=== PATIENT | male | born 1975 | race Caucasian/White ===

== ENCOUNTER 2019-02-06 16:23 | Outpatient (REF) | payer MEDICAID, SELFPAY ==
[2019-02-06 18:58] LABS: HCT 44.6 % (40.0-50.0); HGB 16.2 g/dL (13.5-17.5); Mean Corp. HGB Concentration 36.3 g/dL (32.0-36.0); Mean Corpuscular Hemoglobin 34.1 pg (27.0-33.0); Mean Corpuscular Volume 93.9 fL (80-95); Mean Platelet Volume 10.9 fL (8.0-11.0); Platelet Count 169 x1000/uL (130-400); RBC 4.75 m/cumm (4.50-6.00); RBC Distribution Width 11.5 % (11.8-14.1); White Blood Cell Count 5.66 k/cumm (4.4-10.8)
[2019-02-06 19:26] LABS: ALT 376 U/L (12-78); AST 305 U/L (15-37); Albumin 4.3 g/dL (3.4-5.0); Alkaline Phosphatase 63 U/L (46-116); Anion Gap 15.2 mmol/L (3-11); BUN 9 mg/dL (7-18); Bilirubin, Total 0.6 mg/dL (0.2-1.0); CO2 22.8 mmol/L (21.0-32.0); Calcium 9.3 mg/dL (8.5-10.1); Chloride 101 mmol/L (98-107); Glucose 82 mg/dL (70-100); Magnesium 1.8 mg/dL (1.8-2.4); Potassium 4.3 mmol/L (3.5-5.1); Sodium 139 mmol/L (136-145); Total Protein 7.9 g/dL (6.4-8.2); Vitamin B12 595 pg/mL (193-986)
== END 2019-02-06 16:43 ==
LOC: NCHCN 16:23
PROVIDERS: PCP Family Medicine; Visit Provider Family Medicine
DX: F10.20 Alcohol dependence, uncomplicated (principal); K70.10 Alcoholic hepatitis without ascites
CPT/HCPCS: 80053; 85027; 82607; 83735

== ENCOUNTER 2019-06-12 08:39 | Emergency (ER) | payer MEDICAID, SELFPAY ==
[2019-06-12 08:43] VITALS: BP 166/111; PULSE 111; RESP 18; TEMP 36.9; O2SAT 98
--- NOTE | 2019-06-12 08:48 | DI.RAD_ITS ---
EXAM: XR CHEST 2V PA LATERAL INDICATION: right sided chest/back pain. COMPARISON: XR LUMBAR SPINE COMPLETE from 06/12/2019 TECHNIQUE: 2D digital imaging was performed. FINDINGS: The heart size is normal. The lungs are clear. No pneumothorax, infiltrate or effusion is seen. Th ere is no compression fracture. IMPRESSION: Negative chest xray.
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
[2019-06-12] MEDS: Ibuprofen 600 MG TAB PO (08:56)
[2019-06-12] MEDS: Lidocaine 5% Patch 1 PATCH (08:56)
[2019-06-12 09:04] LABS: Bilirubin Negative (Negative); Blood Negative (Negative); Clarity Clear (Clear); Glucose Negative (Negative); Ketones Negative (Negative); Leukocyte Esterase Negative (Negative); Nitrite Negative (Negative); Urobilinogen 0.2 EU/dL (Up TO 0.2)
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
== END 2019-06-12 10:14 | disposition home or self-care (01) ==
PROVIDERS: Emergency Provider Emergency Medicine; PCP Family Medicine
DX: S20.221A Contusion of right back wall of thorax, initial encounter (principal); W50.0XXA Accidental hit or strike by another person, initial encounter
CPT/HCPCS: 99284; 71046; 72110; 81003; 99282

== ENCOUNTER 2019-07-08 12:45 | Emergency (ER) | payer MEDICAID, SELFPAY ==
[2019-07-08 12:54] VITALS: BP 159/97; PULSE 112; RESP 18; TEMP 37.2; O2SAT 97
[2019-07-08 13:02] VITALS: TEMP 37.4
--- NOTE | 2019-07-08 13:28 | ED.GENADUL_ITS ---
Discharge Plan Disposition Patient Disposition: HOME Condition: Stable Discharge Details Chief Complaint: Vascular Clinical Impression: Pain and swelling of left knee, Acute gout of knee, Cellulitis of foot, left Primary Care Provider: Radames Danielson ED Provider: Isabella Luu Home Meds and New Rx's Prescriptions: New prednisone 20 mg tablet See Rx Instructions .ROUTE .COMPLEX Qty: 12 RF: 0 cephalexin [Keflex] 500 mg capsule 500 mg PO QID Qty: 7 RF: 0 Continued amlodipine 5 MG tablet 10 mg PO DAILY RF: 0 ibuprofen [Advil] 200 mg Tablet 1,000 mg PO PRN PRNRF: 0 No Action omeprazole 20 mg Capsule,Delayed Release(Dr/Ec) 20 mg PO DAILY PRNRF: 0 Discharge Instructions Instructions: Gout (ED), Knee Pain (ED), Cellulitis (ED) Additional Instructions: Rest, ice and elevate your left knee as much as possible. Alternate tylenol and motrin as needed and directed for pain. Take the prednisone until finished. Call your primary care doctor's office tomorrow to schedule a follow up appointment within the next few days. Return to the emergency department with any worsening or new concerning symptoms such as fever, increased pain, redness or swelling. Discharge Data Discharge Date/Time-TO BE ENTERED AT DEPARTURE: 07/08/19 15:25 Discharge Physician: Isabella Luu Medical Decision Making 1310 -- 44-year-old male with a history of gout presents with left knee pain for the past 4 days. States he has had similar presentations with gout in the knee before which has been drained and injected with steroids, usually done by his PCP or Dr. Walker. Left anterior knee edematous and tender to palpation and pain with range of motion. No signs of septic arthritis. Neurovascularly intact. Discussed that we can obtain blood work and imaging prior to arthrocentesis but patient declined stating he only wants the arthrocentesis and steroid injection. 1345 -- Approximately 70 cc of turbid yellow fluid drained from knee. 40mg of kenalog injected into site of drainage. Pt tolerated procedure well. Patient also noted left lateral foot erythema while in the ED with 2 areas of r ed streaking extending from this. Patient states he has gotten gout and cellulitis in his foot before. Skin markings placed. We will also treat with antibiotics for early cellulitis. Patient had initially declined screening labs but is now agreeable. Patient has an allergy to colchicine and states he has mostly tolerated steroids in the past for his gout. A dose of prednisone and keflex given. 1500 -- Labs reviewed and note a normal white blood cell count, elevated CRP, normal uric acid. Fluid analysis notes monosodium urate crystals. White blood cell 11,000 so not consistent with a septic arthritis at this time. Patient states he feels good to go home. Was given a prescription for Keflex and prednisone. He was advised to rest, ice, elevate, call his PCP or Dr. Walker tomorrow for reevaluation this week. He was advised to return here immediately if he has any fever, worsening redness in his foot or any other concerns. Medical Records Medical records reviewed: Yes I reviewed the patient's medical records. Lab Data Lab results reviewed: Yes I reviewed the patient's lab results. Labs: 07/08/19 14:05 Synovial - Left Knee Body Fluid Culture - Pending 07/08/19 14:05 Synovial - Left Knee Gram Stain - Final Laboratory Tests Range/Units 07/08/19 07/08/19 07/08/19 14:05 14:05 14:25 WBC (4.4-10.8) k/cumm RBC (4.50-6.00) m/cumm Hgb (13.5-17.5) g/dL Hct (40.0-50.0) % MCV (80-95) fL MCH (27.0-33.0) pg MCHC (32.0-36.0) g/dL RDW (11.8-14.1) % Plt Count (130-400) x1000/uL MPV (8.0-11.0) fL Immature Gran % Neutrophils % Lymphocytes % Monocytes % Eosinophils % Basophils % Absolute Neutrophils (1.2-6.7) k/cumm Absolute Lymphocytes (1.2-3.4) k/cumm Absolute Monocytes (0.11-0.7) k/cumm Absolute Eosinophils (0.0-0.7) k/cumm Absolute Basophils (0.0-0.2) k/cumm Uric Acid (3.5-7.2) mg/dL 7.2 C-Reactive Protein (0.0-0.3) mg/dL 7.58 H Fluid Source L knee Fluid Color Yellow Fluid Clarity Cloudy Fluid WBC (0-0) /MM3 65571 H Fluid Mononuclear Cell (0-0) % 4 H Fl Polymorphonucl Cell (0-0) % 96 H Fluid Other Cells (0-0) 0 0 Fluid Crystals Fluid Crystal Source L knee Range/Units 07/08/19 14:25 WBC (4.4-10.8) k/cumm 8.52 RBC (4.50-6.00) m/cumm 4.28 L Hgb (13.5-17.5) g/dL 14.9 Hct (40.0-50.0) % 40.9 MCV (80-95) fL 95.6 H MCH (27.0-33.0) pg 34.8 H MCHC (32.0-36.0) g/dL 36.4 H RDW (11.8-14.1) % 11.8 Plt Count (130-400) x1000/uL 171 MPV (8.0-11.0) fL 10.6 Immature Gran % 0.1 Neutrophils % 67.6 Lymphocytes % 19.6 Monocytes % 11.3 Eosinophils % 0.9 Basophils % 0.5 Absolute Neutrophils (1.2-6.7) k/cumm 5.76 Absolute Lymphocytes (1.2-3.4) k/cumm 1.67 Absolute Monocytes (0.11-0.7) k/cumm 0.96 H Absolute Eosinophils (0.0-0.7) k/cumm 0.08 Absolute Basophils (0.0-0.2) k/cumm 0.04 Uric Acid (3.5-7.2) mg/dL C-Reactive Protein (0.0-0.3) mg/dL Fluid Source Fluid Color Fluid Clarity Fluid WBC (0-0) /MM3 Fluid Mononuclear Cell (0-0) % Fl Polymorphonucl Cell (0-0) % Fluid Other Cells (0-0) 0 Fluid Crystals Fluid Crystal Source HPI General Date/Time Provider Initiated Documentation: 07/08/19 12:47 . History of Present Illness 44 year old M presents to the emergency department with the chief complaint of L knee pain , with intensity rated at >10. Quality is described as aching and sharp, and is localized to the lower extremity (L knee). Patient extremity (to distal lower extremity ). Patient started experiencing this day(s) (4) and it has been constant. Movement worsens symptoms . Patient notes denies fever/chills and nausea/vomiting. Patient did receive the following treatments prior to arrival, NSAID (motrin at 4am ) Related Data Home Medications Medication Instructions Recorded Confirmed amlodipine 10 mg PO DAILY tab-cap 03/29/17 07/08/19 cephalexin [Keflex] 500 mg PO QID #7 cap 07/08/19 ibuprofen [Advil] 1,000 mg PO PRN PRN 07/08/19 07/08/19 omeprazole 20 mg PO DAILY PRN 07/08/19 07/08/19 prednisone See Rx Instructions .ROUTE 07/08/19 .COMPLEX #12 tab Previous Rx's Medication Instructions Recorded cephalexin [Keflex] 500 mg PO QID #7 cap 07/08/19 prednisone See Rx Instructions .ROUTE 07/08/19 .COMPLEX #12 tab Allergies Allergy/AdvReac Type Severity Reaction Status Date / Time colchicine AdvReac INTOLERANT Unverified 07/08/19 12:59 General Stated Complaint: Vascular LUCHO: 2 Review of Systems All systems reviewed & are unremarkable except as noted in HPI and below Constitutional Constitutional: Reports as per HPI, Denies chills and Denies fever(s) Eyes Eyes: Denies blurry vision ENT Ears, Nose, Mouth, and Throat: Denies dizziness, Denies sore throat and Denies throat swelling Cardiovascular Cardiovascular: Denies chest pain and Denies dyspnea Respiratory Respiratory: Denies cough and Denies dyspnea Gastrointestinal Gastrointestinal: Denies abdominal pain, Denies diarrhea and Denies vomiting Genitourinary Genitourinary: Denies hematuria and Denies dysuria Musculoskeletal Musculoskeletal: Denies back pain and Denies numbness Integumentary/Breasts Skin/Breast: Denies lesions and Denies rash Neurologic Neurologic: Denies dizziness, Denies focal weakness and Denies numbness Allergic/Immunologic Allergic/Immunologic: Denies throat swelling [facility] Medical History Alcohol abuse (Chronic) Gout (Chronic) HTN (hypertension) (Chronic) Surgical History History of arthroscopy of knee (Acute) History of back surgery (Acute) History of hand surgery (Acute) Family History Sister Depression BIPOLAR Social History Smoking/Tobacco Use Status: Never Alcohol Intake: current Alcohol Intake frequency: 3 or more drinks per day Drug use: Daily Substance use type: marijuana Do you feel safe in your relationship?: Yes Exam Const General: cooperative, healthy appearing and no acute distress HENMT Head: normal to inspection Mouth: oral mucosae normal Eyes General: appearance normal, both eyes and all related structures Neck Neck: normal visual inspection Resp Effort & Inspection: normal respiratory effort and able to speak in complete sentences Cardio Rate: regular rate Skin General skin exam: no rashes or lesions noted Neuro General: alert, awake and oriented x3 Motor: muscle tone normal throughout Extrem Elbow/forearm/wrist images: 1. Moderate amount of left anterior knee edema mainly suprapatellar. Significant tenderness palpation. No erythema noted. No drainage or bleeding noted. Limitation of motion due to pain. Ankle/foot/toe images: 1. A 2 x 2 centimeter area of erythema with 2 linear red streaks extending from superior aspect. No fluctuance, induration, drainage or bleeding. Area tender to touch. Other: Left DP/PT pulses intact. Psych Appearance: grossly normal Affect: normal affect Course Vital Signs Vital signs: Vital Signs Temperature 99 F 07/08/19 12:54 Pulse 112 H 07/08/19 12:54 Respiratory Rate 18 07/08/19 12:54 Blood Pressure 159/97 H 07/08/19 12:54 Pulse Oximetry 97 07/08/19 12:54 Temperature 99.3 F 07/08/19 13:02 Temperature Source Oral 07/08/19 13:02 Pulse 112 H 07/08/19 12:54 Respiratory Rate 18 07/08/19 12:54 Respiratory Effort 07/08/19 12:57 Blood Pressure 159/97 H 07/08/19 12:54 Blood Pressure Position Supine 07/08/19 12:54 Pulse Oximetry 97 07/08/19 12:54 Oxygen Delivery Method Room Air 07/08/19 12:54 Oxygen Flow Rate 0 07/08/19 12:54 Pain Level 10 07/08/19 12:54 Procedures Joint Aspiration/Injection Joint Asp./Inject. 1: Time Out Performed: Yes Side of body: left Joint Aspirated: knee Ultrasound Guidance: No Skin Prep: Povidone-Iodine1% Local Anesthetic: Lidocaine 2% and with Epi Amount of anesthesia used (mL): 10 Fluid Obtained: turbid Total fluid obtained (mL): 70 Medication Injected, if any: Triamcinolone Acetate Amount of Medication Injected (mls): 1 Patient Tolerated Procedure: well Complications: none
[2019-07-08] MEDS: oxyCODONE 5 MG TAB PO (13:39)
[2019-07-08] MEDS: Ketorolac 60 MG/2 ML VIAL IM (13:45)
[2019-07-08] MEDS: Triamcinolone 40 MG/ML VIAL IJ (14:00)
[2019-07-08] MEDS: predniSONE 20 MG TAB 60 MG PO (14:20)
[2019-07-08 14:45] LABS: C-Reactive Protein 7.58 mg/dL (0.0-0.3); Uric Acid 7.2 mg/dL (3.5-7.2)
[2019-07-08] MEDS: Cephalexin 500 MG CAP 1000 MG PO (14:47)
[2019-07-08 14:52] VITALS: BP 133/85; PULSE 82; RESP 15; TEMP 37.2; O2SAT 97
[2019-07-08 14:58] LABS: Clarity CLOUDY; Mononuclear Cells 4 % (0-0); Nucleated Cells 11655 /MM3 (0-0); Other Cells 0 0 (0-0); Polynuclear Cells 96 % (0-0); Source L KNEE
[2019-07-08] MEDS: Famotidine 20 MG TAB PO (14:59)
[2019-07-08 15:07] LABS: Absolute Basophil Count 0.04 k/cumm (0.0-0.2); Absolute Eosinophil Count 0.08 k/cumm (0.0-0.7); Absolute Lymphocyte Count 1.67 k/cumm (1.2-3.4); Absolute Monocyte Count 0.96 k/cumm (0.11-0.7); Absolute Neutrophil Count 5.76 k/cumm (1.2-6.7); Basophils % 0.5; Eosinophils % 0.9; HCT 40.9 % (40.0-50.0); HGB 14.9 g/dL (13.5-17.5); Lymphocytes % 19.6; Mean Corp. HGB Concentration 36.4 g/dL (32.0-36.0); Mean Corpuscular Hemoglobin 34.8 pg (27.0-33.0); Mean Corpuscular Volume 95.6 fL (80-95); Mean Platelet Volume 10.6 fL (8.0-11.0); Monocytes % 11.3; Neutrophils % 67.6; Platelet Count 171 x1000/uL (130-400); RBC 4.28 m/cumm (4.50-6.00); RBC Distribution Width 11.8 % (11.8-14.1); White Blood Cell Count 8.52 k/cumm (4.4-10.8)
[2019-07-08 15:08] LABS: Immature Grans % 0.1
[2019-07-08 15:28] VITALS: BP 133/85; PULSE 82; RESP 15; TEMP 37.2; O2SAT 97
--- NOTE | 2019-07-08 15:31 | NUR.NOTE ---
Nursing Note: 1450--c/o upset stomach--probably from prednisone--usually takes omeprozole when needed--Dr Luu notified---pepcid ordered.
[2019-07-08 15:38] LABS: ESR 38 mm/hr (0-15)
[2019-07-08 15:42] LABS: Abs Immature Grans 0.01 k/cumm (0.0-0.09)
== END 2019-07-08 15:25 | disposition home or self-care (01) ==
PROVIDERS: Emergency Provider Physician Assistant; PCP Family Medicine
DX: M25.462 Effusion, left knee (principal); M10.9 Gout, unspecified; L03.116 Cellulitis of left lower limb; I10 Essential (primary) hypertension
CPT/HCPCS: 20610; 36415; 85652; 96372; 99284; 84550; 85025; 86140; 87070; 87205; 89051; 89060; E0114; J1885; J7512

== ENCOUNTER 2019-10-23 10:42 | Outpatient (CLI) | payer MEDICAID, SELFPAY ==
--- NOTE | 2019-10-23 10:55 | DI.RAD_ITS ---
EXAM: XR HAND RT COMPLETE CLINICAL HISTORY: Pain in hand. TECHNIQUE: 2D digital imaging was performed. COMPARISON: No exams were available for comparison FINDINGS: BONES: No acute fracture is present. No bony destructive lesion is seen. There is a mild bowing def ormity of the 5th metacarpal consistent with an old healed fracture. JOINTS: No dislocation present. Are mild degenerative changes in the inter carpal and radial carpal r egions. SOFT TISSUE: Normal. IMPRESSION: Mild degenerative changes of the wrist. Old 5th metacarpal fracture.. DATA REPOSITORY: RADIATION DOSE DELIVERED:
== END 2019-10-23 11:02 ==
PROVIDERS: PCP Family Medicine; Visit Provider Student in an Organized Health Care Education/Training Program
DX: M79.641 Pain in right hand (principal); M19.031 Primary osteoarthritis, right wrist
CPT/HCPCS: 73130

== ENCOUNTER 2020-04-03 11:20 | Outpatient (CLI) | payer MEDICAID, SELFPAY ==
--- NOTE | 2020-04-03 12:42 | DI.RAD_ITS ---
EXAM: XR FOOT RT COMPLETE CLINICAL HISTORY: RT FOOT PAIN, M79.671. TECHNIQUE: 2D digital imaging was performed. COMPARISON: No exams were available for comparison FINDINGS: BONES: No acute fracture is present. No bony destructive lesion is seen. Degenerative changes at the 1st MTP joint and intertarsal joints. JOINTS: No dislocation present. SOFT TISSUE: Vascular calcifications. IMPRESSION: Degenerative changes. No acute abnormality.. DATA REPOSITORY: RADIATION DOSE DELIVERED:
== END 2020-04-03 11:40 ==
PROVIDERS: PCP Family Medicine; Visit Provider Family Medicine
DX: M19.071 Primary osteoarthritis, right ankle and foot (principal)
CPT/HCPCS: 73630

== ENCOUNTER 2020-04-03 12:42 | Outpatient (REF) | payer MEDICAID, SELFPAY ==
[2020-04-03 18:57] LABS: HCT 45.7 % (40.0-50.0); HGB 16.2 g/dL (13.5-17.5); MCH 34.5 pg (27.0-33.0); MCHC 35.4 % (32.0-36.0); MCV 97.2 fL (80-95); MPV 11.2 fL (8.0-11.0); Platelet Count 204 10^3/uL (130-400); RDW 11.8 % (11.8-14.1); RDW-SD 42.2 fL; WBC 9.17 10^3/uL (4.4-10.8)
[2020-04-03 19:26] LABS: ALT 68 U/L (16-63); AST 74 U/L (15-37); Albumin 4.4 g/dL (3.4-5.0); Alkaline Phosphatase 48 U/L (46-116); Anion Gap 13.6 mmol/L (3-11); BUN 8 mg/dL (7-18); Bilirubin, Total 1.1 mg/dL (0.2-1.0); CO2 24.4 mmol/L (21.0-32.0); CREATININE 1.26 mg/dL (0.70-1.30); Calcium 9.4 mg/dL (8.5-10.1); Chloride 100 mmol/L (98-107); Glucose 107 mg/dL (74-106); Magnesium 1.9 mg/dL (1.8-2.4); Potassium 3.7 mmol/L (3.5-5.1); Sodium 138 mmol/L (136-145); Total Protein 7.8 g/dL (6.4-8.2); Uric Acid 10.9 mg/dL (3.5-7.2)
[2020-04-03 20:04] LABS: Vitamin B12 425 pg/mL (193-986)
== END 2020-04-03 13:02 ==
LOC: NCHCN 12:42
PROVIDERS: PCP Family Medicine; Visit Provider Family Medicine
DX: K70.10 Alcoholic hepatitis without ascites (principal); I10 Essential (primary) hypertension; M10.9 Gout, unspecified
CPT/HCPCS: 80053; 85027; 82607; 83735; 84550

== ENCOUNTER 2020-04-30 19:05 | Outpatient (REF) | payer MEDICAID, SELFPAY ==
[2020-04-30 20:01] LABS: Lithium 0.93 mmol/L (0.60-1.20)
== END 2020-04-30 19:25 ==
LOC: NCHCN 19:05
PROVIDERS: PCP Family Medicine; Visit Provider Family Medicine
DX: F31.9 Bipolar disorder, unspecified (principal); Z51.81 Encounter for therapeutic drug level monitoring
CPT/HCPCS: 80178

== ENCOUNTER 2020-09-22 20:23 | Outpatient (REF) | payer MEDICAID, SELFPAY ==
[2020-09-22 16:03] LABS: HCT 41.3 % (40.0-50.0); HGB 14.5 g/dL (13.5-17.5); MCH 31.9 pg (27.0-33.0); MCHC 35.1 % (32.0-36.0); MPV 10.6 fL (8.0-11.0); Platelet Count 277 10^3/uL (130-400); RBC 4.54 10^6/uL (4.36-5.78); RDW 12.3 % (11.8-14.1); WBC 12.98 10^3/uL (4.4-10.8)
[2020-09-22 16:21] LABS: ALT 22 U/L (16-63); AST 12 U/L (15-37); Albumin 4.3 g/dL (3.4-5.0); Alkaline Phosphatase 41 U/L (46-116); Anion Gap 10.4 mmol/L (3-11); BUN 8 mg/dL (7-18); Bilirubin, Total 0.4 mg/dL (0.2-1.0); CO2 21.6 mmol/L (21.0-32.0); CREATININE 0.9 mg/dL (0.70-1.30); Calcium 9.2 mg/dL (8.5-10.1); Chloride 106 mmol/L (98-107); Glucose 74 mg/dL (74-106); Potassium 4.1 mmol/L (3.5-5.1); Sodium 138 mmol/L (136-145); Total Protein 7.5 g/dL (6.4-8.2)
[2020-09-22 16:29] LABS: Uric Acid 6.3 mg/dL (3.5-7.2)
== END 2020-09-22 20:24 | disposition home or self-care (01) ==
LOC: NCHCN 20:23
PROVIDERS: PCP Family Medicine; Visit Provider Family Medicine
DX: F31.9 Bipolar disorder, unspecified (principal); M10.9 Gout, unspecified; K70.10 Alcoholic hepatitis without ascites
CPT/HCPCS: 80053; 85027; 84443; 84550

== ENCOUNTER 2020-12-01 21:48 | Outpatient (REF) | payer MEDICAID, SELFPAY ==
[2020-12-01 16:53] LABS: Uric Acid 6.3 mg/dL (3.5-7.2)
[2020-12-01 17:26] LABS: Lithium 1.1 mmol/l (0.6-1.2)
== END 2020-12-01 21:49 | disposition home or self-care (01) ==
LOC: NCHCN 21:48
PROVIDERS: PCP Family Medicine; Visit Provider Family Medicine
DX: F31.9 Bipolar disorder, unspecified (principal); Z51.81 Encounter for therapeutic drug level monitoring; M10.9 Gout, unspecified
CPT/HCPCS: 80178; 84550

== ENCOUNTER 2021-06-02 01:42 | Outpatient (CLI) | payer MEDICAID, SELFPAY ==
[2021-06-02 10:03] LABS: Source Nasal/Nares
[2021-06-02 16:05] LABS: COVID-19 PCR Negative (Negative)
== END 2021-06-02 01:43 | disposition home or self-care (01) ==
LOC: LBO 01:42
PROVIDERS: PCP Family Medicine; Visit Provider Surgery
DX: Z20.822 Contact with and (suspected) exposure to COVID-19 (principal); Z01.818 Encounter for other preprocedural examination
CPT/HCPCS: 87635

== ENCOUNTER 2021-06-03 09:29 | Day surgery (SDC) | payer MEDICAID, SELFPAY ==
[2021-06-03] VITALS (8 sets, daily range): BP systolic 99–114; BP diastolic 59–83; PULSE 55–73; RESP 16–24; TEMP 36–36.4; O2SAT 100; BMI 26.5
--- NOTE | 2021-06-03 07:02 | ROE_ITS ---
Date of service: 06/03/21 Time of Service: 11:56 Operative Note Operative Note DATE OF PROCEDURE: 06/03/21 PRE-OP DIAGNOSIS: Umbilical hernia POST-OP DIAGNOSIS: same PROCEDURE: Umbilical hernia repair with mesh SURGEON: Rocio Ridley FUSELAGE FRAMER: Katelynn Vaughan ANESTHESIA TYPE: General LMA/ETT (Yoandy Ann CRNA) Refer to Anesthesia Record ESTIMATED BLOOD LOSS: 15 PATHOLOGY: none sent COMPLICATIONS: None Patient was transported to: PACU Patient's condition: stable Implants: Ventralex 6.5 cm: REF- [id number] LOT- [id number] EXP- Indications: Mr. Enrique is a 46-year-old gentleman with an umbilical hernia which is starting to bother him. 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 We discussed the procedure in detail as well as its complications. We reviewed a bilateral rectus block to help with pain control after surgery. Discharge pain medications Tylenol and ibuprofen were reviewed. Also discussed Covid testing prior to surgery. Risks, benefits and complications have been reviewed. Complications include but are not limited to bleeding, pain, infection, injury to underlying structures like bowel and adverse reaction to the medication. Questions were entertained and answered to their satisfaction and they wished to proceed. No guarantees were given or implied. Proceed with umbilical hernia repair with mesh We will ask anesthesia for bilateral rectus block to help with postoperative pain Findings: 2 cm hernia defect with omentum in it Procedure Description: After informed consent was obtained the patient was taken to the operating room and placed in a supine position. Monitors and SCDs were applied and a timeout was done. The patient's name, date of , procedure type, procedure site, allergies to medications, preoperative antibiotic, and DVT prophylaxis were all reviewed. Fire risk was assessed. Next the abdomen was prepped and draped in a sterile surgical fashion. 0.5% Bupivacaine mixed with Exparel was injected into the dermis just under the umbilicus. An incision was made with a 15 blade under the umbilicus. Dissection was done with cautery through the subcutaneous tissues and through the umbilical stalk down to the fascia. The hernia defect was identified and measured 2 cm. The hernia sac was opened and the peritoneum was swept for adhesions. No adhesions were noted. A 6.5 cm round mesh was then placed under the peritoneum and secured in 4 quarters with 2-0 Proline. Once the mesh was secured the tissues were irrigated with some normal saline. No bleeding was identified. The fascia was closed over the mesh with 0 vicryl running suture. 2-0 Vicryl was used to secure the umbilicus down to the fascia. The subcutaneous tissue was re-approximated with 2-0 vicryl. The dermis was re-approximated with a running 4-0 Vicryl. The skin was cleaned and dried and skin affix was applied. The patient was woken up and taken back to recovery in stable condition. There were no immediate complications. Sponge, instrument and needle counts were correct at the end of the case x2.
--- NOTE | 2021-06-03 07:04 | W.PM.DSUDISC ---
Discharge Plan Disposition Patient Disposition: HOME Condition: Good Discharge Details Reason For Visit: umbilical hernia repair Attending Provider: Rocio Ridley Primary Care Provider: Radames Danielson Home Meds and New Rx's Prescriptions: New oxycodone 5 mg tablet 5 mg PO Q6H PRNQty: 14 RF: 0 Continued amlodipine 5 MG tablet 10 mg PO DAILY RF: 0 colchicine 0.6 mg capsule 0.6 mg PO DAILY RF: 0 allopurinol 300 mg tablet 300 mg PO DAILY RF: 0 lithium carbonate 600 mg capsule 600 mg PO BID RF: 0 multivitamin Tablet 1 tab PO DAILY RF: 0 propranolol 10 mg tablet 10 mg PO TID PRNRF: 0 ibuprofen [Advil] 200 mg Tablet 1,000 mg PO PRN PRNRF: 0 omeprazole 20 mg Capsule,Delayed Release(Dr/Ec) 20 mg PO DAILY PRNRF: 0 Discharge Instructions Instructions: Ventral Hernia Repair (DC) Additional Instructions: Activity at Home after surgery: 1. Make sure you walk outside at least 4 times per day 2. You should be able to climb a flight of stairs 3. No driving while in pain or taking pain medications 4. No strenuous activity or heavy lifting for 4 weeks (open surgery) Diet, Nutrition, & wound healin. Avoid alcohol until after you are recovered from your surgery 2. Make sure to eat plenty of lean protein (meat, fish, eggs, cottage cheese, beans) 3. Eat a variety of fruits and vegetables. Eat plenty of high fiber foods to avoid constipation. 4. Drink plenty of liquids to stay hydrated and avoid constipation Pain Medications: 1. Tylenol 650mg every 6 hours as needed and Ibuprofen 600 mg every 6 hours as needed. You may alternate between the 2 medications every 3 hours 2. If a narcotic has been prescribed take as directed only for breakthrough pain For Constipation: 1. Take Milk of Magnesia or MiraLax as needed for constipation Other: 1. You may shower daily. Do not scrub the incisions 2. Do not soak the incisions for 1 week 3. You may alternate ice and heat as needed for pain and swelling Wound Care: 1. Keep the incisions clean and dry Please call our office if you develop: 1. Fevers >101.5 2. Nausea or Vomiting 3. Worsening pain 4. Redness and thick discharge from the wounds If after hours please call the Hospital at and ask to speak to the on-call surgeon Referrals: Rocio Ridley MD [ [facility] STAFF PHYSICIAN] - 06/16/21 Activity:: as above Remove Dressings/Wound Care:: 24 hours Shower/Bathe:: 24 hours Diet:: As Tolerated Discharge Orders Discharge Orders: Discharge Order (Routine); Ordered 06/03/21 Ordered By: Rocio Ridley
[2021-06-03] MEDS: Celecoxib 200 MG CAP PO (09:58)
[2021-06-03] MEDS: Acetaminophen 500 MG TAB 1000 MG PO (09:59)
[2021-06-03] MEDS: Lactated Ringers 1,000 ML 80 ML IV (10:09)
--- NOTE | 2021-06-03 10:22 | W.ANESPRE ---
General Info Date of Service Date Performed: 06/03/21 Height: 5 ft 9 in Weight: 81.6 kg Body Mass Index (BMI): 26.5 Surgical Procedure: Operation Date: 06/03/21 11:10 Proposed Procedures Side Surgeon p Herniorrhaphy Umbilical Rocio Ridley MD Meds Allergies and Home Medications Allergies Allergy/AdvReac Type Severity Reaction Status Date / Time colchicine AdvReac INTOLERANT Unverified 06/03/21 09:48 Home Medication Medication Instructions Recorded amlodipine 10 mg PO DAILY tab-cap 03/29/17 ibuprofen [Advil] 1,000 mg PO PRN PRN 07/08/19 omeprazole 20 mg PO DAILY PRN 07/08/19 allopurinol 300 mg tablet 300 mg PO DAILY 05/21/21 colchicine 0.6 mg capsule 0.6 mg PO DAILY 05/21/21 lithium carbonate 600 mg capsule 600 mg PO BID 05/21/21 multivitamin 1 tab PO DAILY 05/21/21 propranolol 10 mg tablet 10 mg PO TID PRN 05/29/21 Current Visit Medications: Current Medications Generic Name Dose Route Start Last Admin Trade Name Freq PRN Reason Stop Dose Admin Acetaminophen 1,000 mg 06/03/21 06:00 06/03/21 09:59 Acetaminophen 500 Mg Tab PO 06/03/21 23:59 1,000 mg PREOP HEATHER Administration Celecoxib 200 mg 06/03/21 06:00 06/03/21 09:58 Celecoxib 200 Mg Cap PO 06/03/21 23:59 200 mg PREOP HEATHER Administration Ringer's Solution 1,000 mls @ 80 mls/hr 06/03/21 06:00 06/03/21 10:09 IV 06/23/21 23:59 80 mls/hr INFUSION HEATHER Administration Cefazolin Sodium 2,000 mg/ 100 mls @ 200 mls/hr 06/03/21 06:00 Sodium Chloride IVPB 06/03/21 16:00 PREOP HEATHER Ondansetron HCl 4 mg/ Sodium 52 mls @ 200 mls/hr 06/03/21 07:04 Chloride IVPB Q6H PRN PRN IV Miscellaneous Supplies 1 each 06/03/21 06:00 Iv Access IV 06/23/21 23:59 DIRECTED HEATHER Sodium Chloride 0 ml 06/03/21 06:00 Normal Saline Flush 10 Ml Syr IV 06/23/21 23:59 PRN PRN Sodium Chloride 0 ml 06/03/21 06:00 Normal Saline 10 Ml Vial IJ 06/23/21 23:59 DIRECTED PRN Sterile Water 0 ml 06/03/21 06:00 Water,Injection,Sterile 10 Ml Vial IJ 06/23/21 23:59 DIRECTED PRN Tramadol HCl 50 mg 06/03/21 07:04 Tramadol 50 Mg Tab PO Q6H PRN PRN Pain PFSH Active Problems Active Problems: Problem Status Onset Code Skin nodule R22.9 Blood in stool K92.1 Umbilical hernia K42.9 Contusion of right hand, initial encounter ~10/09/19 S60.221A Medical History Medical History Alcohol abuse sober >1 year Alcoholic hepatitis Bipolar affective disorder Chewing tobacco use Degenerative joint disease (DJD) of lumbar spine Gout HTN (hypertension) 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 01/05 Seizure disorder No seizures since he stopped drinking Surgical History Surgical History History of arthroscopy of knee History of back surgery History of hand surgery Tobacco Smoking/Tobacco Use Status: Current every day Tobacco Type: smokeless tobacco Smokeless tobacco user: chewing tobacco Alcohol Alcohol Intake: former Year quit: 2019 Substance Use Substance use: Daily Substance use type: marijuana Details: last used 3 days ago.HE Vital Signs and Lab Results Vital Signs Most Recent Vital Signs in EMR: Most Recent Vital Signs Temp Pulse Resp BP Pulse Ox 36.0 C L 73 18 114/83 100 06/03/21 09:41 06/03/21 09:41 06/03/21 09:41 06/03/21 09:41 06/03/21 09:41 Lab Results Blood Type / Crossmatch: No Data to Display Complete Blood Count: No Data to Display Complete Metabolic Panel: No Data to Display Liver Function Panel: No Data to Display Coagulation Panel: No Data to Display Cardiac Panel: No Data to Display Arterial Blood Gas: No Data to Display Venous Blood Gas: No Data to Display Pancreas Panel: No Data to Display Thyroid Panel: No Data to Display Infectious Disease: Coronavirus (COVID-19)(PCR) Negative (Negative) 06/02/21 08:30 06/02/21 Coronavirus 2019 Source Nasal/Nares 06/02/21 08:30 06/02/21 Blood Cultures: No Data to Display Toxicology Panel: No Data to Display Anesthesia Assessment and Plan Anesthesia History Personal History: No History of Anesthesia Complications Family History: No Family History of Anesthesia Complications Exercise Tolerance Exercise Tolerance: Metabolic Equivalents>4 Pertinent Negatives Pertinent Negatives: No Symptoms of GERD, No Major Cardiovascular Symptoms or Complaints and No Major Pulmonary Symptoms or Complaints Cardiac & Pulmonary Exam Cardiac Exam: Normal S1/S2 Heart Sounds Pulmonary Exam: Clear Bilateral Breath Sounds Implantable Cardiac Device Does patient have a Pacemaker or an ICD?: No Airway Exam Known Difficult Airway: Yes Mallampati Class: 1 Mouth Opening: Normal (> 3cm) Thyromental Distance: Greater than 3 cm Neck Range of Motion: Full ROM Neck Circumference: Normal Teeth Condition: Normal Dentition Airway Comments: Upper left cracked tooth ASA Classification ASA Score: ASA 2 Emergency Case?: No NPO Status NPO Status: NPO Clears >2 hours, Solids >8 hours Anesthesia Plan Resuscitation Status: Full Code Anesthesia Technique: General Anesthesia Airway Planned: LMA Monitors Used: Standard Monitors
[2021-06-03] MEDS: ceFAZolin 2,000 MG in Normal Saline 100 ML 200 MG IVPB (11:14)
[2021-06-03] MEDS: Bupivacaine 0.25% Pres-Free 30 ML VIAL (11:54)
[2021-06-03] MEDS: traMADol 50 MG TAB PO (13:02)
--- NOTE | 2021-06-03 13:04 | W.ANESPOSTOP ---
Postoperative Evaluation Date, Time and Location Date Performed: 06/03/21 Time Performed: 13:04 Patient Location: Day Surgery Unit Vital Signs Most Recent Imported Vital Signs: Most Recent Vital Signs Temp Pulse Resp BP Pulse Ox 36.1 C L 55 L 19 109/63 100 06/03/21 12:35 06/03/21 12:35 06/03/21 12:35 06/03/21 12:35 06/03/21 12:35 Pain Score Most Recent Pain Score: Most Recent Pain Score Pain Level 0 06/03/21 12:35 Assessment Mental Status: Awake (Alert & Oriented to Patient Baseline) Airway and Respiratory Function: Patent airway with normal (patient baseline) respiratory exam Cardiovascular Function: Hemodynamically Stable Hydration Status: Adequately Hydrated Nausea & Vomiting: No Nausea or Vomiting Pain: Pt. Denies Any Pain Peripheral Nerve Block: Patient did not receive a nerve block
== END 2021-06-03 14:10 | disposition home or self-care (01) ==
LOC: SUR 09:29
PROVIDERS: PCP Family Medicine; Visit Provider Surgery
PROC: (CPT 49585; principal; 2021-06-03 11:00)
DX: K42.9 Umbilical hernia without obstruction or gangrene (principal); F31.9 Bipolar disorder, unspecified; M10.9 Gout, unspecified; F17.220 Nicotine dependence, chewing tobacco, uncomplicated; I10 Essential (primary) hypertension
CPT/HCPCS: 49585; C1781; J0131; J0690; J1100; J1885; J2001; J2250; J2405

== ENCOUNTER 2021-06-11 09:37 | Outpatient (REF) | payer MEDICAID, SELFPAY ==
[2021-06-11 16:30] LABS: HCT 42.9 % (40.0-50.0); HGB 14.7 g/dL (13.5-17.5); MCH 31.4 pg (27.0-33.0); MCHC 34.3 % (32.0-36.0); MCV 91.7 fL (80-95); Platelet Count 202 10^3/uL (130-400); RBC 4.68 10^6/uL (4.36-5.78); RDW 12.3 % (11.8-14.1); RDW-SD 40.6 fL; WBC 8.81 10^3/uL (4.4-10.8)
[2021-06-11 17:18] LABS: ALT 25 U/L (16-63); AST 19 U/L (15-37); Albumin 4.4 g/dL (3.4-5.0); Alkaline Phosphatase 54 U/L (46-116); Anion Gap 11.8 mmol/L (3-11); BUN 17 mg/dL (7-18); Bilirubin, Total 0.4 mg/dL (0.2-1.0); CO2 27.2 mmol/L (21.0-32.0); CREATININE 0.9 mg/dL (0.70-1.30); Calcium 9.6 mg/dL (8.5-10.1); Chloride 104 mmol/L (98-107); Glucose 117 mg/dL (74-106); Potassium 4.3 mmol/L (3.5-5.1); Sodium 143 mmol/L (136-145); TSH (W/Ref FT4) 3.59 uIU/mL (0.36-3.74); Total Protein 7.4 g/dL (6.4-8.2); Uric Acid 4.9 mg/dL (3.5-7.2)
[2021-06-11 17:31] LABS: Lithium 0.7 mmol/l (0.6-1.2)
== END 2021-06-11 09:38 | disposition home or self-care (01) ==
LOC: LBN 09:37
PROVIDERS: PCP Family Medicine; Visit Provider Family Medicine
DX: M10.9 Gout, unspecified (principal); F10.21 Alcohol dependence, in remission; F31.9 Bipolar disorder, unspecified; Z51.81 Encounter for therapeutic drug level monitoring; Z79.899 Other long term (current) drug therapy
CPT/HCPCS: 80053; 85027; 80178; 84443; 84550

== ENCOUNTER 2022-04-16 07:39 | Emergency (ER) | payer MEDICAID, SELFPAY ==
[2022-04-16 07:47] VITALS: BP 136/84; PULSE 70; RESP 20; TEMP 36.5; O2SAT 100
--- NOTE | 2022-04-16 08:31 | W.ED.GENAD ---
Discharge Plan Disposition Patient Disposition: HOME Condition: Stable Discharge Details Clinical Impression: Cellulitis Primary Care Provider: Radames Danielson ED Provider: Nkechi Raza Home Meds and New Rx's Prescriptions: New sulfamethoxazole-trimethoprim [Bactrim DS] 800-160 mg tablet 1 tab PO BID 7 Days Qty: 14 0RF Continued amlodipine 5 MG tablet 10 mg PO DAILY colchicine 0.6 mg capsule 0.6 mg PO DAILY allopurinol 300 mg tablet 300 mg PO DAILY lithium carbonate 600 mg capsule 600 mg PO BID multivitamin Tablet 1 tab PO DAILY propranolol 10 mg tablet 10 mg PO TID PRN ibuprofen [Advil] 200 mg Tablet 1,000 mg PO PRN PRN omeprazole 20 mg Capsule,Delayed Release(Dr/Ec) 20 mg PO DAILY PRN Discharge Instructions Instructions: Cellulitis (ED) Additional Instructions: warm compresses antibiotic as prescribed return with spreading redness, fever, worsening pain the antibiotic takes ~48 hours to become affective Referrals: Radames Danielson [Primary Care Provider] - Discharge Data Discharge Date/Time-TO BE ENTERED AT DEPARTURE: 04/16/22 09:43 Medical Decision Making Patient appears well, he has evidence of cellulitis, will cover him with Bactrim for MRSA possibility Alert and oriented afebrile and nontoxic Return precautions discussed 48-hour recheck recommended Medical Records Medical records reviewed: Yes I reviewed the patient's medical records. Lab Data Lab results reviewed: Yes I reviewed the patient's lab results. HPI General Date/Time Provider Initiated Documentation: 04/16/22 08:14. HPI Narrative: This 46-year-old gentleman presents with upper lip swelling after snorting cocaine. He states that he shared a strong with his nephew however has had recurrent MRSA infections past. This started approximately 3 days prior to arrival. He describes the pain as burning. He denies any pain to his sinuses or headache. He denies any vision change or fever. He denies any difficulty swallowing, chest pain, shortness of breath. Related Data Home Medications Medication Instructions Recorded Confirmed amlodipine 5 mg tablet 10 mg PO DAILY 03/29/17 06/23/21 ibuprofen 200 mg tablet (Advil) 1,000 mg PO PRN PRN 07/08/19 06/23/21 omeprazole 20 mg capsule,delayed 20 mg PO DAILY PRN 07/08/19 06/23/21 release allopurinol 300 mg tablet 300 mg PO DAILY 05/21/21 06/23/21 colchicine 0.6 mg capsule 0.6 mg PO DAILY 05/21/21 06/23/21 lithium carbonate 600 mg capsule 600 mg PO BID 05/21/21 06/23/21 multivitamin 1 tab PO DAILY 05/21/21 06/23/21 propranolol 10 mg tablet 10 mg PO TID PRN 05/29/21 06/23/21 sulfamethoxazole 800 1 tab PO BID 7 days #14 tabs 04/16/22 mg-trimethoprim 160 mg tablet (Bactrim DS) Previous Rx's Medication Instructions Recorded sulfamethoxazole 800 1 tab PO BID 7 days #14 tabs 04/16/22 mg-trimethoprim 160 mg tablet (Bactrim DS) Allergies Allergy/AdvReac Type Severity Reaction Status Date / Time colchicine AdvReac INTOLERANT Unverified 06/23/21 10:59 General Stated Complaint: Cellulitis LUCHO: 4 Review of Systems All systems reviewed & are unremarkable except as noted in HPI and below PFSH All Active Problems (Updated 04/16/22 @ 08:38 by ELKIN Carmona) Cellulitis (Acute) Skin nodule (Acute) Blood in stool (Acute) Umbilical hernia (Acute) Contusion of right hand, initial encounter (Acute ~10/09/19) Active Problem List Skin nodule (Acute) Blood in stool (Acute) Umbilical hernia (Acute) Contusion of right hand, initial encounter (Acute ~10/09/19) Medical History Alcohol abuse sober >1 year Alcoholic hepatitis Bipolar affective disorder Chewing tobacco use Degenerative joint disease (DJD) of lumbar spine Gout HTN (hypertension) 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 01/05 Seizure disorder No seizures since he stopped drinking Surgical History History of arthroscopy of knee History of back surgery History of hand surgery Family History Sister Depression BIPOLAR Social History Smoking/Tobacco Use Status: Current every day Tobacco Type: smokeless tobacco Smokeless tobacco user: chewing tobacco Smoking risk assessment performed?: Yes Alcohol Intake: former Year quit: 2019 Drug use: Daily Substance use type: marijuana Details: last used 3 days ago.HE Do you feel safe at home: Yes Do you feel safe in your relationship?: Yes Exam Const General: cooperative, comfortable and no acute distress Orientation: alert and oriented x3 [facility] Head images: 1. Erythema and swelling noted, no fluctuance or evidence of abscess, no crepitus Throat: posterior oropharynx normal and uvula midline Resp Effort & Inspection: normal respiratory effort Cardio Rate: regular rate Neuro General: patient alert and patient oriented x3 Course Vital Signs Vital signs: Vital Signs Temperature 36.5 C 04/16/22 07:47 Pulse 70 04/16/22 07:47 Respiratory Rate 20 04/16/22 07:47 Blood Pressure 136/84 04/16/22 07:47 Pulse Oximetry 100 04/16/22 07:47 Temperature 36.5 C 04/16/22 07:47 Temperature Source Temporal Artery Scan 04/16/22 07:47 Pulse 70 04/16/22 07:47 Respiratory Rate 20 04/16/22 07:47 Blood Pressure 136/84 04/16/22 07:47 Blood Pressure Position Sitting 04/16/22 07:47 Pulse Oximetry 100 04/16/22 07:47 Oxygen Delivery Method Room Air 04/16/22 07:47 Oxygen Flow Rate 0 04/16/22 07:47
== END 2022-04-16 09:43 | disposition home or self-care (01) ==
PROVIDERS: Emergency Provider Physician Assistant; PCP Family Medicine
DX: I10 Essential (primary) hypertension; F17.290 Nicotine dependence, other tobacco product, uncomplicated; L03.211 Cellulitis of face
CPT/HCPCS: 99283; 99284

== ENCOUNTER 2022-04-20 14:36 | Emergency (ER) | payer MEDICAID, SELFPAY ==
[2022-04-20 14:40] VITALS: BP 120/66; PULSE 62; RESP 18; TEMP 36.6; O2SAT 100
--- NOTE | 2022-04-20 14:58 | W.ED.GENAD ---
Discharge Plan Disposition Patient Disposition: HOME Condition: Stable Discharge Details Clinical Impression: Cellulitis Primary Care Provider: Radames Danielson ED Provider: Dustin Alvarez Home Meds and New Rx's Prescriptions: New clindamycin HCl 300 mg capsule 300 mg PO Q8H 10 Days Qty: 30 0RF Continued amlodipine 5 MG tablet 5 mg PO DAILY colchicine 0.6 mg capsule 0.6 mg PO DAILY allopurinol 300 mg tablet 600 mg PO DAILY lithium carbonate 600 mg capsule 600 mg PO BID multivitamin Tablet 1 tab PO DAILY propranolol 10 mg tablet 10 mg PO TID PRN ibuprofen [Advil] 200 mg Tablet 1,000 mg PO PRN PRN omeprazole 20 mg Capsule,Delayed Release(Dr/Ec) 20 mg PO DAILY PRN sulfamethoxazole-trimethoprim [Bactrim DS] 800-160 mg tablet 1 tab PO BID 7 Days Qty: 14 0RF Discharge Instructions Instructions: Cellulitis (ED) Additional Instructions: Continue taking the Bactrim and add on clindamycin as directed. Continue [id number] Tylenol and Motrin as directed for discomfort. Warm moist compresses every 2 hours for 20 minutes. Please watch for new or worsening symptoms and return to the ER for any concerns. Lastly, I do recommend that you contact your primary care provider to discuss your ongoing symptoms and need for outpatient reevaluation. Medical Decision Making This is a 46-year-old gentleman who reports that he developed right facial and nostril cellulitis a couple of days after snorting cocaine. He was seen in the ER and started on Bactrim, maybe the infection was slowing down but now feels as though it is worsening. He denies fever, foul taste in his mouth, drainage. Clinically he has some soft tissue swelling and cellulitis of his right upper lip and just inferior to his right nostril, there is an open sore in his nostril. There is no crusting or evidence of impetigo. Clinically he appears well, nontoxic, afebrile, no lymphadenopathy. While he does have mild swelling, there is no pointing abscess, fluctuance, etc. I see no clear indication to initiate I&D at this time especially in such a sensitive area on his face. Discussed my thought process and concerns. Plan is to initiate clindamycin therapy, we discussed the importance of warm compresses, and if symptoms are not improving over the next 36 hours or so, or in fact worsening, then I&D may be necessary. Standard discharge and return precautions were provided. Patient understands, is agreeable to this plan, and has no additional questions or concerns upon discharge. This documentation was generated using [employer] system, please disregard any oddities of phrase or misspellings. Medical Records Medical records reviewed: Yes I reviewed the patient's medical records. HPI General Mode of arrival: ambulatory. Date/Time Provider Initiated Documentation: 04/20/22 14:47. Limitations to Documentation: no limitations. Information obtained by: patient. History of Present Illness 46 year old M presents to the emergency department with the chief complaint of facial infection, described as moderate, with intensity rated at 7. Quality is described as aching, and is localized to the face. Patient reports no radiation. Patient started experiencing this day(s) (7) and it has been constant. No exacerbating factors reported . Patient notes no other symptoms.. Patient did receive the following treatments prior to arrival, other (Bactrim) Related Data Home Medications Medication Instructions Recorded Confirmed amlodipine 5 mg tablet 5 mg PO DAILY 03/29/17 04/20/22 ibuprofen 200 mg tablet (Advil) 1,000 mg PO PRN PRN 07/08/19 04/20/22 omeprazole 20 mg capsule,delayed 20 mg PO DAILY PRN 07/08/19 06/23/21 release allopurinol 300 mg tablet 600 mg PO DAILY 05/21/21 04/20/22 colchicine 0.6 mg capsule 0.6 mg PO DAILY 05/21/21 04/20/22 lithium carbonate 600 mg capsule 600 mg PO BID 05/21/21 04/20/22 multivitamin 1 tab PO DAILY 05/21/21 04/20/22 propranolol 10 mg tablet 10 mg PO TID PRN 05/29/21 06/23/21 sulfamethoxazole 800 1 tab PO BID 7 days #14 tabs 04/16/22 04/20/22 mg-trimethoprim 160 mg tablet (Bactrim DS) clindamycin HCl 300 mg capsule 300 mg PO Q8H 10 days #30 caps 04/20/22 Previous Rx's Medication Instructions Recorded sulfamethoxazole 800 1 tab PO BID 7 days #14 tabs 04/16/22 mg-trimethoprim 160 mg tablet (Bactrim DS) clindamycin HCl 300 mg capsule 300 mg PO Q8H 10 days #30 caps 04/20/22 Allergies Allergy/AdvReac Type Severity Reaction Status Date / Time colchicine AdvReac INTOLERANT Unverified 04/20/22 14:44 General Stated Complaint: Cellulitis LUCHO: 4 Review of Systems Constitutional Constitutional: Denies fever(s) and Denies headache(s) ENT Ears, Nose, Mouth, and Throat: Denies headache(s), Reports mouth pain, Denies neck pain and Reports nose pain Musculoskeletal Musculoskeletal: Denies neck pain Integumentary/Breasts Skin/Breast: Reports erythema Neurologic Neurologic: Denies headache(s) PFSH All Active Problems Cellulitis (Acute) Skin nodule (Acute) Blood in stool (Acute) Umbilical hernia (Acute) Contusion of right hand, initial encounter (Acute ~10/09/19) Medical History Alcohol abuse sober >1 year Alcoholic hepatitis Bipolar affective disorder Chewing tobacco use Degenerative joint disease (DJD) of lumbar spine Gout HTN (hypertension) 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 01/05 Seizure disorder No seizures since he stopped drinking Surgical History History of arthroscopy of knee History of back surgery History of hand surgery Family History Sister Depression BIPOLAR Social History Smoking/Tobacco Use Status: Current every day Tobacco Type: smokeless tobacco Smokeless tobacco user: chewing tobacco Smoking risk assessment performed?: Yes Alcohol Intake: former Year quit: 2019 Drug use: Daily Substance use type: marijuana Details: last used 3 days ago.HE Do you feel safe at home: Yes Do you feel safe in your relationship?: Yes Exam Const General: cooperative, healthy appearing, comfortable and no acute distress Orientation: alert and awake [facility] Head: normal to inspection, normocephalic and atraumatic Nose image: 1. Slightly tender abrasion-open sore. There is no scabbing. 2. Minimal swelling and tenderness. No erythema, warmth, fluctuance. Skin is intact Mouth: lip normal, tongue normal and moist mucous membranes Throat: posterior oropharynx normal Other: Just to the right of his upper lip frenulum there is minimal soft tissue swelling. No pointing abscess, drainage, fluctuation Eyes General: appearance normal, both eyes and all related structures Conjunctivae: conjunctivae normal Neck Neck: normal visual inspection, full ROM, no lymphadenopathy, no meningeal signs, trachea midline and supple Resp Effort & Inspection: normal respiratory effort and able to speak in complete sentences Skin General skin exam: no rashes or lesions noted Neuro General: patient alert, patient awake, moves all extremities and no focal motor deficits Cognition: normal cognition Speech: speech normal Gait: normal gait Sensory Exam: no sensory deficits noted Psych Appearance: grossly normal Mental Status: mental status grossly normal Course Vital Signs Vital signs: Vital Signs Temperature 36.6 C 04/20/22 14:40 Pulse 62 04/20/22 14:40 Respiratory Rate 18 04/20/22 14:40 Blood Pressure 120/66 04/20/22 14:40 Pulse Oximetry 100 04/20/22 14:40 Temperature 36.6 C 04/20/22 14:40 Temperature Source Oral 04/20/22 14:40 Pulse 62 04/20/22 14:40 Respiratory Rate 18 04/20/22 14:40 Respiratory Effort Non-Labored 04/20/22 14:47 Blood Pressure 120/66 04/20/22 14:40 Blood Pressure Position Sitting 04/20/22 14:40 Pulse Oximetry 100 04/20/22 14:40 Oxygen Delivery Method Room Air 04/20/22 14:40 Oxygen Flow Rate 0 04/20/22 14:40
== END 2022-04-20 15:28 | disposition home or self-care (01) ==
PROVIDERS: Emergency Provider Physician Assistant; PCP Family Medicine
DX: L03.211 Cellulitis of face (principal); I10 Essential (primary) hypertension; G40.909 Epilepsy, unspecified, not intractable, without status epilepticus; F17.220 Nicotine dependence, chewing tobacco, uncomplicated
CPT/HCPCS: 99283; 99284

== ENCOUNTER 2022-07-14 13:00 | Outpatient (REF) | payer MEDICAID, SELFPAY ==
[2022-07-14 15:12] LABS: HCT 40.9 % (40.0-50.0); HGB 14.2 g/dL (13.5-17.5); MCH 32.3 pg (27.0-33.0); MCHC 34.7 % (32.0-36.0); MCV 93 fL (80-95); MPV 10.5 fL (8.0-11.0); Platelet Count 225 10^3/uL (130-400); RDW 13.2 % (11.8-14.1); RDW-SD 44.8 fL; WBC 6.77 10^3/uL (4.4-10.8)
[2022-07-14 15:18] LABS: Lithium 1.2 mmol/l (0.6-1.2)
[2022-07-14 15:37] LABS: BUN 12 mg/dL (7-18); Calcium 9.2 mg/dL (8.5-10.1); Chloride 104 mmol/L (98-107); Estimated GFR 94.59 (mL/min/1.73m2); Glucose 98 mg/dL (74-106); Potassium 4.2 mmol/L (3.5-5.1); Sodium 140 mmol/L (136-145); TSH (W/Ref FT4) 1.28 uIU/mL (0.36-3.74)
[2022-07-14 15:51] LABS: Uric Acid 3.2 mg/dL (3.5-7.2)
== END 2022-07-14 13:01 | disposition home or self-care (01) ==
LOC: NCHCN 13:00
PROVIDERS: PCP Family Medicine; Visit Provider Family Medicine
DX: F31.89 Other bipolar disorder (principal); M10.9 Gout, unspecified; Z51.81 Encounter for therapeutic drug level monitoring; Z79.899 Other long term (current) drug therapy; I10 Essential (primary) hypertension
CPT/HCPCS: 80048; 85027; 80178; 84443; 84550

== ENCOUNTER 2023-01-04 12:48 | Outpatient (REF) | payer MEDICAID, SELFPAY ==
[2023-01-04 16:05] LABS: Absolute Basophil Count 0.01 10^3/uL (0.0-0.2); Absolute Eosinophil Count 0.19 10^3/uL (0.0-0.7); Absolute Lymphocyte Count 1.79 10^3/uL (1.2-3.4); Absolute Monocyte Count 0.76 10^3/uL (0.1-0.8); Basophils % 0.2; Eosinophils % 4.6; HCT 39.3 % (40.0-50.0); HGB 13.8 g/dL (13.5-17.5); Lymphocytes % 43.1; MCH 28.8 pg (27.0-33.0); MCHC 35.1 % (32.0-36.0); MCV 82 fL (80-95); MPV 10.7 fL (8.0-11.0); Monocytes % 18.3; Neutrophils % 33.8; Platelet Count 185 10^3/uL (130-400); RDW 12.8 % (11.8-14.1); RDW-SD 37.9 fL; WBC 4.15 10^3/uL (4.4-10.8)
[2023-01-04 16:21] LABS: ALT 40 U/L (16-63); AST 30 U/L (15-37); Albumin 4.1 g/dL (3.4-5.0); Alkaline Phosphatase 74 U/L (46-116); Anion Gap 8.2 mmol/L (3-11); BUN 12 mg/dL (7-18); Bilirubin, Total 0.7 mg/dL (0.2-1.0); CO2 27.8 mmol/L (21.0-32.0); CREATININE 0.8 mg/dL (0.70-1.30); Chloride 103 mmol/L (98-107); Estimated GFR 111.22 (mL/min/1.73m2); Glucose 107 mg/dL (74-106); Potassium 4.1 mmol/L (3.5-5.1); Sodium 139 mmol/L (136-145); Total Protein 6.9 g/dL (6.4-8.2); Uric Acid 8.7 mg/dL (3.5-7.2)
[2023-01-04 16:43] LABS: TSH (W/Ref FT4) < 0.01 uIU/mL (0.36-3.74)
[2023-01-04 16:54] LABS: Calculated LDL 78 mg/dL (<100); Cholesterol 145 mg/dL (<200); HDL Cholesterol 42 mg/dL (40-60); Triglyceride 125 mg/dL (<150)
[2023-01-04 17:12] LABS: Hemoglobin A1C 4.7 % (<5.7)
[2023-01-04 17:13] LABS: FREE T4 6.86 ng/dL (0.76-1.46)
[2023-01-04 22:33] LABS: PSA, Diagnostic 0.8 ng/mL (<=2.5)
[2023-01-05 10:08] LABS: Hepatitis B Surface Ag Negative (Negative)
[2023-01-05 11:00] LABS: HIV-1/2 Ag & Ab Screen Negative (Negative)
== END 2023-01-04 12:49 | disposition home or self-care (01) ==
LOC: NCHCN 12:48
PROVIDERS: PCP Family Medicine; Visit Provider Family Medicine
DX: R63.4 Abnormal weight loss (principal); M10.9 Gout, unspecified; Z00.00 Encounter for general adult medical examination without abnormal findings
CPT/HCPCS: 80053; 80061; 87340; 87389; 83036; 84153; 84439; 84443; 84550; 85025

== ENCOUNTER 2023-01-07 01:27 | Outpatient (CLI) | payer MEDICAID, SELFPAY ==
--- NOTE | 2023-01-07 | DI.RAD_ITS ---
Exam(s) XR SACRUM COCCYX EXAM: XR SACRUM COCCYX CLINICAL HISTORY: LOW BACK PAIN,DEEP SACRAL/COCCYX PAIN WITH SITTING,WT LOSS. TECHNIQUE: 2D digital imaging was performed. COMPARISON: No exams were available for comparison FINDINGS: 3 views No evidence of sacral fracture. No coccyx fracture seen. No osseous lesions in the sacrum. Sacroil iac joints appear unremarkable. Bone density normal. No osseous lesions identified. IMPRESSION: No significant osseous findings in the sacrum. DATA REPOSITORY: RADIATION DOSE DELIVERED:
== END 2023-01-07 01:47 ==
LOC: DI 01:27
PROVIDERS: PCP Family Medicine; Visit Provider Family Medicine
DX: M54.50 Low back pain, unspecified (principal)
CPT/HCPCS: 72220

== ENCOUNTER 2023-01-20 02:00 | Outpatient (CLI) | payer MEDICAID, SELFPAY ==
--- NOTE | 2023-01-20 12:00 | DI.NM_ITS ---
Exam(s) NM I123 THYROID UP SC DAY 2 CLINICAL HISTORY: HYPERTHYROIDISM, E05.90. COMPARISON: NM NM I123 THYROID UP SC DAY 1 from 01/19/2023 TECHNIQUE: Capsule Dose: 313 uCi I-123 Images: 4 hours FINDINGS: 4 hour uptake is 36 percent. Normal range is 6-18 percent. The total radioiodine uptake was 66 perc ent % at 24 hours. This is above the normal range of 10-35 percent. No cold or hot nodules are demonstrated. IMPRESSION: 1. Abnormally high radioiodine uptake. SNM Guidelines: Normal uptake values 10-35%. Graves Uptake >50-80%. DATA REPOSITORY:
== END 2023-01-20 02:20 ==
LOC: DI 02:00
PROVIDERS: PCP Family Medicine; Visit Provider Family Medicine
DX: E05.90 Thyrotoxicosis, unspecified without thyrotoxic crisis or storm (principal)
CPT/HCPCS: 78014; A9512

== ENCOUNTER 2023-01-21 01:50 | Outpatient (CLI) | payer MEDICAID, SELFPAY ==
[2023-01-21 20:10] LABS: Thyroglobulin Antibody 138 U/mL (<=60); Thyroperoxidase Antibody <28 U/mL (<=60)
== END 2023-01-21 01:51 | disposition home or self-care (01) ==
LOC: LBO 01:50
PROVIDERS: PCP Family Medicine; Visit Provider Surgery
DX: D64.9 Anemia, unspecified (principal); E05.90 Thyrotoxicosis, unspecified without thyrotoxic crisis or storm; G40.909 Epilepsy, unspecified, not intractable, without status epilepticus; I10 Essential (primary) hypertension; K70.10 Alcoholic hepatitis without ascites; M10.9 Gout, unspecified; M47.816 Spondylosis without myelopathy or radiculopathy, lumbar region; R94.6 Abnormal results of thyroid function studies; Z72.0 Tobacco use; Z83.49 Family history of other endocrine, nutritional and metabolic diseases
CPT/HCPCS: 36415; 86376; 86800

== ENCOUNTER 2023-06-01 15:35 | Emergency (ER) | payer MEDICAID, SELFPAY ==
[2023-06-01 15:37] VITALS: PULSE 100; RESP 20; TEMP 36.6; O2SAT 154
--- NOTE | 2023-06-01 16:05 | ED.GENADUL_ITS ---
Discharge Plan Disposition Patient Disposition: Home Condition: Stable Discharge Details Clinical Impression: Drug-induced pruritus Primary Care Provider: Radames Danielson ED Provider: Sophia Dillon Home Meds and New Rx's Prescriptions: New hydroxyzine pamoate [Vistaril] 25 mg capsule 25 mg PO Q6H PRNQty: 20 0RF Continued buprenorphine-naloxone [Suboxone] 4-1 mg film 1 film buccal BID Rx Instructions: place 1 strip/tab under (each) side of tongue propranolol 60 mg capsule,extended release 24 hr 60 mg PO DAILY nicotine (polacrilex) 4 mg gum 4 mg buccal Q2H PRN methimazole 10 mg tablet 10 mg PO Q8H prednisone 20 mg tablet 20 mg PO DIRECTED PRN multivitamin [Daily Multi-Vitamin] Tablet 1 tab PO DAILY ibuprofen [Advil] 200 mg Tablet 1,000 mg PO PRN PRN Discharge Instructions Instructions: Itchy Skin (ED) Additional Instructions: take medication as prescribed avoid illicit drug use as this is probably causing your symptoms. Referrals: Radames Danielson [Primary Care Provider] - (if vistaril not helping) Medical Decision Making Patient presents for general symptoms of pruritus. States he has been infected with scabies before and this is different. General does show areas where he has been picking. He seems restless and when asked about illicit drug use he admits to it. I do think that this is delusional infestation. Will trial a course of Atarax but should his symptoms continue he should see his primary care provider for consideration of treatment with antipsychotics. Medical Records Medical records reviewed: Yes I reviewed the patient's medical records. HPI General Mode of arrival: ambulatory . Date/Time Provider Initiated Documentation: 06/01/23 15:47 . Limitations to Documentation: no limitations . Information obtained by: patient . HPI Narrative: This is a 48-year-old male patient history of illicit drug abuse who presents to the emergency department with a 5-day history of pruritus. Does state he has had a history of scabies but denies any similar symptoms this time he states his symptoms are generalized. Denies any close contacts with similar symptoms but s tates he just traveled from [place]. He has had no fevers. Related Data Home Medications Medication Instructions Recorded Confirmed ibuprofen 200 mg tablet (Advil) 1,000 mg PO PRN PRN 07/08/19 01/23/23 propranolol 60 mg capsule,24 60 mg PO DAILY 01/18/23 01/23/23 hr,extended release buprenorphine 4 mg-naloxone 1 mg 1 film buccal BID 01/20/23 01/23/23 sublingual film (Suboxone) methimazole 10 mg tablet 10 mg PO Q8H 02/25/23 multivitamin (Daily Multi-Vitamin 1 tab PO DAILY 02/25/23 tablet) nicotine (polacrilex) 4 mg gum 4 mg buccal Q2H PRN 02/25/23 prednisone 20 mg tablet 20 mg PO DIRECTED PRN 02/25/23 hydroxyzine pamoate 25 mg capsule 25 mg PO Q6H PRN #20 caps 06/01/23 (Vistaril) Previous Rx's Medication Instructions Recorded hydroxyzine pamoate 25 mg capsule 25 mg PO Q6H PRN #20 caps 06/01/23 (Vistaril) Allergies Allergy/AdvReac Type Severity Reaction Status Date / Time colchicine AdvReac INTOLERANT Unverified 06/01/23 16:02 General Stated Complaint: GenMedical LUHCO: 4 Review of Systems All systems reviewed & are unremarkable except as noted in HPI and below PFSH All Active Problems (Updated 06/01/23 @ 16:08 by Sophia Dillon NP) Drug-induced pruritus (Acute) Family history of thyroid disease (Acute) Hyperthyroidism determined by thyroid function test (Acute) Unintentional weight loss (Acute) Dysphasia (Acute) Subcutaneous nodule of left foot (Acute) Hyperthyroidism (Chronic) Anemia (Chronic) Skin nodule (Acute) Blood in stool (Acute) Umbilical hernia (Acute) Contusion of right hand, initial encounter (Acute ~10/09/19) Medical History (Updated 06/01/23 @ 16:08 by Sophia Dillon NP) Anemia, mild Sensation of foreign body in throat Back pain 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 01/05 Chewing tobacco use Bipolar affective disorder Degenerative joint disease (DJD) of lumbar spine Seizure disorder No seizures since he stopped drinking Alcoholic hepatitis Alcohol abuse sober >1 year Gout HTN (hypertension) Surgical History History of hand surgery History of back surgery History of arthroscopy of knee Family History Sister Depression BIPOLAR Social History Smoking/Tobacco Use Status: Current every day Tobacco Type: smokeless tobacco Smokeless tobacco user: chewing tobacco Smoking risk assessment performed?: Yes Alcohol Intake: former Year quit: 2019 Drug use: Daily Substance use type: marijuana Details: last used 3 days ago.HE Do you feel safe at home: Yes Do you feel safe in your relationship?: Yes Exam Const General: intoxicated appearing Nutritional Appearance: thin Orientation: alert, awake and oriented x3 HENMT Head: normal to inspection and normocephalic Cardio Rate: regular rate Rhythm: regular rhythm Skin General skin exam: dry skin Lesions: lesion noted (scabs from picking, extremities, under finger nails belly button) Neuro General: patient alert, patient awake, patient oriented x3 and other (shaky) Course Vital Signs Vital signs: Vital Signs Temperature 36.6 C 06/01/23 15:37 Pulse 100 H 06/01/23 15:37 Respiratory Rate 20 06/01/23 15:37 Pulse Oximetry 154 H 06/01/23 15:37 Temperature 36.6 C 06/01/23 15:37 Temperature Source Oral 06/01/23 15:37 Pulse 100 H 06/01/23 15:37 Respiratory Rate 20 06/01/23 15:37 Blood Pressure Position Sitting 06/01/23 15:37 Pulse Oximetry 154 H 06/01/23 15:37 Oxygen Delivery Method Room Air 06/01/23 15:37 Oxygen Flow Rate 0 06/01/23 15:37 Pain Level 0 06/01/23 15:37
== END 2023-06-01 16:39 | disposition home or self-care (01) ==
PROVIDERS: Emergency Provider Nurse Practitioner Acute Care; PCP Family Medicine
DX: L29.8 Other pruritus (principal); F19.10 Other psychoactive substance abuse, uncomplicated
CPT/HCPCS: 99283

== ENCOUNTER 2023-07-01 21:52 | Outpatient (CLI) | payer MEDICAID, SELFPAY ==
[2023-07-01 17:08] LABS: FREE T4 1.91 ng/dL (0.76-1.46); TSH < 0.01 uIU/mL (0.36-3.74)
== END 2023-07-01 21:53 | disposition home or self-care (01) ==
LOC: LBO 21:53
PROVIDERS: PCP Family Medicine; Visit Provider Family Medicine
DX: E05.90 Thyrotoxicosis, unspecified without thyrotoxic crisis or storm (principal)
CPT/HCPCS: 36415; 84235; 84439; 84443; 84481

== ENCOUNTER 2023-08-22 15:53 | Outpatient (CLI) | payer MEDICAID, SELFPAY ==
[2023-08-22 16:49] LABS: FREE T4 1.54 ng/dL (0.76-1.46); TSH < 0.01 uIU/mL (0.36-3.74)
== END 2023-08-22 15:54 | disposition home or self-care (01) ==
LOC: LBO 15:54
PROVIDERS: PCP Family Medicine; Visit Provider Family Medicine
DX: E05.01 Thyrotoxicosis with diffuse goiter with thyrotoxic crisis or storm (principal)
CPT/HCPCS: 36415; 84439; 84443

== ENCOUNTER 2023-10-13 10:39 | Emergency (ER) | payer MEDICAID, SELFPAY ==
[2023-10-13 10:48] VITALS: BP 155/95; PULSE 80; RESP 15; TEMP 36.7; O2SAT 100
[2023-10-13 10:59] VITALS: RESP 16
--- NOTE | 2023-10-13 11:00 | RT.EKG_ITS ---
APPROVED REPORT Exam: Resting ECG Reason for Exam: left sided weakness Patient Location: E HR:69 bpm ECG Measurements Heart Rate 69 AXIS ID 171 P 50 QRSd 85 QRS 34 QT 399 T 62 QTc 427 Conclusion Sinus rhythm...normal P axis, V-rate 60- 99
--- NOTE | 2023-10-13 11:07 | ED.GENADUL_ITS ---
Discharge Plan Disposition Patient Disposition: Home Discharge Details Clinical Impression: Radial nerve palsy, Weakness of left arm Primary Care Provider: Radames Danielson ED Provider: David Burdick Home Meds and New Rx's Prescriptions: Continued propranolol 60 mg capsule,extended release 24 hr 60 mg PO DAILY nicotine (polacrilex) 4 mg gum 4 mg buccal Q2H PRN methimazole 10 mg tablet 10 mg PO Q8H multivitamin [Daily Multi-Vitamin] Tablet 1 tab PO DAILY Hold Instructions: Pt Stopped/Never Started ibuprofen [Advil] 200 mg Tablet 1,000 mg PO PRN PRN Discharge Instructions Additional Instructions: Your labs and imaging did not show concerning findings, he likely suffering from a peripheral nerve palsy. These usually improve over time. Follow-up with your primary care provider within 1 to 2 weeks If you feel more ill, have new symptoms such as difficulty walking or chest pain return to the emergency department for reevaluation HPI General Mode of arrival: ambulatory . Date/Time Provider Initiated Documentation: 10/13/23 10:44 . Limitations to Documentation: no limitations . Information obtained by: patient . History of Present Illness 48 year old M presents to the emergency department with the chief complaint of left arm weakness, described as moderate, Patient started experiencing this day(s) (2) and it has been constant. No relieving factors improve symptom(s), No exacerbating factors reported . Patient notes no other symptoms.; denies chest pain, fever/chills and shortness of breath. Related Data Home Medications Medication Instructions Recorded Confirmed ibuprofen 200 mg tablet (Advil) 1,000 mg PO PRN PRN 07/08/19 10/13/23 propranolol 60 mg capsule,24 60 mg PO DAILY 01/18/23 10/13/23 hr,extended release methimazole 10 mg tablet 10 mg PO Q8H 02/25/23 10/13/23 multivitamin (Daily Multi-Vitamin 1 tab PO DAILY 02/25/23 10/13/23 tablet) nicotine (polacrilex) 4 mg gum 4 mg buccal Q2H PRN 02/25/23 10/13/23 Allergies Allergy/AdvReac Type Severity Reaction Status Date / Time colchicine AdvReac INTOLERANT Unverified 10/13/23 10:53 General Stated Complaint: CVA/TIA LUCHO: 3 Review of Systems All systems reviewed & are unremarkable except as noted in HPI and below Constitutional Constitutional: Denies chills and Denies fever(s) Eyes Eyes: Denies loss of vision Cardiovascular Cardiovascular: Denies chest pain and Denies dyspnea Respiratory Respiratory: Denies cough and Denies dyspnea Gastrointestinal Gastrointestinal: Denies abdominal pain, Denies nausea and Denies vomiting Musculoskeletal Musculoskeletal: Denies joint swelling Neurologic Neurologic: Denies loss of vision Exam Const General: no acute distress Orientation: alert HENMT Head: normal to inspection Ears: external ears normal General nose exam: external nose normal Mouth: moist mucous membranes Eyes General: appearance normal, both eyes and all related structures Neck Neck: normal visual inspection Resp Effort & Inspection: normal respiratory effort and able to speak in complete sentences Auscultation: clear to auscultation bilaterally Cardio Rate: regular rate GI Palpation: soft and nontender Skin General skin exam: no rashes or lesions noted Neuro General: patient alert and patient oriented x3 Extrem General: normal to inspection Psych Mental Status: mental status grossly normal Course Vital Signs Vital signs: Vital Signs Temperature 36.7 C 10/13/23 10:48 Pulse 80 10/13/23 10:48 Respiratory Rate 15 10/13/23 10:48 Blood Pressure 155/95 H 10/13/23 10:48 Pulse Oximetry 100 10/13/23 10:48 Temperature 36.7 C 10/13/23 10:48 Temperature Source Tympanic 10/13/23 10:48 Pulse 80 10/13/23 10:48 Respiratory Rate 16 10/13/23 10:59 Respiratory Effort Normal 10/13/23 10:59 Respiratory Depth Normal 10/13/23 10:59 Respiratory Pattern Normal 10/13/23 10:59 Blood Pressure 155/95 H 10/13/23 10:48 Blood Pressure Position Sitting 10/13/23 10:48 Pulse Oximetry 100 10/13/23 10:48 Oxygen Delivery Method Room Air 10/13/23 10:48 Oxygen Flow Rate 0 10/13/23 10:48 Medical Decision Making 48-year-old male with a history of substance abuse, comes in with complaints of left arm weakness. He states this started 2 days ago when he woke up he had weakness in his left wrist that has persisted so finally came in today for an evaluation, denies any fevers, loss of vision, falls. States he still is able to walk normally. He denies any IV drugs, does smoke cocaine occasionally. 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 His NIH on arrival is 0. His main area of weakness is with extending at the wrist which he can't do and has decreased sensation on the dorsum of the hand, no swelling of the arm, intact pulses, inact strenth at the biceps and triceps. Suspect radial nerve palsy and less likely cva but will proceed with labs and CTA of the neck and brain given symptoms started 48 hours ago to exclude cva. pt stable, Imaging negative including CTA, still with deficits with extending at the wrist, suspect radial nerve palsy. Will place in a wrist splint and have him follow-up with his PCP return precautions given Differential Diagnosis Differential Diagnosis: CVA, TIA Medical Records Medical records reviewed: Yes I reviewed the patient's medical records. Imaging Data Radiologic Study: Attestation: I personally reviewed and interpreted this imaging study as follows: Imaging: CT Scan Radiologist's impression: IMPRESSION: 1. CTA brain: Normal CTA examination of the [place] of [place]. 2. Head CT: Unremarkable CT Head. 3. CTA neck: Minimal plaque at the common carotid bulbs. No significant stenosis. No evidence of dissection. Lab Data Lab results reviewed: Yes I reviewed the patient's lab results. ECG Data Attestation: I personally reviewed and interpreted this ECG (s) as follows: Prior ECG tracings: not available for review Interpretation: Sinus rhythm, rate of 69, OK 171, no STEMI Quality:SDOH Health Related Social Needs: No Data to Display PFSH All Active Problems (Updated 10/13/23 @ 13:03 by David Burdick MD) Weakness of left arm (Acute) Radial nerve palsy (Acute) Family history of thyroid disease (Acute) Hyperthyroidism determined by thyroid function test (Acute) Unintentional weight loss (Acute) Dysphasia (Acute) Subcutaneous nodule of left foot (Acute) Hyperthyroidism (Chronic) Anemia (Chronic) Skin nodule (Acute) Blood in stool (Acute) Umbilical hernia (Acute) Contusion of right hand, initial encounter (Acute ~10/09/19) Medical History (Updated 10/13/23 @ 13:03 by David Burdick MD) Anemia, mild Sensation of foreign body in throat Back pain 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 01/05 Chewing tobacco use Bipolar affective disorder Degenerative joint disease (DJD) of lumbar spine Seizure disorder No seizures since he stopped drinking Alcoholic hepatitis Alcohol abuse sober >1 year Gout HTN (hypertension) Surgical History History of hand surgery History of back surgery History of arthroscopy of knee Family History Sister Depression BIPOLAR Social History Smoking/Tobacco Use Status: Current every day Tobacco Type: smokeless tobacco Smokeless tobacco user: chewing tobacco Smoking risk assessment performed?: Yes Alcohol Intake: former Year quit: 2020 Drug use: Daily Substance use type: marijuana Details: last used 3 days ago.HE Housing: homeless Do you feel safe at home: Yes Do you feel safe in your relationship?: Yes
[2023-10-13] MEDS: Normal Saline - Diluent 50 ML VIAL IJ (11:35)
[2023-10-13] MEDS: Omnipaque 350 MG/ML 500 ML BTL-Imaging package 85 ML IJ (11:37)
--- NOTE | 2023-10-13 11:45 | DI.CT_ITS ---
Exam(s) CT BRAIN NECK CTA EXAM: CT BRAIN NECK CTA CLINICAL HISTORY: left sided weakness. TECHNIQUE: Imaging Protocol: Axial CT angiography was performed with multi-slice acquisition and mu lti-planar and MIP reconstructions. CONTRAST MATERIAL: Intravenous: Omnipaque 350 Contrast volume:100 ml COMPARISON: None FINDINGS: CT Head W/O and W contrast: Ventricles and Extra axial spaces: Normal in size and morphology for the patient's age. Hemorrhage: None. Cerebral parenchyma: No evidence of acute infarct or mass. Midline shift: None. Brainstem/Cerebellum: No acute findings.. Calvarium: Normal. Visualized Paranasal sinuses/Mastoids: Mucous retention cysts in the maxillary sinuses. Soft Tissues: Unremarkable. Enhancement: Normal. CTA Brain W: Internal Carotid Arteries: Petrous: Normal. Cavernous: Normal. Cerebral: Normal. Middle Cerebral Arteries: Right: No aneurysm, occlusion or significant stenosis. Left: No aneurysm, occlusion or significant stenosis. Anterior Cerebral Arteries: Right: No aneurysm, occlusion or significant stenosis. Left: No aneurysm, occlusion or significant stenosis. Posterior cerebral Arteries: Right: No aneurysm, occlusion or significant stenosis. Left: No aneurysm, occlusion or significant stenosis. Vertebral Arteries: Right: No aneurysm, occlusion or significant stenosis. Left: No aneurysm, occlusion or significant stenosis. Basilar Artery: No aneurysm, occlusion or significant stenosis. CTA Neck W: Common Carotid: Right: Minimal plaque at the bulb. No dissection, occlusion or significant stenosis. Left: Minimal plaque at the bulb. No dissection, occlusion or significant stenosis. External Carotid: Right: No dissection, occlusion or significant stenosis. Left: No dissection, occlusion or significant stenosis. Internal Carotid: Right: No dissection, occlusion or significant stenosis. Left: No dissection, occlusion or significant stenosis. Vertebral Artery: Right: No dissection, occlusion or significant stenosis. Left: No dissection, occlusion or significant stenosis. Lung Apices: Normal. Bones: No acute abnormality. Soft Tissues: Normal. IMPRESSION: 1. CTA brain: Normal CTA examination of the [place] of [place]. 2. Head CT: Unremarkable CT Head. 3. CTA neck: Minimal plaque at the common carotid bulbs. No significant stenosis. No evidence of di ssection. RADIATION DOSE DELIVERED: Total DLP DATA REPOSITORY: All CT scans at this facility are submitted to the National Radiology Data Registry (NRDR) Dose Index Registry (DIR) with the [employer] (A[employer]). RADIATION OPTIMIZATION: All CT scans at this facility use at least one of these dose optimization te chniques: automated exposure control; mA and/or kV adjustment per patient size (includes targeted exa ms where dose is matched to clinical indication); or iterative reconstruction.
[2023-10-13 11:56] LABS: Abs Immature Grans 0.02 10^3/uL (0.0-0.06); Absolute Basophil Count 0.03 10^3/uL (0.0-0.2); Absolute Eosinophil Count 0.13 10^3/uL (0.0-0.7); Absolute Lymphocyte Count 1.19 10^3/uL (1.2-3.4); Absolute Monocyte Count 0.23 10^3/uL (0.1-0.8); Absolute Neutrophil Count 3.66 10^3/uL (1.2-6.7); Basophils % 0.6; Eosinophils % 2.5; HGB 14.7 g/dL (13.5-17.5); Immature Grans % 0.4; Lymphocytes % 22.6; MCHC 35.9 % (32.0-36.0); MCV 89 fL (80-95); MPV 9.7 fL (8.0-11.0); Monocytes % 4.4; Neutrophils % 69.5; Platelet Count 184 10^3/uL (130-400); RDW 13.2 % (11.8-14.1); RDW-SD 42.5 fL; WBC 5.26 10^3/uL (4.4-10.8)
[2023-10-13 12:08] LABS: INR 1.1 (0.9-1.1); PTT Activated 24.5 sec (23.6-32.8); Prothrombin Time 10.7 sec (9.1-11.1)
[2023-10-13 12:20] LABS: ALT 18 U/L (16-63); AST 17 U/L (15-37); Albumin 3.9 g/dL (3.4-5.0); Alkaline Phosphatase 92 U/L (46-116); Anion Gap 11.1 mmol/L (3-11); BUN 8 mg/dL (7-18); Bilirubin, Total 0.5 mg/dL (0.2-1.0); CO2 25.9 mmol/L (21.0-32.0); CREATININE 0.7 mg/dL (0.70-1.30); Chloride 107 mmol/L (98-107); Estimated GFR 115.08 (mL/min/1.73m2); Glucose 110 mg/dL (74-106); Potassium 3.8 mmol/L (3.5-5.1); Sodium 144 mmol/L (136-145); Total Protein 7.4 g/dL (6.4-8.2)
[2023-10-13 12:25] LABS: Magnesium 1.8 mg/dL (1.8-2.4); Troponin I < 50 ng/L (< or =60)
== END 2023-10-13 13:32 | disposition home or self-care (01) ==
PROVIDERS: Emergency Provider Emergency Medicine; PCP Family Medicine
DX: G56.32 Lesion of radial nerve, left upper limb (principal); I10 Essential (primary) hypertension; F17.290 Nicotine dependence, other tobacco product, uncomplicated
CPT/HCPCS: 36415; 70496; 70498; 80053; 93005; 99285; 83735; 84484; 85025; 85610; 85730; 93010; 99284

== ENCOUNTER 2023-10-30 20:24 | Emergency (ER) | payer MEDICAID, SELFPAY ==
[2023-10-30 20:26] VITALS: BP 153/97; PULSE 83; RESP 18; TEMP 37.1; O2SAT 100
--- NOTE | 2023-10-30 20:49 | W.ED.GENAD ---
Discharge Plan Disposition Patient Disposition: Home Discharge Details Clinical Impression: Cellulitis, Skin nodule Primary Care Provider: Radames Danielson ED Provider: Faizan Cintron Home Meds and New Rx's Prescriptions: New sulfamethoxazole-trimethoprim [Bactrim DS] 800-160 mg tablet 1 tab PO BID Qty: 12 0RF cephalexin 500 mg tablet 500 mg PO QID 6 Days Qty: 24 0RF Continued propranolol 60 mg capsule,extended release 24 hr 60 mg PO DAILY nicotine (polacrilex) 4 mg gum 4 mg buccal Q2H PRN methimazole 10 mg tablet 10 mg PO Q8H multivitamin [Daily Multi-Vitamin] Tablet 1 tab PO DAILY Hold Instructions: Pt Stopped/Never Started ibuprofen [Advil] 200 mg Tablet 1,000 mg PO PRN PRN lamotrigine 25 mg tablet 75 mg PO DAILY Discharge Instructions Instructions: Cellulitis (ED) Additional Instructions: At this time you your symptoms are not consistent with a parasitic disease. Your skin findings are consistent with a skin infection and we have placed you on antibiotics to cover for that. Reviewing your history does note that the soft tissue of nodules have been present in the past and they are nonconcerning in appearance at this time. You should follow-up in regards to these nodules with your primary care provider Return to the emergency department immediately for any new or significant worsening of symptoms or follow-up with your primary care provider as well if not improving. Referrals: Radames Danielson [Primary Care Provider] - 5 days (If not improving) HPI General Mode of arrival: ambulatory. Date/Time Provider Initiated Documentation: 10/30/23 20:25. Limitations to Documentation: no limitations. Information obtained by: patient and RN notes reviewed. History of Present Illness 48 year old M presents to the emergency department with the chief complaint of Sensation of parasites, described as severe, Patient started experiencing this week(s) and it has been constant. No relieving factors improve symptom(s), No exacerbating factors reported . Patient did receive the following treatments prior to arrival, none Related Data Home Medications Medication Instructions Recorded Confirmed ibuprofen 200 mg tablet (Advil) 1,000 mg PO PRN PRN 07/08/19 10/30/23 propranolol 60 mg capsule,24 60 mg PO DAILY 01/18/23 10/30/23 hr,extended release methimazole 10 mg tablet 10 mg PO Q8H 02/25/23 10/30/23 multivitamin (Daily Multi-Vitamin 1 tab PO DAILY 02/25/23 10/30/23 tablet) nicotine (polacrilex) 4 mg gum 4 mg buccal Q2H PRN 02/25/23 10/30/23 cephalexin 500 mg tablet 500 mg PO QID 6 days #24 tabs 10/30/23 lamotrigine 25 mg tablet 75 mg PO DAILY 10/30/23 10/30/23 sulfamethoxazole 800 1 tab PO BID #12 tabs 10/30/23 mg-trimethoprim 160 mg tablet (Bactrim DS) Previous Rx's Medication Instructions Recorded cephalexin 500 mg tablet 500 mg PO QID 6 days #24 tabs 10/30/23 sulfamethoxazole 800 1 tab PO BID #12 tabs 10/30/23 mg-trimethoprim 160 mg tablet (Bactrim DS) Allergies Allergy/AdvReac Type Severity Reaction Status Date / Time colchicine AdvReac INTOLERANT Unverified 10/30/23 20:31 General Stated Complaint: GenMedical LUCHO: 4 Review of Systems Constitutional Constitutional: Denies chills, Denies fever(s), Denies headache(s) and Reports malaise ENT Ears, Nose, Mouth, and Throat: Denies headache(s) and Reports nasal congestion Cardiovascular Cardiovascular: Denies chest pain and Denies dyspnea Respiratory Respiratory: Denies dyspnea Integumentary/Breasts Skin/Breast: Reports as per HPI, Reports new lesions, Reports erythema and Reports skin swelling Neurologic Neurologic: Denies headache(s) Exam Const General: cooperative and anxious Nutritional Appearance: thin Orientation: alert and awake [facility] Head: normal to inspection, normocephalic and atraumatic Ears: hearing grossly normal bilaterally and TM's normal bilaterally General nose exam: external nose normal and other (Powdery substance just inside of naris) Face and sinus: no erythema Mouth: oral mucosae normal, no drooling, no muffled voice and no trismus Throat: posterior oropharynx normal Neck Neck: normal visual inspection, full ROM, no lymphadenopathy, no meningeal signs, trachea midline and supple Resp Effort & Inspection: normal respiratory effort and able to speak in complete sentences Auscultation: clear to auscultation bilaterally Cardio Rate: regular rate Rhythm: regular rhythm Heart Sounds: S1 normal and S2 normal GI Palpation: soft, not firm, no guarding, no masses, no pulsatile masses, not rigid and tender Auscultation: normal bowel sounds Skin General skin exam: other (Soft tissue nodules on abdomen) Lesions: lesion noted macule bilateral posterior leg Neuro General: patient alert, patient awake, patient oriented x3, gait normal and moves all extremities Speech: speech normal Psych Speech and Movement: agitated Mood: anxious mood Affect: elated Attitude: cooperative Course Vital Signs Vital signs: Vital Signs Temperature 37.1 C 10/30/23 20:26 Pulse 83 10/30/23 20:26 Respiratory Rate 18 10/30/23 20:26 Blood Pressure 153/97 H 10/30/23 20:26 Pulse Oximetry 100 10/30/23 20:26 Temperature 37.1 C 10/30/23 20:26 Temperature Source Oral 10/30/23 20:26 Pulse 83 10/30/23 20:26 Respiratory Rate 18 10/30/23 20:26 Respiratory Effort Normal, Non-Labored 10/30/23 20:29 Blood Pressure 153/97 H 10/30/23 20:26 Blood Pressure Position Sitting 10/30/23 20:26 Pulse Oximetry 100 10/30/23 20:26 Oxygen Delivery Method Room Air 10/30/23 20:26 Oxygen Flow Rate 0 10/30/23 20:26 Medical Decision Making Patient presenting to the emergency department for chief complaint of parasitic infection. Patient believes that he has systemic parasites throughout his body which has caused his arm numbness, he states he can see them move and is pulling them out, and requesting medication. Patient states that has been going on for a while but he just realized what they were. Patient has past medical history of polysubstance abuse, hypertension, back pain, bipolar. Physical exam shows soft tissue nodules on abdomen which does look like he has had diagnosis of soft tissue nodules in the past. These do not appear emergent erythematous or tender at this time so I do not feel that any further investigation of these is warranted, patient does have some open sores to the back of his legs which do have some surrounding erythema due to patient picking at these areas which I am concerned for some cellulitis. Given patient's polysubstance abuse there is concern for MRSA so we will plan to place patient on Keflex and Bactrim. Patient states that he feels that there is a parasite in his nose that he was trying to pull out. Upon investigation of the nose there is a white powdery substance noted but no foreign body can be observed with good visualization. I do have significant concern that some of patient's acute fixation is secondary to drug abuse. Patient adamantly denies that he has not done any drugs recently. Symptoms are not consistent with a parasitic infection but will cover for cellulitis. Otherwise I do feel that patient is able to be safely discharged, patient is not acutely toxic, stable vital signs and not at imminent risk of harm to himself. Will discharge patient with recommendation to follow-up with primary care provider or return for new or worsening symptoms. After discussion of diagnosis and plan of care patient has no further needs, questions, or concerns and states clear understanding to return to the emergency department for any worsening symptoms. This documentation was generated using [employer] system, please disregard any oddities of phrase or misspellings. Quality:SDOH Health Related Social Needs: No Data to Display PFSH All Active Problems Cellulitis (Acute) Weakness of left arm (Acute) Radial nerve palsy (Acute) Family history of thyroid disease (Acute) Hyperthyroidism determined by thyroid function test (Acute) Unintentional weight loss (Acute) Dysphasia (Acute) Subcutaneous nodule of left foot (Acute) Hyperthyroidism (Chronic) Anemia (Chronic) Skin nodule (Acute) Blood in stool (Acute) Umbilical hernia (Acute) Contusion of right hand, initial encounter (Acute ~10/09/19) Medical History Anemia, mild Sensation of foreign body in throat Back pain 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 01/05 Chewing tobacco use Bipolar affective disorder Degenerative joint disease (DJD) of lumbar spine Seizure disorder No seizures since he stopped drinking Alcoholic hepatitis Alcohol abuse sober >1 year Gout HTN (hypertension) Surgical History History of hand surgery History of back surgery History of arthroscopy of knee Family History Sister Depression BIPOLAR Social History (Reviewed 10/30/23 @ 22:44 by TAMELA Alba Smoking/Tobacco Use Status: Current every day Tobacco Type: smokeless tobacco Smokeless tobacco user: chewing tobacco Smoking risk assessment performed?: Yes Alcohol Intake: former Year quit: 2020 Drug use: Daily Substance use type: marijuana and crack/cocaine Details: last use 10/29/23, cocaine last use a few weeks ago. Housing: apartment Do you feel safe at home: Yes Do you feel safe in your relationship?: Yes
== END 2023-10-30 21:28 | disposition home or self-care (01) ==
PROVIDERS: Emergency Provider Nurse Practitioner Family; PCP Family Medicine
DX: I10 Essential (primary) hypertension; F19.10 Other psychoactive substance abuse, uncomplicated; F17.220 Nicotine dependence, chewing tobacco, uncomplicated; R22.2 Localized swelling, mass and lump, trunk
CPT/HCPCS: 99283; 99284

== ENCOUNTER → 2023-11-10 03:20 | Outpatient (CLI) | payer MEDICAID, SELFPAY ==
--- NOTE | 2023-11-10 | DI.MRI_ITS ---
Exam(s) MR CERVICAL SPINE WO/W EXAM: MR CERVICAL SPINE WO/W CLINICAL HISTORY: M54.2 Cervicalgia,2 wks pain a/w fvrs,? infection or mass,?nerve compressio TECHNIQUE: Multiplanar multisequence MRI of the cervical spine was performed. CONTRAST MATERIAL: IV Contrast: 15 ML of Dotarem contrast administered. COMPARISON: CT CT BRAIN NECK CTA from 10/13/2023 FINDINGS: BONES: Vertebral body heights are maintained. Intervertebral disc spaces are normal. Alignment is nor mal. Bone marrow signal intensity is within normal limits. CERVICAL CORD: Craniovertebral junction is unremarkable. The cervical cord is normal size and signal intensity. No lesion is present. SOFT TISSUES: Note is made of a mucous retention cyst in the right maxillary sinus. There is mucosal thickening in the maxillary sinuses bilaterally. ENHANCEMENT: No suspicious enhancement identified. No abnormal enhancement is seen to suggest discit is or abscess. No evidence of an enhancing mass is seen. C2-3: No disc herniation or bulge is identified. No significant central spinal canal or neural forami nal stenosis. C3-4: No disc herniation or bulge is identified. No significant central spinal canal or neural forami nal stenosis C4-5: No disc herniation or bulge is identified. No significant central spinal canal or neural forami nal stenosis C5-6: No disc herniation or bulge is identified. No significant central spinal canal or neural forami nal stenosis C6-7: No disc herniation or bulge is identified. No significant central spinal canal or neural forami nal stenosis C7-T1: No disc herniation or bulge is identified. No significant central spinal canal or neural faraz inal stenosis IMPRESSION: 1. No focal disc herniation, central spinal canal or neural foraminal stenosis is seen in the cervica l spine. 2. No mass or enhancing lesion is seen to suggest neoplasm, diskitis or abscess. DATA REPOSITORY:
[2023-11-10] MEDS: Gadoterate meglumine 20 ML SYRINGE IVP (15:09)
[2023-11-10] MEDS: Normal Saline Flush 10 ML SYR IJ (15:14)
== END ==
PROVIDERS: PCP Family Medicine; Visit Provider Family Medicine
DX: M54.2 Cervicalgia (principal)
CPT/HCPCS: 72156

== ENCOUNTER 2023-11-17 10:24 | Outpatient (REF) | payer MEDICAID, SELFPAY ==
[2023-11-17 21:27] LABS: C-Reactive Protein < 0.50 mg/dL (<or=0.5)
== END 2023-11-17 10:25 | disposition home or self-care (01) ==
LOC: NCHCN 10:24
PROVIDERS: PCP Student in an Organized Health Care Education/Training Program; Visit Provider Student in an Organized Health Care Education/Training Program
DX: M62.81 Muscle weakness (generalized) (principal)
CPT/HCPCS: 86140

== ENCOUNTER 2023-11-25 13:51 | Emergency (ER) | payer MEDICAID, SELFPAY ==
[2023-11-25 13:53] VITALS: BP 162/112; PULSE 129; RESP 20; TEMP 37.2; O2SAT 99
--- NOTE | 2023-11-25 15:04 | ED.GENADUL_ITS ---
Discharge Plan Disposition Patient Disposition: Home Condition: Fair Discharge Details Clinical Impression: Delusions of parasitosis Primary Care Provider: Blaine Villatoro ED Provider: Mj De La Cruz Home Meds and New Rx's Prescriptions: No Action propranolol 60 mg capsule,extended release 24 hr 60 mg PO DAILY nicotine (polacrilex) 4 mg gum 4 mg buccal Q2H PRN lamotrigine 25 mg tablet 100 mg PO DAILY duloxetine 30 mg capsule,delayed release(DR/EC) 30 mg PO DAILY Discharge Instructions Additional Instructions: You were seen for concern of continued infestation with worms. I do not see anything on exam today to suggest infestation. I do feel that providing a sputum sample and stool sample to the lab as per primary's request would be appropriate. If you continue to have concerns regarding the subcutaneous nodules that have been present may consider referral to surgery to biopsy one of these. As we discussed I do think this is related to substance abuse, specifically your cocaine use. You should strongly consider discontinuing drug use and consider following up with mental health. Please see primary care next week. Return to ED with concerns. Discharge Data Discharge Date/Time-TO BE ENTERED AT DEPARTURE: 11/25/23 15:41 HPI General Mode of arrival: ambulatory . Date/Time Provider Initiated Documentation: 11/25/23 15:04 . Limitations to Documentation: no limitations . Information obtained by: patient, RN notes reviewed and old records reviewed . HPI Narrative: Patient presenting to ED with concerns for infection with worms throughout his body. He reports that this has been an ongoing issue. He has been here and has seen primary care. He reports that whenever he coughs warms come up from his lungs. He reports having worms in his intestines and throughout his body and skin. He does have a history of substance abuse both alcohol and cocaine. Will not quantify how much of either that he uses. He is pretty anxious and animated at the time of interview. Has multiple pictures on his phone of what he is describing as evidence of worms. States that he saw a worm in his mouth and that it burrowed itself right into his gum. States he can pick worms out of his nose. He reports that his primary care wishes for him to provide a stool sample and sputum sample to the lab but he is just not had time to do so. Related Data Home Medications Medication Instructions Recorded Confirmed propranolol 60 mg capsule,24 60 mg PO DAILY 01/18/23 10/30/23 hr,extended release nicotine (polacrilex) 4 mg gum 4 mg buccal Q2H PRN 02/25/23 10/30/23 duloxetine 30 mg capsule,delayed 30 mg PO DAILY 11/22/23 release lamotrigine 25 mg tablet 100 mg PO DAILY 11/22/23 Allergies Allergy/AdvReac Type Severity Reaction Status Date / Time colchicine AdvReac INTOLERANT Unverified 10/30/23 20:31 General Stated Complaint: GenMedical LUCHO: 3 Review of Systems Unobtainable due to mental condition Exam Narrative Exam Narrative: Const: WDWN male quite anxious. VS per triage. HEENT: NC/AT. Normal facial exam. OP normal. Nose normal. Eyes: Normal conjunctiva and sclera. Neck: Supple. Trachea midline. Lungs: Normal respiratory effort. Neuro: A+O x 3. Normal speech, gait. Cranial nerves II - XII grossly intact. No sensory deficit. Wrist drop on the left. Ext: No C/C/E. Skin: Warm and dry with subcutaneous nodules in the subcutaneous abdominal area. Evidence of dematographia though it is delayed. Old healed lesions on each leg distally. Course Vital Signs Vital signs: Vital Signs Temperature 99 F 11/25/23 13:53 Pulse 129 H 11/25/23 13:53 Respiratory Rate 20 11/25/23 13:53 Blood Pressure 162/112 H 11/25/23 13:53 Pulse Oximetry 99 11/25/23 13:53 Temperature 99 F 11/25/23 13:53 Temperature Source Skin 11/25/23 13:53 Pulse 129 H 11/25/23 13:53 Respiratory Rate 20 11/25/23 13:53 Blood Pressure 162/112 H 11/25/23 13:53 Blood Pressure Position Sitting 11/25/23 13:53 Pulse Oximetry 99 11/25/23 13:53 Oxygen Delivery Method Room Air 11/25/23 13:53 Oxygen Flow Rate 0 11/25/23 13:53 Pain Level 8 11/25/23 13:53 Comment States it hurst everywhere 11/25/23 13:53 Medical Decision Making Patient presenting to ED with concern for worms throughout his body. Coughed up a sputum sample here but there was no warm present. Showed me multiple areas on his body that he felt were consistent with worms crawling in the subcutaneous tissue. He does have subcutaneous nodules. He did have some muscle fasciculations. He does have delayed dermatographia which causes histamine release and erythema. He does admit to cocaine use and has a history of alcohol abuse but will not answer as to how often he uses. Also appears to have a prior history of bipolar disorder. I did discuss with him the possibility that this was a phenomenon known as delusional parasitosis. He reports that he has been told this before. He disagrees and has no interest in following up with mental health. Definitely very anxious during interview and perseverating on his concern for being infected with worms. I did recommend that he provide stool and sputum sample to the lab per his primary care wishes. He could also potentially have surgery biopsy or remove one of these nodules but even if this was done and revealed no evidence of worms I am not convinced that he would be satisfied. I do think his best course of action would be to discontinue substance use and follow-up with mental health but I do not see this happening either. Patient left the ED abruptly after discussing all of the above with me. Medical Records Medical records reviewed: Yes I reviewed the patient's medical records. Medical records narrative: All records in our system available over the last 2 years. 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) Other specified symptoms and signs involving the circulatory and respiratory systems (Acute) Family history of thyroid disease (Acute) Unintentional weight loss (Acute) Dysphasia (Acute) Subcutaneous nodule of left foot (Acute) Hyperthyroidism (Chronic) Anemia (Chronic) Skin nodule (Acute) Blood in stool (Acute) Umbilical hernia (Acute) Contusion of right hand, initial encounter (Acute ~10/09/19) Medical History Hyperthyroidism determined by thyroid function test Seizure Disc disease, degenerative, lumbar or lumbosacral Chronic alcoholism Graves disease Back pain 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 01/05 Chewing tobacco use Bipolar affective disorder Degenerative joint disease (DJD) of lumbar spine Alcoholic hepatitis Alcohol abuse sober >1 year Gout HTN (hypertension) Surgical History H/O umbilical hernia repair 2020 H/O microdiscectomy L4-L5 2013 History of hand surgery History of back surgery History of arthroscopy of knee Family History (Updated 11/22/23 @ 09:24 by Sharmin Cook) Sister Depression BIPOLAR Mother Family history of hypercholesterolemia Father Family hx of lung cancer Social History Smoking/Tobacco Use Status: Current every day Tobacco Type: smokeless tobacco Smokeless tobacco user: chewing tobacco Smoking risk assessment performed?: Yes Alcohol Intake: former Year quit: 2020 Drug use: Daily Substance use type: marijuana and crack/cocaine Details: last use 10/29/23, cocaine last use a few weeks ago. Housing: apartment Do you feel safe at home: Yes Do you feel safe in your relationship?: Yes
--- NOTE | 2023-11-25 19:22 | NUR.NOTE ---
Patient ED visit note faxed to [facility] as patient presented to that ED after visiting [facility] for the same complaint.Nursing Note:
== END 2023-11-25 15:41 | disposition home or self-care (01) ==
PROVIDERS: Emergency Provider Emergency Medicine; PCP Student in an Organized Health Care Education/Training Program
DX: F22 Delusional disorders (principal); F17.220 Nicotine dependence, chewing tobacco, uncomplicated
CPT/HCPCS: 99283

== ENCOUNTER 2023-11-28 18:22 | Outpatient (CLI) | payer MEDICAID, SELFPAY ==
[2023-11-28 14:45] LABS: Abs Immature Grans 0.01 10^3/uL (0.0-0.06); Absolute Basophil Count 0.06 10^3/uL (0.0-0.2); Absolute Eosinophil Count 0.21 10^3/uL (0.0-0.7); Absolute Lymphocyte Count 3.18 10^3/uL (1.2-3.4); Absolute Monocyte Count 0.53 10^3/uL (0.1-0.8); Absolute Neutrophil Count 3.34 10^3/uL (1.2-6.7); Basophils % 0.8 %; Eosinophils % 2.9 %; HCT 40.8 % (40.0-50.0); HGB 14.9 g/dL (13.5-17.5); Immature Grans % 0.1 %; Lymphocytes % 43.4 %; MCH 32.5 pg (27.0-33.0); MCHC 36.5 % (32.0-36.0); MCV 89 fL (80-95); MPV 9.6 fL (8.0-11.0); Monocytes % 7.2 %; Neutrophils % 45.6 %; Platelet Count 197 10^3/uL (130-400); RBC 4.59 10^6/uL (4.36-5.78); RDW 13.7 % (11.8-14.1); RDW-SD 44.4 fL; WBC 7.33 10^3/uL (4.4-10.8)
[2023-11-28 15:28] LABS: ALT 18 U/L (16-63); AST 12 U/L (15-37); Albumin 4.3 g/dL (3.4-5.0); Alkaline Phosphatase 131 U/L (46-116); Anion Gap 11.3 mmol/L (3-11); BUN 22 mg/dL (7-18); Bilirubin, Total 0.6 mg/dL (0.2-1.0); CO2 25.7 mmol/L (21.0-32.0); CREATININE 1.1 mg/dL (0.70-1.30); Calcium 8.6 mg/dL (8.5-10.1); Chloride 106 mmol/L (98-107); Estimated GFR 83.84 (mL/min/1.73m2); FREE T4 0.73 ng/dL (0.76-1.46); Glucose 91 mg/dL (74-106); Potassium 4.1 mmol/L (3.5-5.1); Sodium 143 mmol/L (136-145); TSH 0.02 uIU/Ml (0.36-3.74); Total Protein 7.4 g/dL (6.4-8.2)
[2023-11-28 15:51] LABS: C-Reactive Protein < 0.50 mg/dL (<or=0.5)
[2023-11-28 23:00] LABS: T3,Free 3.6 pg/mL (2.8-5.3)
[2023-11-28 23:12] LABS: T3, Total 114 ng/dL (97-169)
[2023-11-30 10:21] LABS: Thyrotropin Receptor Ab 1.55 IU/L
== END 2023-11-28 18:23 | disposition home or self-care (01) ==
LOC: LBO 18:23
PROVIDERS: Family Medicine; PCP Student in an Organized Health Care Education/Training Program; Visit Provider Internal Medicine Endocrinology, Diabetes & Metabolism
DX: E05.00 Thyrotoxicosis with diffuse goiter without thyrotoxic crisis or storm (principal); H57.89 Other specified disorders of eye and adnexa
CPT/HCPCS: 36415; 80053; 84235; 84439; 84443; 84480; 84481; 85025; 86140

== ENCOUNTER 2023-11-28 21:32 | Outpatient (REF) | payer MEDICAID, SELFPAY | END 2023-11-28 21:33 | disposition home or self-care (01) | LOC: NCHCN 21:32 | PROVIDERS: PCP Student in an Organized Health Care Education/Training Program; Visit Provider Student in an Organized Health Care Education/Training Program | DX: E05.00 Thyrotoxicosis with diffuse goiter without thyrotoxic crisis or storm (principal); R41.82 Altered mental status, unspecified; R19.5 Other fecal abnormalities | CPT/HCPCS: 87177 ==

== ENCOUNTER 2023-11-28 23:50 | Emergency (ER) | payer MEDICAID, SELFPAY ==
[2023-11-28 23:54] VITALS: BP 178/102; PULSE 85; RESP 18; TEMP 36.7; O2SAT 100
[2023-11-29 00:17] VITALS: RESP 18
--- NOTE | 2023-11-29 00:41 | ED.GENADUL_ITS ---
Discharge Plan Disposition Patient Disposition: Eloped Discharge Details Chief Complaint: GenMedical Clinical Impression: Delusions of parasitosis Primary Care Provider: Blaine Villatoro ED Provider: Blaine Colvin Home Meds and New Rx's Prescriptions: No Action propranolol 60 mg capsule,extended release 24 hr 60 mg PO DAILY nicotine (polacrilex) 4 mg gum 4 mg buccal Q2H PRN lamotrigine 25 mg tablet 100 mg PO DAILY duloxetine 30 mg capsule,delayed release(DR/EC) 30 mg PO DAILY methimazole 10 mg tablet 50 mg PO DAILY Patient Comments: TAKE ONE TABLET BY MOUTH EVERY 8 HOURS HPI General Date/Time Provider Initiated Documentation: 11/28/23 23:51 . HPI Narrative: The patient is a 48-year-old male, with a past medical history significant for hypothyroidism, bipolar disorder, and intermittent crack cocaine misuse disorder, who returns to the emergency departments evening complaining of parasites all over his body, including his nose, eyes, and tunneling under his skin. Patient tells me that the symptoms began several weeks ago after smoking crack cocaine. He tells me that he has not had any crack cocaine for 3 days and continues to have symptoms. The patient was asked to drop off a stool sample with the hospital, which she tells me he complied with yesterday. He is worried that he is going to be eaten alive by these parasites under his skin. The patient tells me that he is having difficulty sleeping for the last 2 weeks because of the symptoms. Related Data Home Medications Medication Instructions Recorded Confirmed propranolol 60 mg capsule,24 60 mg PO DAILY 01/18/23 11/28/23 hr,extended release nicotine (polacrilex) 4 mg gum 4 mg buccal Q2H PRN 02/25/23 11/28/23 duloxetine 30 mg capsule,delayed 30 mg PO DAILY 11/22/23 11/28/23 release lamotrigine 25 mg tablet 100 mg PO DAILY 11/22/23 11/28/23 methimazole 10 mg tablet 50 mg PO DAILY 11/28/23 11/28/23 Allergies Allergy/AdvReac Type Severity Reaction Status Date / Time colchicine AdvReac INTOLERANT Unverified 11/28/23 23:58 General Stated Complaint: GenMedical LUCHO: 4 Exam Eyes General: appearance normal, both eyes and all related structures Visual Mckeon: normal visual mckeon by confrontation Alignment and Position: alignment normal Eyelids: eyelids normal Conjunctivae: conjunctivae normal Sclera: sclerae normal EOM: EOM intact bilaterally Direct ophthalmoscopy: normal light reflex, no papilledema, fundi normal bilaterally and anterior chamber abnormal Other: Ultrasound of the bilateral globes reveals no floaters or debris within the vitreous Skin Other: Nonspecific skin nodules of normal skin color on the bilateral olecranons Psych Speech and Movement: pressured speech Mood: anxious mood Affect: labile affect Thought Process: other (Delusional thinking) Course Vital Signs Vital signs: Vital Signs Temperature 36.7 C 11/28/23 23:54 Pulse 85 11/28/23 23:54 Respiratory Rate 18 11/28/23 23:54 Blood Pressure 178/102 H 11/28/23 23:54 Pulse Oximetry 100 11/28/23 23:54 Temperature 36.7 C 11/28/23 23:54 Temperature Source Temporal Artery Scan 11/28/23 23:54 Pulse 85 11/28/23 23:54 Respiratory Rate 18 11/29/23 00:17 Respiratory Effort Normal, Non-Labored 11/29/23 00:17 Respiratory Depth Normal 11/29/23 00:17 Respiratory Pattern Normal 11/29/23 00:17 Blood Pressure 178/102 H 11/28/23 23:54 Blood Pressure Position Sitting 11/28/23 23:54 Pulse Oximetry 100 11/28/23 23:54 Oxygen Delivery Method Room Air 11/28/23 23:54 Oxygen Flow Rate 0 11/28/23 23:54 Pain Level 8 11/28/23 23:54 Medical Decision Making The patient was seen and examined. He has a classic case of delusional parasitosis which is most likely related to some psychosis that has been kept off by his crack cocaine use. The patient is likely making this worse with sleep deprivation. He is clearly not well-regulated on his current lamotrigine for his bipolar disorder. I ultrasounded the areas that the patient was concerned about and showed him the images which did not reveal any parasites. I examined all of the body cavities that he requested which were the nose and the mouth and the ears, all which did not reveal any significant parasites. I offered the patient both Ativan and Seroquel to help alleviate his symptoms and provide sleep, but the patient declined. Shortly after our conversation, the patient eloped. 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) Other specified symptoms and signs involving the circulatory and respiratory systems (Acute) Family history of thyroid disease (Acute) Unintentional weight loss (Acute) Dysphasia (Acute) Subcutaneous nodule of left foot (Acute) Hyperthyroidism (Chronic) Anemia (Chronic) Skin nodule (Acute) Blood in stool (Acute) Umbilical hernia (Acute) Contusion of right hand, initial encounter (Acute ~10/09/19) Medical History Hyperthyroidism determined by thyroid function test Seizure Disc disease, degenerative, lumbar or lumbosacral Chronic alcoholism Graves disease Back pain 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 01/05 Chewing tobacco use Bipolar affective disorder Degenerative joint disease (DJD) of lumbar spine Alcoholic hepatitis Alcohol abuse sober >1 year Gout HTN (hypertension) Surgical History H/O umbilical hernia repair 2020 H/O microdiscectomy L4-L5 2013 History of hand surgery History of back surgery History of arthroscopy of knee Family History (Updated 11/22/23 @ 09:24 by Sharmin Ambrose) Sister Depression BIPOLAR Mother Family history of hypercholesterolemia Father Family hx of lung cancer Social History Smoking/Tobacco Use Status: Current every day Tobacco Type: smokeless tobacco Smokeless tobacco user: chewing tobacco Smoking risk assessment performed?: Yes Alcohol Intake: former Year quit: 2019 Drug use: Daily Substance use type: marijuana and crack/cocaine Details: marijuana last use 11/26/23, cocaine last use around 11/24/23. Housing: apartment Do you feel safe at home: Yes Do you feel safe in your relationship?: Yes
== END 2023-11-29 00:44 | disposition left against medical advice (07) ==
PROVIDERS: Emergency Provider Emergency Medicine Emergency Medical Services; PCP Student in an Organized Health Care Education/Training Program
DX: F22 Delusional disorders (principal); E03.9 Hypothyroidism, unspecified; F31.9 Bipolar disorder, unspecified; F14.90 Cocaine use, unspecified, uncomplicated; F17.220 Nicotine dependence, chewing tobacco, uncomplicated; Z53.29 Procedure and treatment not carried out because of patient's decision for other reasons
CPT/HCPCS: 99283

== ENCOUNTER 2023-11-29 18:44 | Emergency (ER) | payer MEDICAID, SELFPAY ==
[2023-11-29 18:48] VITALS: BP 171/101; PULSE 76; RESP 20; TEMP 36.7; O2SAT 99
--- NOTE | 2023-11-29 18:55 | W.ED.GENAD ---
Discharge Plan Disposition Patient Disposition: Home Condition: Stable Discharge Details Clinical Impression: Delusions of parasitosis Primary Care Provider: Blaine Villatoro ED Provider: Frankie Ludwig Home Meds and New Rx's Prescriptions: Continued propranolol 60 mg capsule,extended release 24 hr 60 mg PO DAILY nicotine (polacrilex) 4 mg gum 4 mg buccal Q2H PRN lamotrigine 25 mg tablet 100 mg PO DAILY duloxetine 30 mg capsule,delayed release(DR/EC) 30 mg PO DAILY methimazole 10 mg tablet 50 mg PO DAILY Patient Comments: TAKE ONE TABLET BY MOUTH EVERY 8 HOURS Discharge Instructions Additional Instructions: Patient left without paperwork after lengthy discussion, I counseled him for significant amount of time that is very unlikely he had any kind of parasitic infection with normal laboratory workup, no eosinophilia, I did reflex his TSH as he does have Graves' disease. I counseled him on following up with tropical medicine clinic at [facility] should he have further concerns but we would not be prescribing any antihelminth medications until his stool or sputum cultures resulted in a positive value, his chest x-ray was negative, the patient was perseverating on having ketones in his urine as a cause of this, he was perseverating on dirt stains on his right index finger being a tract of cutaneous larva migrans, none of his physical exam was consistent with parasitic infection, he has no exposures to livestock or tropical travel. Discharge Data Discharge Date/Time-TO BE ENTERED AT DEPARTURE: 11/29/23 21:22 HPI General Date/Time Provider Initiated Documentation: 11/29/23 18:53. HPI Narrative: 48 year-old male presents to ED today by POV/ambulating with his father with a chief complaint of states he had a parasite coming out of his nose, convinced he has parasitic infection, no recent travel. Quality described as feels them all over his body, no radiation to fever, productive cough, shortness of breath, severe headaches, slurred speech, visual changes, open lesions on body. Severity is described as unable to quantify. Palliating factors include nothing specific attempted. Provoking factors include nothing specific. Patient not anticoagulated. Related Data Home Medications Medication Instructions Recorded Confirmed propranolol 60 mg capsule,24 60 mg PO DAILY 01/18/23 11/29/23 hr,extended release nicotine (polacrilex) 4 mg gum 4 mg buccal Q2H PRN 02/25/23 11/29/23 duloxetine 30 mg capsule,delayed 30 mg PO DAILY 11/22/23 11/29/23 release lamotrigine 25 mg tablet 100 mg PO DAILY 11/22/23 11/29/23 methimazole 10 mg tablet 50 mg PO DAILY 11/28/23 11/29/23 Allergies Allergy/AdvReac Type Severity Reaction Status Date / Time colchicine AdvReac INTOLERANT Unverified 11/29/23 23:41 General Stated Complaint: GenMedical LUCHO: 4 Review of Systems All systems reviewed & are unremarkable except as noted in HPI and below Exam Narrative Exam Narrative: GENERAL APPEARANCE: Well-nourished, non-toxic, awake and alert, atraumatic, no acute distress. SKIN: Warm, pink, dry, intact, without rashes/lesions/ulcerations. HEAD: Normocephalic, atraumatic, normal hair distribution for gender/age. EYES: Pupils PERRLA, EOMs intact without nystagmus, normal conjunctiva, no exudates on lids/lashes, no parasites in conjunctiva ENT: Nares patent, no circumoral cyanosis, no facial swelling, no parasites or any abnormality of nasopharynx with nasoscope, NECK: Supple, trachea midline, painless cervical ROM. LUNGS/CHEST: Lungs CTA bilaterally- no rhonchi/rales/wheezes diffusely, non-labored respirations, normal A/P diameter, symmetrical expansion, no chest wall deformity HEART (CV/PV): Regular rate and rhythm without murmur, no peripheral edema, no JVD. ABDOMEN: Soft, non-distended, no guarding, nontender. MSK: Normal ROM, no swelling/deformity to bilateral UEs or LEs, moving all extremities without weakness, no cyanosis, spine midline without tenderness, normal curvature. NEURO: Mental Status AAOx4 - alert to person, place, time, events No facial droop, no forehead involvement. Motor: No focal weakness - strength 5/5 in bilateral UEs and LEs, proximal and distal, symmetric. Sensory: sensation intact to light touch globally. Gait normal: patient ambulated without ataxia into ED room. PSYCH: dysthymic, cooperative, unpleasant, appropriate speech Course Vital Signs Vital signs: Vital Signs Temperature 36.7 C 11/29/23 18:48 Pulse 76 05/07/24 18:48 Respiratory Rate 20 11/29/23 18:48 Blood Pressure 171/101 H 11/29/23 18:48 Pulse Oximetry 99 11/29/23 18:48 Temperature 36.7 C 11/29/23 18:48 Temperature Source Skin 11/29/23 18:48 Pulse 76 11/29/23 18:48 Respiratory Rate 20 11/29/23 18:48 Respiratory Effort Normal, Non-Labored 11/29/23 18:50 Blood Pressure 171/101 H 11/29/23 18:48 Blood Pressure Position Sitting 11/29/23 18:48 Pulse Oximetry 99 11/29/23 18:48 Oxygen Delivery Method Room Air 11/29/23 18:48 Oxygen Flow Rate 0 11/29/23 18:48 Pain Level 7 11/29/23 18:48 Medical Decision Making This dictation utilizes [id number] dictation software and may contain unedited grammatical errors. 48 y/o M presents to ED today with a chief complaint of states he has a parasitic infection- states they have been coming out of his skin, eyes, nose- states his father even saw the one from his nose. Does smoke crack cocaine, had sputum and stool cultures drawn at prior visits, states his chest is congested. Patient has been unable to capture any parasites to present to medical providers. Patients' medical history: Graves disease. Family and social history: crack cocaine use. Pertinent exam findings / vital signs include no cutaneous larval tracts at area of finger he points to- appears to be dirt and excoriated palmar skin, no parasites visualized on nasoscopic exam, no parasites in conjunctiva. Differential / pathologies of concern include delusions of parasitosis, parasitic infection. Diagnostic studies of: -CBC, CMP, CRP, UDS. -CBC without eonsinophilia -CMP benign, non-specific LFT mild elev -CRP neg -UDS pos for cocaine -prior visits stool and sputum cx's still pending Interventions of: -reassurance. significant time spent counseling against non-warranted anti helminth treatment due to side effects. ED Course/Assessment/Plan: 48-year-old male presents with his father with reports of all over his body he is pointing to areas of benign skin stating that there are a lot of all cutaneous tracts. This is not consistent with traditional parasitic illness, he had stool studies and sputum culture taken yesterday and is awaiting results. He has a poor understanding of health literacy. I stressed to him that he has no findings consistent with cystic lesions of parasitic infection on his chest x-ray, no eosinophilia, no evidence of significant laboratory evaluation to suspect severe infection or organ dysfunction. He is a known crack cocaine user, he is adamant that he had a warm poke out of his left nare today that his father also states he saw but that it disappeared just before arrival. I did certified substance abuse counselor him on trying to capture the specimen and a plastic bag, but that we would wait any stool studies and sputum culture to start albendazole due to significant side effects. I discussed his possibility to follow-up with [facility] travel medicine clinic, I stressed that he is an extremely low likelihood of having a true parasitic infection without any livestock or tropical travel history. Patient is anxious and is adamant in his belief of parasitic infection. Left without discharge paperwork. Disposition of Delusions of Parasitosis. Patient verbalized understanding of the plan and return to ED criteria and engaged in shared decision making. Medical Records Medical records reviewed: Yes I reviewed the patient's medical records. Imaging Data Radiologic Study: Attestation: I personally reviewed and interpreted this imaging study as follows: Imaging: X-Ray Radiologist's impression: Exam: XR Chest Exam date and time: 11/29/2023 7:42 PM Age: 48 years old Clinical indication: Cough TECHNIQUE: Imaging protocol: Radiologic exam of the chest. Views: 2 views. COMPARISON: CR XR CHEST 2V PA LATERAL 06/12/2019 9:09 AM FINDINGS: Lungs: Unremarkable. No consolidation. Pleural spaces: Unremarkable. No pleural effusion. No pneumothorax. Heart/Mediastinum: Unremarkable. No cardiomegaly. Bones/joints: Mild degenerative changes throughout the thoracic spine. No acute fracture. IMPRESSION: No acute abnormality Dictated and Authenticated by: Abdirahman Garcia MD. Ordering:ALEN David MD Lab Data Lab results reviewed: Yes I reviewed the patient's lab results. Labs: Laboratory Tests Range/Units 11/29/23 11/29/23 19:16 19:23 WBC (4.4-10.8) 10^3/uL 6.81 RBC (4.36-5.78) 10^6/uL 4.91 Hgb (13.5-17.5) g/dL 15.8 Hct (40.0-50.0) % 44.1 MCV (80-95) fL 90 MCH (27.0-33.0) pg 32.2 MCHC (32.0-36.0) % 35.8 RDW (11.8-14.1) % 13.4 Plt Count (130-400) 10^3/uL 236 MPV (8.0-11.0) fL 9.4 Immature Gran % % 0.3 Neutrophils % % 57.8 Lymphocytes % % 32.5 Monocytes % % 6.2 Eosinophils % % 2.3 Basophils % % 0.9 Nucleated RBC % (0.0-0.3) % 0.0 Absolute Neutrophils (1.2-6.7) 10^3/uL 3.94 Absolute Lymphocytes (1.2-3.4) 10^3/uL 2.21 Absolute Monocytes (0.1-0.8) 10^3/uL 0.42 Absolute Eosinophils (0.0-0.7) 10^3/uL 0.16 Absolute Basophils (0.0-0.2) 10^3/uL 0.06 Sodium (136-145) mmol/L 140 Potassium (3.5-5.1) mmol/L 4.3 Chloride (98-107) mmol/L 105 Carbon Dioxide (21.0-32.0) mmol/L 24.6 Anion Gap (3-11) mmol/L 10.4 BUN (7-18) mg/dL 18 Creatinine (0.70-1.30) mg/dL 0.8 Est GFR (CKD-EPI 2020) (mL/min/1.73m2) 110.53 Glucose (74-106) mg/dL 98 Calcium (8.5-10.1) mg/dL 9.1 Total Bilirubin (0.2-1.0) mg/dL 0.5 AST (15-37) U/L 12 L ALT (16-63) U/L 20 Alkaline Phosphatase (46-116) U/L 140 H C-Reactive Protein (<or=0.5) mg/dL < 0.50 Total Protein (6.4-8.2) g/dL 8.1 Albumin (3.4-5.0) g/dL 4.5 Urine Opiates Screen (Negative) Negative Urine Methadone Screen (Negative) Negative Ur Barbiturates Screen (Negative) Negative Ur Tricyclics Screen (Negative) Negative Ur Amphetamines Screen (Negative) Negative U Benzodiazepines Scrn (Negative) Negative Urine Cocaine Screen (Negative) Positive A Ur THC Screen (Negative) Positive A 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 (Acute) Other specified symptoms and signs involving the circulatory and respiratory systems (Acute) Family history of thyroid disease (Acute) Unintentional weight loss (Acute) Dysphasia (Acute) Subcutaneous nodule of left foot (Acute) Hyperthyroidism (Chronic) Anemia (Chronic) Skin nodule (Acute) Blood in stool (Acute) Umbilical hernia (Acute) Contusion of right hand, initial encounter (Acute ~10/09/19) Medical History Hyperthyroidism determined by thyroid function test Seizure Disc disease, degenerative, lumbar or lumbosacral Chronic alcoholism Graves disease Back pain 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 01/05 Chewing tobacco use Bipolar affective disorder Degenerative joint disease (DJD) of lumbar spine Alcoholic hepatitis Alcohol abuse sober >1 year Gout HTN (hypertension) Surgical History H/O umbilical hernia repair 2020 H/O microdiscectomy L4-L5 2013 History of hand surgery History of back surgery History of arthroscopy of knee Family History (Updated 11/22/23 @ 09:24 by Sharmin Ambrose) Sister Depression BIPOLAR Mother Family history of hypercholesterolemia Father Family hx of lung cancer Social History Smoking/Tobacco Use Status: Current every day Tobacco Type: smokeless tobacco Smokeless tobacco user: chewing tobacco Smoking risk assessment performed?: Yes Alcohol Intake: former Year quit: 2019 Drug use: Daily Substance use type: marijuana and crack/cocaine Details: marijuana last use 11/26/23, cocaine last use around 11/24/23. Housing: apartment Do you feel safe at home: Yes Do you feel safe in your relationship?: Yes
[2023-11-29 18:58] VITALS: BP 171/101; PULSE 76; RESP 20; TEMP 36.7; O2SAT 99
[2023-11-29 18:59] VITALS: TEMP 37.3
--- NOTE | 2023-11-29 19:00 | DI.RAD_ITS ---
Exam(s) XR CHEST 2V PA LATERAL EXAM: XR CHEST 2V PA LATERAL CLINICAL HISTORY: cough TECHNIQUE: 2D digital imaging was performed. Two views. COMPARISON: CR XR CHEST 2V PA LATERAL from 06/12/2019 FINDINGS: HEART: Normal size. Aorta: Not dilated. PULMONARY VASCULATURE: Normal. LUNGS: Clear. PLEURAL SPACE: No pleural effusion or pneumothorax. BONE:Unremarkable for age. Soft tissues: Unremarkable. IMPRESSION: No acute abnormality. DATA REPOSITORY: RADIATION DOSE DELIVERED:
[2023-11-29 19:29] LABS: Abs Immature Grans 0.02 10^3/uL (0.0-0.06); Absolute Basophil Count 0.06 10^3/uL (0.0-0.2); Absolute Eosinophil Count 0.16 10^3/uL (0.0-0.7); Absolute Lymphocyte Count 2.21 10^3/uL (1.2-3.4); Absolute Monocyte Count 0.42 10^3/uL (0.1-0.8); Absolute Neutrophil Count 3.94 10^3/uL (1.2-6.7); Basophils % 0.9 %; Eosinophils % 2.3 %; HCT 44.1 % (40.0-50.0); HGB 15.8 g/dL (13.5-17.5); Immature Grans % 0.3 %; Lymphocytes % 32.5 %; MCH 32.2 pg (27.0-33.0); MCHC 35.8 % (32.0-36.0); MCV 90 fL (80-95); MPV 9.4 fL (8.0-11.0); Monocytes % 6.2 %; Neutrophils % 57.8 %; Platelet Count 236 10^3/uL (130-400); RBC 4.91 10^6/uL (4.36-5.78); RDW 13.4 % (11.8-14.1); WBC 6.81 10^3/uL (4.4-10.8)
[2023-11-29 19:44] LABS: ALT 20 U/L (16-63); AST 12 U/L (15-37); Albumin 4.5 g/dL (3.4-5.0); Alkaline Phosphatase 140 U/L (46-116); Anion Gap 10.4 mmol/L (3-11); BUN 18 mg/dL (7-18); Bilirubin, Total 0.5 mg/dL (0.2-1.0); CO2 24.6 mmol/L (21.0-32.0); CREATININE 0.8 mg/dL (0.70-1.30); Calcium 9.1 mg/dL (8.5-10.1); Chloride 105 mmol/L (98-107); Estimated GFR 110.53 (mL/min/1.73m2); Glucose 98 mg/dL (74-106); Potassium 4.3 mmol/L (3.5-5.1); Sodium 140 mmol/L (136-145); Total Protein 8.1 g/dL (6.4-8.2)
[2023-11-29 19:45] LABS: C-Reactive Protein < 0.50 mg/dL (<or=0.5)
[2023-11-29 19:49] VITALS: BP 150/70
[2023-11-29 20:02] LABS: *AMPHETAMINES SCREEN URINE Negative (Negative); *BARBITURATES SCREEN URINE Negative (Negative); *BENZODIAZEPINES SCREEN URINE Negative (Negative); Cannabinoids THC Positive (Negative); Cocaine Screen,Urine Positive (Negative); METHADONE URINE SCREEN Negative (Negative); OPIATES URINE SCREEN Negative (Negative)
[2023-11-29 20:03] LABS: Tricyclic Antidepressants Negative (Negative)
--- NOTE | 2023-11-29 21:04 | DI.VRAD_ITS ---
PROCEDURE INFORMATION: Exam: XR Chest Exam date and time: 11/29/2023 7:42 PM Age: 48 years old Clinical indication: Cough TECHNIQUE: Imaging protocol: Radiologic exam of the chest. Views: 2 views. COMPARISON: CR XR CHEST 2V PA LATERAL 06/12/2019 9:09 AM FINDINGS: Lungs: Unremarkable. No consolidation. Pleural spaces: Unremarkable. No pleural effusion. No pneumothorax. Heart/Mediastinum: Unremarkable. No cardiomegaly. Bones/joints: Mild degenerative changes throughout the thoracic spine. No acute fracture. IMPRESSION: No acute abnormality Dictated and Authenticated by: Abdirahman Garcia MD. Ordering:ALEN David MD
[2023-12-01 10:08] LABS: Lyme Ab w Rflx to Lyme Confirm Negative (Negative)
[2023-12-03 00:08] LABS: Anaplasma phagocytophilum Negative (Negative); B. miyamotoi PCR Negative (Negative); Babesia divergens/MO-1 Negative (Negative); Babesia duncani Negative (Negative); Babesia microti Negative (Negative); Ehrlichia chaffeensis Negative (Negative); Ehrlichia ewingii/canis Negative (Negative); Ehrlichia muris eauclairensis Negative (Negative)
== END 2023-11-29 21:22 | disposition home or self-care (01) ==
PROVIDERS: Emergency Provider Physician Assistant; PCP Student in an Organized Health Care Education/Training Program
DX: F22 Delusional disorders (principal); R03.0 Elevated blood-pressure reading, without diagnosis of hypertension
CPT/HCPCS: 36415; 80053; 80307; 87798; 99283; 71046; 84443; 85025; 86140; 86618

== ENCOUNTER 2023-11-29 23:28 | Emergency (ER) | payer MEDICAID, SELFPAY ==
[2023-11-29 23:37] VITALS: BP 160/92; PULSE 92; RESP 18; TEMP 36.4
--- NOTE | 2023-11-30 00:03 | ED.GENADUL_ITS ---
Discharge Plan Disposition Patient Disposition: Home Condition: Good Discharge Details Chief Complaint: Recheck Clinical Impression: Delusions of parasitosis Primary Care Provider: Blaine Villatoro ED Provider: Bree Krishna Home Meds and New Rx's Prescriptions: No Action propranolol 60 mg capsule,extended release 24 hr 60 mg PO DAILY nicotine (polacrilex) 4 mg gum 4 mg buccal Q2H PRN lamotrigine 25 mg tablet 100 mg PO DAILY duloxetine 30 mg capsule,delayed release(DR/EC) 30 mg PO DAILY methimazole 10 mg tablet 50 mg PO DAILY Patient Comments: TAKE ONE TABLET BY MOUTH EVERY 8 HOURS HPI General Mode of arrival: ambulatory . Date/Time Provider Initiated Documentation: 11/29/23 23:29 . Limitations to Documentation: no limitations . Information obtained by: patient and old records reviewed . HPI Narrative: 48yo M presenting requesting medication for worms. 3rd ED visit in the last 24 hours; previous notes and workups reviewed. He reports that since ED discharge this evening he has noticed new skin crain on his legs and states that these are definitely worms. Also states that I felt them go up into my stomach. No nausea, vomiting, diarrhea, or abdominal pain. No fevers. He is otherwise in his usual state of health with no other changes since most recent ED visit. Related Data Home Medications Medication Instructions Recorded Confirmed propranolol 60 mg capsule,24 60 mg PO DAILY 01/18/23 11/29/23 hr,extended release nicotine (polacrilex) 4 mg gum 4 mg buccal Q2H PRN 02/25/23 11/29/23 duloxetine 30 mg capsule,delayed 30 mg PO DAILY 11/22/23 11/29/23 release lamotrigine 25 mg tablet 100 mg PO DAILY 11/22/23 11/29/23 methimazole 10 mg tablet 50 mg PO DAILY 11/28/23 11/29/23 Allergies Allergy/AdvReac Type Severity Reaction Status Date / Time colchicine AdvReac INTOLERANT Unverified 11/29/23 23:41 General Stated Complaint: Recheck LUCHO: 4 Review of Systems Narrative: see HPI Exam Narrative Exam Narrative: General: Alert, well appearing, well nourished, in no acute distress. Head: Normocephalic, atraumatic Neck: Trachea midline, ?Neck supple. Cardiac: ?No cyanosis. Well perfused. Resp: No respiratory distress. Speaking in full sentences. . Abd: ?Soft, non-distended, nontender Extremities: ?No deformities.? No peripheral edema. Neurologic: GCS 15. ? Moves all extremities freely against gravity Skin: Warm, dry. No rashes/lesions. Course Vital Signs Vital signs: Vital Signs Temperature 36.4 C L 11/29/23 23:37 Pulse 92 H 11/29/23 23:37 Respiratory Rate 18 11/29/23 23:37 Blood Pressure 160/92 H 11/29/23 23:37 Temperature 36.4 C L 11/29/23 23:37 Pulse 92 H 11/29/23 23:37 Respiratory Rate 18 11/29/23 23:37 Respiratory Effort Normal, Non-Labored 11/29/23 23:42 Blood Pressure 160/92 H 11/29/23 23:37 Blood Pressure Position Sitting 11/29/23 23:37 Oxygen Delivery Method Room Air 11/29/23 23:37 Oxygen Flow Rate 0 11/29/23 23:37 Pain Level 6 11/29/23 23:37 Medical Decision Making 48yo M presenting requesting medication for worms. 3rd ED visit in the last 24 hours; previous notes and workups reviewed. He reports that since ED discharge this evening he has noticed new skin crain on his legs and states that these are definitely worms. Also states that I felt them go up into my stomach. Benign physical exam, no abdominal tenderness, normal skin exam on the areas he indicates. ED visit notes from earlier today reviewed, prior workup reassuring including labs, US, and CXR (see documentation from prior visit for details). Would not repeat this workup again. I counseled Mr. Enrique that I do not see any indication of parasatic infection on his skin and that I would not prescribe anti-parasitic medications at this time, advised him to followup with his PCP regarding stool studies which are pending. Mr. Enrique remains firm in his belief that he has worms; declines to wait for discharge paperwork. Ambulated out of the department with a steady gait. Medical Records Medical records reviewed: Yes I reviewed the patient's medical records. 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 (Acute) Other specified symptoms and signs involving the circulatory and respiratory systems (Acute) Family history of thyroid disease (Acute) Unintentional weight loss (Acute) Dysphasia (Acute) Subcutaneous nodule of left foot (Acute) Hyperthyroidism (Chronic) Anemia (Chronic) Skin nodule (Acute) Blood in stool (Acute) Umbilical hernia (Acute) Contusion of right hand, initial encounter (Acute ~10/09/19) Medical History Hyperthyroidism determined by thyroid function test Seizure Disc disease, degenerative, lumbar or lumbosacral Chronic alcoholism Graves disease Back pain 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 01/05 Chewing tobacco use Bipolar affective disorder Degenerative joint disease (DJD) of lumbar spine Alcoholic hepatitis Alcohol abuse sober >1 year Gout HTN (hypertension) Surgical History H/O umbilical hernia repair 2020 H/O microdiscectomy L4-L5 2013 History of hand surgery History of back surgery History of arthroscopy of knee Family History (Updated 11/22/23 @ 09:24 by Sharmin Ambrose) Sister Depression BIPOLAR Mother Family history of hypercholesterolemia Father Family hx of lung cancer Social History Smoking/Tobacco Use Status: Current every day Tobacco Type: smokeless tobacco Smokeless tobacco user: chewing tobacco Smoking risk assessment performed?: Yes Alcohol Intake: former Year quit: 2019 Drug use: Daily Substance use type: marijuana and crack/cocaine Details: marijuana last use 11/26/23, cocaine last use around 11/24/23. Housing: apartment Do you feel safe at home: Yes Do you feel safe in your relationship?: Yes
== END 2023-11-29 23:57 | disposition home or self-care (01) ==
PROVIDERS: Emergency Provider Student in an Organized Health Care Education/Training Program; PCP Student in an Organized Health Care Education/Training Program
DX: F22 Delusional disorders (principal)
CPT/HCPCS: 99281; 99282

== ENCOUNTER 2024-04-06 21:49 | Outpatient (CLI) | payer MEDICAID, SELFPAY ==
[2024-04-06 17:26] LABS: FREE T4 0.64 ng/dL (0.76-1.46); TSH 1.16 uIU/Ml (0.36-3.74)
[2024-04-08 07:55] LABS: T3, Total 122 ng/dL (97-169)
[2024-04-10 13:58] LABS: Thyrotropin Receptor Ab <1.10 IU/L
[2024-04-26 19:39] LABS: Thyroid Stimulating Immunoglob 1.5 TSI index (<=1.3)
== END 2024-04-06 21:50 | disposition home or self-care (01) ==
LOC: LBO 04-08 21:50
PROVIDERS: PCP Student in an Organized Health Care Education/Training Program; Visit Provider Internal Medicine Endocrinology, Diabetes & Metabolism
DX: E05.00 Thyrotoxicosis with diffuse goiter without thyrotoxic crisis or storm (principal); H57.89 Other specified disorders of eye and adnexa
CPT/HCPCS: 36415; 84235; 84439; 84443; 84445; 84480

== ENCOUNTER 2024-05-08 11:03 | Emergency (ER) | payer MEDICAID, SELFPAY ==
[2024-05-08 11:06] VITALS: BP 166/95; PULSE 60; RESP 16; TEMP 36.8; O2SAT 99
--- NOTE | 2024-05-08 11:15 | ED.GENADUL_ITS ---
Discharge Plan Disposition Patient Disposition: Home Condition: Stable Discharge Details Clinical Impression: Trauma of ear canal Primary Care Provider: Blaine Villatoro ED Provider: Frankie Ludwig Home Meds and New Rx's Prescriptions: New ciprofloxacin-dexamethasone 0.3-0.1 % drops,suspension 4 drp otic (ear) BID 7 Days Qty: 7.5 0RF Continued propranolol 60 mg capsule,extended release 24 hr 60 mg PO DAILY nicotine (polacrilex) 4 mg gum 4 mg buccal Q2H PRN lamotrigine 25 mg tablet 300 mg PO DAILY methimazole 10 mg tablet 40 mg PO DAILY Patient Comments: TAKE ONE TABLET BY MOUTH EVERY 8 HOURS Discharge Instructions Instructions: Ciprofloxacin and Dexamethasone, Ear Pain ED Additional Instructions: You were seen in the emergency department for the abrasion of your ear canal with possible very small tympanic rupture, I am prescribing you eardrops to help prevent infection, this should heal without issue, it is expected to have some minor balance issues as well as hearing issues while this heals. Please return to the emergency department for severe increase in pain, worsening despite treatment, fever. Please use therapeutic dosing of Tylenol (acetamenophen) & Advil (ibuprofen) in an alternating fashion as follows: Take 1000mg of Tylenol every 6 hours without missing doses- that is 4 times per day. Assisted in between the Tylenol dosings, take 400-600mg of Advil also on a 6 hour schedule, that is also 4 times per day. The daily maximum dosing of Tylenol is 4000mg, and the daily maximum dosing of Advil is 2400mg. This is safe to do for weeks. Please note that some common cold medications & prescription pain medications may contain acetamenophen and you need to read OTC drug labels and factor that in to maximum daily dosings. Referrals: Blaine Villatoro [Primary Care Provider] - Discharge Data Discharge Date/Time-TO BE ENTERED AT DEPARTURE: 05/08/24 11:54 HPI General Date/Time Provider Initiated Documentation: 05/08/24 11:15 . 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 Quality described as bleeding in the ear, hearing difficulty, no radiation to fever, altered mentation, chest pain, shortness of breath. Severity is described as severe. Palliating factors include attempted Q-tip by his sister. Provoking factors include nothing specific, felt there was a worm in his ear. Patient not anticoagulated. Related Data Home Medications ?Medication ?Instructions ?Recorded ?Confirmed propranolol 60 mg capsule,24 60 mg PO DAILY 01/18/23 05/08/24 hr,extended release nicotine (polacrilex) 4 mg gum 4 mg buccal Q2H PRN 02/25/23 05/08/24 lamotrigine 25 mg tablet 300 mg PO DAILY 11/22/23 05/08/24 methimazole 10 mg tablet 40 mg PO DAILY 11/28/23 05/08/24 ciprofloxacin 0.3 %-dexamethasone 4 drp otic (ear) BID 7 days #7.5 mL 05/08/24 0.1 % ear drops,suspension Previous Rx's ?Medication ?Instructions ?Recorded ciprofloxacin 0.3 %-dexamethasone 4 drp otic (ear) BID 7 days #7.5 mL 05/08/24 0.1 % ear drops,suspension Allergies Allergy/AdvReac Type Severity Reaction Status Date / Time colchicine AdvReac INTOLERANT Verified 05/08/24 11:12 General Stated Complaint: EarProblem LUCHO: 4 Review of Systems All systems reviewed & are unremarkable except as noted in HPI and below Exam Narrative Exam Narrative: GENERAL APPEARANCE: Well-nourished, non-toxic, awake and alert, atraumatic, no acute distress. SKIN: Warm, pink, dry, intact, without rashes/lesions/ulcerations. HEAD: Normocephalic, atraumatic, normal hair distribution for gender/age. EYES: Normal conjunctiva, no exudates on lids/lashes. ENT: Nares patent, no circumoral cyanosis, no facial swelling, L TM has abrasion and scant clot in ear canal, small TM defect, R TM WNL, no mastoid bogginess bilaterally, no parasites within ear canal NECK: Supple, trachea midline, painless cervical ROM. LUNGS/CHEST: Non-labored respirations, normal A/P diameter, symmetrical expansion, no chest wall deformity HEART (CV/PV): No peripheral edema, no JVD. ABDOMEN: Soft, non-distended, no guarding. MSK: Normal ROM, no swelling/deformity to bilateral UEs or LEs, moving all extremities without weakness, no cyanosis, spine midline without tenderness, normal curvature. NEURO: Mental Status AAOx4 - alert to person, place, time, events No facial droop, no forehead involvement. Motor: No focal weakness - strength 5/5 in bilateral UEs and LEs, proximal and distal, symmetric. Sensory: sensation intact to light touch globally. Gait normal: patient ambulated without ataxia into ED room. PSYCH: dysthymic, cooperative, pleasant, appropriate speech Course Vital Signs Vital signs: Vital Signs Temperature 36.8 C 05/08/24 11:06 Pulse 60 05/08/24 11:06 Respiratory Rate 16 05/08/24 11:06 Blood Pressure 166/95 H 05/08/24 11:06 Pulse Oximetry 99 05/08/24 11:06 Temperature 36.8 C 05/08/24 11:06 Temperature Source Oral 05/08/24 11:06 Pulse 60 05/08/24 11:06 Respiratory Rate 16 05/08/24 11:06 Blood Pressure 166/95 H 05/08/24 11:06 Blood Pressure Position Sitting 05/08/24 11:06 Pulse Oximetry 99 05/08/24 11:06 Oxygen Delivery Method Room Air 05/08/24 11:06 Oxygen Flow Rate 0 05/08/24 11:06 Pain Level 8 05/08/24 11:06 Medical Decision Making This dictation utilizes [id number] dictation software and may contain unedit ed grammatical errors. 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 Quality described as bleeding in the ear, hearing difficulty, no radiation to fever, altered mentation, chest pain, shortness of breath. Severity is described as severe. Palliating factors include attempted Q-tip by his sister. Provoking factors include nothing specific, felt there was a worm in his ear. Patients' medical history: delusional parasitosis, seizure disorder, ETOHism, graves disease, bipolar disorder, HTN. Family and social history: noncontr ibutory. Pertinent exam findings / vital signs include scant blood clot in L ear canal from likely abrasive trauma from bystander Q-tip, small defect at 6 o'clock in L TM, hearing diminished- expected. Differential / pathologies of concern include TM perforation, ear canal trauma, unlikely AOM, unlikely parasitic infection. Diagnostic studies of: -none- removed scant clot with Q-tip and visualized TM, small perforation. Interventions of: -Ciprodex ear drops for TM perf/otitis externa prophylaxis. ED Course/Assessment/Plan: 49-year-old male presents with foreign body sensation of left ear, had a bystander perform Q-tip being on his ear likely causing an abrasion in the ear canal and significant bleeding, scant clot was removed from the canal in the process of examining the ear canal, there is a small defect in the left TM, I do not suspect any parasitic infection, the patient states he can feel with parasites going down into his neck, the patient has had extensive workup for t his in the past including and chest x-ray, check for eonsinophilia- had been recommended to pursue stool studies by PCP, there is no evidence of any cysts or larvae or parasitic infection found on the studies, I do recommend he follow-up with his PCP. Patient has poor understanding of parasitic life cycle in humans and the pathology that would present, but remains steadfast in his belief of parasitosis. Findings not consistent with parasitosis, acute otitis media, mastoiditis. Disposition of Trauma of Ear Canal. Patient verbalized understanding of the plan and return to ED criteria and e ngaged in shared decision making. Medical Records Medical records reviewed: Yes I reviewed the patient's medical records. Quality:[facility] Health Related Social Needs: No Data to Display PFSH All Active Problems (Updated 05/08/24 @ 11:39 by ELKIN Grove) Trauma of ear canal (Acute) Anemia, mild (Acute) Dysphagia (Acute) Left radial nerve palsy (Acute) Other specified symptoms and signs involving the circulatory and respiratory systems (Acute) Family history of thyroid disease (Acute) Unintentional weight loss (Acute) Dysphasia (Acute) Subcutaneous nodule of left foot (Acute) Hyperthyroidism (Chronic) Anemia (Chronic) Skin nodule (Acute) Blood in stool (Acute) Umbilical hernia (Acute) Contusion of right hand, initial encounter (Acute ~10/09/19) Medical History Hyperthyroidism determined by thyroid function test Seizure Disc disease, degenerative, lumbar or lumbosacral Chronic alcoholism Graves disease Back pain 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 01/05 Chewing tobacco use Bipolar affective disorder Degenerative joint disease (DJD) of lumbar spine Alcoholic hepatitis Alcohol abuse sober >1 year Gout HTN (hypertension) Surgical History H/O umbilical hernia repair 2020 H/O microdiscectomy L4-L5 2013 History of hand surgery History of back surgery History of arthroscopy of knee Family History (Updated 11/22/23 @ 09:24 by Sharmin Ambrose) Sister Depression BIPOLAR Mother Family history of hypercholesterolemia Father Family hx of lung cancer Social History Smoking/Tobacco Use Status: Current every day Tobacco Type: smokeless tobacco Smokeless tobacco user: chewing tobacco Smoking risk assessment performed?: Yes Alcohol Intake: former Year quit: 2019 Drug use: Daily Substance use type: marijuana and crack/cocaine Details: marijuana last use 11/26/23, cocaine last use around 11/24/23. Housing: apartment Do you feel safe at home: Yes Do you feel safe in your relationship?: Yes
[2024-05-08 11:46] VITALS: BP 166/95; PULSE 60; RESP 16; TEMP 36.8; O2SAT 99
--- OUTSIDE RECORDS SUMMARY | 2024-05-08 11:51 | XMS_ITS | Encounter Summary ---
Author Organization [facility] Address 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 Name Role Phone Luis Hadley DO Primary Care Provider Reason for Referral * Diagnostic Test (Routine) - Closed Specialty Diagnoses / Procedures Referred By Contwan benson Referred To Contact Radiology Diagnoses Contracture of joint of finger of left hand Procedures MRI Hand Left WO Contrast Marlon Love MD [facility] [place] [address] [place] [address] Referral ID Status Reason Start Date Expiration Date V isits Requested Visits Authorized [id number] Closed Specialty Service Requested 03/05/2016 06/03/2016 1 1 Reason for Visit * Reason Comments Left Hand Pain left ring finger sp xiaflex Encounter Details Date Type Department Care Team (Late Contact Info) Description 02/18/2016 11:20 AM EDT Office Visit [place] [phone] Marlon Love MD [facility] [place] [address] 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 Social History Tobacco Use Types Packs/Day Years Used Date Smoking Tobacco: Never Smokeless Tobacco: Current Chew Tobacco Cessation:Ready to Q uit: No; Counseling Given: No Alcohol Use Standard Drinks/Week Comments Yes 30 (1 standard drink = 0.6 oz pu re alcohol) Sex and Gender Information Value Date Recorded Sex Assigned at Not on file Gender Identity Not on file Sexual Orientation Not on file documented as of this encounter Last Filed Vital Signs Vital Sign Reading Time Taken Comments Blood Pressure 153/96 02/18/2016 11:21 AM EDT Pulse 57 02/18/2016 11:21 AM EDT Temperature - - Respiratory Rate - - Oxygen Saturation - - Inhaled Oxygen Concentration - - Weight 90.7 kg (200 lb) 02/18/2016 11:21 AM EDT stated Height 175.3 cm (5' 9) 02/18/2016 11:21 AM EDT stated Body Mass Index 29.53 02/18/2016 11:21 AM EDT documented in this encounter Progress Notes * Marlon Love MD - 02/18/2016 11:20 AM EDT Carlo Enrique returns, I performed Xiaflex therapy of his left ring finger in September of this year. He reports that he was back to work about a week and a half after Xiaflex when he was trying to shake a wall when he felt a pop in the palmar side of his ring finger. He had pain in his the palm of his hand and rapid recurrence of contracture of the ring finger. He is seeing me for the first time for this particular problem. He did not have a specific injury to the ring finger. He can flex his ring finger to the palm but his FDP tendon function is weak. He is very tender over the palmar side of the hand. I cannot palpate triggering. He does have a fixed PIP flexion contracture. It is unclear whether this represents a partial tear of his flexor tendon, a trigger finger or even a neelam rupture. I recommended an MRI of the finger and will see him back after this is completed to further assess what the problem is. documented in this encounter Plan of Treatment Not on file documented as of this encounter Results * MRI Hand Left WO Contrast (03/10/2016 9:03 AM EDT) Anatomical Region Laterality Modality Hand Left Magnetic Resonan ce Impressions 03/10/2016 10:36 AM EDT 1. ??Bowstringing of the 4th finger FDP tendon at the level of the 4th proximal phalanx and 4th PIP joint, with likely partial tear of the 4th finger A2 neelam. 2. ??Signal abnormality and attenuation of a 4-mm segment of the FDP tendon at the level of the distal one-half of the 4th middle phalanx, suggestive of partial tear. Correlation with targeted ultrasound of this area performed on the same morning demonstrates a small central defect within the flexor digitorum profundus tendon at this level, without associated hyperemia, possibly representing a chronic/old injury. 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 TECHNIQUE: MRI of the left hand was performed without intravenous contrast. COMPARISON: Attention is also directed to the left fourth finger radiographs dated 08/13/2015. FINDINGS: There is bowstringing of the fourth finger flexor digitorum profundus tendon at the level of the fourth proximal phalanx and fourth proximal interphalangeal joint. There is likely a partial tear of the fourth finger A2 neelam. Some intact fibers of the fourth finger A2 neelam are seen proximally. Additionally, a 4-mm segment of the flexor digitorum profundus tendon at the level of the distal one-half of the fourth middle phalanx demonstrates signal abnormality and attenuated thickness. Correlation with targeted ultrasound of this area performed on the same morning demonstrates a small central defect within the flexor digitorum profundus tendon at this level, without associated hyperemia, possibly representing a chronic/old injury. The fourth finger flexor digitorum superficialis tendon is intact. There is no fracture or bone marrow edema. There are nonspecific cysts in the third metacarpal head. Procedure Note Carla Ortega MD - 03/10/2016 EXAMINATION: MRI HAND LEFT WO CONTRAST CLINICAL HISTORY: Sudden-onset flexion contracture of left ring fingerafter collagenase injection for Dupuytren's contracture; rule out flexortendon rupture in the palm or in the ring finger itself; rule out tenosynovitisat A1 neelam level, rule out A2 neelam rupture. TECHNIQUE: MRI of the left hand was performed without intravenouscontrast. COMPARISON: Attention is also directed to the left fourth fingerradiographs dated 08/13/2015. FINDINGS: There is bowstringing of the fourth finger flexor digitorum profundustendon at the level of the fourth proximal phalanx and fourth proximalinterphalangeal joint. There is likely a partial tear of the fourth finger A2 neelam. Someintact fibers of the fourth finger A2 neelam are seen proximally. Additionally, a 4-mm segment of the flexor digitorum profundus tendon atthe level of the distal one-half of the fourth middle phalanx demonstratessignal abnormality and attenuated thickness. Correlation with targeted ultrasoundof this area performed on the same morning demonstrates a small centraldefect within the flexor digitorum profundus tendon at this level, withoutassociated hyperemia, possibly representing a chronic/old injury. The fourth finger flexor digitorum superficialis tendon is intact. There is no fracture or bone marrow edema. There are nonspecific cysts inthe third metacarpal head. IMPRESSION 1. Bowstringing of the 4th finger FDP tendon at the level of the 4thproximal phalanx and 4th PIP joint, with likely partial tear of the 4th finger [id number]. 2. Signal abnormality and attenuation of a 4-mm segment of the FDP tendonat the level of the distal one-half of the 4th middle phalanx, suggestiveof partial tear. Correlation with targeted ultrasound of this area performedon the same morning demonstrates a small central defect within the flexordigitorum profundus tendon at this level, without associated hyperemia, possibly representing a chronic/old injury. 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
--- OUTSIDE RECORDS SUMMARY | 2024-05-08 11:51 | XMS_ITS | Encounter Summary ---
Author Organization [facility] Address [facility] [place] [place] [address] Care Team Providers Care Batchmaker Name Role Phone Luis Hadley DO Primary Care Provider Encounter Details Date Type Department Care Team (Late st Contact Info) Description 08/13/2015 - 08/13/2015 11:59 PM EST Hospital Encounter Radiology Library [place] [facility] [place] [id number] Dr Chuy [place] Pain Discharge Disposition: Home Social History Tobacco Use Types Packs/Day Years Used Date Smoking Tobacco: Former Sex and Gender Information Value Date Recorded Sex Assigned at Not on file Gender Identity Not on file Sexual Orientation Not on file documented as of this encounter Medications at Time of Discharge Medication Sig Dispensed Refills Start Date End Date colchicine (COLCRYS) 0.6 mg tablet 0.6 MG = 1 Tablet(s), PO, Twice daily 01/15/2010 08/27/2015 allopurinol (ZYLOPRIM) 100 mg tablet 01/15/2010 08/27/2015 documented as of this encounter Plan of Treatment Not on file documented as of this encounter Procedures Procedure Name Priority Date/Time Associated Diagnosis Comments FILM LIBRARY STORAGE ONLY DX HAND Routine 08/13/2015 12:00 AM EST Pain documented in this encounter Results * Film Library- Storage only DX Hand (08/13/2015 12:00 AM EST) Narrative GABI - 08/14/2015 8:24 AM EST See PACS for result report. Dr Chuy BLANCO FILM LIBRARY ORD ERABLES [place], [place] documented in this encounter Visit Diagnoses Diagnosis Pain Generalized pain documented in this encounter Care Teams Batchmaker Relationship Specialty Start Date End Date Luis Hadley DO [address] [place] [address] PCP - General 06/16/10 03/09/16 documented as of this encounter
--- OUTSIDE RECORDS SUMMARY | 2024-05-08 11:51 | XMS_ITS | Encounter Summary ---
Author Organization [facility] Address [facility] [place] [address] Care Team Providers Care Anesthesiology Technologist Name Role Phone Luis Hadley DO Primary Care Provider [phone] Reason for Visit * Reason Comments Rash Encounter Details Date Type Department Care Team (Late st Contact Info) Description 05/26/2011 9:15 AM EDT Office Visit Dermatology [address] [place] [address] Mohsen Flores MD [address], [place] [address] Chronic urticaria (Primary Dx) Social History Tobacco Use Types Packs/Day Years Used Date Smoking Tobacco: Former Sex and Gender Information Value Date Recorded Sex Assigned at Not on file Gender Identity Not on file Sexual Orientation Not on file documented as of this encounter Progress Notes * Mohsen Flores MD - 05/26/2011 9:58 AM EDT Problem: Dermatitis. Carlo is a 36-year-old gentleman who about four months ago was treated along with his then girlfriend for scabies with Permethrin Cream. She improved but he apparently had a significant allergic reaction to the cream and since then has been through several courses of Medrol Dosepak and antihistamines that don't help but just make him drowsy. He has been on Zyrtec, he has been on Hydroxyzine. He is currently on no medications. His only known allergy is to Colchicine. Physical examination reveals a blue eyed, fair skinned, freckled 36-year-old who has urticarial lesions on the anterior feet bilaterally and some excoriations on his hands and forearms. There is no evidence of any scabetic lesions on his hands, arms or elbows. 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 a. Avoid Permethrin in the future. b. Recommended treatment with antihistamines to control his symptoms. Recommended Doxepin 10mg one p.o. at h.s. may take two if necessary. c. Recommended that the patient take Claritin one p.o. q. AM, #30 of both of these given with one refill. d. Prescription given for Triamcinolone 0.1% Cream apply BID to affected areas on hands and arms, 80gm dispensed with one refill. e. Recommended that the patient obtain Sarna Lotion and apply to itchy areas on arms and legs. Recommended warm baths as warm showers seem to help him. Reassured him that he does not have scabies nor does he have any infection. f. He will call me if he has any further questions. NOTE: One-half hour spent with patient more than half spent counseling. Cc: Luis Hadley DO documented in this encounter Plan of Treatment Not on file documented as of this encounter Visit Diagnoses Diagnosis Chronic urticaria- Primary Other specified urticaria documented in this encounter Care Teams Anesthesiology Technologist Relationship Specialty Start Date End Date Luis Hadley DO [address] [place] [address] PCP - General 06/16/10 03/09/16 documented as of this encounter
--- OUTSIDE RECORDS SUMMARY | 2024-05-08 11:51 | XMS_ITS | Encounter Summary ---
Author Organization [facility] Address [facility] [place] [address] Care Team Providers Care Drum Cleaner Name Role Phone Raghavendra Beavers MD Primary Care Provider [phone] Reason for Referral * Diagnostic Test (Routine) - Closed Specialty Diagnoses / Procedures Referred By Contac t Referred To Contact Radiology Diagnoses Contracture of joint of finger of left hand Procedures MRI Hand Left WO Contrast Marlon Love MD [facility] [place] [address] [place] [address] Referral ID Status Reason Start Date Expiration Date V isits Requested Visits Authorized [id number] Closed Specialty Service Requested 03/05/2016 06/03/2016 1 1 Reason for Visit * Diagnostic Test (Routine) - Closed Specialty Diagnoses / Procedures Referred By Contac t Referred To Contact Radiology Diagnoses Contracture of joint of finger of left hand Procedures MRI Hand Left WO Contrast Marlon Love MD [facility] [place] [address] [place] [address] Referral ID Status Reason Start Date Expiration Date V isits Requested Visits Authorized [id number] Closed Specialty Service Requested 03/05/2016 06/03/2016 1 1 Encounter Details Date Type Department Care Team (Latest Contact Info) Description 03/10/2016 7:50 AM EDT - 03/10/2016 9:57 AM EDT Hospital [place] [address] Marlon Love MD [facility] DR [place]OPAED[place] [address] 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 oxyCODONE (ROXICODONE) 5 mg Tablet Take 1 tablet by mouth every 4 hours as needed for Pain (take 1 as needed for moderate to severe pain. only take if needed. no driving, no alcohol.). 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 2. Signal abnormality and attenuation of a [...] finger documented in this encounter Care Teams Drum Cleaner Relationship Specialty Start Date End Date Raghavendra Beavers MD [facility] [address] [place] [address] PCP - General General Internal Medicine 03/10/1611/22 documented as of this encounter
--- OUTSIDE RECORDS SUMMARY | 2024-05-08 11:51 | XMS_ITS | Encounter Summary ---
Author Organization [facility] Address [facility] [place] [address] Care Team Providers Care Sales Route Driver Helper Name Role Phone Raghavendra Beavers MD Primary Care Provider [phone] Reason for Visit * Auth/Cert Specialty Diagnoses / Procedures Referred By Contac t Referred To Contact Diagnoses Richi rupture and PIP flexion contracture left ring finger Procedures PRO HAND TENDON RICHI RECONST, GRAFT RECONSTRUCT TENDON RICHI, EA TENDON, W/ TENDON OR FASCIAL GRAFT Referral ID Status Reason Start Date Expiration Date Visits Re quested Visits Authorized [id number] 1 1 Encounter Details Date Type Department Care Team (Latest Contact Info) Description 03/19/2016 8:45 AM EDT - 03/19/2016 4:46 PM EDT Hospital Encounter [place] [address] Kuldeep Love MD [facility] [place] [address] 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 Discharge Disposition: Home Social History Tobacco Use Types Packs/Day Years Used Date Smoking Tobacco: Never Smokeless Tobacco: Current Chew Alcohol Use Standard Drinks/Week Comments No 0 (1 standard drink = 0.6 oz pur e alcohol) Sex and Gender Information Value Date Recorded Sex Assigned at Not on file Gender Identity Not on file Sexual Orientation Not on file documented as of this encounter Last Filed Vital Signs Vital Sign Reading Time Taken Comments Blood Pressure 131/69 03/19/2016 2:00 PM EDT Pulse 61 03/19/2016 4:00 PM EDT Temperature 36.3 ??C (97.3 ??F) 03/19/2016 12:43 PM E DT Respiratory Rate 12 03/19/2016 3:30 PM EDT Oxygen Saturation 97% 03/19/2016 4:00 PM EDT Inhaled Oxygen Concentration - - Weight 90.7 kg (200 lb) 03/19/2016 9:18 AM EDT Height 175.3 cm (5' 9) 03/19/2016 9:18 AM EDT Body Mass Index 29.53 03/19/2016 9:18 AM EDT documented in this encounter Discharge Instructions * Discharge Instructions* Lori Pressley RN - 03/19/2016 12:56 PM EDT General Anesthesia Discharge Instructions Go home and rest. You may be sleepy for several hours. Take it easy as sudden position changes may cause nausea and/or dizziness. Use caution on stairs. Follow a light to regular diet as tolerated today. If nausea occurs, start with clear liquids, and progress slowly to a regular diet. Do not drive, operate machinery, drink alcoholic beverages or make any legal decisions after havinggeneral anesthesia. The medications given change your reaction time and alter your judgement. IV site -- slight redness is normal, you can use warm compresses. If tenderness and redness increases or foul drainage occurs, please contact your M.D. Patients who have had endotracheal tubes/LMA (tubes used by the anesthesia staff to ensure a safe airway during your operation) may have a sore throat. This is normal and cold liquids or soothing lozengers will help ease this discomfort. Narcotic pain medications can cause constipation, please ask the surgeons office what they recommend for prevention of this. Some non-pharmaceutical means of constipation prevention include increasing intake of fluids, eating more fruits and vegetables as well as fruit juices. If you are uncomfortable and/or unable to urinate within 8 hours of discharge and it is before 5 pm, call your physician. If it is after 5pm go to the closest emergency room or call the hospital brine mixer operator at [phone] and ask for physician telephone information clerk covering for your physician. Questions or problems after 5pm or on a weekend: Call the [facility] brine mixer operator at and ask for the physician telephone information clerk covering for your doctor. * Patient Instructions* Glenn Castro - 03/19/2016 12:43 PM EDT Orthopaedic Hand Surgery Same Day Discharge Instructions: General Activities ?? Diet: Start light and progress as tolerated. No alcoholic beverages on the day of surgery or while taking narcotics. If taking narcotics, make sure you are getting plenty of fluids and fiber. ?? In general, care should be taken the first several days following surgery to limit strenuous activity. You want to avoid any activities that you may lose your balance, slip, trip, fall or re-injure your surgery. ?? You may shower tomorrow. Cover your dressing/cast with a plastic bag to keep it dry. ?? No driving while taking narcotic medications or wearing a device (splint, cast, sling, brace) that limits joint mobility. When you feel you can safely control your vehicle and respond to unpredictable situations you may resume driving. Hand Use ?? Decreased sensation for several hours following surgery is often from the local anesthesia used during the procedure. This will resolve on its own. ?? Do not use your operative hand for any lifting, pushing or pulling. You may move your elbow and shoulder as tolerated. ?? Do not try to move your fingers at all. Ice and elevation ?? Some swelling is expected after surgery. Ice and elevation are the best remedies to reduce swelling and pain. Keep your hand properly elevated above the level of the heart i.e., fingers above palm, palm above the wrist, wrist above the elbow. Use pillows to increase elevation. ?? Intermittently apply ice to the outside of the dressing for 20 minutes 6-8 times a day. You will want to ice and elevate for 5-7 days after surgery or as long as it hurts. ?? Do not rely on a sling as it does not sufficiently elevate your hand. For proper elevation whilewalking around place your surgical hand on your opposite shoulder. Dressing/ Wound: The post-op dressing, splint or cast is a very important part of your treatment. If you have any questions please call us for clarification. If your dressing becomes wet or damaged please call the office. If a plaster splint or a cast has been applied --do not remove it or stick objects in it (i.e.coat hangers, pencils). Please keep it dry, bag it for showers and keep out of running water. If itbecomes wet you must call the office. Keep the splint in place until follow up. Pain Management ?? Most patients only require narcotics for a short period of time. Ice and elevation is an effective and important modality to use in conjunction with your oral pain medication. In a day or two you may be ready to start decreasing the amount of pain medication your taking. Pain medication is to betaken on an ???as needed?if needed?? basis. Remember to start with the least amount and evaluate its effectiveness. ?? You should not drink alcoholic beverages while on pain medication. ?? If tolerated, please take Tylenol three times a day in conjunction with the narcotic as they complement each other. Once pain is better controlled, you may simply take extra strength Tylenol, one to two tablets every six hours as needed. Do not exceed 3,000 mg in 24 hours. ?? The most common side effects of narcotic pain medications are nausea and constipation. To decrease nausea always take pain medication with food. If you are experiencing vomiting, please call us right away. To minimize constipation, drink plenty of fluids, eat a high fiber diet with plenty of fruits and vegetables, and take a stool softener or laxative as needed. ?? You may take an anti-inflammatory medication such as Ibuprofen/Advil/Motrin or Naproxen/Aleve. Refer to the medication bottles for daily allowance and dosing. Discontinue if it causes stomach upset. Contact Information: During clinic hours M-F 8-4:30 please call [phone] If it is after 5:00PM on a weekday or a weekend and it is of an urgent nature please call [phone] and ask for the on-call orthopaedic resident. Call if: 1. You have a fever greater than 101 F or experience chills 2. Increased drainage from incision 3. Redness or extreme swelling around incision 4. Increased pain or change in pain that is not controlled with elevation, ice and your pain medication. 5. Any questions concerns related to surgery You will have a follow up appointment the Tuesday after . The office will call with a time. Please call the number above if you don't hear from us. documented in this encounter Medications at Time of Discharge [...] 03/19/2016 03/31/2016 documented as of this encounter Progress Notes * Lori Pressley RN - 03/19/2016 5:02 PM EDT Patients finger is warm to touch, pink with residual dusky tinge. Patient encouraged to not chew tobacco as nicotine will effect healing by constricting vascularity of finger. Patient and family advised to hold ice tonight to prevent further neurovascular constriction. Patient and family verbalizedunderstanding. MD aware. * Lori Pressley RN - 03/19/2016 4:08 PM EDT MD removed pin, finger is pinking up, remains warm, pt denies issues at this time. Pt advised MD will check once more prior to d/c. Verbalized understanding. * Lori Pressley RN - 03/19/2016 3:45 PM EDT Patient discharge instructions and medications reviewed with patient and family, questions answered, all verbalized understanding. Written instructions sent home with patient. Family confirms gettingpain prescriptions earlier from provider. * Lori Pressley RN - 03/19/2016 3:39 PM EDT Pt sleeping, hand wrapped with warm pack at fingers by Melita, pt denies c/o, sleeping, easy to arouse. Opens eyes on occasion, when asked states I can feel it rates 5/10. Pt then falls back asleep.Family at bedside, call keller on bed. Will continue to monitor. documented in this encounter H&P Notes * Kuldeep Love MD - 03/19/2016 4:43 PM EDT Patient Name: Carlo Enrique Patient Age: 40 y.o. Birthdate: 1975 Admit date: 03/19/2016 Attending Physician: Kuldeep Love MD Carlo Enrique's left ring finger appeared to be slightly dusky with delayed capillary refill in the PACU. After observing this for well over an hour without improvement, I decided to remove the PIP pin, which was holding his PIP joint in full extension. shortly after removal of the pin, the finger became more pink with much more brisk refill in the finger. He has been told to observe this and contact me for any worries about vascularity of the finger over the next day or two. * Kuldeep Love MD - 03/19/2016 9:48 AM EDT Patient Name: Carlo Enrique Patient Age: 40 y.o. Birthdate: 1975 Admit date: 03/19/2016 Attending Physician: Kuldeep Love MD I interviewed and examined Carlo Enrique. There have been no apparent interval changes in his health status since the most recent history and physical was done. KULDEEP LOVE MD * Kuldeep Love MD - 03/18/2016 8:42 AM EDT Patient Name: Carlo Enrique Patient Age: 40 y.o. Birthdate: 1975 Admit date: (Not on file) Attending Physician: Kuldeep Love MD Please see H&P note for visit documentation. 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 PROCEDURES PERFORMED: PIP capsular release, left ring finger, and A2 richi reconstruction using palmaris longus graft, left ring finger. ANESTHESIA: General. OPERATIVE INDICATION: The patient is a 40-year-old male who sustained an A2 richi rupture and subsequently developed a PIP flexion contracture. The A2 richi rupture was confirmed by MRI. He was brought to the operating room for a PIP capsular release of his left ring finger as well as an A2 richi reconstruction using a palmaris longus tendon graft. SUMMARY OF PROCEDURE: After general anesthesia was performed and 2 gm of intravenous Cefazolin was administered, the patient's left-upper extremity was prepped with a Hibiclens scrub and a Chloraprep. His left-upper extremity was draped in the usual sterile fashion. A preoperative timeout was performed as per [facility] protocol. His left arm was then exsanguinated with an Esmark bandage. A brachial tourniquet was then inflated to 250 mmHg. A Jori incision was first made over the left ring finger, extending from the middle phalanx down to the proximal digital flexion crease. Subcutaneous spreading was performed. Full-thickness skin flaps were elevated. The radial and ulnar neurovascular bundles were identified in the incision site and were meticulously protected throughout the procedure. There was found to be a pseudoflexor sheath that had formed at the A2 richi level, but the flexor tendons were clearly pulled away from the proximal phalanx and exhibited bowstringing. This pseudosheath was excised. The FDP and FDS tendons were carefully examined and found to be in pristine condition. There was found to be a buildup of scar tissue dorsal to the flexor tendons from the remnants of the A2 richi and this was debrided. The capsular contracture was then released. The flexor tendons were mobilized. The volar plate and collateral ligaments were excised at the PIP joint, and the PIP joint was examined. The articular surfaces were in good condition. The site was copiously irrigated. Despite complete excision of the volar plate and collateral ligaments, the PIP joint tended to fall back into a flexed posture. The PIP joint was extended and pinned in extension with a 1-mm K wire passed under fluoroscopic guidance in a retrograde fashion. The pin was cut and covered with a Jurgan ball. The PIP joint was well reduced. The site was copiously irrigated. The palmaris longus tendon was then harvested in the forearm. Three separate transverse incisions were made. The tendon was released distally with care being taken to avoid injury to the median nerve. It was then brought through a middle incision and then through a more proximal incision at the myotendinous junction, where it was released. The incision sites were irrigated and closed with 4-0 nylon suture. The area was injected with a total of 3 mL of 0.25% Marcaine with epinephrine. An A2 richi reconstruction was then done by passing the tendon graft deep to the extensor mechanism at the A2 richi level, weaving it 3 times deep to the extensor tendon and around the proximal phalanx. It was tightened appropriately and then sewn to itself using 3-0 FiberWire suture using multiple sutures. This corrected the bow stringing of the flexor tendons without creating excessive tension by the repair. The site was again copiously irrigated. The skin was closed with 4-0 nylon suture. The site was injected with 6 mL of 0.25% plain Marcaine. The tourniquet was now released with a total tourniquet time of 98 minutes. All digits became pink and warm with brisk capillary refill. Sterile soft dressings were applied followed by a splint from the forearm out to beyond the fingertips. He was then extubated and transferred to the recovery room in stable condition. He tolerated the procedures well without apparent complications. ESTIMATED BLOOD LOSS: None. IV FLUID REPLACEMENT: One liter of crystalloid. Attestation: Case Date: 03/19/2016 I was present and I participated during the entire procedure. KULDEEP LOVE MD 03/19/2016 * Brief Op Note - Kuldeep Love MD - 03/19/2016 12:48 PM EDT Brief Operative Note Patient Name: Carlo Enrique : [id number] MR#: [id number] Case Date: 03/19/2016 Surgeon: Surgeon(s) and Role: * Kuldeep Love MD - Primary * Glenn Castro MD Preoperative diagnosis: Richi rupture and PIP flexion contracture left ring finger Postoperative diagnosis: Richi rupture and PIP flexion contracture left ring finger Procedure(s): RECONSTRUCT TENDON RICHI, EA TENDON, W/ TENDON OR FASCIAL GRAFT CAPSULECTOMY OR CAPSULOTOMY, INTERPHALANGEAL JOINT, EACH JOINT Anesthesia: General Complications: None Fluids: 1,000cc crystalloid Estimated Blood Loss: * No values recorded between 03/19/2016 10:51 AM and 03/19/2016 12:34 PM * Drains: None Disposition: awakened from anesthesia, extubated and taken to the recovery room in a stable condition, having suffered no apparent untoward event. Condition: doing well without problems Attestation: Case Date: 03/19/2016 I was present and I participated during the entire procedure. 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 Case Notes Neida ball placed on k-wire CAPSULECTOMY OR CAPSULOTOMY, INTERPHALANGEAL JOINT, EACH JOINT Routine 03/19/2016 9:18 AM EDT documented in this encounter Visit Diagnoses Diagnosis 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 documented in this encounter Administered Medications Inactive Administered Medications - up to 3 most recent administrations Medication Order MAR Action Action Date Dose Rate Site acetaminophen (TYLENOL) tablet 1,000 mg 1,000 mg, Oral, ONCE, 1 dose, On Tue03/19/16 at 1000, Maximum dose of acetaminophen is 4000 mg from all sources in 24 hours., Day of Surgery (Day of Procedure), Routine Given 03/19/2016 9:34 AM EDT 1,000 mg gabapentin (NEURONTIN) capsule 600 mg 600 mg, Oral, ONCE, 1 dose, On Tue03/19/16 at 1000, Day of Surgery (Day of Procedure), Routine Given 03/19/2016 9:34 AM EDT 600 mg oxyCODONE (ROXICODONE) immediate release tablet 5 mg 5 mg, Oral, EVERY 4 HOURS PRN, Starting on Tue03/19/16 at 1255, Until Tue03/19/16 at 1647, Pain, mild pain (1-3), For mild pain (1-3). Do not exceed 15 mg in 4 hours. If pain not relieved, call provider, PACU Recovery, Routine Given 03/19/2016 2:14 PM EDT 5 mg documented in this encounter Active and Recently Administered Medications Times are shown in EDT. Scheduled Medication Order 03/17/2016 03/18/2016 03/19/2016 acetaminophen (TYLENOL) tablet 1,000 mg (COMPLETED) 1,000 mg, Oral, ONCE, 1 dose, On Tue03/19/16 at 1000, Maximum dose of acetaminophen is 4000 mg from all sources in 24 hours., Day of Surgery (Day of Procedure), Routine 0934 (Given - Provid er: Hari Grimes RN) ceFAZolin (ANCEF) 2,000 mg in sodium chloride 0.9% 56.06 mL 2,000 mg (2 g), Intravenous, EVERY 3 HOURS, 1 dose, First dose on Tue03/19/16 at 1000, Administer over 30 Minutes, Redose after 3 hours., Intra-Operative (Intra-Procedure), Indication for (Active or Suspected): Prophylaxis 1000 (Due) gabapentin (NEURONTIN) capsule 600 mg (COMPLETED) 600 mg, Oral, ONCE, 1 dose, On Tue03/19/16 at 1000, Day of Surgery (Day of Procedure), Routine 0934 (Given - Provid er: Hari Grimes RN) Continuous Medication Order 03/17/2016 03/18/2016 03/19/2016 lactated ringers infusion 1,000 mL (CANCELED) 1,000 mL, at 100 mL/hr, Intravenous, CONTINUOUS, Starting on Tue03/19/16 at 1000, Until Tue03/19/16 at 1647, Day of Surgery (Day of Procedure) 1030 (New Bag - Prov ider: Evgeny Howell CRNA)1221 (New Bag - Provider: Evgeny Howell CRNA) PRN Medication Order 03/17/2016 03/18/2016 03/19/2016 BUpivacaine (PF) (MARCAINE) 0.25 % (2.5 mg/mL) injection (CANCELED) ONCE PRN, Starting on Tue03/19/16 at 1228, Until Tue03/19/16 at 1913, Intra-Operative (Intra-Procedure), Routine 1228 (Given - Provid er: Kuldeep Love MD - Comment: injected) BUpivacaine-EPINEPHrine 0.25 %-1:200,000 injection (CANCELED) ONCE PRN, Starting on Tue03/19/16 at 1229, Until Tue03/19/16 at 1913, Intra-Operative (Intra-Procedure), Routine 1229 (Given - Provid er: Kuldeep Love MD - Comment: injected) oxyCODONE (ROXICODONE) immediate release tablet 5 mg (CANCELED)(Linked Group 1) 5 mg, Oral, EVERY 4 HOURS PRN, Starting on Tue03/19/16 at 1255, Until Tue03/19/16 at 1647, Pain, mild pain (1-3), For mild pain (1-3). Do not exceed 15 mg in 4 hours. If pain not relieved, call provider, PACU Recovery, Routine 1414 (Given - Provid er: Lori Pressley RN) No Frequency Medication Order 03/17/2016 03/18/2016 03/19/2016 ceFAZolin (ANCEF) 2 gram/50 mL infusion (COMPLETED) 1 dose, Starting on Tue03/19/16 at 0932, Until Tue03/19/16 at 1030, HARI GRIMES: cabinet override 1030 (Given - Provid er: Evgeny Howell CRNA) midazolam (PF) (VERSED) 1 mg/mL injection 1 dose, Starting on Tue03/19/16 at 1024, Until Tue03/19/16 at 1913, EVGENY HOWELL: cabinet override 1030 (Due) Linked Groups Order Group 1: oxyCODONE (ROXICODONE) immediate release tablet 5 mg (CANCELED)Jump to med 5 mg, Oral, EVERY 4 HOURS PRN, Starting on Tue03/19/16 at 1255, Until Tue03/19/16 at 1647, Pain, mild pain (1-3), For mild pain (1-3). Do not exceed 15 mg in 4 hours. If pain not relieved, call provider, PACU Recovery, Routine Or oxyCODONE (ROXICODONE) immediate release tablet 10 mg (CANCELED) 10 mg, Oral, EVERY 4 HOURS PRN, Starting on Tue03/19/16 at 1255, Until Tue03/19/16 at 1647, Pain, moderate pain (4-6), For moderate pain (4-6). Do not exceed 15 mg in 4 hours. If pain not relieved, call provider., PACU Recovery, Routine Or oxyCODONE (ROXICODONE) immediate release tablet 15 mg (CANCELED) 15 mg, Oral, EVERY 4 HOURS PRN, Starting on Tue03/19/16 at 1255, Until Tue03/19/16 at 1647, Pain, severe pain, PACU Recovery, Routine documented in this encounter Care Teams Sales Route Driver Helper Relationship Specialty Start Date End Date Raghavendra Beavers MD [facility] [address] [place] [address] PCP - General General Internal Medicine 03/10/1611/22 documented as of this encounter
--- OUTSIDE RECORDS SUMMARY | 2024-05-08 11:51 | XMS_ITS | Encounter Summary ---
Author Organization [facility] Address [facility] [place] [address] Care Team Providers Care Tent Finisher Name Role Phone Raghavendra Beavers MD Primary Care Provider [phone] Reason for Visit * Reason Onset Date Comments Letter Request From Patient 04/16/2016 Encounter Details Date Type Department Care Team (Late st Contact Info) Description 04/16/2016 [place] [phone] Marlon Love MD [facility] [place] [address] Letter Request From Patient Social History Tobacco Use Types Packs/Day Years Used Date Smoking Tobacco: Never Smokeless Tobacco: Current Chew Alcohol Use Standard Drinks/Week Comments No 0 (1 standard drink = 0.6 oz pur e alcohol) Sex and Gender Information Value Date Recorded Sex Assigned at Not on file Gender Identity Not on file Sexual Orientation Not on file documented as of this encounter Miscellaneous Notes * Telephone Encounter - Day Lazaro - 04/16/2016 10:14 AM EDT Spoke with patient he is being seen on 04/19/16 and will get his letter at that time * Telephone Encounter - Sophia Gorman - 04/16/2016 9:49 AM EDT Name: Carlo Enrique Mailing address: [place] [address] [place] [id number] : 1975 PATIENT IS NOT 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 Provider Last seen by: MARQUISE DU/DAWSON Diagnosis: L FINGER INJURY Date of Injury: UNKNOWN Date of Surgery: 03-19-16 What type of letter is needed? 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 N/A What do you want your start date to be? 04-16-16 What is an estimate of end date? DOCTOR DETERMINED What restrictions do you need? CAN NOT WORK What activities CAN you do? CAN NOT USE L HAND Would you like to sheepskin pickler your letter? NO If yes, when & what phone number do I call when done? If no, mailed or faxed? PLEASE MAIL TO PATIENT'S MOM To what address/fax#? [address] [place] [id number] [facility] [id number] [address] To whose attention? TO WHOM IT MAY CONCERN documented in this encounter Plan of Treatment Not on file documented as of this encounter Visit Diagnoses Not on filedocumented in this encounter Care Teams Tent Finisher Relationship Specialty Start Date End Date Raghavendra Beavers MD [facility] [address] [place] [address] PCP - General General Internal Medicine 03/10/1611/22 documented as of this encounter
--- OUTSIDE RECORDS SUMMARY | 2024-05-08 11:51 | XMS_ITS | Encounter Summary ---
Author Organization [facility] [place] [place] [address] Care Team Providers Care Veneer Marker Name Role Phone Raghavendra Beavers MD Primary Care Provider [phone] Encounter Details Date Type Department Care Team (Latest Contact Info) Description 03/31/2016 1:20 PM EDT Laboratory Appointment Lab [address] [place] [phone] JORGE (acute kidney injury); High risk medication use Social History Tobacco Use Types Packs/Day Years Used Date Smoking Tobacco: Never Smokeless Tobacco: Current Chew Alcohol Use Standard Drinks/Week Comments No 0 (1 standard drink = 0.6 oz pur e alcohol) Sex and Gender Information Value Date Recorded Sex Assigned at Not on file Gender Identity Not on file Sexual Orientation Not on file documented as of this encounter Plan of Treatment Not on file documented as of this encounter Procedures Procedure Name Priority Date/Time Associated Diagnosis Comments HEMOGRAM Routine 03/31/2016 1:33 PM EDT JORGE (acute kidney injury) High risk medication use DIFFERENTIAL, AUTOMATED Routine 03/31/2016 1:33 PM EDT JORGE (acute kidney injury) High risk medication use CBC (WITH DIFF) Routine 03/31/2016 1:33 PM EDT JORGE (acute kidney injury) High risk medication use URIC ACID Routine 03/31/2016 1:33 PM EDT JORGE (acute kidney injury) High risk medication use PHOSPHORUS Routine 03/31/2016 1:33 PM EDT JORGE (acute kidney injury) High risk medication use MAGNESIUM Routine 03/31/2016 1:33 PM EDT JORGE (acute kidney injury) High risk medication use BASIC METABOLIC PANEL Routine 03/31/2016 1:33 PM EDT JORGE (acute kidney injury) High risk medication use documented in this encounter Results * (ABNORMAL) Differential, Automated (03/31/2016 1:33 PM EDT) Neutrophil % 87.7 % [facility] Neutrophil Absolute 9.02(H) 1.50 - 6.30 x10(3)/mc L [facility] Lymph % 9.8 % [facility] Lymphocytes Abs 1.0 1.0 - 3.6 x10(3)/ L [facility] Monocyte % 1.3 % [facility] Monocyte Abs 0.1(L) 0.2 - 1.0 x10(3)/ L [facility] Eos % 0.0 % [facility] Eosinophils Abs 0.0 0.0 - 0.5 x10(3)/[facility] Basophil % 0.2 % [facility] Baso Absolute 0.0 0.0 - 0.2 x10(3)/mc L [facility] Immature Gran % 1.00 % [facility] Comment: Immature granulocytes(IG's)percentage and absolute count will include metamyelocytes, myelocytes, and promyelocytes. Blood smears from CBCs yielding IG's will be scanned manually for concordance. If this scan disagrees with the automated IG or if promyelocytes are noted, a manual differential will be performed. Immature Gran Absolute 0.10(H) 0.00 - 0.05 x10(3)/mc L [facility] Blood specimen (specimen) 03/31/2016 1:33 PM EDT 03/31/2016 1:37 PM EDT Narrative Resulting Agency Comment Spec In Lab Luis Conley MD HEMATOLOGY ORDERABLE S [facility] [place] [address] * (ABNORMAL) Hemogram (03/31/2016 1:33 PM EDT) White Blood Cell 10.3(H) 4.0 - 10.0 x10(3)/mc L [facility] Red Blood Cell 4.29(L) 4.63 - 6.08 x10(6)/mc L [facility] Hemoglobin 14.3 13.7 - 17.5 gm/dL [facility] Hematocrit 39.2(L) 40.0 - 51.0 % [facility] Mean Cell Volume 91.4 79.0 - 92.0 fL [facility] Mean Cell Hemoglobin 33.3(H) 25.6 - 32.2 pg [facility] Mean Cell Hemoglobin Concentration 36.5 32.0 - 36.5 gm/dL [facility] Platelet 236 145 - 370 x10(3)/mc L [facility] RDW Standard Deviation 37.3 35.0 - 46.0 fL [facility] RDW coefficient of variation 11.0 10.9 - 14.4 % [facility] Mean Platelet Volume 10.1 9.0 - 12.0 fL [facility] NRBC% auto 0.0 % [facility] NRBC Absolute 0.000 0.000 - 0.012 x10(3)/mc L [facility] Blood specimen (specimen) 03/31/2016 1:33 PM EDT 03/31/2016 1:37 PM EDT Narrative Resulting Agency Comment Spec In Lab Luis Conley MD HEMATOLOGY ORDERABLE S [facility] [place] [address] * Uric acid (03/31/2016 1:33 PM EDT) Uric Acid 8.5 3.5 - 8.5 mg/dL [facility] Blood specimen (specimen) 03/31/2016 1:33 PM EDT 03/31/2016 1:37 PM EDT Narrative Resulting Agency Comment Spec In Lab Luis Conley MD CHEMISTRY ORDERABLES Performing Organization Address City/[facility]/ZIP Co de Phone Number [facility] [place] [address] * Phosphorus (03/31/2016 1:33 PM EDT) Pathologist [facility] Phosphorus 2.8 2.5 - 4.5 mg/dL [facility] Blood specimen (specimen) 03/31/2016 1:33 PM EDT 03/31/2016 1:37 PM EDT Narrative Resulting Agency Comment Spec In Lab Luis Conley MD CHEMISTRY ORDERABLES Performing Organization Address [facility] Co de Phone Number [facility] [place] [address] * Magnesium (03/31/2016 1:33 PM EDT) Pathologist [facility] Magnesium 0.79 0.69 - 1.07 mmol/L [facility] Blood specimen (specimen) 03/31/2016 1:33 PM EDT 03/31/2016 1:37 PM EDT Narrative Resulting Agency Comment Spec In Lab Luis Conley MD CHEMISTRY ORDERABLES Performing Organization Address [facility] Co de Phone Number [facility] [place] [address] * (ABNORMAL) Basic Metabolic Panel (non-fasting) (03/31/2016 1:33 PM EDT) Pathologist [facility] Glucose 114 65 - 199 mg/dL [facility] Comment:Diabetes: >=200 mg/d L plus symptoms Blood Urea Nitrogen 20 10 - 20 mg/dL [facility] Creatinine 0.98 0.80 - 1.50 mg/dL [facility] Comment: Please note that the pediatric reference intervals supplied above were not validated at [facility]. Results from pediatric patients should be interpreted in conjunction to the patient's age, height and muscle mass. Sodium 141 135 - 145 mmol/L [facility] Potassium 4.6 3.5 - 5.0 mmol/L [facility] Comment: Please note: ??Patients with WBC >100,000 may have falsely elevated Potassium levels. ??For accurate Potassium quantification in these patients send serum separator tube (gold top) for subsequent determinations. ??Contact the Clinical Chemistry Laboratory if there are any questions. Chloride 100 98 - 107 mmol/L [facility] Carbon Dioxide 19(L) 22 - 31 mmol/L [facility] Anion Gap 22(H) 5 - 15 mmol/L [facility] Calcium 9.8 8.5 - 10.5 mg/dL [facility] Est Glomerular Filtration Rate >60 >=60 [facility] Comment: This estimated GFR (eGFR) value was calculated using the MDRD equation which has been validated on patients between the ages of 18 and 70. The MDRD should not be used to assess kidney function in patients < 18 years of age or in patients with extremes of body mass, or in patients with acute kidney failure. This value should be multiplied by 1.2 for patients. For further information please copy and paste the following links into your internet browser. [email or web address] Blood specimen (specimen) 03/31/2016 1:33 PM EDT 03/31/2016 1:37 PM EDT Narrative Resulting Agency Comment Spec In Lab Luis Conley MD CHEMISTRY ORDERABLES [facility] [place] [address] documented in this encounter Visit Diagnoses Diagnosis JORGE (acute kidney injury) Acute kidney failure, unspecified High risk medication use Encounter for long-term (current) use of other medications documented in this encounter Care Teams Veneer Marker Relationship Specialty Start Date End Date Raghavendra Beavers MD [facility] [address] [place] [address] PCP - General General Internal Medicine 03/10/1611/22 documented as of this encounter
--- OUTSIDE RECORDS SUMMARY | 2024-05-08 11:51 | XMS_ITS | Encounter Summary ---
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; Rupture of flexor sheath neelam of left ring finger s/p palmaris reconstruction 03/19/16 (Ivan) Social History Tobacco Use Types Packs/Day Years Used Date Smoking Tobacco: Never Smokeless Tobacco: Current Chew Tobacco Cessation:Ready to Q uit: No; Counseling Given: No Alcohol Use Standard Drinks/Week Comments Yes 0 (1 standard drink = 0.6 oz pur e alcohol) very little Sex and Gender Information Value Date Recorded Sex Assigned at Not on file Gender Identity Not on file Sexual Orientation Not on file documented as of this encounter Last Filed Vital Signs Vital Sign Reading Time Taken Comments Blood Pressure 152/103 05/06/2016 5:03 PM EDT Pulse 79 05/06/2016 5:03 PM EDT Temperature - - Respiratory Rate - - Oxygen Saturation - - Inhaled Oxygen Concentration - - Weight 90.7 kg (200 lb) 05/06/2016 5:03 PM EDT v erbal Height 176.5 cm (5' 9.5) 05/06/2016 5:03 PM EDT verbal Body Mass Index 29.11 05/06/2016 5:03 PM EDT documented in this encounter Progress Notes * Radha Hernandes PA - 05/06/2016 5:00 PM EDT PATIENT NAME: Carlo Enrique AGE: 40 y.o. MR#: [id number] DATE OF VISIT: 05/06/2016 DATE OF SURGERY: 03/19/2016 ?? SURGERY DESCRIPTION: PIP capsular release, left ring finger, and A2 neelam reconstruction using palmaris longus graft, left ring finger. ?? SURGEON: Dr. Love CHIEF COMPLAINT: 7 weeks S/P above procedure HISTORY OF PRESENT ILLNESS: Mr. Enrique is a 40 y.o. male who presents 7 weeks s/p the above procedures for office follow up. He is concerned about his progress after surgery. He has had some difficulty with transportation and this is his second visit since the procedure. He states that he has been going to hand therapy as recommended. He states that he initially needed to cut back on his therapy as he was having some issues with his wound healing, but this has since resolved. He also continues to use a neelam ring splint to protect his neelam reconstruction. He finds that he is having quite a bit of pain over the dorsal aspect of the digit and is having difficulty with PIP joint flexion. He feels that his arm is weak from disuse. 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 He has paperwork today for state assistance. Mr. Enrique denies any fever/chills or other constitutional signs of infection. The patient has not noticed any abnormal drainage from his incision or increased redness or discomfort. PHYSICAL EXAMINATION: Mr. Enrique is a 40 y.o. male who is alert and oriented. He appears in no acutediscomfort and is resting comfortably in the exam room. Inspection: Well-healed surgical incision. No evidence of infection. ROM/Strength: His PIP joint postures in a slightly flexed position. At rest this was measured at about 35??. With some stretching I was able to correct this to about 30??. He is unable to bring his fingertip towards his palm and at best was only able to perform about 55?? flexion. There is no evidence of bowstringing. Neurovascular: He states that he occasionally has some tingling in the finger, but sensation remains intact. Finger is well perfused. Immediately after surgery there were some perfusion issues, but this has since resolved. ASSESSMENT: 7 weeks s/p above procedure PLAN: He is going to continue with his hand therapy as planned. He will continue to use his neelam ring for protection, but he can take this off to help minimize any additional irritation of the skinas long as he can keep his finger adequately protected. He understands that this type of surgery requires extensive therapy and recovery time before a final outcome is achieved, but he is somewhat frustrated with his lack of mobility and activity restrictions as this is affecting his ability to work. We will complete his paperwork and send this to the requested address. All of the patients questions and concerns were answered at this visit. The patient understands to contact me if they have any other questions or concerns. The patient is scheduled for follow up in [address] Love to recheck his range of motion. The above documentation was completed using [employer] voice recognition software. 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
--- OUTSIDE RECORDS SUMMARY | 2024-05-08 11:51 | XMS_ITS | Encounter Summary ---
Author Organization [facility] Address [facility] [place] [place] [address] Care Team Providers Care Maintenance Journeyman Name Role Phone Raghavendra Beavers MD Primary Care Provider [phone] Encounter Details Date Type Department Care Team (Late st Contact Info) Description 04/06/2016 Telephone [place] [phone] Marlon Love MD [facility] [place] [address] Social History Tobacco Use Types Packs/Day Years [...] encounter Miscellaneous Notes * Telephone Encounter - Sophia Deras - 04/06/2016 1:51 PM EDT Received msg that [facility] would like referral and protocol. LM that clinic notes and referral were faxed to documented in this encounter Plan of Treatment Not on file documented as of this encounter Visit Diagnoses Not on filedocumented in this encounter Care Teams Maintenance Journeyman Relationship Specialty Start Date End Date Raghavendra Beavers MD [facility] [address] [place] [address] [place] [address] PCP - General General Internal Medicine 03/10/1611/22 documented as of this encounter
--- OUTSIDE RECORDS SUMMARY | 2024-05-08 11:51 | XMS_ITS | Encounter Summary ---
Author Organization [facility] Address [facility] [place] [address] Care Team Providers Care Crewman Armoured Personnel Carrier [id number] Name Role Phone Luis Hadley DO Primary Care Provider [phone] Encounter Details Date Type Department Care Team (Late st Contact Info) Description 09/03/2015 Orders [place] [address] Marlon Love MD [facility] [place]THOPAED[place] [address] Dupuytren contracture Social History Tobacco Use Types Packs/Day Years [...] as of this encounter Visit Diagnoses Diagnosis Dupuytren contracture Contracture of palmar fascia documented in this encounter Care Teams Crewman Armoured Personnel Carrier [id number] Relationship Specialty Start Date End Date Luis Hadley DO [address] [place] [address] PCP - General 06/16/10 03/09/16 documented as of this encounter
--- OUTSIDE RECORDS SUMMARY | 2024-05-08 11:51 | XMS_ITS | Encounter Summary ---
Author Organization [facility] [place] [address] Care Team Providers Care Rn Lpn Lvn Name Role Phone Raghavendra Beavers MD Primary Care Provider [phone] Reason for Visit * Occupational Therapy (Routine) - Specialty Diagnoses / Procedures Referred By Amanda benson Referred To Contact Occupational Therapy Diagnoses Rupture of flexor sheath neelam of finger Diana Martinez, PA [address] [place] [address] [place] [address] [facility] [place] [address] Referral ID Status Reason Start Date Expiration Date V isits Requested Visits Authorized [id number] Evaluate and Treat 08/30/2016 08/30/2017 12 12 Encounter Details Date Type Department Care Team (Late st Contact Info) Description 08/30/2016 8:15 AM EST Office Visit Occupational Therapy at 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 Love PERTINENT DIAGNOSIS AND CO-MORBIDITIES: 1. Rupture of flexor sheath neelam of left ring finger s/p palmaris reconstruction 03/19/16 (Ivan) 2. Dupuytren contracture 3. 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 year old Ambidextrous hand dominant male who developed left Dupuytren's contracture requiring a Xiaflex injection with manipulation. He developed a subsequent joint contracture. He is status post PIP capsular release and A2 neelam reconstruction using palmaris longus graft completed on 03.19.16 of the left ring finger. After surgery, Carlo Enrique developeda subsequent PIP joint flexion contracture. He was at -35 degrees PIP extension at last MD recheck and -55 today at recheck. Carlo Enrique is referred to Occupational Therapy for evaluation and treatment to include fitting for an orthosis. Patient presents today accompanied by sister for beginning ofserial orthosis and therapy. 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 He has pain with activity Including dressing, bathing, and home management because his finger gets stuck around things. CURRENT SYMPTOMS: Patient presents with pain, swelling, stiffness, limited mobility, and limited scar mobility of left ring finger PIP joint. Carlo Enrique reports pain when his finger is bumped or if it gets stuck while completing functional activities. MD reports 20 degree loss of flexion between visits PERFORMANCE DEFICITS: Carlo Enrique identifies difficulty with the following functional activities using the Patient Specific Functional Scale (PSFS): 0/10 (unable to perform) to 10/10 (Able to performwithout difficulty) Activity At Evaluation 1.) Dressing 3 2.) Bathing 3 3.) Home management 3 4.) Work 0 5.) Driving 7 Average Score: 3.25 PAIN: (Assessed using the visual analog scale) At Rest: 0/10 With Activity: 5/10 TREATMENT TODAY: Educated patient in etiology and biomechanics as related to patient's symptoms Fabricated custom finger volar gutter orthosis at the left ring finger PIP joint to promote maximalextension Provided LMB splint for use during the day for passive extension 3x daily 30 min Instructed in orthosis wear and care Passive stretching of volar plate PIP extension Range of Motion Exercises: hook/full fist tendon glides, Blocked PIP/DIP flexion, Blocked PIP extension to improve efficiency of extensor mechanism, and composite wrist flexion/extension to prevent soft tissue tightness. ASSESSMENT: Carlo Enrique has a well fitting orthosis post therapy. Carlo Enrique has joint stiffness of left ring finger at PIP joint with brawny to hard end feel. He has palpable improvement in PIP extension post stretching today to -50 degrees, however will be using combination of LMB progressive stretching splint and night time finger gutter to maintain gains. Carlo Enrique is able to independentlyverbalize and demonstrate the recommended home program following instructions today. Carlo Enrique has fair potential for gains with therapy/home program use. Patient knows to call with any questions or concerns. Short Term Goals (to be met by end of the visit today): Date Goal Met: Today 1. Carlo Enrique will demonstrate independence with donning and doffing of his orthosis and verbalization of purpose. Goal Status: Meets. Today 2. Carlo Enrique will be independent with home exercises as evident with demonstration in therapy. Goal Status: Meets PLAN: The patient is to be seen 1 time(s) per week, for 4 week(s) to progress toward short and prison goals. Soft tissue mobilization as therapeutically necessary to decrease pain and/or increase mobility Therapeutic exercises to increase functional mobility Splinting to provide support and protection to the joint Progressive static splinting of left ring finger to promote mobility and improved extension of PIP joint Functional activities to increase hand function and independence in self care (X) Carlo Enrique participated in the evaluation, collaborated on treatment goals, and agrees to the treatment plan . * Denis Anna OT - 08/30/2016 8:15 AM EST OCCUPATIONAL THERAPY ORTHOTIC EVALUATION REFERRAL SOURCE: Dr. Love PERTINENT DIAGNOSIS AND CO-MORBIDITIES: 1. Rupture of flexor sheath neelam of left ring finger s/p palmaris reconstruction 03/19/16 (Ivan) 2. Dupuytren contracture 3. 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 year old Ambidextrous hand dominant male who developed left Dupuytren's contracture requiring a Xiaflex injection with manipulation. He developed a subsequent joint contracture. He is status post PIP capsular release and A2 neelam reconstruction using palmaris longus graft completed on 03.19.16 of the left ring finger. After surgery, Carlo Enrique developeda subsequent PIP joint flexion contracture. He was at -35 degrees PIP extension at last MD recheck and -55 today at recheck. Carlo Enrique is referred to Occupational Therapy for evaluation and treatment to include fitting for an orthosis. Patient presents today accompanied by sister for beginning ofserial orthosis and therapy. 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 He has pain with activity Including dressing, bathing, and home management because his finger gets stuck around things. CURRENT SYMPTOMS: Patient presents with pain, swelling, stiffness, limited mobility, and limited scar mobility of left ring finger PIP joint. Carlo Enrique reports pain when his finger is bumped or if it gets stuck while completing functional activities. MD reports 20 degree loss of flexion between visits PERFORMANCE DEFICITS: Carlo Enrique identifies difficulty with the following functional activities using the Patient Specific Functional Scale (PSFS): 0/10 (unable to perform) to 10/10 (Able to performwithout difficulty) Activity At Evaluation 1.) Dressing 3 2.) Bathing 3 3.) Home management 3 4.) Work 0 5.) Driving 7 Average Score: 3.25 PAIN: (Assessed using the visual analog scale) At Rest: 0/10 With Activity: 5/10 TREATMENT TODAY: Educated patient in etiology and biomechanics as related to patient's symptoms Fabricated custom finger volar gutter orthosis at the left ring finger PIP joint to promote maximalextension Provided LMB splint for use during the day for passive extension 3x daily 30 min Instructed in orthosis wear and care Passive stretching of volar plate PIP extension Range of Motion Exercises: hook/full fist tendon glides, Blocked PIP/DIP flexion, Blocked PIP extension to improve efficiency of extensor mechanism, and composite wrist flexion/extension to prevent soft tissue tightness. ASSESSMENT: Carlo Enrique has a well fitting orthosis post therapy. Carlo Enriuqe has joint stiffness of left ring finger at PIP joint with brawny to hard end feel. He has palpable improvement in PIP extension post stretching today to -50 degrees, however will be using combination of LMB progressive stretching splint and night time finger gutter to maintain gains. Carlo Enrique is able to independentlyverbalize and demonstrate the recommended home program following instructions today. Carlo Enrique has fair potential for gains with therapy/home program use. Patient knows to call with any questions or concerns. Short Term Goals (to be met by end of the visit today): Date Goal Met: Today 1. Carlo Enrique will demonstrate independence with donning and doffing of his orthosis and verbalization of purpose. Goal Status: Meets. Today 2. Carlo Enrique will be independent with home exercises as evident with demonstration in therapy. Goal Status: Meets PLAN: The patient is to be seen 1 time(s) per week, for 4 week(s) to progress toward short and prison goals. Soft tissue mobilization as therapeutically necessary to decrease pain and/or increase mobility Therapeutic exercises to increase functional mobility Static progression splinting of left ring finger to promote mobility and improved extension of PIP joint Functional activities to increase hand function and independence in self care I was present throughout today's treatment of the patient with my student participating. Following treatment I've reviewed, discussed and provided feedback to my occupational therapy student in whichupdates to the note were made. I concur with the note as written and recommend continuing treatmentper Plan of Care as written. (X) Carlo Enrique participated in the evaluation, collaborated on treatment goals, and agrees to the treatment plan. 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
--- OUTSIDE RECORDS SUMMARY | 2024-05-08 11:51 | XMS_ITS | Encounter Summary ---
Author Organization [facility] Address [facility] [place] [address] Care Team Providers Care Harness Mender Name Role Phone Raghavendra Beavers MD Primary Care Provider [phone] Encounter Details Date Type Department Care Team (Latest Contact Info) Description 03/10/2016 9:58 AM EDT - 03/10/2016 11:59 PM EDT Hospital En[place] [address] Marlon Love MD [facility] [place] [address] Contracture of PIP joint of finger of [...] Procedure Name Priority Date/Time Associated Diagnosis Comments US EXTREMITY NON VASCULAR LIMITED ANATOMIC SPECIFIC LEFT Routine 03/10/2016 10:57 AM EDT 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 This finding could possibly represent chronic injury. Bowstringing of the 4th finger FDP tendon at the level of the 4th proximal phalanx and 4th PIP joint. Narrative 03/10/2016 12:40 PM EDT EXAMINATION: US EXTREMITY NON VASCULAR LIMITED ANATOMIC SPECIFIC LEFT CLINICAL HISTORY: History of left fourth finger trauma, with abnormality in the left fourth finger FDP at the level of the distal one-half of the fourth middle phalanx on MRI performed earlier the same day. Rule out FDP tendon rupture. TECHNIQUE: Targeted sonography of the left fourth finger flexor digitorum profundus and superficialis tendons from the level of the carpal tunnel to the level of the fourth distal phalanx was performed. COMPARISON: Attention is also directed to the left hand MRI performed earlier on the same day. FINDINGS: As on the MRI of the same day, there is bowstringing of the fourth finger flexor digitorum profundus tendon at the level of the fourth proximal phalanx and fourth proximal interphalangeal joint. In the area of MRI abnormality, in the fourth finger flexor digitorum profundus tendon at the level of the distal one-half of the fourth middle phalanx, there is a small well-defined hypoechoic area located centrally and dorsally within the tendon (see, for example, the 25th, 26th, and 27th images of the first series; see, also, the fourth and last series for a cine clip of transducer moving along the fourth finger flexor digitorum profundus tendon from proximal to distal).This hypoechoic area occupies less than one-third of the cross-sectional area of the tendon. There is no associated hyperemia. This finding could possibly represent chronic injury. Procedure Note Carla Ortega MD - 03/10/2016 EXAMINATION: US EXTREMITY NON VASCULAR LIMITED ANATOMIC SPECIFIC LEFT CLINICAL HISTORY: History of left fourth finger trauma, with abnormalityin the left fourth finger FDP at the level of the distal one-half of the fourthmiddle phalanx on MRI performed earlier the same day. Rule out FDP tendonrupture. TECHNIQUE: Targeted sonography of the left fourth finger flexordigitorum profundus and superficialis tendons from the level of the carpal tunnel tothe level of the fourth distal phalanx was performed. COMPARISON: Attention is also directed to the left hand MRI performedearlier on the same day. FINDINGS: As on the MRI of the same day, there is bowstringing of the fourth fingerflexor digitorum profundus tendon at the level of the fourth proximal phalanxand fourth proximal interphalangeal joint. In the area of MRI abnormality, in the fourth finger flexor digitorumprofundus tendon at the level of the distal one-half of the fourth middle phalanx,there is a small well-defined hypoechoic area located centrally and dorsallywithin the tendon (see, for example, the 25th, 26th, and 27th images of thefirst series; see, also, the fourth and last series for a cine clip oftransducer moving along the fourth finger flexor digitorum profundus tendon fromproximal to distal).This hypoechoic area occupies less than one-third of the cross-sectional area of the tendon. There is no associated hyperemia.This finding could possibly represent chronic injury. IMPRESSION In the area of MRI abnormality, at the level of the distal one-half ofthe fourth middle phalanx, there is a small well-defined hypoechoic arealocated centrally and dorsally within the FDP tendon, without associatedhyperemia, occupying less than one-third of the cross-sectional area of the tendon.This finding could possibly represent chronic injury. Bowstringing of the 4th finger FDP tendon at the level of the 4thproximal phalanx and 4th PIP joint. 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
--- OUTSIDE RECORDS SUMMARY | 2024-05-08 11:51 | XMS_ITS | Clinical Summary ---
Author Organization [facility] Address [facility] [place] [address] Care Team Providers Care Soil Fertility Specialist Name Role Phone Radames Danielson MD Primary Care Provider [phone] Allergies Active Allergy Reactions Criticality Noted Date Comments Colchicine Other (See Comments) 05/26/2011 GI distress Medications Medication Sig Dispensed Refills Start Date End Date Status gabapentin (NEURONTIN) 300 mg Capsule Take 600 mg by mouth 3 times daily. Active ibuprofen (ADVIL;MOTRIN) 800 mg Tablet Take 800 mg by mouth every 24 hours. 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 02/18/2016 Dupuytren contracture 08/27/2015 Herniated lumbar intervertebral disc 12/30/2014 Family History Medical History Relation Comments Cancer Father Cancer Maternal Grandmother Cancer Paternal Grandmother Relation Status Comments Father Maternal Grandmother Mother Alive Paternal Grandmother Social History Tobacco Use Types Packs/Day Years [...] on file Sexual Orientation Not on file Last Filed Vital Signs Vital Sign Reading Time Taken Comments Blood Pressure 135/90 08/30/2016 7:54 AM EST Pulse 74 08/30/2016 7:54 AM EST Temperature 36.3 ??C (97.3 ??F) 03/19/2016 12:43 PM E DT Respiratory Rate 12 03/19/2016 3:30 PM EDT Oxygen Saturation 97% 03/19/2016 4:00 PM EDT Inhaled Oxygen Concentration - - Weight 90.7 kg (200 lb) 08/30/2016 7:54 AM EST s tated Height 176.5 cm (5' 9.5) 08/30/2016 7:54 AM EST stated Body Mass Index 29.11 08/30/2016 7:54 AM EST Plan of Treatment Health Maintenance Due Date Last Done Comments CT Colonography 1977 Colonoscopy 1977 Colorectal Cancer Screening 1977 FIT DNA 1977 FIT 1977 Sigmoidoscopy (10 year) with FIT yearly 1977 Sigmoidoscopy 1977 HIV screen 1995 Hepatitis C Screening 1995 Lipid Screening 1995 Hepatitis B vaccine (0-59 yrs) (1) 1996 Tetanus/Diphtheria/Pertussis Vaccines (1 - Tdap) 05/08 Covid-19 Vaccine (1 - season) 2024 Influenza (Flu) vaccine (1 o f 1 - Influenza standard series) 03/25/2024 Medical Devices Implanted Type Area Secretary To The Vice President Device Identifier Shelf Expiration Date Model / Serial / Lot Niru Roldan Tro c 1ed,[id number] ([id number]) - [id number] Implanted:Qty : 1 on 03/19/2016 by Marlon Love MD at REPLACED BY [facility] IMPLANTS Left: Finger DO NOT USE SYNTHES - [id number] / NONE / NONE Description:left hand, fourt h finger Advance Directives * Full Code (Latest Code Status on File) Date Activated Date Inactivated Comments 03/19/2016 10:21 AM 03/19/2016 7:13 PM Question Answer Comments Does patient have capacity to make decision: Yes Care Teams Soil Fertility Specialist Relationship Specialty Start Date End Date Radames Danielson MD PCP - General 12/07/16
--- OUTSIDE RECORDS SUMMARY | 2024-05-08 11:51 | XMS_ITS | Encounter Summary ---
Author Organization [facility] Address [facility] [place] [address] Care Team Providers Care Nurses' Aide Name Role Phone Raghavendra Beavers MD Primary Care Provider [phone] Reason for Visit * Auth/Cert Specialty Diagnoses / Procedures Referred By Contac t Referred To Contact Diagnoses Richi rupture and PIP flexion contracture left ring finger Procedures PRO HAND TENDON RICHI RECONST, GRAFT RECONSTRUCT TENDON RICHI, EA TENDON, W/ TENDON OR FASCIAL GRAFT Referral ID Status Reason Start Date Expiration Date Visits Re quested Visits Authorized [id number] 1 1 Encounter Details Date Type Department Care Team (Late st Contact Info) Description 03/19/2016 10:30 AM EDT Anesthesia Event [place] [address] Raya Woodard MD [facility] [place] [address] Christopher Hobbs MD [facility] [address] Anesthesia Record Procedure Summary Procedure Name Responsible Anesthesiologist Anesthesia Start Time Anesthesia Stop Time RECONSTRUCT TENDON RICHI, EA TENDON, W/ TENDON OR FASCIAL GRAFT (WRVU 7.31) (Left: Hand) Raya Woodard MD 03/19/16 1030 03/19/16 1245 Events Date Time Event Comment 03/19/2016 0950 1030 Start 1032 AN Verify 1032 An Start Data 1039 An Induction 1040 An Intubation 1041 Anesthesia Ready 1050 An Tourn Inflated 1052 Procedure Start 1053 Break/Relief In RAYA DICKERSON MD 1109 Break/Relief Out 1229 An Tourn Deflated 1239 Extubation/LMA Out 1241 an stop data 1245 Recovery or ICU Handoff Maria Eugenia ent care was transferred to the destination unit staff after review of the patient's medical history, current anesthetic/surgical status and plan, according to the Provider Handoff Checklist. 1245 Stop Meds Name Total Midazolam 4 mg fentaNYL 100 mcg IV Lidocaine 50 mg Propofol 300 mg ePHEDrine 10 mg Ondansetron 8 mg Dexamethasone 8 mg ceFAZolin (ANCEF) 2 gram/50 mL infusion 2 g Propofol INF 1,006.77 mg Dexmedetomidine 91 mcg Dexmedetomidine INF 28.72 mcg HYDROmorphone 1 mg lactated ringers infusion 1,000 mL 1,000 mL * Agents Name O2 Air Sevoflurane (et) * Blood No blood administrations on file. Lines, Drains, and Airways Type Details Placement Removal Incision 03/19/16; fourth finger; 03/22/22 (LDA cleanup utility RA#[id number]); 1715 (LDA cleanup utility RA#[id number]) 03/19/16 0000 by Soha Estrada RN 03/22/22 1715 by Jenny Jones Incision 03/19/16; wrist; 03/22/22 (LDA cleanup utility RA#[id number]); 1715 (LDA cleanup utility RA#[id number]) 03/19/16 0000 by Soha Estrada RN 03/22/22 1715 by Jenny Jones (RETIRED) Peripheral IV Line - Single Lumen 03/19/16; 0948; cephalic vein right (lateral side of arm); [id number] catheter system; 1 in length, 20 gauge; mayur pinzon; distraction, intradermal injection, tolerated well; 0; no longer indicated, removed per policy/procedure, catheter intact; 03/19/16; 1646 03/19/16 0948 by Hari Pinzon RN 03/19/16 1646 by Lori Pressley RN Supraglottic Mask Ventilation: No t Attempted (0); LMA Type: iGel; LMA Size: 4; Inserted by: Sarah Howell CRNA; Removal Date: 03/19/16; Removal Time: 1239 03/19/16 1040 by Sarah Howell CRNA 03/19/16 1239 by Sarah Howell CRNA documented in this encounter Social History Tobacco Use Types Packs/Day Years Used Date Smoking Tobacco: Never Smokeless Tobacco: Current Chew Alcohol Use Standard Drinks/Week Comments No 0 (1 standard drink = 0.6 oz pur e alcohol) Sex and Gender Information Value Date Recorded Sex Assigned at Not on file Gender Identity Not on file Sexual Orientation Not on file documented as of this encounter OR Notes * Anesthesia Postprocedure Evaluation - Raya Woodard MD - 03/19/2016 2:22 PM EDT [facility] Department of Anesthesiology Post-procedure Note Patient: Carlo Enrique Procedure Summary Date Anesthesia Start Anesthesia Stop Room / Location 03/19/16 1030 1245 [facility] [place] [address] [place] [address] [facility] Procedure Diagnosis Surgeon Responsible Provider RECONSTRUCT TENDON RICHI, EA TENDON, W/ TENDON OR FASCIAL GRAFT (Left Hand); CAPSULECTOMY OR CAPSULOTOMY, INTERPHALANGEAL JOINT, EACH JOINT (Left Hand) (Richi rupture and PIP flexion contracture left ring finger) Marlon Love MD Herrick, Michael D, MD All Anesthesia Providers: Anesthesiologist: Raya Woodard MD POT PULLER: Sarah Howell CRNA Last (1hr) Vitals: BP 131/69 (03/19/16 1400) Temp Pulse 60 (03/19/16 1400) Resp 16 (03/19/16 1400) SpO2 97 % (03/19/16 1400) Patient Location: PACU/[facility] Level of Consciousness: Conscious but Sleepy Pain Management: Satisfactory Analgesia PONV: None Cardiovascular Status: Hemodynamically Stable Respiratory Status: Stable Respiratory Status Postoperative Fluid Status: Intravascular EUvolemia Possible Anesthetic Complications: NONE apparent at time of evaluation Final Primary Anesthesia Type: General (The anesthetic type performed was the same as planned.) Comments: RAYA WOODARD MD * Anesthesia Preprocedure Evaluation - Raya Woodard MD - 03/19/2016 9:49 AM EDT Pre-Anesthesia Evaluation for: Carlo Enrique a 40 y.o. male. Procedure(s): RECONSTRUCT TENDON RICHI, EA TENDON, W/ TENDON OR FASCIAL GRAFT CAPSULECTOMY OR CAPSULOTOMY, INTERPHALANGEAL JOINT, EACH JOINT Patient Active Problem List Diagnosis ??? 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 Dupuytren contracture ??? Herniated lumbar intervertebral disc No past medical history on file. No past surgical history on file. Social History Substance Use Topics ??? Smoking status: Never Smoker ??? Smokeless tobacco: Current User Types: Chew ??? Alcohol use No History Drug Use ??? Yes ??? Special: Marijuana Comment: daily Allergies Allergen Reactions ??? Colchicine Other (See Comments) GI distress Medications: MAR and/or home medications have been reviewed. Physical Exam: Vitals: 03/19/16 0918 BP: 118/67 Pulse: 59 Resp: 18 Temp: 36.8 ??C (98.2 ??F) Body mass index is 29.53 kg/(m^2). Height: 175.3 cm (5' 9) Weight - Scale: 90.7 kg (200 lb) Airway Assessment: Mallampati: II TM distance: >3 FB Neck ROM: full Full morrison Cardiovascular Assessment: cardiovascular exam normal Pulmonary Assessment: pulmonary exam normal Dental Assessment: - normal exam Misc Assessment: IV access: Peripheral line Anesthesia Plan: ASA 2 general, with a(n) intravenous induction 40 yo for left hand/forearm surgery Hx of anxiety for which he takes gabapentin Denies smoking and drinking Denies CP SOB URI or GERD NPO > 4 mets Discussed risks and benefits of GA with local by the surgeon All questions answered RAYA WOODARD MD Region - Other Informed Consent: Anesthetic plan and risks discussed with patient. Plan discussed with POT PULLER. PAT Staff Note documented in this encounter Plan of Treatment Not on file documented as of this encounter Visit Diagnoses Not on filedocumented in this encounter Administered Medications Inactive Administered Medications - up to 3 most recent administrations Medication Order MAR Action Action Date Dose Rate Site ceFAZolin (ANCEF) 2 gram/50 mL infusion 1 dose, Starting on Tue03/19/16 at 0932, Until Tue03/19/16 at 1030, HARI PINZON: cabinet override Given 03/19/2016 10:30 AM EDT 2 g dexamethasone (DECADRON) injection PRN, Starting on Tue03/19/16 at 1047, Until Tue03/19/16 at 1245, Anesthesia Intra-op, Routine Given 03/19/2016 10:47 AM EDT 8 mg dexmedetomidine (PRECEDEX) injection PRN, Starting on Tue03/19/16 at 1039, Until Tue03/19/16 at 1245, Anesthesia Intra-op, Routine Given 03/19/2016 10:39 AM EDT 91 mcg dexmedetomidine (PRECEDEX) IV infusion (anesthesia) CONTINUOUS PRN, Starting on Tue03/19/16 at 1046, Until Tue03/19/16 at 1245, Anesthesia Intra-op, Routine New Bag 03/19/2016 10:46 AM EDT 0.2 mcg/kg/hr 4.5 mL/hr ePHEDrine 5 mg/mL multi-dose injection PRN, Starting on Tue03/19/16 at 1121, Until Tue03/19/16 at 1245, Anesthesia Intra-op, Routine Given 03/19/2016 11:21 AM EDT 10 mg fentaNYL 50 mcg/mL multi-dose injection PRN, Starting on Tue03/19/16 at 1100, Until Tue03/19/16 at 1245, Pain, Anesthesia Intra-op, Routine Given 03/19/2016 11:01 AM EDT 50 mcg Given 03/19/2016 11:00 AM EDT 50 mcg HYDROmorphone (DILAUDID) injection PRN, Starting on Tue03/19/16 at 1140, Until Tue03/19/16 at 1245, Pain, Anesthesia Intra-op, Routine Given 03/19/2016 12:33 PM EDT 0.2 mg Given 03/19/2016 11:59 AM EDT 0.4 mg Given 03/19/2016 11:40 AM EDT 0.4 mg lactated ringers infusion 1,000 mL 1,000 mL, at 100 mL/hr, Intravenous, CONTINUOUS, Starting on Tue03/19/16 at 1000, Until Tue03/19/16 at 1647, Day of Surgery (Day of Procedure) New Bag 03/19/2016 12:21 PM EDT New Bag 03/19/2016 10:30 AM EDT lidocaine (PF) (XYLOCAINE) 100 mg/5 mL (2 %) injection PRN, Starting on Tue03/19/16 at 1039, Until Tue03/19/16 at 1245, Anesthesia Intra-op, Routine Given 03/19/2016 10:39 AM EDT 50 mg midazolam (PF) (VERSED) 1 mg/mL multi-dose injection PRN, Starting on Tue03/19/16 at 1030, Until Tue03/19/16 at 1245, Sleep, Anesthesia Intra-op, Routine Given 03/19/2016 10:30 AM EDT 4 mg ondansetron (ZOFRAN) injection PRN, Starting on Tue03/19/16 at 1217, Until Tue03/19/16 at 1245, Nausea, Anesthesia Intra-op, Routine Given 03/19/2016 12:17 PM EDT 8 mg propofol (DIPRIVAN) 10 mg/mL bolus injection (Anesthesia) PRN, Starting on Tue03/19/16 at 1039, Until Tue03/19/16 at 1245, Anesthesia Intra-op Given 03/19/2016 10:39 AM EDT 300 mg propofol (DIPRIVAN) infusion CONTINUOUS PRN, Starting on Tue03/19/16 at 1039, Until Tue03/19/16 at 1245, Anesthesia Intra-op, Routine New Bag 03/19/2016 10:39 AM EDT 100 mcg/kg/min 54.4 mL/hr documented in this encounter Care Teams Nurses' Aide Relationship Specialty Start Date End Date Raghavendra Beavers MD [facility] [address] [place] [address] PCP - General General Internal Medicine 03/10/1611/22 documented as of this encounter
--- OUTSIDE RECORDS SUMMARY | 2024-05-08 11:51 | XMS_ITS | Encounter Summary ---
Author Organization [facility] Address [facility] [place] [address] Care Team Providers Care Silk Folder Name Role Phone Radames Danielson MD Primary Care Provider [phone] Encounter Details Date Type Department Care Team (Late st Contact Info) Description 12/14/2013 Interpretation Only Radiology [facility] [place] [address] Unknown None Social History Tobacco Use Types Packs/Day Years Used Date Smoking Tobacco: Former Sex and Gender Information Value Date Recorded Sex Assigned at Not on file Gender Identity Not on file Sexual Orientation Not on file documented as of this encounter Plan of Treatment Not on file documented as of this encounter Procedures Procedure Name Priority Date/Time Associated Diagnosis Comments XR FLUORO NO RAD <1HR - RADIOLOGY USE Routine 12/14/2013 6:39 AM EDT documented in this encounter Results * XR Fluoro <1Hr - Radiology Use (12/14/2013 6:39 AM EDT) Anatomical Region Laterality Modality N/A Radiographic Janet ging 12/14/2013 6:39 AM EDT Narrative 12/14/2013 6:39 AM EDT APD Historical Result Principal Sales Agent Pest Control Service: ??VIET ??MAZARIEGOS C-ARM: HISTORY: ??Right L4-5 microdiscectomy. COMPARISON: ??Outside MRI of the lumbar spine from [facility] dated November 23, 2013. FINDINGS: Fluoroscopy was provided for Dr Galindo. ??Two image intensifier films were archived to PACS demonstrating radiopaque instruments projecting in the posterior soft tissues at approximately L5. ??No gross acute fracture margination or malalignment identified. ??Total fluoro time equals 5.5 seconds. ??The estimated cumulative dose is 3.04 mGy. Please refer to separate procedure report. Viet Mazariegos MD SERGIO/efraín [id number] CC: Procedure Note Unknown - 01/22/2019 APD Historical Result Principal Sales Agent Pest Control Service: VIET MAZARIEGOS C-ARM: HISTORY: Right L4-5 microdiscectomy. COMPARISON: Outside MRI of the lumbar spine from [facility] dated November 23, 2013. FINDINGS: Fluoroscopy was provided for Dr Galindo. Two image intensifier filmswere archived to PACS demonstrating radiopaque instruments projecting in the posterior softtissues at approximately L5. No gross acute fracture margination or malalignment identified. Total fluorotime equals 5.5 seconds. The estimated cumulative dose is 3.04 mGy. Please refer toseparate procedure report. Viet Mazariegos MD SERGIO/efraín [id number] CC: Unknown IMG FLUORO ORDERABLE S documented in this encounter Visit Diagnoses Not on filedocumented in this encounter Care Teams Silk Folder Relationship Specialty Start Date End Date Radames Danielson MD PCP - General 12/07/16 documented as of this encounter
--- OUTSIDE RECORDS SUMMARY | 2024-05-08 11:51 | XMS_ITS | Clinical Summary ---
Author Organization [facility] Address [address] [place] [address] Care Team Providers Care Director Digital Communications Name Role Phone Baljinder Lopez MD Primary Care Provider [phone] Allergies Active Allergy Reactions Criticality Noted Date Comments Colchicine Analogues 07/09/2014 Gi upset Medications Medication Sig Dispensed Refills Start Date End Date Status gabapentin (NEURONTIN) 300 mg capsule Take 300 mg by mouth 3 times daily. Active LORazepam (ATIVAN) 1 mg tablet Take 1 mg by mouth at bedtime as needed for Anxiety Active acetaminophen (TYLENOL) 325 mg tablet Take 2 Tabs by mouth every 4 hours as needed for Pain 12/30/2014 Active methocarbamol (ROBAXIN) 750 mg tablet Take 1 Tab by mouth 3 times daily as needed for Muscle Spasms 60 Tab 0 12/30/2014 Active docusate sodium (COLACE) 100 mg capsule Take 1 Cap by mouth 2 times daily as needed for Constipation 12/30/2014 Active oxyCODONE (ROXICODONE) 5 mg immediate release tablet Take 1-2 Tabs by mouth every 6 hours as needed for Pain Earliest Fill Date: 01/09/15 Daily Max: 40 mg 90 Tab 0 01/09/2015 Active indomethacin (INDOCIN) 50 mg capsule Take 50 mg by mouth 3 times daily. Active ibuprofen (MOTRIN) 800 mg tablet Take 800 mg by mouth daily as needed for Pain. Active Active Problems Problem Noted Date Diagnosed Date Lumbar disc herniation 12/30/2014 Low back pain radiating to both legs 07/09/2014 Encounters Date Type Department Care Team Description 04/07/2024 Lab Requisition [facility] [address] [address] Outr Resulting Lab, Provider from Last 3 Months Surgical History Surgery Date Site/Laterality Comments BACK SURGERY L4-L5 discectomy SPINE SURGERY Medical History Medical History Date Comments Environmental allergies Anxiety Arthritis Depression Substance abuse (HCC-CMS) Family History Medical History Relation Comments Cancer Father Relation Status Comments Father Mother Alive Social History Tobacco Use Types Packs/Day Years Used Date Smoking Tobacco: Never Smokeless Tobacco: Current Chew Alcohol Use Standard Drinks/Week Comments Yes 70 (1 standard drink = 0.6 oz pu re alcohol) 6-12 per day Interpersonal Safety Answer Date Record ed Physically Hurt Never 02/24/2020 Verbally Threaten Not on file 02/24/2020 Sex and Gender Information Value Date Recorded Sex Assigned at Not on file Gender Identity Male 07/29/2023 14:06 EST Sexual Orientation Not on file Obstetrics History Last Filed Vital Signs Vital Sign Reading Time Taken Comments Blood Pressure 161/109 01/02/2016 1410 EDT Pulse 88 01/02/2016 1410 EDT Temperature 36.7 ??C (98.1 ??F) 01/02/2016 1333 EDT Respiratory Rate 16 01/02/2016 1410 EDT Oxygen Saturation 99% 12/30/2014 1545 EDT Inhaled Oxygen Concentration - - Weight 86.2 kg (190 lb) 01/02/2016 1333 EDT per pt Height 175.3 cm (5' 9) 01/02/2016 1333 EDT per pt Body Mass Index 28.06 01/02/2016 1333 EDT Plan of Treatment Health Maintenance Due Date Last Done Comments Hepatitis C Screen 1975 Hepatitis B Vaccine (1 of 3 - 19+ 3-dose series) 05/08 COVID-19 Vaccine ( season) 2023 Procedures Procedure Name Priority Date/Time Associated Diagnosis Comments T3, TOTAL Routine 04/06/2024 16:26 EDT from Last 3 Months Results * T3, TOTAL (04/06/2024 16:26 EDT) T3, Total 122 97 - 169 ng/dL 04/08/2024 7:51 EDT [facility] Blood VENOUS BLOOD / Unknown 04/06/2024 16:26 EDT 04/08/2024 6:49 EDT Provider Outr Resulting Lab CHEMISTRY & BLOOD GAS ORDERABLES [facility] [address] [place] [address] from Last 3 Months Advance Directives For more information, please contact: [phone] * Full Code (Latest Code Status on File) Date Activated Date Inactivated Comments 12/30/2014 6:39 12/30/2014 18:19 Question Answer Comments Reason for decision includes: Full code consistent with overall plan of care Who participated in the discussion? Not Discusse d Care Teams Director Digital Communications Relationship Specialty Start Date End Date Baljinder Lopez MD PCP - General 10/16/15
--- OUTSIDE RECORDS SUMMARY | 2024-05-08 11:51 | XMS_ITS | Encounter Summary ---
Author Organization [facility] Address 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; Rupture of flexor sheath richi of left ring finger Social History Tobacco [...] Sign Reading Time Taken Comments Blood Pressure 129/89 03/10/2016 9:16 AM EDT Pulse 84 03/10/2016 9:16 AM EDT Temperature - - Respiratory Rate - - Oxygen Saturation - - Inhaled Oxygen Concentration - - Weight 90.7 kg (200 lb) 03/10/2016 9:16 AM EDT s tated Height 176.5 cm (5' 9.5) 03/10/2016 9:16 AM EDT stated Body Mass Index 29.11 03/10/2016 9:16 AM EDT documented in this encounter Progress Notes * Marlon Love MD - 03/10/2016 9:05 AM EDT Carlo Enrique returns following an MRI and an ultrasound of his left ring finger. He can fully flex his ring finger into his palm. He has approximately a 90 degree PIP flexion contracture, which I cannot passively extend. His finger is somewhat painful. This occurred when he was shaking a wall a couple of weeks following his Xiaflex injection when he felt a pop in the finger. The ultrasound and MRI done today suggest that his FDP tendon is predominantly incontinuity. There may be a small central lucency in the tendon measuring less than 20% of the area over the distal part of the middle phalanx, but this does not seem to be clinically significant. The MRI does suggest that there is bowstringing of his flexor tendons over the proximal phalanx between the A2 and A3 pulleys, and it is my impression, based on his MRI and clinical exam that he likely has ruptured the distal part of his A2 richi, as well as his A3 richi allowing for bowstringing to have occurred. He also has a PIP capsular flexion contracture. I have talked to him about the etiology and management of this. This may have been related to a combination of prior penetrating trauma, Xiaflex therapy and his recent activity, which led to a popping sensation in the palm while he was shaking a wall. Certainly, Xiaflex has been implicated with richi ruptures based on previous clincal series. He is aware that optimal treatment for this, if he chooses to treat at all, would require a richi reconstruction and PIP contracture release. This is certainly not a simple procedure to do, nor is the rehab simple or easy. I did talk to him about potential risks of the procedure and he is aware that these include but are not limited to proximal phalanx fracture, recurrent stiffness, recurrent rupture of the tendon, neurovascular injury, swelling and chronic pain. I would likely use either his palmaris longus tendon, which he does have, and/or a strip of extensor retinaculum for reconstruction of the richi. I did tell him it is unlikely he will have normal extension of the finger, but my hope is that we can get it up somewhere closer to a 30 degree flexion contracture compared to where he is now at 90 degrees, which is functionally very problematic for him. He does understand he cannot use his hand for any type of work until healing has sufficient time to take place and that he will need to be in extensive hand therapy afterwards. His outcome will be much improved if he is compliant with this. He does understand these issues and wishes to proceed. We will schedule this to be done in the near future as per his request. * Chantal Brizuela RN - 03/10/2016 9:05 AM EDT Pro op teaching for general hand/wrist surgery ICD-10-CM PL 1. 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 Rupture of flexor sheath richi of left ring finger . Emphasis placed on post op hand elevation with hand above heart,fingers above palm,palm above wrist and wrist above elbow. This was demonstrated. Stressed no lifting of operative hand. Reviewed suggestions for taking post op pain medication. Questions solicited and answered to patient satisfaction. Written material provided. Patient knows to call with any additional questions or concerns. documented in this encounter H&P Notes * Bernadine Mendoza MD - 03/10/2016 9:05 AM EDT PRE-OPERATIVE HISTORY AND PHYSICAL for ADMISSION, OBSERVATION OR PROCEDURE Date of : 1975 Age: 40 y.o. PCP: RAGHAVENDRA BEAVERS MD Presenting Diagnosis/Chief Complaint: Chief Complaint Patient presents with ??? Left Hand Pain left ring finger History of Present Illness: Carlo Enrique is a 40 y.o. male who presents for pre-operative examination. Please see Dr. Love's note for full details of the patient's specific problem. Denies recent illnesses or changes in health status acutely. PMHx: Patient Active Problem List Diagnosis Code ??? Dupuytren contracture M72.0 ??? Herniated lumbar intervertebral disc M51.26 ??? 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 Rupture of flexor sheath richi of left ring finger S63.90XA History reviewed. No pertinent past medical history. History reviewed. No pertinent past surgical history. Home Medications: (Not in a hospital admission) Allergies: Allergies Allergen Reactions ??? Colchicine Other (See Comments) GI distress Family History: Non contributory Family History Problem Relation Age of Onset ??? Cancer Father ??? Cancer Maternal Grandmother ??? Cancer Paternal Grandmother Social History: Alcohol: recently quit drinking alcohol Tobacco: negative Drug: occasional smoked marijuana Review of Systems: complete 10 system ROS performed with pertinent findings below. A comprehensive review of systems was negative. Physical Exam: VITALS: Temperature Heart Rate Heart Rate: 84 Blood Pressure BP: 129/89 Respiratory Rate SpO2 @[id number]@ General: alert, appears stated age and cooperative Pulmonary: equal, clear breath sounds bilaterally and no crepitus Cardiovascular: Regular rate and rhythm Assessment and Plan: 40 y.o. male with the above problem, plan to proceed to OR with Dr. Love for operative intervention. 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
--- OUTSIDE RECORDS SUMMARY | 2024-05-08 11:51 | XMS_ITS | Encounter Summary ---
Author Organization [facility] Address [facility] [place] [address] Care Team Providers Care Hatch Tender Name Role Phone Raghavendra Beavers MD Primary Care Provider [phone] Encounter Details Date Type Department Care Team (Latest Contact Info) Description 08/30/2016 7:00 AM EST - 08/30/2016 11:59 PM EST Hospital Encounter XRay at [address] [place] [address] Marlon Love MD [facility] [address] Injury of left ring finger, initial encounter Discharge Disposition: Home Social History Tobacco Use [...] Sig Dispensed Refills Start Date End Date ibuprofen (ADVIL;MOTRIN) 800 mg Tablet Take 800 mg by mouth every 24 hours. gabapentin (NEURONTIN) 300 mg Capsule Take 600 mg by mouth 3 times daily. documented as of this encounter Plan of Treatment Not on file documented as of this encounter Procedures Procedure Name Priority Date/Time Associated Diagnosis Comments XR FINGER(S) MIN 2 VIEWS LEFT Routine 08/30/2016 7:35 AM EST Injury of left ring finger, initial encounter documented in this encounter Results * XR Fingers Min 2 views Left (Generic) (08/30/2016 7:35 AM EST) Anatomical Region Laterality Modality Hand Left Digital Radiogra phy Impressions 08/30/2016 9:01 AM EST Postoperative changes consistent with neelam repair The flexed position of the PIP joint suggest possible contracture. Narrative 08/30/2016 9:01 AM EST EXAMINATION: XR FINGERS MIN 2 VIEWS LEFT (GENERIC) CLINICAL HISTORY: left ring finger TECHNIQUE: 3 views of the left hand COMPARISON: X-ray 08/13/2015 FINDINGS: As seen on the previous study the ring finger is flexed at both the PIP and the DIP joint. Joint space at the PIP joint is narrowed. At the proximal phalanx there focal defects in the bone consistent with the history of previous neelam repair. Procedure Note Logan Burt MD - 08/30/2016 EXAMINATION: XR FINGERS MIN 2 VIEWS LEFT (GENERIC) CLINICAL HISTORY: left ring finger TECHNIQUE: 3 views of the left hand COMPARISON: X-ray 08/13/2015 FINDINGS: As seen on the previous study the ring finger is flexed at both the PIPand the DIP joint. Joint space at the PIP joint is narrowed. At the proximal phalanx there focal defects in the bone consistent withthe history of previous neelam repair. IMPRESSION Postoperative changes consistent with neelam repair The flexed position of the PIP joint suggest possible contracture. Marlon Love MD IMG DX ORDERABLES documented in this encounter Visit Diagnoses Diagnosis Injury of left ring finger, initial encounter documented in this encounter Care Teams Hatch Tender Relationship Specialty Start Date End Date Raghavendra Beavers MD [facility] [address] [place] [address] PCP - General General Internal Medicine 03/10/1611/22 documented as of this encounter
--- OUTSIDE RECORDS SUMMARY | 2024-05-08 11:51 | XMS_ITS | Continuity of Care Document ---
Author Organization [facility] Address [address] [place] [address] Encounter [facility] FIN NBR [id number] Date(s): 11/25/23 - 11/25/23 [facility] [address] [place] [place], [place] [address] Encounter Diagnosis Parasitism(Discharge Diagnosis) - 11/25/23 Discharge Disposition: Left Without Being Seen Attending Physician: Ysabel Malik MD Admitting Physician: Ysabel Malik MD Allergies, Adverse Reactions, Alerts No Known Medication Allergies Assessment and Plan Extracted from: Title:ED Provider Note Author:MERCEDES Lugo RN Date:11/25/23 Assessment/Plan 1.??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 Patient Discharge Condition stable Discharge Disposition home Patient Education Skin-Picking Disorder Follow Up With When Contact Information Follow up with primary care provider Within 2 to 4 days Additional Instructions: Mental Status 11/25/23 Eye Opening Response Mccammon Spontaneous ly Best Verbal Response M[place]mon Oriented Best Motor Response M[place]ammon Obeys comman ds Mccammon Coma Score 15 Problem List Condition Confirmation Course Effective Dates Status Health St atus Informant Parasitism Confirmed Active Vital Signs Most recent to oldest [Reference Range]: 1 Temperature Temporal Artery [36-38 Deg C ] 36.5 Deg C (11/25/23 7:04 PM) Heart Rate Monitored [60-100 bpm] 110 bp m *HI* (11/25/23 7:04 PM) Respiratory Rate [12-24 br/min] 20 br/mi n (11/25/23 7:04 PM) Blood Pressure [90-140/60-90 mmHg] 166/1 06mmHg *HI* (11/25/23 7:04 PM) Mean Arterial Pressure, Cuff [65-140 mmH g] 126 mmHg (11/25/23 7:04 PM) Weight 72.57 kg (11/25/23 7:04 PM) Weight Dosing 72.570 kg (11/25/23 7:04 PM) Height 175 cm (11/25/23 7:04 PM) Body Mass Index 23.7 kg/m2 (11/25/23 7:04 PM) Social History Social History Type Response Tobacco Current everyday tob acco user Tobacco Use:. Chewing Tobacco per day. Sex Hospital Discharge Instructions Patient Education 11/25/2023 18:35:34 Skin-Picking Disorder Skin-Picking Disorder Skin-picking disorder, also known as excoriation disorder, is a mental health condition of picking at one's skin without being aware of it (unconsciously). People with skin-picking disorder may keep picking at their skin even when it causes infections or stress or when it hurts their social and emotional well- being. Skin-picking disorder can develop at any age, but it most commonly appears duringadolescence. What are the causes? The cause of this condition is not known. It often develops as a result of: ??? Unresolved stress. ??? A skin injury or infection that causes itchiness or a scab. Acne is one example. Skin-picking disorder is more likely to be related to a type of obsessive- compulsive disorder (OCD), rather than a bigger skin problem. ??? OCD involves having unwanted and distressing thoughts, ideas, or urges (obsessions), and doing repetitive physical or mental acts (compulsions) that bring a temporary sense of relief or calming. ??? Compulsions of OCD may be briefly calming, but a person is likely to feel distress over the consequences of these acts. People with skin-picking disorder may have other mental health conditions, such as depression or anxiety, which also may need treatment. What increases the risk? The following factors may make you more likely to develop this condition: ??? Having obsessive-compulsive disorder. ??? Having body dysmorphic disorder (BDD). This is a mental health condition that involves an obsession with how you look. ??? Using substances, such as cocaine. ??? Being female. ??? Having certain medical conditions, such as scabies. ??? Feeling anxious. What are the signs or symptoms? Symptoms of this condition include: ??? Unconsciously and repeatedly picking at your skin. This may be done in order to feel some relief from stress or other emotional difficulties. ??? Harming your body in noticeable ways. In severe cases, sharp objects may be used. ??? Not being able to stop yourself from picking at your skin. How is this diagnosed? This condition may be diagnosed based on a physical exam to rule out skin disorders. Your health care provider may also ask questions about: ??? Your mental health and well-being, including stressful events you have experienced that may have triggered your condition. ??? Any strong emotions you have trouble dealing with, which lead to skin picking. ??? Any history of substance abuse problems. ??? Any history of skin injury or infection that may have triggered your condition. You may be referred to a mental health care provider or a correspondence specialist (machine maintenance supervisor) to confirm a diagnosis and determine what treatment is best for you. How is this treated? The first step in treatment is to make yourself aware of your disorder and the problems it causes. Treatment options may include: ??? Cognitive behavioral therapy (CBT). This focuses on identifying and changing problematic thoughts and behaviors that cause your condition. ??? Mindfulness-based cognitive therapy. This type of CBT emphasizes focusing your attention, meditating, and developing awareness of the present moment (mindfulness). ??? Habit reversal therapy. This focuses on becoming aware of your picking and learning to use relaxation techniques or do something else instead of picking. ??? Acceptance and commitment therapy (ACT). This focuses on accepting yourself as you are and setting goals for making changes. ??? Antidepressant medicines. ??? Working with a machine maintenance supervisor to treat any skin problems caused by the disorder. Follow these instructions at home: ??? Take [id number]-[id number] and prescription medicines only as told by your health care provider. ??? Become aware of what triggers you to pick at your skin, and try to avoid those triggers. Develop skills to deal with issues that trigger picking. ??? If you feel an urge to pick at your skin, use strategies to stop yourself. Therapy can help youdevelop strategies, such as: ??? Taking a deep breath. ??? Naming the feelings you are having. ??? Keeping your hands busy. ??? Consider joining a support group for people who have skin-picking disorder. ??? Keep all follow-up visits. This includes therapy and dermatology visits. This is important. Contact a health care provider if: ??? Your emotions or stress has become overwhelming. ??? You develop signs of infection in an area that is affected by picking. Signs of infection may include: ??? Redness, swelling, or pain. ??? Fluid or blood. ??? Warmth. ??? Pus or a bad smell. ??? Fever. Get help right away if: ??? You have thoughts about hurting yourself or others. Get help right away if you feel like you may hurt yourself or others, or have thoughts about takingyour own life. Go to your nearest emergency room or: ??? Call 911. ??? Call the National Suicide Prevention Lifeline at or 088. This is open 24 hours aday. ??? Text the Crisis Text Line at 006456. Summary ??? Skin-picking disorder, also known as excoriation disorder, is a mental health condition of picking at one's skin without being aware of it (unconsciously). ??? Skin-picking disorder is often related to OCD. ??? Treatment may involve managing physical skin problems, finding the appropriate mental health treatment, and taking medicine. ??? Consider joining a support group for people who have skin-picking disorder. This information is not intended to replace advice given to you by your health care provider. Make sure you discuss any questions you have with your health care provider. Document Revised: 04/05/2022 Document Reviewed: 04/05/2022 [employer] Patient Education ?? 2022 [employer]. Follow Up Care 11/25/2023 18:44:49 With:Follow up with primary care provider Address: When:2 to 4 days Physician Emergency department Note * Sophia Dillon APRN: PERFORM Event Display: ED Note Physician Authored Date: [id number] MUMTAZ MARTINEZ :1975 Age:48 years Sex:Male Visit Date:11/25/2023 Basic Information Time Seen: Sophia Dillon APRN / 11/25/2023 18:46 Chief Complaint Pt believes he has had parasites in his stomach, coming out of his nose and throat for about 2 1/2 months. He has been seen many times for this however no treatment given. Feels tired and fatigue constantly History Of Present Illness: This is a 48-year-old male patient??drug user who presents for evaluation of??worms??that have been crawling around his skin out of his nose??and throat he reports for approximately 2 and half months??since a friend of his returned from??a vacation abroad.?? He states??that the worms come up to the surface of the skin when he rubs his arm.?? He denies any pain.?? He has seen multiple providers for this complaint??and reports feeling very frustrated that nobody is listening to him.?He wasevaluated by his primary care provider today??and states he ordered??testing for him but he??got frustrated that the provider was not seeing the warm so he presented to the emergency department??for e valuation??and again became upset??and then presented here.?? He denies any fever he states he has been eating and drinking.?? He does admit to using??crack??cocaine.?? He does appear very agitated??and restless. Review of Systems: 10 point review of systems negative and all positives as per HPI Physical Exam Vitals & Measurements T:??36.5?C ??(Temporal Artery)?? HR:??110??(Monitored)?? RR:??20?? BP:??166/106?? SpO2:??100%?? HT:??175??cm?? WT:??72.57??kg?? BMI:??23.7?? O2 Therapy:??Room air?? Thin male of stated age??in no acute distress with normal vital signs. ??Head is atraumatic??oral mucosas moist??respirations are even and unlabored??cardiovascular regular rate and rhythm his skin with no rashes or lesions??he is??pointing to areas on his arm and abdomen??telling me there are worms there which I do not appreciate.?? He is awake??alert oriented??psychiatric restless??and easily agitated Medical Decision Making: Patient becomes agitated that I do not??see the worms. Procedure No Qualifying Data Assessment/Plan 1.??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 Patient Discharge Condition stable Discharge Disposition home Patient Education Skin-Picking Disorder Follow Up With When Contact Information Follow up with primary care provider Within 2 to 4 days Additional Instructions: Problem List/Past Medical History Ongoing Parasitism Tobacco user Historical No qualifying data Allergies No Known Medication Allergies Social History Alcohol Current, 1-2 times per week Electronic Cigarette/Vaping Electronic Cigarette Use: Never. Substance Use Current, Cocaine, 1-2 times per week- Comments: Crack Tobacco Current everyday tobacco user Tobacco Use:. Chewing Tobacco per day. Electronically Signed on 11/25/23 07:36 PM Sophia Dillon APRN Emergency department Discharge instructions * Sophia Dillon APRN: PERFORM Event Display: ED Discharge Information Authored Date: [id number] MUMTAZ MARTINEZ :1975 Age:48 years Sex:Male Visit Date:11/25/2023 Discharge Instructions We would like to thank you for allowing us to assist you with your healthcare needs. The following includes patient education materials and information regarding your injury/illness. Diagnosis from Today's Visit Parasitism Discharge Vitals Temperature??(Temporal Artery) 97.7 ??F (36.5 ??C) Heart Rate??(Monitored) 110 Respiratory Rate?? 20 Blood Pressure?? 166/106?? SpO2?? 100% Height?? 68.90 in (175 cm) Weight?? 160.02 lb (72.57 kg) BMI?? 23.7 Allergies No Known Medication Allergies What to Do Next You Need to Schedule the Following Appointments Follow Up with??Follow up with primary care provider When:??Within 2 to 4 days You were treated today on an emergency basis; it may be pollock to contact your primary care provider to notify them of your visit today. You may have been referred to your regular doctor or a specialist, please follow up as instructed. If your condition worsens or you can't get in to see the doctor, contact the Emergency Department. Education Materials Skin-Picking Disorder Skin-picking disorder, also known as excoriation disorder, is a mental health condition of picking at one's skin without being aware of it (unconsciously). People with skin-picking disorder may keep picking at their skin even when it causes infections or stress or when it hurts their social and emotional well- being. Skin-picking disorder can develop at any age, but it most commonly appears duringadolescence. What are the causes? The cause of this condition is not known. It often develops as a result of: ? Unresolved stress. ? A skin injury or infection that causes itchiness or a scab. Acne is one example. Skin-picking disorder is more likely to be related to a type of obsessive- compulsive disorder (OCD), rather than a bigger skin problem. ? OCD involves having unwanted and distressing thoughts, ideas, or urges (obsessions), and doing repetitive physical or mental acts (compulsions) that bring a temporary sense of relief or calming. ? Compulsions of OCD may be briefly calming, but a person is likely to feel distress over the consequences of these acts. People with skin-picking disorder may have other mental health conditions, such as depression or anxiety, which also may need treatment. What increases the risk? The following factors may make you more likely to develop this condition: ? Having obsessive-compulsive disorder. ? Having body dysmorphic disorder (BDD). This is a mental health condition that involves an obsessionwith how you look. ? Using substances, such as cocaine. ? Being female. ? Having certain medical conditions, such as scabies. ? Feeling anxious. What are the signs or symptoms? Symptoms of this condition include: ? Unconsciously and repeatedly picking at your skin. This may be done in order to feel some relief from stress or other emotional difficulties. ? Harming your body in noticeable ways. In severe cases, sharp objects may be used. ? Not being able to stop yourself from picking at your skin. How is this diagnosed? This condition may be diagnosed based on a physical exam to rule out skin disorders. Your health care provider may also ask questions about: ? Your mental health and well-being, including stressful events you have experienced that may have triggered your condition. ? Any strong emotions you have trouble dealing with, which lead to skin picking. ? Any history of substance abuse problems. ? Any history of skin injury or infection that may have triggered your condition. You may be referred to a mental health care provider or a correspondence specialist (machine maintenance supervisor) to confirm a diagnosis and determine what treatment is best for you. How is this treated? The first step in treatment is to make yourself aware of your disorder and the problems it causes. Treatment options may include: ? Cognitive behavioral therapy (CBT). This focuses on identifying and changing problematic thoughts and behaviors that cause your condition. ? Mindfulness-based cognitive therapy. This type of CBT emphasizes focusing your attention, meditating, and developing awareness of the present moment (mindfulness). ? Habit reversal therapy. This focuses on becoming aware of your picking and learning to use relaxation techniques or do something else instead of picking. ? Acceptance and commitment therapy (ACT). This focuses on accepting yourself as you are and setting goals for making changes. ? Antidepressant medicines. ? Working with a machine maintenance supervisor to treat any skin problems caused by the disorder. Follow these instructions at home: ? Take [id number] and prescription medicines only as told by your health care provider. ? Become aware of what triggers you to pick at your skin, and try to avoid those triggers. Develop skills to deal with issues that trigger picking. ? If you feel an urge to pick at your skin, use strategies to stop yourself. Therapy can help you develop strategies, such as: ? Taking a deep breath. ? Naming the feelings you are having. ? Keeping your hands busy. ? Consider joining a support group for people who have skin-picking disorder. ? Keep all follow-up visits. This includes therapy and dermatology visits. This is important. Contact a health care provider if: ? Your emotions or stress has become overwhelming. ? You develop signs of infection in an area that is affected by picking. Signs of infection may include: ? Redness, swelling, or pain. ? Fluid or blood. ? Warmth. ? Pus or a bad smell. ? Fever. Get help right away if: ? You have thoughts about hurting yourself or others. Get help right away if you feel like you may hurt yourself or others, or have thoughts about takingyour own life. Go to your nearest emergency room or: ? Call 911. ? Call the National Suicide Prevention Lifeline at or 591. This is open 24 hours a day. ? Text the Crisis Text Line at 917410. Summary ? Skin-picking disorder, also known as excoriation disorder, is a mental health condition of picking at one's skin without being aware of it (unconsciously). ? Skin-picking disorder is often related to OCD. ? Treatment may involve managing physical skin problems, finding the appropriate mental health treatment, and taking medicine. ? Consider joining a support group for people who have skin-picking disorder. This information is not intended to replace advice given to you by your health care provider. Make sure you discuss any questions you have with your health care provider. Document Revised: 04/05/2022 Document Reviewed: 04/05/2022 [employer] Patient Education ?? 2022 [employer] Patient/Bit Grinder Signature Patient Name:MUMTAZ MARTINEZ I have received this information and my questions have been answered. Patient/Bit Grinder Name: Patient/Bit Grinder Signature: Relationship to Patient: Witness Name/Signature: Date: Electronically Signed on: 11/25/2023 19:36 EDTSigned by:CARLINE
--- OUTSIDE RECORDS SUMMARY | 2024-05-08 11:51 | XMS_ITS | Encounter Summary ---
Author Organization [facility] Address [facility] [place] [address] Care Team Providers Care Consulting Technical Director Name Role Phone Raghavendra Beavers MD Primary Care Provider [phone] Reason for Referral * Occupational Therapy (Routine) - Closed Specialty Diagnoses / Procedures Referred By Contwan t Referred To Contact Occupational Therapy Diagnoses Rupture of flexor sheath neelam of finger Radha Hernandes PA [facility] [place] [address] [facility] [place] [address] Referral ID Status Reason Start Date Expiration Date V isits Requested Visits Authorized [id number] Closed Evaluate and Treat 03/31/2016 03/31/2017 1 1 Reason for Visit * Reason Comments Left Hand Pain Left ring finger DOS : 03/19/16 Encounter Details Date Type Department Care Team (Latest Contact Info) Description 03/31/2016 4:00 PM EDT Office [place] [phone] Marlon Love MD [facility] [place] [address] Rupture of flexor sheath neelam of left [...] Sign Reading Time Taken Comments Blood Pressure 144/87 03/31/2016 3:59 PM EDT Pulse 79 03/31/2016 3:59 PM EDT Temperature - - Respiratory Rate - - Oxygen Saturation - - Inhaled Oxygen Concentration - - Weight 88.5 kg (195 lb) 03/31/2016 3:59 PM EDT v erbal Height 176.5 cm (5' 9.5) 03/31/2016 3:59 PM EDT verbal Body Mass Index 28.38 03/31/2016 3:59 PM EDT documented in this encounter Progress Notes * Radha Hernandes PA - 03/31/2016 4:00 PM EDT PATIENT NAME: Carlo Enrique AGE: 40 y.o. MR#: [id number] DATE OF VISIT: 03/31/2016 DATE OF SURGERY: 03/19/2016 SURGERY DESCRIPTION: PIP capsular release, left ring finger, and A2 neelam reconstruction using palmaris longus graft, left ring finger. SURGEON: Dr. Love CHIEF COMPLAINT: 12 days S/P above procedure HISTORY OF PRESENT ILLNESS: Mr. Enrique is a 40 y.o. male who presents 12 days s/p the above procedures for office follow up. He has been doing well since surgery. He has kept his postop splint in place. At time of surgery his PIP joint was pinned in extension, but it was noted that he had some diminished perfusion. His pin was removed and his finger immediately reperfused. He has noticed some numbn ess throughout the digit. Mr. Enrique denies any fever/chills or other constitutional signs of infection. The patient has not noticed any abnormal drainage from his incision or increased redness or discomfort. PHYSICAL EXAMINATION: Mr. Enrique is a 40 y.o. male who is alert and oriented. He appears in no acutediscomfort and is resting comfortably in the exam room. Inspection: Healing surgical incisions with no evidence of infection. No erythema, edema, tenderness or drainage. ROM/Strength: Full active flexion was not performed today. He has a residual contracture at the PIPjoint, but passively his extension has improved significantly compared to prior to surgery where hewas at 90??. Neurovascular: He has some diminished sensation in the ring finger, but has sensation in the adjacent digits. Finger is well perfused today. ASSESSMENT: 12 days s/p above procedure PLAN: Dr. Love also evaluated and spoke with the patient at today's visit. The patient's sutureswere removed today and Steri-strips were applied without complication. He will meet with our hand therapist today to have a neelam ring splint made. He should work on passive extension exercises and can also work on active flexion as long as he has his neelam ring splint in place. He should not perform any forceful gripping exercises to minimize stress on his neelam reconstruction. He is eager toreturn to work. 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 All of the patients questions and concerns were answered at this visit. The patient understands to contact me if they have any other questions or concerns. The patient is scheduled for follow up in 2 weeks to check his motion. The above documentation was completed using bttn voice recognition software. documented in this encounter Plan of Treatment Scheduled Referrals Name Type Priority Associated Diagnoses Orde r Schedule Referral to Occupational Therapy Outpatient Referral Routine Rupture of flexor sheath neelam of left ring finger s/p palmaris reconstruction 03/19/16 (Ivan) Ordered: 03/31/2016 documented as of this encounter Visit Diagnoses Diagnosis Rupture of flexor sheath neelam of left ring finger s/p palmaris reconstruction 03/19/16 (Ivan) documented in this encounter Care Teams Consulting Technical Director Relationship Specialty Start Date End Date Raghavendra Beavers MD [facility] [address] [place] [address] PCP - General General Internal Medicine 03/10/1611/22 documented as of this encounter
--- OUTSIDE RECORDS SUMMARY | 2024-05-08 11:51 | XMS_ITS | Encounter Summary ---
Author Organization [facility] Address [facility] [place] [address] Care Team Providers Care Recreational Therapist Name Role Phone Raghavendra Beavers MD Primary Care Provider [phone] Reason for Visit * Auth/Cert Specialty Diagnoses / Procedures Referred By Contac t Referred To Contact Diagnoses Richi rupture and PIP flexion contracture left ring finger Procedures PRO HAND TENDON RICHI RECONST, GRAFT RECONSTRUCT TENDON RICHI, EA TENDON, W/ TENDON OR FASCIAL GRAFT Referral ID Status Reason Start Date Expiration Date Visits Re quested Visits Authorized [id number] 1 1 Encounter Details Date Type Department Care Team (Late st Contact Info) Description 03/19/2016 10:24 AM EDT - 03/19/2016 12:39 PM EDT Surgery [place] [address] Kuldeep Love MD [facility] DR [place] [address] RECONSTRUCT TENDON RICHI, EA TENDON, W/ TENDON OR FASCIAL GRAFT (WRVU 7.31) Social History Tobacco Use Types Packs/Day Years [...] Sign Reading Time Taken Comments Blood Pressure 118/67 03/19/2016 9:18 AM EDT Pulse 59 03/19/2016 9:18 AM EDT Temperature 36.8 ??C (98.2 ??F) 03/19/2016 9:18 AM ED T Respiratory Rate 18 03/19/2016 9:18 AM EDT Oxygen Saturation 98% 03/19/2016 9:18 AM EDT Inhaled Oxygen Concentration - - Weight [...] closest emergency room or call the hospital timber treating tank operator at [phone] and ask for physician disease and insect control boss covering for your physician. Questions or problems after 5pm or on a weekend: Call the [facility] timber treating tank operator at and ask for the physician disease and insect control boss covering for your doctor. * Patient Instructions* [...] During clinic hours M-F 8-4:30 please call [phone] If it is after 5:00PM on a weekday or a weekend and it is of an urgent nature please call [phone] and ask for the on-call orthopaedic resident. [...] Love MD - 03/19/2016 12:50 PM EDT [facility] Operative Note Patient Name: Carlo Enrique : [id number] MR#: [id number] Case Date: 03/19/2016 Surgeon: Surgeon(s) and Role: [...] A preoperative timeout was performed as per [facility] protocol. His left arm was then exsanguinated [...] Operative Note Patient Name: Carlo Enrique : [id number] MR#: [id number] Case Date: 03/19/2016 Surgeon: Surgeon(s) and Role: [...] contracture left ring finger Case Notes Neida yao placed on k-wire CAPSULECTOMY OR CAPSULOTOMY, INTERPHALANGEAL JOINT, EACH JOINT Routine 03/19/2016 9:18 AM EDT documented in this encounter Visit Diagnoses Not [...] Given 03/19/2016 9:34 AM EDT 1,000 mg BUpivacaine (PF) (MARCAINE) 0.25 % (2.5 mg/mL) injection ONCE PRN, Starting on Tue03/19/16 at 1228, Until Tue03/19/16 at 1913, Intra-Operative (Intra-Procedure), Routine Given 03/19/2016 12:28 PM EDT 15 mg 19- Surgical Site BUpivacaine-EPINEPHrine 0.25 %-1:200,000 injection ONCE PRN, Starting on Tue03/19/16 at 1229, Until Tue03/19/16 at 1913, Intra-Operative (Intra-Procedure), Routine Given 03/19/2016 12:29 PM EDT 3 mLs 19- Surgical Site gabapentin (NEURONTIN) capsule 600 mg 600 mg, [...] Routine documented in this encounter Care Teams Recreational Therapist Relationship Specialty Start Date End Date Raghavendra Beavers MD [facility] [address] [place] [address] PCP - General General Internal Medicine 03/10/1611/22 documented as of this encounter
--- OUTSIDE RECORDS SUMMARY | 2024-05-08 11:51 | XMS_ITS | Encounter Summary ---
Author Organization [facility] Address [facility] [place] [address] Care Team Providers Care Pineapple Plantation Manager Name Role Phone Luis Hadley DO Primary Care Provider [phone] Reason for Visit * Reason Comments Left Hand Pain Encounter Details Date Type Department Care Team (Late st Contact Info) Description 09/29/2015 9:20 AM EST Office [place] [address] Marlon Love MD [facility] [place] [address] Dupuytren contracture Social History Tobacco Use Types [...] Sign Reading Time Taken Comments Blood Pressure 128/85 09/29/2015 9:17 AM EST Pulse 72 09/29/2015 9:17 AM EST Temperature - - Respiratory Rate - - Oxygen Saturation - - Inhaled Oxygen Concentration - - Weight 86.2 kg (190 lb) 09/29/2015 9:17 AM EST Height 175.3 cm (5' 9) 09/29/2015 9:17 AM EST Body Mass Index 28.06 09/29/2015 9:17 AM EST documented in this encounter Progress Notes * Marlon Love MD - 09/29/2015 9:37 AM EST Carlo Enrique presents for treatment of Dupuytren's contracture of his left ring finger. He has spiral and retrovascular cords along of the radial aspect of the finger causing both PIP and DIP flexion contractures. He was offered Xiaflex therapy, which is what he opted to do. He was told that incomplete or no relief of his contracture, infection, neurovascular injury, tendon rupture, allergic reaction, adenopathy, lymphangitis, skin tear and flexor tendon rupture are potential risks of this procedure. He understood and opted to proceed. A preinjection timeout was done. I first did digital block anesthesia in his left ring finger under sterile conditions using 4 mL of 1% lidocaine. I then injected the spiral and retrovascular cords in his left ring finger with 0.9 mg of Xiaflex. He tolerated this well. A sterile dressing was applied. He will follow up in 48 hours for cord rupture. documented in this encounter Plan of Treatment Not on file documented as of this encounter Visit Diagnoses Diagnosis Dupuytren contracture Contracture of palmar fascia documented in this encounter Administered Medications Inactive Administered Medications - up to 3 most recent administrations Medication Order MAR Action Action Date Dose Rate Site collagenase clostridium histolyticum (XIAFLEX) solution for injection 0.9 mg 0.9 mg, INTRALESIONAL, ONCE, 1 dose, On 09/29/15 at 0000, Routine, Is this medication being prescribed for treatment of Peyronie? s disease? No Given 09/29/2015 9:47 AM EST 0.9 mg 20-Other (document in comment section) documented in this encounter Care Teams Pineapple Plantation Manager Relationship Specialty Start Date End Date Luis Hadley DO [address] [place] [address] PCP - General 06/16/10 03/09/16 documented as of this encounter
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
--- OUTSIDE RECORDS SUMMARY | 2024-05-08 11:51 | XMS_ITS | Encounter Summary ---
Author Organization [facility] Address [facility] [place] [address] Care Team Providers Care Chairman Of The Board Name Role Phone Raghavendra Beavers MD Primary Care Provider [phone] Reason for Referral * Occupational Therapy (Routine) - Specialty Diagnoses / Procedures Referred By Amanda benson Referred To Contact Occupational Therapy Diagnoses Rupture of flexor sheath neelam of finger Diana Martinez PA [address] [place] [address] [place] [address] [facility] [place] [address] Referral ID Status Reason Start Date Expiration Date V isits Requested Visits Authorized [id number] Evaluate and Treat 08/30/2016 08/30/2017 12 12 Reason for Visit * Reason Comments Left Hand Pain left ring finger s/p PIP capsular release and a2 neelam reconstruction doi 07/2016 Encounter Details Date Type Department Care Team (Latest Contact Info) Description 08/30/2016 8:00 AM EST Office [place] [address] Marlon Love MD [facility] [place] [address] Rupture of flexor sheath neelam [...] Pulse 74 08/30/2016 7:54 AM EST Temperature - - Respiratory Rate - - Oxygen Saturation - - Inhaled Oxygen Concentration - - Weight 90.7 kg (200 lb) 08/30/2016 7:54 AM EST s tated Height 176.5 cm (5' 9.5) 08/30/2016 7:54 AM EST stated Body Mass Index 29.11 08/30/2016 7:54 AM EST documented in this encounter Progress Notes * Diana Martinez PA - 08/30/2016 8:00 AM EST Carlo comes in today accompanied by his sister for followup of left ring finger. He is status post PIP capsular release with A1 neelam reconstruction using palmaris longus graft, 03/19/16, Dr. Love. He comes in today because of continued problems with stiffness and discomfort in the finger. We had last seen him almost 4 months ago, 05/06, and recommended that he continue with OT and follow up in our department in 1 month. He has transportation issues, and has not returned for followup with us until today. He states that he had approximately 15 OT visits, though we do not have any notes from his therapist about his progress. The patient has noted worsening extension of the fingers since April. He also had an episode about a month ago where it got accidentally closed in a door. He has had some increased discomfort since then. He finds that it interferes with the use of his hand. 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 Examination today with Dr. Love shows just mild swelling in the left ring finger. Neurovascular status is satisfactory. He does admit to some altered sensation over the proximal phalanx on the palmar side. This seems to be aggravated by his recent injury. He can just about make a clenched fist. With flexing it, it does not quite touch his palm. He has about a 50-degree PIP joint contracture, where in April, it had been about 30 to 35 degrees. X-rays taken today show some early mild arthritic changes of the PIP joint. No acute abnormalities noted. IMPRESSION: Continued stiffness, status post PIP capsular release, left ring finger, with A2 neelam reconstruction using palmaris longus graft, left ring finger, 03/19/16. TREATMENT: We discussed with Max that the goal is to stretch out the scar tissue, and this is done by continued therapy. We would recommend that he continue working with OT. We had him meet with our therapist here today and then will try and alternate between a therapist near his home and therapy here for serial casting and splinting, and continued work on flexion and extension. The patient states that he can work on getting transportation. He needs paperwork signed for state aid I believe, so he will have that faxed here for our review. We will plan on seeing him back in 1 month for check on motion. Of note is that his flexion back in April was about 55 degrees; today, it is probably about 70, but again he has lost some extension since April. documented in this encounter Plan of Treatment [...] (Ivan) documented in this encounter Care Teams Chairman Of The Board Relationship Specialty Start Date End Date Raghavendra Beavers MD [facility] [address] [place] [address] PCP - General General Internal Medicine 03/10/1611/22 documented as of this encounter
--- OUTSIDE RECORDS SUMMARY | 2024-05-08 11:51 | XMS_ITS | Encounter Summary ---
Author Organization [facility] Address [facility] [place] [address] Care Team Providers Care Salesperson Surgical Appliances Name Role Phone Luis Hadley DO Primary Care Provider Reason for Visit * Reason Comments Left Hand Pain left ring finger gwen flex release Encounter Details Date Type Department Care Team (Late st Contact Info) Description 10/01/2015 9:20 AM EST Office [place] [id number] Marlon Love MD [facility] [place] [address] Dupuytren contracture Social History Tobacco Use Types [...] Sign Reading Time Taken Comments Blood Pressure 161/99 10/01/2015 9:30 AM EST Pulse 75 10/01/2015 9:30 AM EST Temperature - - Respiratory Rate - - Oxygen Saturation - - Inhaled Oxygen Concentration - - Weight 86.2 kg (190 lb) 10/01/2015 9:30 AM EST s tated Height 175.3 cm (5' 9) 10/01/2015 9:30 AM EST s tated Body Mass Index 28.06 10/01/2015 9:30 AM EST documented in this encounter Progress Notes * Marlon Love MD - 10/01/2015 10:21 AM EST Carlo Enrique presents for evaluation of his left ring finger. He underwent Xiaflex injection into spiral and retrovascular cords two days ago. He has had some bruising and swelling in the finger, but no riddhi complications. His flexors remain intact and the sensation remains intact. Today, a preinjection time-out was done. Under sterile conditions, I injected 5 mL of 1% lidocaine as digital block anesthesia and then proceeded to extend his PIP and DIP joints and was able to rupture the pretendinous and spiral cords. He tolerated this well without evidence of complication. There were no skin tears and his flexor function remained intact. He was happy with his outcome. He declined a referral to Hand Therapy. He will see me for this in the future on a p.r.n. basis. A sterile dressing was applied prior to leaving today. documented in this encounter Plan of Treatment Not on file documented as of this encounter Visit Diagnoses Diagnosis Dupuytren contracture Contracture of palmar fascia documented in this encounter Care Teams Salesperson Surgical Appliances Relationship Specialty Start Date End Date Luis Hadley DO [address] [place] [address] PCP - General 06/16/10 03/09/16 documented as of this encounter
--- OUTSIDE RECORDS SUMMARY | 2024-05-08 11:51 | XMS_ITS | Encounter Summary ---
Author Organization [facility] [place] [address] Care Team Providers Care Electrophysiology Nurse Practitioner Name Role Phone Raghavendra Beavers MD Primary Care Provider [phone] Reason for Visit * Occupational Therapy (Routine) - Closed Specialty Diagnoses / Procedures Referred By Amanda benson Referred To Contact Occupational Therapy Diagnoses Rupture of flexor sheath neelam of finger Radha Hernandes PA [facility] [place] [address] [facility] [place] [address] Referral ID Status Reason Start Date Expiration Date V isits Requested Visits Authorized [id number] Closed Evaluate and Treat 03/31/2016 03/31/2017 1 1 Encounter Details Date Type Department Care Team (Late st Contact Info) Description 03/31/2016 4:30 PM EDT Office [place] [address] Emil Hatch, OT [facility]YSICAL [facility] [place] [address] Rupture of flexor sheath neelam of left [...] as of this encounter Progress Notes * Emil Hatch, OT - 03/31/2016 4:30 PM EDT OCCUPATIONAL THERAPY SPLINTING EVALUATION REFERRAL SOURCE: Marlon Love MD DIAGNOSIS: 1. Rupture of flexor sheath neelam of left ring finger s/p palmaris reconstruction 03/19/16 (Ivan) DATE OF SURGERY: 03/19/16 NEXT MD FOLLOW UP: 2 weeks TOTAL TREATMENT TIME: 25 Minutes TIMED CODE TREATMENT TIME: 25 minutes CURRENT HISTORY: Carlo Enrique is a 40 y.o. year old Right hand dominant male who arrives today 12 days s/p the above procedure. Carlo Enrique is referred to Occupational Therapy for evaluation and treatment to include ring splinting to support is A2 pully and initiating AROM and PROM. Patient presentstoday accompanied by patient and sister. CURRENT SYMPTOMS: Patient presents with pain, numbness, swelling and stiffness. 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 This is to be worn at all times. Initiated AROM. Ring finger gentle hook fisting x 20 8x per day using his other hand to apply pressure to the splint at the volar PIP to ensure adequate support. He is to complete gentle PROM toward digit extension with sustained light hold x 10 seconds 8x per day. PROM and AROM to be completed with other digits for composite digit flexion and extension HE was provided with an isotoner glove to be worn through the night and for 1-2 periods of 2 hours during the day. He is to wear the ring over the glove. ASSESSMENT: Carlo Enrique has a well fitting splint post therapy. Carlo Enrique is able to independently verbalize and demonstrate his home program following instructions today. Carlo Enrique has excellentpotential for gains with therapy/splinting. Patient knows to call with any questions or concerns. Short Term Goals (to be met by end of the visit today): Date Goal Met: Today 1. Carlo Enrique will demonstrate independence with donning and doffing of splint and verbalization of splinting purpose. Goal Status: Meets. Today 2. Carlo Enrique will be independent with home exercises as evident with demonstration in therapy. Goal Status: Meets PLAN: He will be seen for splint adjustment as needed. He plans to go for rehabilitation closer to home and has a location picked out. (X) Carlo Enrique participated in the evaluation, collaborated on treatment goals, and agrees to the treatment plan . documented in this encounter Plan of Treatment [...] (Ivan) documented in this encounter Care Teams Electrophysiology Nurse Practitioner Relationship Specialty Start Date End Date Raghavendra Beavers MD [facility] [address] [place] [address] PCP - General General Internal Medicine 03/10/1611/22 documented as of this encounter
--- OUTSIDE RECORDS SUMMARY | 2024-05-08 11:51 | XMS_ITS | Encounter Summary ---
[place] [address] Care Team Providers Care Cnc Operator Machinist Name Role Phone Luis Hadley DO Primary Care Provider Encounter Details Date Type Department Care Team (Late st Contact Info) Description 02/18/2016 Orders Only [place] [address] Sophia Gorman Social History Tobacco Use Types Packs/Day Years [...] on filedocumented in this encounter Care Teams Cnc Operator Machinist Relationship Specialty Start Date End Date Luis Hadley DO [address] [place] [address] [address] [place], [place] [address] PCP - General 06/16/10 03/09/16 documented as of this encounter
--- OUTSIDE RECORDS SUMMARY | 2024-05-08 11:51 | XMS_ITS | Encounter Summary ---
Author Organization [facility] [place] [address] Care Team Providers Care Pharmacy Grad Intern Name Role Phone Raghavendra Beavers MD Primary Care Provider [phone] Encounter Details Date Type Department Care Team (Late st Contact Info) Description 03/31/2016 Orders Only [place] [phone] Alejandro Cabrera, [facility] [place] [address] JORGE (acute kidney injury); High risk medication [...] documented as of this encounter Results * Uric acid (03/31/2016 1:33 PM EDT) Uric Acid 8.5 3.5 - 8.5 mg/dL [facility] Blood specimen (specimen) 03/31/2016 1:33 PM EDT 03/31/2016 1:37 PM EDT Narrative Resulting Agency Comment Spec In Lab Luis Conley MD CHEMISTRY ORDERABLES [facility] [place] [address] * Phosphorus (03/31/2016 1:33 PM EDT) Pathologist [facility] Phosphorus 2.8 2.5 - 4.5 mg/dL [facility] Blood specimen (specimen) 03/31/2016 1:33 PM EDT 03/31/2016 1:37 PM EDT Narrative Resulting Agency Comment Spec In Lab Luis Conley MD CHEMISTRY ORDERABLES [facility] [place] [address] * Magnesium (03/31/2016 1:33 PM EDT) [facility] Magnesium 0.79 0.69 - 1.07 mmol/L [facility] Blood specimen (specimen) 03/31/2016 1:33 PM EDT 03/31/2016 1:37 PM EDT Narrative Resulting Agency Comment Spec In Lab Luis Conley MD CHEMISTRY ORDERABLES [facility] [place] [address] * (ABNORMAL) Basic Metabolic Panel (non-fasting) (03/31/2016 1:33 PM EDT) [facility] Glucose 114 65 - 199 mg/dL [facility] Comment:Diabetes: >=200 mg/d L plus symptoms Blood Urea Nitrogen 20 10 - 20 mg/dL [facility] Creatinine 0.98 0.80 - 1.50 mg/dL [facility] Comment: Please note that the pediatric reference intervals supplied above were not validated at [facility]. Results from pediatric patients should be interpreted in conjunction to the patient's age, height and muscle mass. Sodium 141 135 - 145 mmol/L [facility] Potassium 4.6 3.5 - 5.0 mmol/L [facility] Comment: Please note: ??Patients with WBC >100,000 may have falsely elevated Potassium levels. ??For accurate Potassium quantification in these patients send serum separator tube (gold top) for subsequent determinations. ??Contact the Clinical Chemistry Laboratory if there are any questions. Chloride 100 98 - 107 mmol/L [facility] Carbon Dioxide 19(L) 22 - 31 mmol/L [facility] Anion Gap 22(H) 5 - 15 mmol/L [facility] Calcium 9.8 8.5 - 10.5 mg/dL [facility] Est Glomerular Filtration Rate >60 >=60 [facility] Comment: This estimated GFR (eGFR) [...] the following links into your internet browser. [email or web address] [email or web address] Blood specimen (specimen) 03/31/2016 1:33 PM EDT 03/31/2016 1:37 PM EDT Narrative Resulting Agency Comment Spec In Lab Luis Conley MD CHEMISTRY ORDERABLES [facility] [place] [address] documented in this encounter Visit Diagnoses Diagnosis JORGE (acute kidney injury) Acute kidney failure, unspecified High risk medication use Encounter for long-term (current) use of other medications documented in this encounter Care Teams Pharmacy Grad Intern Relationship Specialty Start Date End Date Raghavendra Beavers MD [facility] [address] [place] [address] PCP - General General Internal Medicine 03/10/1611/22 documented as of this encounter
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
--- OUTSIDE RECORDS SUMMARY | 2024-05-08 11:52 | XMS_ITS | Encounter Summary ---
Author Organization [facility] Address [address] [place] [address] Care Team Providers Care Audio Visual Manager Name Role Phone Luis Hadley DO Primary Care Provider [phone] Encounter Details Date Type Department Care Team (Late st Contact Info) Description 08/08/2014 7:06 EST - 08/08/2014 23:59 [facility] Hospital Encounter [facility] - [address] [place] [address] Mj Grossman MD [address] [place] [address] Discharge Disposition: Auto Discharge Social History Tobacco Use Types Packs/Day Years Used Date Smoking Tobacco: Never Alcohol Use Standard Drinks/Week Comments Yes 1 (1 standard drink = 0.6 oz pur e alcohol) 6-12 per day Sex and Gender Information Value Date Recorded Sex Assigned at Not on file Gender Identity Male 07/29/2023 14:06 EST Sexual Orientation Not on file documented as of this encounter Discharge Diagnoses Diagnosis 724.2 LUMBAGO[ICD-9-CM] 724.4 LUMBOSACRAL NEURITIS NOS[ICD-9-CM] documented in this encounter Medications at Time of Discharge Medication Sig Dispensed Refills Start Date End Date gabapentin (NEURONTIN) 300 mg capsule Take 300 mg by mouth 3 times daily. ibuprofen (MOTRIN) 800 mg tablet Take 800 mg by mouth every 4 hours. 12/30/2014 oxyCODONE (ROXICODONE) 5 mg immediate release tablet Take 10 mg by mouth every 4 hours. 12/30/2014 documented as of this encounter Discharge Disposition Disposition Code Departure Means Destination Auto Discharge Home documented in this encounter Plan of Treatment Not on file documented as of this encounter Visit Diagnoses Not on filedocumented in this encounter Care Teams Audio Visual Manager Relationship Specialty Start Date End Date Luis Hadley DO [address] [place] [address] PCP - General 07/08/14 10/15/15 documented as of this encounter
--- OUTSIDE RECORDS SUMMARY | 2024-05-08 11:52 | XMS_ITS | Encounter Summary ---
Author Organization [facility] Address [address] [place] [address] Care Team Providers Care Ad Writer Name Role Phone Jomar Luis Bull DO Primary Care Provider [phone] Reason for Visit * Reason Onset Date Comments Discuss Test Results 12/05/2014 MRI 12/04/14 Encounter Details Date Type Department Care Team (Late st Contact Info) Description 12/05/2014 Telephone [facility] Neurosurgery - [facility] [address] [place], [place] [id number] Branden Betancourt MD [address] [facility], [address] [place] [address] Discuss Test Results (MRI 12/04/14) Social History Tobacco Use Types Packs/Day Years [...] encounter Miscellaneous Notes * Telephone Encounter - Elaine Lackey RN - 12/05/2014 4440 EDT Per Lara HOFFMAN he can be seen on 12/10/14 at 2 pm. Patient made aware of appointment and of MRI results. Capacity Manager would also like to note that patient apologized for his previous telephone interactions with this office. * Telephone Encounter - Gabrielle Jiang PA-C - 12/05/2014 1432 EDT He has a recurrent disc herniation. He needs an appointment with Dr Asia VICENTE. * Telephone Encounter - Sophia Thompson - 12/05/2014 0826 EDT Reason for Call: Discuss Test Results Summary/Symptoms: Pt calling for 12/04/14 MRI results. Onset and Duration? 12/04/14 [facility] Sophia Thompson 12/05/2014 8:26 documented in this encounter Plan of Treatment Not on file documented as of this encounter Visit Diagnoses Not on filedocumented in this encounter Care Teams Ad Writer Relationship Specialty Start Date End Date Luis Hadley DO [address] [place] [address] PCP - General 07/08/14 10/15/15 documented as of this encounter
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
--- OUTSIDE RECORDS SUMMARY | 2024-05-08 11:52 | XMS_ITS | Encounter Summary ---
Author Organization [facility] Address [address] [place] [address] Care Team Providers Care Fast Food Delivery Driver Name Role Phone JomarLuis aviles Primary Care Provider [phone] Reason for Visit * Reason Onset Date Comments New/Evolving Symptoms 09/03/2015 Appointment Related 09/03/2015 Encounter Details Date Type Department Care Team (Late st Contact Info) Description 09/03/2015 Telephone [facility] Neurosurgery - [facility] [place] [address] [place], [place] [id number] Elaine Lackey RN New/Evolving Symptoms; Appointment Related Social History Tobacco Use Types Packs/Day Years [...] encounter Miscellaneous Notes * Telephone Encounter - Thao Shelton - 09/03/2015 1600 EST Pt scheduled for 09/10/15 at 11:30 w/ Dr. Betancourt. * Telephone Encounter - Elaine Lackey RN - 09/03/2015 1301 EST No imaging at this point per Gabrielle Dubose * Telephone Encounter - Elaine Lackey RN - 09/03/2015 1222 EST OPERATIVE REPORT SERVICE DATE:?? 12/30/2014 SURGEON:?? Branden Betancourt MD BATON TEACHER:?? Yoandy Tanner MD PREOPERATIVE DIAGNOSIS:?? 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 POSTOPERATIVE DIAGNOSIS:?? 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 PROCEDURE:?? Redo right L4-5 microdiskectomy. ANESTHESIA:?? General. COMPLICATIONS:?? None. TUBES, LINES, AND DRAINS:?? None. Patient left message that he was beginning to have some return of right leg pain and back stiffness, wonders if he should see Dr Betancourt. It appears that the patient did not ever present to his scheduled post-op appointments. Patient reports worsening right leg pain over the past week. Up until lastweek he was doing pretty well in terms of the pain. He has tingling and numbness that has been going on for the past few days. Taking ibuprofen on a schedule and using ice. Is currently taking presnisone for gout, taking 2 20mg tablets daily. It is helping his knee but not his back or leg. documented in this encounter Plan of Treatment Not on file documented as of this encounter Visit Diagnoses Not on filedocumented in this encounter Care Teams Fast Food Delivery Driver Relationship Specialty Start Date End Date Luis Hadley DO [address] [place] [address] PCP - General 07/08/14 10/15/15 documented as of this encounter
--- OUTSIDE RECORDS SUMMARY | 2024-05-08 11:52 | XMS_ITS | Encounter Summary ---
Author Organization [facility] Address [address] [place] [address] Care Team Providers Care Press Worker Helper Name Role Phone Luis Hadley DO Primary Care Provider [phone] Encounter Details Date Type Department Care Team (Late st Contact Info) Description 11/13/2014 Orders Only [facility] Neurosurgery - [facility] [address] [place], [place] [phone] Branden Betancourt MD [address] [facility], [address] [place] [address] Leg pain (Primary Dx) Social History Tobacco Use Types [...] as of this encounter Visit Diagnoses Diagnosis Leg pain- Primary Pain in limb documented in this encounter Care Teams Press Worker Helper Relationship Specialty Start Date End Date Luis Hadley DO [address] [place] [id number] PCP - General 07/08/14 10/15/15 documented as of this encounter
--- OUTSIDE RECORDS SUMMARY | 2024-05-08 11:52 | XMS_ITS | Encounter Summary ---
Author Organization [facility] Address [address] [place] [address] Care Team Providers Care Occupational Hygienist Name Role Phone Baljinder Lopez MD Primary Care Provider [phone] Reason for Visit * Reason Onset Date Comments Appointment Related 11/12/2015 Encounter Details Date Type Department Care Team (Late st Contact Info) Description 11/12/2015 Telephone [facility] Neurosurgery - [address] [id number] Branden Betancourt MD [address] [facility], [address] [place] [address] Appointment Related Social History Tobacco Use Types Packs/Day Years Used Date Smoking Tobacco: Never Smokeless Tobacco: Current Chew Alcohol Use Standard Drinks/Week Comments Yes 1 (1 standard drink = 0.6 oz pur e alcohol) 6-12 per day Sex and Gender Information Value Date Recorded Sex Assigned at Not on file Gender Identity Male 07/29/2023 14:06 EST Sexual Orientation Not on file documented as of this encounter Functional Status Functional Status Response Date of Assess ment Because of a physical, menta l, or emotional condition, does this person have difficulty doing errands alone such as visiting a doctor's office or shopping? Yes 11/05/2015 Cognitive Status Response Date of Assessm ent Because of a physical, menta l, or emotional condition, does this person have serious difficulty concentrating, remembering, or making decisions? Yes 11/05/2015 documented as of this encounter Miscellaneous Notes * Telephone Encounter - Thao Shelton - 11/12/2015 1453 EDT Patient left message about his appointment with the Pain Clinic. He thought it was 5/7 but was toldit was 6/7. He is quite frustrated and doesn't want to wait that long. Call back to patient who expressed his concerns and inquired about going elsewhere. I advised him to call the Pain Clinic directly to see if he is on a wait list and if they have anything sooner. If he were to be referred elsewhere he would need a new referral and pre-certification. Informed him that we typically only use [facility]. He will also touch base with PCP. He was very appreciative for the timely return call. At the end of the conversation, I transferred him to [facility]. documented in this encounter Plan of Treatment Not on file documented as of this encounter Visit Diagnoses Not on filedocumented in this encounter Care Teams Occupational Hygienist Relationship Specialty Start Date End Date Baljinder Lopez MD PCP - General 10/16/15 documented as of this encounter
--- OUTSIDE RECORDS SUMMARY | 2024-05-08 11:52 | XMS_ITS | Encounter Summary ---
Author Organization [facility] Address [address] [place] [address] Care Team Providers Care Artificial Breeding Ranch Supervisor Name Role Phone Baljinder Lopez MD Primary Care Provider [phone] Encounter Details Date Type Department Care Team (Late st Contact Info) Description 11/30/2023 Lab Requisition [facility] Pathology & Laboratory Medicine - [address] [address] Outr Resulting Lab, Provider Social History Tobacco Use Types Packs/Day Years [...] as visiting a doctor's office or shopping? No 01/02/2016 Cognitive Status Response Date of Assessm ent Because of a physical, menta l, or emotional condition, does this person have serious difficulty concentrating, remembering, or making decisions? No 01/02/2016 documented as of this encounter Plan of Treatment Not on file documented as of this encounter Procedures Procedure Name Priority Date/Time Associated Diagnosis Comments LYME AB Today 11/29/2023 19:23 EDT documented in this encounter Results * LYME AB (11/29/2023 19:23 EDT) Lyme Ab Negative Negative 12/01/2023 10:04 EDT [facility] Blood VENOUS BLOOD / Unknown 11/29/2023 19:23 EDT 11/30/2023 17:31 EDT Provider Outr Resulting Lab IMMUNOLOGY A ND SEROLOGY ORDERABLES [facility] [address] [place] [address] documented in this encounter Visit Diagnoses Not on filedocumented in this encounter Care Teams Artificial Breeding Ranch Supervisor Relationship Specialty Start Date End Date Baljinder Lopez MD PCP - General 10/16/15 documented as of this encounter
--- OUTSIDE RECORDS SUMMARY | 2024-05-08 11:52 | XMS_ITS | Encounter Summary ---
Author Organization [facility] Address [address] [place] [address] Care Team Providers Care Director Of Assisted Living Name Role Phone Baljinder Lopez MD Primary Care Provider [phone] Encounter Details Date Type Department Care Team (Late st Contact Info) Description 01/04/2023 Lab Requisition [facility] Pathology & Laboratory Medicine - [address] [address] Outr Resulting Lab, Provider Social History Tobacco [...] Procedure Name Priority Date/Time Associated Diagnosis Comments HIV 1/2 ANTIGEN AND ANTIBODY, 4TH GENERATION Routine 01/04/2023 11:00 EDT documented in this encounter Results * HIV 1/2 ANTIGEN AND ANTIBODY, 4TH GENERATION (01/04/2023 11:00 EDT) HIV 1 and 2 Antibody/p24 Antigen, 4th Generation Negative Negative 01/05/2023 10:55 EDT [facility] Comment:If acute HIV-1 infec tion is suspected in a high risk patient, submit plasma specimen for HIV-1 RNA quantitation test. Blood VENOUS BLOOD / Unknown 01/04/2023 11:00 EDT 01/04/2023 21:30 EDT Narrative [facility] - 01/05/2023 10:55 EDT Fourth Generation assay performed on the Siemens Centaur XPT. Provider Outr Resulting Lab IMMUNOLOGY A ND SEROLOGY ORDERABLES Performing Organization Address City/State/[facility] Co de Phone Number [facility] [address] [place] [address] documented in this encounter Visit Diagnoses Not on filedocumented in this encounter Care Teams Director Of Assisted Living Relationship Specialty Start Date End Date Baljinder Lopez MD PCP - General 10/16/15 documented as of this encounter
--- OUTSIDE RECORDS SUMMARY | 2024-05-08 11:52 | XMS_ITS | Encounter Summary ---
Author Organization [facility] Address [address] [place] [address] Care Team Providers Care Railroad Signal And Switch Operator Name Role Phone Luis Hadley DO Primary Care Provider [phone] Reason for Visit * Reason Onset Date Comments Post-OP Follow Up 12/31/2014 Encounter Details Date Type Department Care Team (Late st Contact Info) Description 12/31/2014 Telephone [facility] Neurosurgery - [facility] [address] [place], [place] [id number] Elaine Lackey, CALLIE Post-OP Follow Up Social History Tobacco Use Types Packs/Day Years [...] Telephone Encounter - Elaine Lackey RN - 12/31/2014 0851 EDT Surgeon: [employer] Scheduler: Flores 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 Phone call to patient. He states that he is in more pain than he expected but overall doing well. He is taking the maximum dose of oxycodone (15 mg) every 4 hours. He denies muscle spasm so is not taking robaxin. He reports that he did take ibuprofen this morning as well. Yarn Texture Machine Operator advised patient that he should hold on ibuprofen for the first 72 hours post operatively, but he could start taking on 01/02, he verbalized understanding. He reports that the incision has an area at the top that appears swollen. There is no drainage. He has applied ice once. Yarn Texture Machine Operator advised him to apply ice for 10 min at at time several times perday and to watch the site for increased swelling, drainage, or redness with streaking. He agrees with plan. He has been out of bed. He has not had BM yet but taking stool softener regularly. Patient given direct triage line to call with any further concerns. documented in this encounter Plan of Treatment Not on file documented as of this encounter Visit Diagnoses Not on filedocumented in this encounter Care Teams Railroad Signal And Switch Operator Relationship Specialty Start Date End Date Luis Hadley DO [address] [place] [address] PCP - General 07/08/14 10/15/15 documented as of this encounter
--- OUTSIDE RECORDS SUMMARY | 2024-05-08 11:52 | XMS_ITS | Encounter Summary ---
Author Organization [facility] Address [address] [place] [address] Care Team Providers Care Technical Professional Name Role Phone Luis Hadley DO Primary Care Provider [phone] Reason for Visit * Reason Onset Date Comments Back Pain 11/11/2014 9/10 Leg Pain 11/11/2014 left Pain 11/12/2014 Back and left le g Level 8 of 10 Encounter Details Date Type Department Care Team (Late st Contact Info) Description 11/11/2014 Telephone [facility] Neurosurgery - [facility] [address] [place], [place] [phone] Branden Betancourt MD 111 [facility], [address] [place] [address] Back Pain (9/10); Leg Pain (left); Pain (Back and left leg Level 8 of 10) Social History Tobacco Use Types Packs/Day Years [...] Telephone Encounter - Elaine Lackey RN - 11/13/2014 1019 EDT Phone call to patient to inform him that Dr Betancourt has ordered a repeat MRI and then will see him after he has the imaging. The patient was requesting the appointment and MRI on the same day. Technical Professional advised him that many times this can be coordinated this way but will need to wait until the MRI is scheduled to arrange it that way. At this point the patient became angry and began using profanity. Technical Professional requested patient refrain from using profanity. He was upset because he wants this all to happen immediately. Technical Professional advised that he see his PCP in the meantime to address his pain concerns. Patient stated he had an appointment with his PCP on 11/20. He stated many times that if Dr Betancourt's off ice cannot accommodate his urgent needs he will find care elsewhere. Technical Professional again advised him as inprevious telephone conversation that if his pain is so intolerable that he cannot walk or go to work and if he wants an MRI same-day, he should present to the ER. Patient adamantly refused to go to ER. He again began using profanity. Technical Professional informed him that the call would be terminated if he continued to swear, at which point the patient disconnected the call. * Telephone Encounter - Elaine Lackey RN - 11/12/2014 0915 EDT Per audra James to schedule with Dr Betancourt. Pat is looking at his schedule to see where he can be fit in. Discussed with patient that he will be notified of when Dr Betancourt has an appointment available. He was advised to seek care at his local ER if the pain becomes intolerable in the meantime. He agrees with this plan. * Telephone Encounter - Ivett Candelaria - 11/12/2014 0815 EDT Reason for Call: Back Pain; Leg Pain; and Pain Summary/Symptoms Pt would like an appt jyoti.. Pt unable to work because of pain level. Onset and Duration? Ivett Candelaria 11/12/2014 8:15 * Telephone Encounter - Elaine Lackey, RN - 11/11/2014 1549 EDT Patient reports worsening symptoms in his back. One month ago he was reaching forward and felt a pop in his back. Since that time, he has been experiencing increased back pain and left leg symptomsincluding pain and hesitancy with movement. He desires an appointment with Dr Betancourt here in clinic * Telephone Encounter - Sophia Thompson - 11/11/2014 1447 EDT Reason for Call: Back Pain and Leg Pain Summary/Symptoms: Pt reports low back pain rated 9/10 and leg pain, per pt he can not move left legforward with out horrible back pain. Onset and Duration? 1 month Urgent? yes Sophia Thompson 11/11/2014 14:47 documented in this encounter Plan of Treatment Not on file documented as of this encounter Visit Diagnoses Not on filedocumented in this encounter Care Teams Technical Professional Relationship Specialty Start Date End Date Luis Hadley DO [address] [place] [address] PCP - General 07/08/14 10/15/15 documented as of this encounter
--- OUTSIDE RECORDS SUMMARY | 2024-05-08 11:52 | XMS_ITS | Encounter Summary ---
Author Organization [facility] Address [address] [place] [address] Care Team Providers Care Veneer Measurer Name Role Phone Baljinder Lopez MD Primary Care Provider [phone] Reason for Referral * Radiology Services (Routine) - Specialty Report Received Specialty Diagnoses / Procedures Referred By Contwan t Referred To Contact Diagnoses Low back pain with sciatica, sciatica laterality unspecified, unspecified back pain laterality, unspecified chronicity Procedures MR SPINE-LUMBAR AND CONTENTS Ramonita Waddell PA-C [address] [place] [id number] Referral ID Status Reason Start Date Expiration Date V isits Requested Visits Authorized [id number] Specialty Report Received 09/12/2015 12/11/2015 1 1 Reason for Visit * Reason Onset Date Comments Appointment Related 10/20/2015 MRI Appointment Related 10/21/2015 MRI Encounter Details Date Type Department Care Team (Late st Contact Info) Description 10/20/2015 Telephone [facility] Neurosurgery - [address] [address] Branden Betancourt MD [address] [place] [address] Appointment Related (MRI); Appointment Related (MRI) Social History Tobacco Use Types Packs/Day Years [...] visiting a doctor's office or shopping? Yes 09/10/2015 Cognitive Status Response Date of Assessm ent Because of a physical, menta l, or emotional condition, does this person have serious difficulty concentrating, remembering, or making decisions? No 09/10/2015 documented as of this encounter Miscellaneous Notes * Telephone Encounter - Thao Shelton - 10/22/2015 1205 EDT Order and MRI questionnaire faxed to [facility]. Patient will call directly to schedule. * Telephone Encounter - Thao Shelton - 10/22/2015 0931 EDT Let patient know that because it is now an external MRI, I needed a new order and the insurance needs to authorize it, which we are still waiting on. As soon as it is authorized, I will schedule at [facility] and let him know. Patient satisfied. * Telephone Encounter - Chantal Bartlett - 10/21/2015 1423 EDT Reason for Call: Appointment Related Summary/Symptoms: Pt calling again to check on the status of an MRI appt. Please call Chantal Bartlett 10/21/2015 14:23 * Telephone Encounter - Nkechi Govea - 10/20/2015 1306 EDT Reason for Call: Appointment Related Summary/Symptoms: Patient cancelled his 10/20 MRI due to transportation issue. Asking if he can havedone at [facility] in [facility]. OK to leave message. Nkechi Curry Xuan 10/20/2015 13:07 * Telephone Encounter - Nkechi Govea - 10/20/2015 1304 EDT Reason for Call: Appointment Related Summary/Symptoms: Patient Nkechi Govea 10/20/2015 13:04 documented in this encounter Plan of Treatment Scheduled Orders Name Type Priority Associated Diagnoses Orde r Schedule MR SPINE-LUMBAR AND CONTENTS Imaging Routine Low Back Pain With Sciatica, Sciatica Laterality Unspecified, Unspecified Back Pain Laterality, Unspecified Chronicity Ordered: 10/21/2015 documented as of this encounter Visit Diagnoses Diagnosis Low back pain with sciatica, sciatica laterality unspecified, unspecified back pain laterality, unspecified chronicity- Primary documented in this encounter Care Teams Veneer Measurer Relationship Specialty Start Date End Date Baljinder Lopez MD PCP - General 10/16/15 documented as of this encounter
--- OUTSIDE RECORDS SUMMARY | 2024-05-08 11:52 | XMS_ITS | Encounter Summary ---
Author Organization [facility] Address [address] [place] [address] Care Team Providers Care Medical Insurance Claims Processor Name Role Phone Baljinder Lopez MD Primary Care Provider Encounter Details Date Type Department Care Team (Late st Contact Info) Description 07/02/2023 Lab Requisition [facility] Pathology & Laboratory Medicine - [address] [address] Outr Resulting Lab, Provider Social History Tobacco [...] Procedure Name Priority Date/Time Associated Diagnosis Comments T3 FREE Routine 07/01/2023 16:01 EST documented in this encounter Results * (ABNORMAL) T3 FREE (07/01/2023 16:01 EST) T3, Free 13.0(H) 2.8 - 5.3 pg/mL 07/02/2023 22:46 EST [facility] Blood VENOUS BLOOD / Unknown 07/01/2023 16:01 EST 07/02/2023 21:11 EST Provider Outr Resulting Lab CHEMISTRY & BLOOD GAS ORDERABLES [facility] [address] [place] [address] documented in this encounter Visit Diagnoses Not on filedocumented in this encounter Care Teams Medical Insurance Claims Processor Relationship Specialty Start Date End Date Baljinder Lopez MD PCP - General 10/16/15 documented as of this encounter
--- OUTSIDE RECORDS SUMMARY | 2024-05-08 11:52 | XMS_ITS | Encounter Summary ---
Author Organization [facility] Address [address] [place] [address] Care Team Providers Care Crystal Syrup Maker Name Role Phone Luis Hadley DO Primary Care Provider [phone] Reason for Visit * Reason Onset Date Comments Discuss Surgery 12/12/2014 date/time Discuss Surgery 12/12/2014 date/time Procedure 12/13/2014 looking for surg jenny date/time Discuss Surgery 12/17/2014 Looking for surg jenny date Encounter Details Date Type Department Care Team (Late st Contact Info) Description 12/12/2014 Telephone [facility] Neurosurgery - [facility] [address], [place] [phone] Branden Betancourt MD [address] [facility], [address] [place] [phone] Discuss Surgery (date/time); Discuss Surgery (date/time ); Procedure (looking for surgery date/time); Discuss Surgery (Looking for surgery date) Social History Tobacco Use Types Packs/Day Years [...] encounter Miscellaneous Notes * Telephone Encounter - Lara Paris - 12/17/2014 1214 EDT Gave patient surgery date of 12.30.14. I will fax pre-op paperwork to his pcp. * Telephone Encounter - Ivett Candelaria - 12/17/2014 1035 EDT Reason for Call: Discuss Surgery and Procedure Summary/Symptoms Pt looking for surgery date please Onset and Duration? Urgent? Ivett Candelaria 12/17/2014 10:35 * Telephone Encounter - Joan Gupta - 12/13/2014 1302 EDT Reason for Call: Discuss Surgery and Procedure Summary/Symptoms: Pt calling again. Pt made aware brand designer is meeting with today and should receive call back by 5.26 Tues if not today Onset and Duration? n/a Joan Gupta 12/13/2014 13:02 * Telephone Encounter - Lara Paris - 12/13/[address] Betancourt and I are going over his OR schedule today. I will call patient by the end of the day with surgery date. * Telephone Encounter - Brooke Hutchinson - 12/12/2014 1435 EDT Reason for Call: Discuss Surgery Summary/Symptoms: Pt calling again to schedule surgery. Made aware of call back time. Please call. Onset and Duration? n/a Brooke Hutchinson 12/12/2014 14:35 * Telephone Encounter - Brooke Hutchinson - 12/12/2014 1010 EDT Reason for Call: Discuss Surgery Summary/Symptoms: Pt calling to schedule surgery. Please call. Onset and Duration? n/a Brooke Hutchinson 12/12/2014 10:10 documented in this encounter Plan of Treatment Not on file documented as of this encounter Visit Diagnoses Not on filedocumented in this encounter Care Teams Crystal Syrup Maker Relationship Specialty Start Date End Date Luis Hadley DO [address] [place] [address] PCP - General 07/08/14 10/15/15 documented as of this encounter
--- OUTSIDE RECORDS SUMMARY | 2024-05-08 11:52 | XMS_ITS | Encounter Summary ---
Author Organization [facility] Address [address] [place] [address] Care Team Providers Care Crossing Guard Name Role Phone JomarLuis aviles Primary Care Provider [phone] Reason for Visit * Reason Onset Date Comments Discuss Surgery 12/11/2014 Encounter Details Date Type Department Care Team (Late st Contact Info) Description 12/11/2014 Telephone [facility] Neurosurgery - [facility] [address], [place] [id number] Elaine Lackey, RN Discuss Surgery Social History Tobacco Use Types Packs/Day Years [...] Miscellaneous Notes * Telephone Encounter - Elaine Lackey, CALLIE - 12/11/2014 1305 EDT Patient Education Topic: Disckectomy Method: Verbal, written (given instructions at [address] appointment) Taught to: Patient Barriers: None Outcomes: independent and verbalized understanding Pre-Op packet discussed. Medications reviewed and reconciled Aspirin therapy- denied Patient advised to DC all NSAIDS, vitamins and herbal supplements 7 days prior to procedure. Immunosuppressive therapy- noned Insulin/oral hypoglycemic agents- none Post-Op instructions reviewed. Collar/braces - n/a Narcotic consent signed. - no as pre-op done over the phone Pain Consult- not indicated [place] RN POST- OPERATIVE INSTRUCTIONS AFTER LUMBAR SURGERY 1. Avoid sitting or standing for more than 30 minutes without changing position. 2. You may walk as much as tolerated, but please begin with short distances. Please hold handrails while climbing stairs. 3. Avoid lifting more than 10 pounds which is the weight of a gallon of milk. Do not bend at the waist to lift. 4. You may shower the day after surgery as long as the incision is free of drainage. Do not soak chandrakant bath or hot tub, or swim until evaluated at your first post-op appointment. 5. You may resume sexual activity, limiting any stress on your back. 6. Drink plenty of fluids while taking pain medications to avoid constipation. You may need to takea stool softener such as Colace 100 mg twice daily. 7. Your wound may be closed with sutures underneath the skin and glue on the outside. The glue willpeel off in about a week or two. 8. Please call our office if your wound is closed with sutures or pramod to arrange for removal; 10-14 days is typical. 9. Please call our office at [phone] if you experience severe pain, fever, wound drainage, increased numbness, weakness or pain in the hips, legs or feet. There is always a Physician available to you after hours and on weekends. 10. Please call to schedule a follow-up three to four weeks following surgery. documented in this encounter Plan of Treatment Not on file documented as of this encounter Visit Diagnoses Not on filedocumented in this encounter Care Teams Crossing Guard Relationship Specialty Start Date End Date Luis Hadley DO [address] [place] [address] PCP - General 07/08/14 10/15/15 documented as of this encounter
--- OUTSIDE RECORDS SUMMARY | 2024-05-08 11:52 | XMS_ITS | Encounter Summary ---
Author Organization [facility] Address [address] [place] [address] Care Team Providers Care Fundraising Sale Representative Name Role Phone Baljinder Lopez MD Primary Care Provider [phone] Reason for Visit * Reason Comments Pain lower back * Other (Routine/Next Available) - Closed Specialty Diagnoses / Procedures [facility] Referred To Contact Pain Medicine Diagnoses Lumbar disc herniation Branden Betancourt MD [address] [facility], [facility] [address] [place] [address] [facility] [address] [place] [address] Referral ID Status Reason Start Date Expiration Date V isits Requested Visits Authorized [id number] Closed Specialty Services Required 11/05/2015 1 1 Encounter Details Date Type Department Care Team (Latest Contact Info) Description 01/02/2016 14:00 EDT Office Visit [facility] Interventional Pain [address] [place] [address] Patricia Chamorro MD [address] [facility] [address] [place] [address] Mercedes Blue MD [address] [place] [phone] Lumbosacral radiculopathy (Primary Dx) Social History Tobacco Use Types Packs/Day Years Used Date Smoking Tobacco: Never Smokeless Tobacco: Current Chew Alcohol Use Standard Drinks/Week Comments Yes 70 (1 standard drink = 0.6 oz pu re alcohol) 6-12 per day Sex and Gender [...] Rate 16 01/02/2016 1410 EDT Oxygen Saturation - - Inhaled Oxygen Concentration - - Weight 86.2 kg (190 lb) 01/02/2016 1333 EDT per pt Height 175.3 cm (5' 9) 01/02/2016 1333 EDT per pt Body Mass Index 28.06 01/02/2016 1333 EDT documented in this encounter Functional Status Functional Status Response [...] No 01/02/2016 documented as of this encounter Discharge Diagnoses Diagnosis M54.17 Radiculopathy, lumbosacral region-M54.17[ICD-10-CM] documented in this encounter Patient Instructions * Patient Instructions* Gabino Jauregui - 01/02/2016 14:01 EDT [facility] [address] [address] Patient Instructions You have had your lumbar Epidural Steroid Injection. The purpose of this procedure has been to place medication which may help relieve your pain. Steroid may be used to decrease the swelling and nerve irritation which may be causing your pain. The following information should help you over the next few days regarding what you may expect. ??? Please take it easy for the rest of today. ??? DO NOT drive a car for the remainder of the day. ??? If you feel sore where the needle(s) entered for the block or develop a flare-up of pain over the next few days, please use ice on the area. You may leave the ice on for up to 20 minutes at a time. Do not use heat, as this may cause swelling. ??? As long as your primary doctor has indicated no restrictions, you may take a mild pain medicine, such as acetaminophen (Tylenol), ibuprofen (Advil, Nuprin, Motrin IB, etc.) or aspirin, if needed. ??? The steroid injection usually takes a few days to become effective. On average, you may notice some relief in 3 -5 days. However, it may take up to 10 - 14 days to know whether the injection was helpful. ??? If the block causes numbness/weakness, it should wear off within a few hours. ??? If the area that the needle(s) were inserted becomes hot, red, swollen, or increasingly tender,or if you develop a fever (100.5 or greater) or chills along with these symptoms, please call our office immediately. ??? If you develop increasingly severe neck/back pain, continued numbness or weakness of the arms/legs or changes in your bladder or bowel functions, please call our office immediately. Instructions for follow-up If you have any questions about your block, please call Method: Handout and Verbal Taught to: Patient Barriers: None Outcomes: independent and verbalized understanding. Gabino MANNING documented in this encounter Progress Notes * Lisa Joyce RN - 01/02/2016 1418 EDT Contrast Dye Used: 2 mls Wasted: 8 mls * Mercedes Blue MD - 01/02/2016 1354 EDT Patient Name: Carlo Enrique : 1975 Date of Service: 01/02/2016 Requesting physician: Branden Betancourt Flue Gas Analyst: Patricia Chamorro MD Air [employer] Missile Defense Crewmember: Mercedes Blue MD Procedure: Therapeutic lumbar epidural steroid injections at L4-5 Interval History: Patient presents at the request of Branden Betancourt for continued evaluation and treatment recommendations of the patient's pain. Carlo Enrique primarily localizes the pain at his lower back, with unilateral radiation to the right leg. He describes the pain as dull, throbbing and cramping in character. Patient currently denies any progressive weakness, unexplained fever, trauma or unexplained weight loss. Today's pain score is 4 out of 10. Details of the current complaint are thoroughly described in the consultation notes from Branden Betancourt's last encounter including pain onset, location, course, workup, therapeutic attempts,and associated functional limitations. The patient reports no recent changes in the character, quality, or distribution of the pain. There are no recent onset of new associated symptoms such as changes in strength, sensation, or bladder control. Injection History: 01/02/2016: lumbar epidural injection at L4-5 Allergies: Allergies Allergen Reactions ??? Colchicine Analogues Gi upset Review of Systems: Negative for any fever, chills, nausea/vomiting, headaches, chest pain, palpitations, shortness of breath, bladder/bowel incontinence. No easy bruising, bleeding, anti-coagulation or known recent infections. Physical Exam: Vitals: BP 166/92 mmHg Pulse 93 Temp(Src) 36.7 ??C (98.1 ??F) (Tympanic) Resp 16 Ht 175.3 cm (69) Wt 86.183 kg (190 lb) BMI 28.05 kg/m2 General: Patient is alert and oriented, no acute distress Lungs: symmetric chest rise, no evidence of labored breathing Skin: clear, warm, dry and intact and no rashes, bruises or petechiae noted Musculoskeletal: Gait: patient ambulates independently , steady gait no obvious scoliosis or abnormal curvature of the spine Lumbar Spine: tenderness elicited upon palation , minimal pain elicited upon facet loading Lower Extremity: strength 5/5, sensory bilaterally equal to light tough, negative straight leg test Assessment: 1. Lumbosacral radiculopathy Plan: Mr. Carlo Enrique is a 40 y.o. male that presents to the pain clinic to undergo lumbar epidural steroid injection in regards to his chronic back pain. All risks, benefits, and alternatives were thoroughly explained to Mr. Carlo Enrique who verbally communicated understanding of the management plan. Proceed with therapeutic LESI at L4-5 Followup: The patient plans to follow-up with Branden Betancourt in the department of Orthopedics and we will be available for further evaluation and/or injections as necessary. PROCEDURE: The patient gave informed written consent to proceed with this procedure following a detailed discussion of the risks and benefits associated with epidural steroid injection in the lumbar spine. The patient was then placed in the prone position, the skin over the lumbar area was prepped with chlorhe xadine, and the site was draped with sterile towels. Strict sterile technique was maintained throughout the procedure. A timeout was performed with full staff present to identify the patient, verify the procedure being performed, and review allergies. Fluoroscopy was used to visualize the L4-5 disc space. The skin and subcutaneous tissue over this level was anesthetized by infiltration of 2% lidocaine. An 18 guage touhy needle was inserted under fluoroscopic guidance by coaxial technique and advanced towards the interspace. Loss of resistance with normal saline was used to find the epidural space. One pass was required and there was no paresthe rakesh. Contrast dye was injected under live fluoroscopy demonstrating a typical epidural pattern withno evidence of intravascular or intrathecal injection. After negative aspiration, 80 mg Depo-Medroland 3 ml Normal Saline were injected. The needle was then flushed and withdrawn. The patient tolerated the procedure well, there were no apparent complications, and he was discharged in stable condition. Written and verbal discharge instructions were reviewed with the patient prior to discharge. Mercedes Blue MD Pain Medicine Fellow Attending attestation: The patient was seen and discussed with the resident/fellow. I agree with the findings and plan of care documented in the resident's/fellow's note. In addition, I was present and participating during the entire procedure. Patricia Chamorro MD * Diana Bedoya - 01/02/2016 1089 EDT [facility] Rooming Note Does patient have a Hairspring Truer? yes Is patient NPO? (Solids since midnight & liquids for 4 hrs) no Blood Thinners: Is patient on Blood Thinners? no If yes, taking? If stopped, who authorized stopping? Related comments: Infections: Any recent infections, fever of illnesses? cellulitus 1 2 month ago in foot Symptom free for 1 month If on antibiotics, is it 7-10 days past the date of completion of antibiotics? no : (for females of child-bearing age) Is there a chance current ? Other: documented in this encounter Plan of Treatment Not on file documented as of this encounter Visit Diagnoses Diagnosis Lumbosacral radiculopathy- Primary Thoracic or lumbosacral neuritis or radiculitis, unspecified documented in this encounter Administered Medications Inactive Administered Medications - up to 3 most recent administrations Medication Order MAR Action Action Date Dose Rate Site methylPREDNISolone ACETATE (DEPO-MEDROL) injection 80 mg 80 mg, intra-articular, NOW X1, 1 dose, On Tue01/02/16 at 1445, Routine Given by Other 01/02/2016 14:17 EDT 80 mg documented in this encounter Orders Medications Ordered That Isaías ht Not Have Been Administered Count Last Ordered Date First Ordered Date methylPREDNISolone ACETATE ( DEPO-MEDROL) injection 80 mg 1 01/02/2016 documented in this encounter Care Teams Fundraising Sale Representative Relationship Specialty Start Date End Date Baljinder Lopez MD PCP - General 10/16/15 documented as of this encounter
--- OUTSIDE RECORDS SUMMARY | 2024-05-08 11:52 | XMS_ITS | Encounter Summary ---
Author Organization [facility] Address [address] [place] [address] Care Team Providers Care Abrasive Sawyer Name Role Phone Jomar Luis Bull DO Primary Care Provider [phone] Reason for Visit * Reason Onset Date Comments Medications Refill 01/09/2015 Encounter Details Date Type Department Care Team (Late st Contact Info) Description 01/09/2015 Refill [facility] Neurosurgery - [facility] [address] [place] [address] Branden Betancourt MD [address] [facility] [place] [address] Medications Refill Social History Tobacco Use Types Packs/Day Years Used Date Smoking Tobacco: Never Alcohol Use Standard Drinks/Week Comments Yes 1 (1 standard drink = 0.6 oz pur e alcohol) 6-12 per day Sex and Gender Information Value Date Recorded Sex Assigned at Not on file Gender Identity Male 07/29/2023 14:06 EST Sexual Orientation Not on file documented as of this encounter Ordered Prescriptions Prescription Sig Dispensed Refills Start Date End Da te oxyCODONE (ROXICODONE) 5 mg immediate release tablet Take 1-2 Tabs by mouth every 6 hours as needed for Pain Earliest Fill Date: 01/09/15 Daily Max: 40 mg 90 Tab 0 01/09/2015 documented in this encounter Miscellaneous Notes * Telephone Encounter - Alba Reese RN - 01/09/2015 1112 EDT Refill mailed to [facility]. 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 PROCEDURE: Redo right L4-5 microdiskectomy. ANESTHESIA: General. COMPLICATIONS: None. TUBES, LINES, AND DRAINS: None. Patient is currently taking 1-2 Oxycodone 5 mg tabs every 4-5 hours for pain below the incision andibuprofen as needed. He was advised to wean to 1-2 tabs every 6 hours and to try switching from ibuprofen to one aleve every 12 hours as needed. He continues to progress his walking daily. * Telephone Encounter - Brittny Kemp V. - 01/09/2015 0911 EDT Medication(s) Requested: Oxycodone 5mg Pharmacy: Please mail to patient Last Refill Date: Last Visit Date: Next Visit Date: Visit date not found Is patient out of medication? Patience Kemp 01/09/2015 9:12 documented in this encounter Plan of Treatment Not on file documented as of this encounter Visit Diagnoses Not on filedocumented in this encounter Discontinued Medications Medication Sig Discontinue Reason Start Date End Da te oxyCODONE (ROXICODONE) 5 mg immediate release tablet Take 1-3 Tabs by mouth every 4 hours Daily Max: 90 mg Reorder 12/30/2014 01/09/2015 documented as of this encounter Care Teams Abrasive Sawyer Relationship Specialty Start Date End Date Luis Hadley DO [address] [place] [address] PCP - General 07/08/14 10/15/15 documented as of this encounter
--- OUTSIDE RECORDS SUMMARY | 2024-05-08 11:52 | XMS_ITS | Encounter Summary ---
Author Organization [facility] Address [address] [place] [address] Care Team Providers Care Car Servicer Name Role Phone Luis Hadley DO Primary Care Provider [phone] Reason for Referral * Radiology Services (Routine) - Closed Specialty Diagnoses / Procedures Referred By Contac t Referred To Contact Diagnoses Low back pain Procedures L SPINE 4 OR MORE VIEWS Milady Bustamante PA-C [address] [place] [address] [place] [address] Referral ID Status Reason Start Date Expiration Date Visits Re quested Visits Authorized [id number] Closed 07/09/2014 1 1 Encounter Details Date Type Department Care Team (Late st Contact Info) Description 07/09/2014 Orders Only [facility] Sp[facility] - [place] [address] [place] [address] Milady Bustamante PA-C [address] [place] [address] [place] [address] Low back pain (Primary Dx) Social History Tobacco Use [...] Procedure Name Priority Date/Time Associated Diagnosis Comments L SPINE 4 OR MORE VIEWS Routine 07/09/2014 13:16 EST Low back pain documented in this encounter Results * L SPINE 4 OR MORE VIEWS (07/09/2014 13:16 EST) Anatomical Region Laterality Modality Other 07/09/2014 13:1 6 EST 07/10/2014 13:46 EST Narrative 07/10/2014 13:46 EST Plain film lumbar spine History: Low back pain Findings: 4 views, AP, lateral, flexion and extension There is no acute fracture or malalignment. There is mild loss of disc height at L4-L5. Marginal osteophytes are present at L3-4 and L4-L5. The facet joints are hypertrophic at L4-L5 and L5-S1. Flexion and extension views show no sagittal instability. Conclusion: L3-4 and L4-L5 degenerative disc disease. Lower lumbar facet osteoarthritis Procedure Note 07/10/2014 Plain film lumbar spine History: Low back pain Findings: 4 views, AP, lateral, flexion and extension There is no acute fracture or malalignment. There is mild loss of disc height at L4-L5. Marginal osteophytes are present at L3-4 and L4-L5. The facet joints are hypertrophic at L4-L5 and L5-S1. Flexion and extension views show no sagittal instability. Conclusion: L3-4 and L4-L5 degenerative disc disease. Lower lumbar facet osteoarthritis Milady Bustamante PA-C IMG DIAGNOSTIC IMAGING ORDERABLES documented in this encounter Visit Diagnoses Diagnosis Low back pain- Primary Lumbago documented in this encounter Care Teams Car Servicer Relationship Specialty Start Date End Date Luis Hadley DO [address] [place] [address] PCP - General 07/08/14 10/15/15 documented as of this encounter
--- OUTSIDE RECORDS SUMMARY | 2024-05-08 11:52 | XMS_ITS | Encounter Summary ---
Author Organization [facility] Address [address] [place] [address] Care Team Providers Care Esl Instructor Name Role Phone Baljinder Lopez MD Primary Care Provider [phone] Reason for Visit * Reason Onset Date Comments Appointment Related 10/28/2015 Encounter Details Date Type Department Care Team (Late st Contact Info) Description 10/28/2015 Telephone [facility] Neurosurgery - [address] [id number] Branden Betancourt MD [address] [facility], [address] [place] [address] Appointment Related Social History Tobacco [...] * Telephone Encounter - Thao Shelton - 10/28/2015 0852 EDT Message received that patient wanted to discuss his MRI scheduled at [facility] today. He asked if he could cancel this because he doesn't think his disc is herniated but there is still some numbness. Informed that he could absolutely cancel if he wanted but that he would need to have his MRI completedprior to his 11/[address] Betancourt. Patient agreed. documented in this encounter Plan of Treatment Not on file documented as of this encounter Visit Diagnoses Not on filedocumented in this encounter Care Teams Esl Instructor Relationship Specialty Start Date End Date Baljinder Lopez MD PCP - General 10/16/15 documented as of this encounter
--- OUTSIDE RECORDS SUMMARY | 2024-05-08 11:52 | XMS_ITS | Encounter Summary ---
Author Organization [facility] Address [address] [place] [address] Care Team Providers Care Marble Supervisor Name Role Phone Jomar Luis Bull DO Primary Care Provider [phone] Encounter Details Date Type Department Care Team (Late st Contact Info) Description 12/04/2014 16:00 EDT - 12/04/2014 23:59 EDT Hospital Encounter [facility] [address] [place] [address] Branden Betancourt MD [address] [facility], [address] [place] [phone] Discharge Disposition: Home or Self Care Social History Tobacco Use Types Packs/Day Years Used Date Smoking Tobacco: Never Alcohol Use Standard Drinks/Week Comments Yes 1 (1 standard drink = 0.6 oz pur e alcohol) 6-12 per day Sex and Gender Information Value Date Recorded Sex Assigned at Not on file Gender Identity Male 07/29/2023 14:06 EST Sexual Orientation Not on file documented as of this encounter Discharge Diagnoses Diagnosis V72.5 RADIOLOGICAL EXAM NEC[ICD-9-CM] documented in this encounter Medications at Time [...] Discharge Disposition Disposition Code Departure Means Destination Home or Self Usp documented in this encounter Plan of Treatment Not on file documented as of this encounter Visit Diagnoses Not on filedocumented in this encounter Care Teams Marble Supervisor Relationship Specialty Start Date End Date Luis Hadley DO [address] [place] [address] PCP - General 07/08/14 10/15/15 documented as of this encounter
--- OUTSIDE RECORDS SUMMARY | 2024-05-08 11:52 | XMS_ITS | Encounter Summary ---
Author Organization [facility] Address [address] [place] [address] Care Team Providers Care Coverage Specialist Rn Name Role Phone Baljinder Lopez MD Primary Care Provider [phone] Encounter Details Date Type Department Care Team (Latest Contact Info) Description 12/21/2017 11:03 EDT - 12/21/2017 23:59 EDT Hospital Encounter [address] [address] Unknown, Provider, Discharge Disposition: Home or Self Care Social [...] No 01/02/2016 documented as of this encounter Medications at Time of Discharge Medication Sig Dispensed Refills Start Date End Date acetaminophen (TYLENOL) 325 mg tablet Take 2 Tabs by mouth every 4 hours as needed for Pain 12/30/2014 docusate sodium (COLACE) 100 mg capsule Take 1 Cap by mouth 2 times daily as needed for Constipation 12/30/2014 gabapentin (NEURONTIN) 300 mg capsule Take 300 mg by mouth 3 times daily. ibuprofen (MOTRIN) 800 mg tablet Take 800 mg by mouth daily as needed for Pain. indomethacin (INDOCIN) 50 mg capsule Take 50 mg by mouth 3 times daily. LORazepam (ATIVAN) 1 mg tablet Take 1 mg by mouth at bedtime as needed for Anxiety methocarbamol (ROBAXIN) 750 mg tablet Take 1 Tab by mouth 3 times daily as needed for Muscle Spasms 60 Tab 0 12/30/2014 oxyCODONE (ROXICODONE) 5 mg immediate release tablet Take 1-2 Tabs by mouth every 6 hours as needed for Pain Earliest Fill Date: 01/09/15 Daily Max: 40 mg 90 Tab 0 01/09/2015 documented as of this encounter Discharge Disposition Disposition Code Departure Means Destination Home or Self Long Term documented in this encounter Plan of Treatment Not on file documented as of this encounter Visit Diagnoses Not on filedocumented in this encounter Care Teams Coverage Specialist Rn Relationship Specialty Start Date End Date Baljinder Lopez MD PCP - General 10/16/15 documented as of this encounter
--- OUTSIDE RECORDS SUMMARY | 2024-05-08 11:52 | XMS_ITS | Encounter Summary ---
Author Organization [facility] Address [address] [place] [address] Care Team Providers Care Geography Head Name Role Phone JomarLuis aviles Primary Care Provider [phone] Encounter Details Date Type Department Care Team (Late st Contact Info) Description 11/19/2014 Orders Only [facility] Neurosurgery - [address] [address] Branden Betancourt MD [address] [facility], Level 5 [place] [address] Leg pain (Primary Dx) Social [...] Procedure Name Priority Date/Time Associated Diagnosis Comments MR LUMBAR SPINE W/WO CONTRAST 12/04/2014 17:11 EDT documented in this encounter Results * MR LUMBAR SPINE W/WO CONTRAST (12/04/2014 17:11 EDT) Anatomical Region Laterality Modality Other 12/04/2014 17:1 1 EDT 12/05/2014 19:40 EDT Narrative 12/05/2014 19:40 EDT MRI LUMBAR SPINE WITH AND WITHOUT CONTRAST December 04, 2014 Indication: Leg pain. Comparison: August 08, 2014. Technique: Sagittal T1, T2, STIR and T1 postcontrast fat-sat, axial T1, T2 and T1 postcontrast fat-sat and coronal T2 fat-saturated MR images of the lumbar spine were obtained. Findings: Significant scoliotic curvature is not appreciated. No garfield- or retrolisthesis is noted. Vertebral body heights are preserved. Apart from scattered discogenic endplate changes and small osseous hemangiomata, marrow signal intensity is unremarkable. There is mild disc space narrowing and loss of disc signal at L3-L4, L4-L5 and L5-S1 consistent with disc degeneration. L2-L3: No disc herniation or spinal stenosis is noted. L3-L4: There is mild global disc bulge with minimal narrowing of the neural foramina bilaterally. L4-L5: There has been previous right hemilaminotomy. Enhancing granulation tissue is demonstrated within the laminotomy defect and within the epidural space predominantly to the right of midline. There is a nonenhancing disc herniation which is demonstrated within the right lateral recess which produces fairly severe central spinal stenosis and compresses the L4 nerve root within the right lateral recess. Global disc bulge produces mild bilateral neuroforaminal narrowing. L5-S1: Global disc bulge with a central disc herniation which has decreased slightly in size in comparison to the previous study. This contact does not appear to displace the S1 nerve roots within the lateral recesses bilaterally and produces very mild mass effect on the ventral thecal sac. Global disc bulge produces mild bilateral neuroforaminal narrowing. The conus terminates normally at L1. Impression: 1. Postsurgical findings status post right hemilaminotomy at the L4-L5 level. 2. Recurrent right paracentral disc herniation at L4-L5. 3. Central disc herniation at L5-S1, slightly smaller than on previous exam. 4. Mild multilevel neuroforaminal narrowing as described by level above. Procedure Note Viry Ford MD - 12/05/2014 MRI LUMBAR SPINE WITH AND WITHOUT CONTRAST December 04, 2014 Indication: Leg pain. Comparison: August 08, 2014. Technique: Sagittal T1, T2, STIR and T1 postcontrast fat-sat, axial T1, T2 and T1 postcontrast fat-sat and coronal T2 fat-saturated MR images of the lumbar spine were obtained. Findings: Significant scoliotic curvature is not appreciated. No garfield- or retrolisthesis is noted. Vertebral body heights are preserved. Apart from scattered discogenic endplate changes and small osseous hemangiomata, marrow signal intensity is unremarkable. There is mild disc space narrowing and loss of disc signal at L3-L4, L4-L5 and L5-S1 consistent with disc degeneration. L2-L3: No disc herniation or spinal stenosis is noted. L3-L4: There is mild global disc bulge with minimal narrowing of the neural foramina bilaterally. L4-L5: There has been previous right hemilaminotomy. Enhancing granulation tissue is demonstrated within the laminotomy defect and within the epidural space predominantly to the right of midline. There is a nonenhancing disc herniation which is demonstrated within the right lateral recess which produces fairly severe central spinal stenosis and compresses the L4 nerve root within the right lateral recess. Global disc bulge produces mild bilateral neuroforaminal narrowing. L5-S1: Global disc bulge with a central disc herniation which has decreased slightly in size in comparison to the previous study. This contact does not appear to displace the S1 nerve roots within the lateral recesses bilaterally and produces very mild mass effect on the ventral thecal sac. Global disc bulge produces mild bilateral neuroforaminal narrowing. The conus terminates normally at L1. Impression: 1. Postsurgical findings status post right hemilaminotomy at the L4-L5 level. 2. Recurrent right paracentral disc herniation at L4-L5. 3. Central disc herniation at L5-S1, slightly smaller than on previous exam. 4. Mild multilevel neuroforaminal narrowing as described by level above. Branden Betancourt MD IMG MRI ORDERABLE S documented in this encounter Visit Diagnoses Diagnosis Leg pain- Primary Pain in limb documented in this encounter Care Teams Geography Head Relationship Specialty Start Date End Date Luis Hadley DO [address] [place] [address] PCP - General 07/08/14 10/15/15 documented as of this encounter
--- OUTSIDE RECORDS SUMMARY | 2024-05-08 11:52 | XMS_ITS | Encounter Summary ---
Author Organization [facility] Address [address] [place] [address] Care Team Providers Care Uniform Room Attendant Name Role Phone Baljinder Lopez MD Primary Care Provider [phone] Encounter Details Date Type Department Care Team (Late st Contact Info) Description 01/04/2023 Lab Requisition [facility] Pathology & Laboratory Medicine - [address] [address] Outr Resulting Lab, Provider Social History Tobacco [...] Procedure Name Priority Date/Time Associated Diagnosis Comments PSA TOTAL, DIAGNOSTIC Routine 01/04/2023 11:00 EDT documented in this encounter Results * PSA TOTAL, DIAGNOSTIC (01/04/2023 11:00 EDT) PSA 0.8 <=2.5 ng/mL 01/04/2023 22:29 EDT [facility] Blood VENOUS BLOOD / Unknown 01/04/2023 11:00 EDT 01/04/2023 21:30 EDT Narrative [facility] - 01/04/2023 22:29 EDT NOTE: Serum PSA concentration should not be interpreted as absolute evidence for the presence or absence of malignant disease. [facility]ayed on [facility] [employer] XPT using chemiluminescent technology.??Values obtained by using different assay methods cannot be used interchangeably. Provider Outr Resulting Lab CHEMISTRY & BLOOD GAS ORDERABLES [facility] [address] [place] [address] documented in this encounter Visit Diagnoses Not on filedocumented in this encounter Care Teams Uniform Room Attendant Relationship Specialty Start Date End Date Baljinder Lopez MD PCP - General 10/16/15 documented as of this encounter
--- OUTSIDE RECORDS SUMMARY | 2024-05-08 11:52 | XMS_ITS | Encounter Summary ---
Author Organization [facility] Address [address] [place] [address] Care Team Providers Care Powder Blender And Pourer Name Role Phone Baljinder Lopez MD Primary Care Provider [phone] Encounter Details Date Type Department Care Team (Late st Contact Info) Description 11/28/2023 Lab Requisition [facility] Pathology & Laboratory Medicine - [address] [address] Outr Resulting Lab, Provider Social History Tobacco [...] Date/Time Associated Diagnosis Comments T3, TOTAL Routine 11/28/2023 14:29 EDT documented in this encounter Results * T3, TOTAL (11/28/2023 14:29 EDT) T3, Total 114 97 - 169 ng/dL 11/28/2023 23:07 EDT [facility] Blood VENOUS BLOOD / Unknown 11/28/2023 14:29 EDT 11/28/2023 22:21 EDT Provider Outr Resulting Lab CHEMISTRY & BLOOD GAS ORDERABLES [facility] [address] [place] [address] documented in this encounter Visit Diagnoses Not on filedocumented in this encounter Care Teams Powder Blender And Pourer Relationship Specialty Start Date End Date Baljinder Lopez MD PCP - General 10/16/15 documented as of this encounter
--- OUTSIDE RECORDS SUMMARY | 2024-05-08 11:52 | XMS_ITS | Encounter Summary ---
Author Organization [facility] Address [address] [place] [address] Care Team Providers Care Bevel Operator Name Role Phone Luis Hadley DO Primary Care Provider [phone] Reason for Visit * Reason Onset Date Comments Appointment Related 11/13/[address] Betancourt Appointment Related 11/18/2014 MRI and appt Encounter Details Date Type Department Care Team (Late st Contact Info) Description 11/13/2014 Telephone [facility] Neurosurgery - [facility] [address] [place], [place] [id number] Branden Betancourt MD [address] [facility], [address] [place] [address] Appointment Related (MRI and Dr. Betancourt ); Appointment Related (MRI and appt ) Social History Tobacco Use Types Packs/Day Years [...] Telephone Encounter - Elaine Lackey RN - 11/20/2014 1022 EDT [facility] unable to move MRI to a sooner date. Left message on Emma's phone with this info and again encouraging her to take him to the ER if he is in too much pain to wait 2 weeks. Advised in the message that the ER providers will evaluate him and if an MRI is indeed warranted than he could get one the same day. * Telephone Encounter - Elaine Lackey RN - 11/20/2014 0846 EDT Spoke with patient's sister. She states that his pain is so severe that he faints while attempting to walk. The pain is in his back and legs. Financial Adviser strongly advised that the patient seek emergency care for pain management and assessment of his injury. They adamantly decline to go to ER they won'tdo anything, they'll just give him more pain meds . Patient is requesting an urgent appointment with Dr Betancourt and an MRI the same day. Financial Adviser again explained to patient that it will take a week or more to coordinate this with Dr Betancourt's schedule. Advised that they could get in to clinic sooner if they were agreeable to seeing a PA on a day when Dr Betancourt is in the clinic. They agree with this plan. * Telephone Encounter - Brittny Kemp V. - 11/20/2014 0830 EDT Reason for Call: Appointment Related Summary/Symptoms (Right or Left if applicable): Sister calling again to speak to a nurse. Nursewill call back shortly Onset and Duration? Urgent? Brittny Kemp 11/20/2014 8:31 * Telephone Encounter - Brooke Hutchinson - 11/18/2014 1440 EDT Reason for Call: Appointment Related Summary/Symptoms: Pt's sister calling again to schedule MRI and appt same day. Please call. Onset and Duration? n/a Brooke Hutchinson 11/18/2014 14:40 * Telephone Encounter - Pat Zhou - 11/14/2014 1206 EDT Spoke to Isabel and let her know that we are working on getting the MRI/appointment with Dr. Betancourt scheduled. We will have to discuss with Dr. Betancourt and give them a call. * Telephone Encounter - Joan Gupta - 11/13/2014 1313 EDT Reason for Call: Appointment Related Summary/Symptoms: Per Isabel, sister, would like to schedule same day MRI and Dr. Betancourt appt to discuss surgery. Per Isabel, he can't walk. Isabel made aware to expect a call back within 72 hrs. Isabel requested call back as soon as you can. Onset and Duration? n/a Joan Gupta 11/13/2014 13:13 documented in this encounter Plan of Treatment Not on file documented as of this encounter Visit Diagnoses Not on filedocumented in this encounter Care Teams Bevel Operator Relationship Specialty Start Date End Date Luis Hadley DO [address] [place] [address] PCP - General 07/08/14 10/15/15 documented as of this encounter
--- OUTSIDE RECORDS SUMMARY | 2024-05-08 11:52 | XMS_ITS | Encounter Summary ---
Author Organization [facility] Address [address] [place] [address] Care Team Providers Care Timber Cruiser Name Role Phone Baljinder Lopez MD Primary Care Provider [phone] Encounter Details Date Type Department Care Team (Late st Contact Info) Description 12/21/[address] [facility] [phone] Maxime Danielson MD [facility] [address] [place], [place] [id number] Social History Tobacco Use Types Packs/Day Years [...] Procedure Name Priority Date/Time Associated Diagnosis Comments SURGICAL PATHOLOGY Routine 12/21/2017 9:26 EDT documented in this encounter Results * SURGICAL PATHOLOGY (12/21/2017 9:26 EDT) Pathology Report: SURGICAL PATHOLOGY REPORT Reports generated via electronic interface contain original data; however they are lacking the format of the original report. Caution should be taken when reading/interpreti ng unformatted reports. Name: ? MUMTAZ MARTINEZ ? Accession #: ? [id number] ? : ? 1975 (Age: 42) ??M ? Collect Date: ? 12/21/2017 ? Location: ? [facility] ? Receive Date: ? 12/23/2017 ? Provider: MAXIME DANIELSON MD Copy to: ? 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 Comment: The majority of the punch biopsy shows a detached portion of a smooth muscle neoplasm with associated blood vessels, consistent with an angioleiomyoma. ??The overlying dermis shows exogenous foreign pigment morphologically consistent with tattoo. ??(Dr. Thomason)/[facility] Document reviewed and electronically signed by: SYDNEY THOMASON MD Report ??Date: 12/27/2017 13:16 By the signature above, the attending physician certifies that he/she has personally conducted a gross and/or microscopic examination of the described specimens and rendered or confirmed the above diagnosis. Specimen(s) Received: R lateral lower leg, 4.0 mm punch of underlying nodule Clinical History: Left nodule skin, dermatofibroma ? Gross Description: ? Received in formalin labelled with proper patient identification (initials L, M) and Rt lateral lower leg is a punch biopsy of durbin-pink to focally brown skin (0.4 cm diameter x 0.1 cm). Also in the container is a durbin-white firm nodule (0.5 x 0.4 x 0.4 cm). The specimens are submitted entirely in 1. ELKIN Mitchell (ASCP) 12/26/2017 11:23 AM End of Report [facility] 12/21/2017 9:26 EDT 12/23/2017 9:26 EDT Maxime Danielson MD PATHOLOGY ORDERABLES [facility] [address] [place] [address] documented in this encounter Visit Diagnoses Not on filedocumented in this encounter Care Teams Timber Cruiser Relationship Specialty Start Date End Date Baljinder Lopez MD PCP - General 10/16/15 documented as of this encounter
--- OUTSIDE RECORDS SUMMARY | 2024-05-08 11:52 | XMS_ITS | Encounter Summary ---
Author Organization [facility] Address [address] [place] [address] Care Team Providers Care Transit Mixer Driver Name Role Phone Baljinder Lopez MD Primary Care Provider [phone] Reason for Referral * Radiology Services (Routine/Next Available) - Authorization Not Required Specialty Diagnoses / Procedures Referred By Contac t Referred To Contact Diagnoses Other specified symptoms and signs involving the circulatory and respiratory systems Procedures XR NECK SOFT TISSUE Radames Danielson MD [address] [place] [address] [facility] Referral ID Status Reason Start Date Expiration Date Visits Requested Visits Authorized [id number] Authorization Not Required 07/28/2023 1 1 Reason for Visit * Radiology Services (Routine/Next Available) - Authorization Not Required Specialty Diagnoses / Procedures Referred By Contac t Referred To Contact Diagnoses Other specified symptoms and signs involving the circulatory and respiratory systems Procedures XR NECK SOFT TISSUE Radames Danielson MD [address] [place] [address] [facility] Referral ID Status Reason Start Date Expiration Date Visits Requested Visits Authorized [id number] Authorization Not Required 07/28/2023 1 1 Encounter Details Date Type Department Care Team (Latest Contact Info) Description 07/29/2023 14:07 EST - 07/29/2023 23:59 EST Hospital [facility] Radiology Xray Outpatient - [facility] [place] [address] [place] [address] Other specified symptoms and signs involving the circulatory and respiratory systems Discharge Disposition: Home or Self Care Social [...] Code Departure Means Destination Home or Self Care documented in this encounter Plan of Treatment Not on file documented as of this encounter Procedures Procedure Name Priority Date/Time Associated Diagnosis Comments XR NECK SOFT TISSUE Routine 07/29/2023 1 4:20 EST Other specified symptoms and signs involving the circulatory and respiratory systems documented in this encounter Results * XR NECK SOFT TISSUE (07/29/2023 14:20 EST) Anatomical Region Laterality Modality Computed Radiogr aphy 08/04/2023 8:43 EST Impressions 08/04/2023 8:43 EST Findings/Impression: C7 inferior endplate is obscured by shoulder soft tissue opacifications. Otherwise, maintained vertebral body heights and alignment. No significant intervertebral disc space height loss. Slightly longer right C7 transverse process compared to the left counterpart. There is however no cervical rib. [id number] Narrative 08/04/2023 8:43 EST XR NECK SOFT TISSUE ??07/29/2023 2:15 PM Clinical History/Comments: OTHER SPECIFIED SYMPTOMS AND SIGNS INVOLVING THE CIRCULATORY AND RESPIRATORY SYSTEMS;R09.89:Other specified symptoms and signs involving the circulatory and respiratory systems. Technique: 2 views of the cervical spine Comparison: None Procedure Note Arnold Stauffer MD - 08/04/2023 XR NECK SOFT TISSUE 07/29/2023 2:15 PM Clinical History/Comments: OTHER SPECIFIED SYMPTOMS AND SIGNS INVOLVING THE CIRCULATORY ANDRESPIRATORY SYSTEMS;R09.89:Other specified symptoms and signs involvingthe circulatory and respiratory systems. Technique: 2 views of the cervical spine Comparison: None IMPRESSION Findings/Impression: C7 inferior endplate is obscured by shoulder soft tissue opacifications.Otherwise, maintained vertebral body heights and alignment. No significantintervertebral disc space height loss. Slightly longer right C7 transverseprocess compared to the left counterpart. There is however no cervicalrib. [id number] Radames Danielson MD IMG DIAGNOSTIC IMAGI NG ORDERABLES documented in this encounter Visit Diagnoses Diagnosis Other specified symptoms and signs involving the circulatory and respiratory systems documented in this encounter Care Teams Transit Mixer Driver Relationship Specialty Start Date End Date Baljinder Lopez MD PCP - General 10/16/15 documented as of this encounter
--- OUTSIDE RECORDS SUMMARY | 2024-05-08 11:52 | XMS_ITS | Encounter Summary ---
Author Organization [facility] Address [address] [place] [address] Care Team Providers Care Diaper Machine Tender Name Role Phone Baljinder Lopez MD Primary Care Provider [phone] Reason for Visit * Reason Onset Date Comments Appointment Related 04/20/2023 Encounter Details Date Type Department Care Team (Late st Contact Info) Description 04/20/2023 Telephone [facility] Endocrinology - [address] [phone] Marnie Bey MD [address] [place] [phone] Appointment Related Social History Tobacco Use Types [...] No 01/02/2016 documented as of this encounter Miscellaneous Notes * Telephone Encounter - Cynthia Moeller - 04/20/2023 1307 EDT Had to cancel appt due to provider being out for conference. Attempted to call patient twice but number will not go through. documented in this encounter Plan of Treatment Not on file documented as of this encounter Visit Diagnoses Not on filedocumented in this encounter Care Teams Diaper Machine Tender Relationship Specialty Start Date End Date Baljinder Lopez MD PCP - General 10/16/15 documented as of this encounter
--- OUTSIDE RECORDS SUMMARY | 2024-05-08 11:52 | XMS_ITS | Encounter Summary ---
Author Organization [facility] Address [address] [place] [address] Care Team Providers Care Postpartum Rn Name Role Phone Baljinder Lopez MD Primary Care Provider [phone] Encounter Details Date Type Department Care Team (Late st Contact Info) Description 11/28/2023 Lab Requisition [facility] Pathology & Laboratory Medicine - [address] [address] Outr Resulting Lab, Provider Social History Tobacco [...] Date/Time Associated Diagnosis Comments T3 FREE Routine 11/28/2023 14:29 EDT documented in this encounter Results * T3 FREE (11/28/2023 14:29 EDT) T3, Free 3.6 2.8 - 5.3 pg/mL 11/28/2023 22:[address] [facility] Blood VENOUS BLOOD / Unknown 11/28/2023 14:29 EDT 11/28/2023 22:21 EDT Provider Outr Resulting Lab CHEMISTRY & BLOOD GAS ORDERABLES [facility] [address] [place] [address] documented in this encounter Visit Diagnoses Not on filedocumented in this encounter Care Teams Postpartum Rn Relationship Specialty Start Date End Date Baljinder Lopez MD PCP - General 10/16/15 documented as of this encounter
--- OUTSIDE RECORDS SUMMARY | 2024-05-08 11:52 | XMS_ITS | Encounter Summary ---
Author Organization [facility] Address [address] [place] [address] Care Team Providers Care Drupal Architect Name Role Phone Luis Hadley DO Primary Care Provider [phone] Encounter Details Date Type Department Care Team (Late st Contact Info) Description 12/30/2014 5:40 EDT - 12/30/2014 15:59 EDT Hospital Encounter [facility] Perioperative Services- [facility] [address] [place] [address] Branden Betancourt MD [address] [facility], [address] [place] [address] Lumbar disc herniation Discharge Disposition: Home or Self Care Social [...] Sign Reading Time Taken Comments Blood Pressure 136/77 12/30/2014 1545 EDT Pulse - - Temperature 36.1 ??C (97 ??F) 12/30/2014 1545 EDT Respiratory Rate 16 12/30/2014 1545 EDT Oxygen Saturation 99% 12/30/2014 1545 EDT Inhaled Oxygen Concentration - - Weight 81.6 kg (180 lb) 12/25/2014 1436 EDT Height 175.3 cm (5' 9) 12/25/2014 1436 EDT Body Mass Index 26.58 12/25/2014 1436 EDT documented in this encounter Medications at Time [...] 300 mg by mouth 3 times daily. LORazepam (ATIVAN) 1 mg tablet Take 1 mg by mouth at bedtime as needed for Anxiety methocarbamol (ROBAXIN) 750 mg tablet Take 1 Tab by mouth 3 times daily as needed for Muscle Spasms 60 Tab 0 12/30/2014 oxyCODONE (ROXICODONE) 5 mg immediate release tablet Take 1-3 Tabs by mouth every 4 hours Daily Max: 90 mg 90 Tab 0 12/30/2014 01/09/2015 documented as of this encounter Ordered Prescriptions Prescription Sig Dispensed Refills Start Date End Da te docusate sodium (COLACE) 100 mg capsule Take 1 Cap by mouth 2 times daily as needed for Constipation 12/30/2014 methocarbamol (ROBAXIN) 750 mg tablet Take 1 Tab by mouth 3 times daily as needed for Muscle Spasms 60 Tab 0 12/30/2014 acetaminophen (TYLENOL) 325 mg tablet Take 2 Tabs by mouth every 4 hours as needed for Pain 12/30/2014 oxyCODONE (ROXICODONE) 5 mg immediate release tablet Take 1-3 Tabs by mouth every 4 hours Daily Max: 90 mg 90 Tab 0 12/30/2014 01/09/2015 documented in this encounter Discharge Disposition Disposition Code Departure Means Destination Home or Self Care documented in this encounter Progress Notes * Julio Cesar Amaya MD - 12/30/2014 1550 EDT Neurosurgery Postop Check Max Jluis Enrique is a 39 y.o. male POD #0 S/P redo right L4-5 REZA . S: right anterior yadav numbness improved O: BP 123/73 Temp(Src) 36.1 ??C (97 ??F) (Tympanic) Resp 12 Ht 175.3 cm (69) Wt 81.647 kg (180 lb) BMI 26.57 kg/m2 SpO2 98% Exam: Awake, alert Speech clear Face symmetric IP/TA/EHL/gastroc full strength bilaterally Sensation intact in lower extremities Incision C/D/I A/P: 39 y.o. male s/p redo right L4-5 REZA, neurologically intact. - ambulated, voided - PVR 133ml - DC home Julio Cesar Amaya MD Neurosurgery resident 12/30/2014 15:50 Page 3576 with questions * Catie Torres, RN - 12/25/2014 1445 EDT Carlo Jluis Enrique has been instructed as follows regarding medication administration for the day of the scheduled procedure. Date of Surgery: 12/30/14 Instructions for Taking Medications Day of Surgery Medication Sig Last Dose Hold DOS Take DOS gabapentin (NEURONTIN) 300 mg capsule Take 300 mg by mouth 3 times daily. X ibuprofen (MOTRIN) 800 mg tablet Take 800 mg by mouth every 4 hours. 12/23/14 X oxyCODONE (ROXICODONE) 5 mg immediate release tablet Take 10 mg by mouth every 4 hours. X documented in this encounter H&P Notes * Tim Dietz - 12/30/2014 0985 EDT The preoperative history and physical which was performed within 30 days of this procedure has been reviewed and the clinically appropriate elements of the physical examination have been repeated. There are no changes to the documented history and physical or if so such changes are documented below Right buttock,leg pain with numbness to the top of the foot. Denies any recent fevers/chills/night sweats/infections. Denies use of ASA/Plavix/Coumadin. On exam full strength in b/l AT/Gastroc/EHL/IP. Pt takes percocet 7.5/325 mg at most 4x's per day. 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 PROCEDURE: Redo right L4-5 microdiskectomy. ANESTHESIA: General. COMPLICATIONS: None. TUBES, LINES, AND DRAINS: None. INDICATIONS: Mr Enrique is a 39-year-old gentleman with recurrent right leg pain in an L5 distribution. Imaging consistent with a recurrent right L4-5 disk herniation. The risks and benefits of redo right-sided microdiskectomy were discussed at length with Mr Enrique including but not limited to bleeding, infection, stroke, coma, , blindness, failure to improve, worsening of symptoms, reoperation, reherniation, delayed spinal instability. Mr Enrique understood these risks and wished to proceed with surgery. NARRATIVE: He was taken to the operating room electively on 12/30/2014, placed prone on a Jc frame. All pressure points padded. WHO checklist followed prior to skin incision. Antibiotics were given prior to skin incision. He was prepped and draped in standard sterile fashion. Localizing film was taken. Skin incision planned. A midline incision was made. Dissection through the soft tissues in the midline achieved with monopolar electrocautery. On the right side, the spinous process and lamina of L4 and L5 freed up of soft tissue. A Ayah placed on the L4 lamina. An x-ray taken and confirmed by radiology. A high-speed bur was used to slightly enlarge the previous laminotomy defect, and aseries of straight and up-angled curettes were used to detach scar and remaining ligamentum flavum.The L5 pedicle palpated and with a [place] [facility] and a sucker, dissection of the scar from the pedicle was achieved without difficulty and the distal nerve root identified. This was used as a guide to create a plane between the scar, the annulus, and the undersurface of the nerve root. This was somewhat difficult and some sharp dissection was needed. All alone, a disk bulge could be felt medially under the nerve root. Ultimately, this was dissected free from scar and removed with a nerve hook and a pituitary rongeur. Scar was further dissected and the nerve root removed entirely from the scar and was able to be freely retracted medially. No further fragments identified. A hole in the annulus was identified, entered with a pituitary rongeur, and some small fragments removed from the disk space itself. Hemostasis in the epidural space was achieved with Gelfoam powder and thrombin and gentle pressure from a ciro. Excess hemostatic was irrigated from the epidural space. The entire woundwas irrigated. Fascia closed using interrupted 0 Vicryl, Simran fascia closed using inverted interrupted 2-0 Vicryls, dermis closed using inverted interrupted 3-0 Vicryls and Dermabond. I was personally present for the entire procedure. Unless otherwise noted, there were no complications, no blood loss, no cultures obtained, no specimens removed, and no drains retained. Branden Betancourt MD 01 27 PM / Branden Betancourt MD cn Confirmation: [id number] Dictation ID: [id number] documented in this encounter Miscellaneous Notes * Brief Op Note - Yoandy Tanner MD - 12/30/2014 1321 EDT Neurosurgery Brief Op Note Surgeon: Asia Hide Grader: Flores Pre-Op Diagnosis: recurrent right L4-5 HNP Post-Op Diagnosis: same Procedure: redo right L4-5 REZA Anesthesia: GETA Findings: as expected Estimated Blood Loss: <25ml IV Fluids: 1600ml Urine Output: na Specimens: none Cultures: none Drains/Foreign Materials: no drain Skin: dermabond Complications: none Condition of Patient: stable Disposition: PACU / home Yoandy Tanner MD Neurosurgery Pager [phone] documented in this encounter Plan of Treatment Not on file documented as of this encounter Procedures Procedure Name Priority Date/Time Associated Diagnosis Comments ECG REPORT - SCANNED 01/02/2015 8:49 EDT L SPINE 1 VIEW Routine 12/30/2014 11:58 EDT documented in this encounter Results * ECG REPORT - SCANNED (01/02/2015 8:49 EDT) 01/02/2015 8:49 EDT Scan 2 Windows Application Developer PROCEDURE/MINOR TITO GICAL ORDERABLES * L SPINE 1 VIEW (12/30/2014 11:58 EDT) Anatomical Region Laterality Modality Other 12/30/2014 11:5 8 EDT 12/30/2014 15:47 EDT Narrative 12/30/2014 15:47 EDT LUMBAR SPINE ONE VIEW December 30, 2014 Indication: Herniated disc. L4-5 microdiscectomy. Check level. Comparison: Lumbar spine films July 09, 2014 and lumbar spine MRI from [facility] June 06, 2014. Technique: Lateral view of the lumbar spine was obtained for intraoperative localization. Findings: There is a surgical clamp present with its tips projecting over the L4 laminae. Findings were called to Dr. Betancourt in the OR who concurred with the localization. Procedure Note Viry Ford MD - 12/30/2014 LUMBAR SPINE ONE VIEW December 30, 2014 Indication: Herniated disc. L4-5 microdiscectomy. Check level. Comparison: Lumbar spine films July 09, 2014 and lumbar spine MRI from [facility] June 06, 2014. Technique: Lateral view of the lumbar spine was obtained for intraoperative localization. Findings: There is a surgical clamp present with its tips projecting over the L4 laminae. Findings were called to Dr. Betancourt in the OR who concurred with the localization. Branden Betancourt MD IMG DIAGNOSTIC IM AGING ORDERABLES documented in this encounter Visit Diagnoses Diagnosis Lumbar disc herniation Displacement of lumbar intervertebral disc without myelopathy Lumbar disc herniation Displacement of lumbar intervertebral disc without myelopathy documented in this encounter Administered Medications Inactive Administered Medications - up to 3 most recent administrations Medication Order MAR Action Action Date Dose Rate Site ceFAZolin (ANCEF) syringe 2 g 2 g, intravenous, Administer over 10 Minutes, PRE-OP ONCE, 1 dose, On Tue12/30/14 at 0700, Routine, Pre-Op DOS Rx Approved Given by Other 12/30/2014 11:20 EDT 2 g fentaNYL citrate (PF) 50 mcg/mL injection 25-100 mcg 25-100 mcg, intravenous, EVERY 5 MIN PRN, Starting on Tue12/30/14 at 1316, Until Tue12/30/14 at 1819, Pain, Routine, Recovery (only) Given 12/30/2014 14:20 EDT 50 mcg Given 12/30/2014 14:10 EDT 50 mcg HYDROmorphone (PF) (DILAUDID) 1 mg/mL injection 0.2-1 mg 0.2-1 mg, intravenous, EVERY 10 MINUTES PRN, Starting on Tue12/30/14 at 1316, Until Tue12/30/14 at 1819, Pain, Routine, Recovery (only) Given 12/30/2014 14 :13 EDT 0.5 mg Given 12/30/2014 14:03 EDT 0.5 mg lactated ringers (LR) infusion 75 mL/hr, intravenous, CONTINUOUS, Starting on Tue12/30/14 at 0700, Until Tue12/30/14 at 1819, Routine, Pre-Op DOS Rx Approved New Bag 12/30/2014 14:24 EDT 75 mL/hr 75 mL/hr Rate Documented 12/30/2014 13:35 EDT 75 mL/hr 75 mL/hr New Bag 12/30/2014 6:10 EDT 30 mL/hr 30 mL/hr ondansetron (PF) (ZOFRAN) injection 2 mg 2 mg, intravenous, PRN, 1 dose, Starting on Tue12/30/14 at 1316, Until Tue12/30/14 at 1404, Nausea, Vomiting, Routine, Recovery (only) Given 12/30/2014 14:04 EDT 2 m g oxyCODONE (ROXICODONE) immediate release tablet 5 mg 5 mg, oral, PRN, 2 doses, Starting on Tue12/30/14 at 1316, Until Tue12/30/14 at 1819, Pain, Routine, Recovery (only) Given 12/30/2014 14:10 EDT 10 mg documented in this encounter Discontinued Medications Medication Sig Discontinue Reason Start Date End Da te oxyCODONE (ROXICODONE) 5 mg immediate release tablet Take 10 mg by mouth every 4 hours. 12/30/2014 ibuprofen (MOTRIN) 800 mg tablet Take 800 mg by mouth every 4 hours. 12/30/2014 documented as of this encounter Historical Medications * This list may reflect changes made after this encounter. Medication Sig Dispensed Refills Start Date End Date LORazepam (ATIVAN) 1 mg tablet Take 1 mg by mouth at bedtime as needed for Anxiety added in this encounter Active and Recently Administered Medications Times are shown in EDT. Scheduled Medication Order 12/28/2014 12/29/2014 12/30/2014 ceFAZolin (ANCEF) syringe 2 g (COMPLETED) 2 g, intravenous, Administer over 10 Minutes, PRE-OP ONCE, 1 dose, On Tue12/30/14 at 0700, Routine, Pre-Op DOS Rx Approved 1120 (Given by Other - Provider: Cynthia Jason RN - Comment: Given by Lavelle Corbett CRNA, anesthesia) Continuous Medication Order 12/28/2014 12/29/2014 12/30/2014 lactated ringers (LR) infusion (CANCELED) 75 mL/hr, intravenous, CONTINUOUS, Starting on Tue12/30/14 at 0700, Until Tue12/30/14 at 1819, Routine, Pre-Op DOS Rx Approved 0610 (New Bag - Prov ider: Francheska Colindres RN)1159 (Due: Rate Change)1335 (Rate Documented - Provider: Gato Acosta RN)1424 (New Bag - Provider: Gato Acosta RN) PRN Medication Order 12/28/2014 12/29/2014 12/30/2014 fentaNYL citrate (PF) 50 mcg/mL injection 25-100 mcg (CANCELED) 25-100 mcg, intravenous, EVERY 5 MIN PRN, Starting on Tue12/30/14 at 1316, Until Tue12/30/14 at 1819, Pain, Routine, Recovery (only) 1410 (Given - Provid er: Gato Acosta RN)1420 (Given - Provider: Gato Acosta RN) HYDROmorphone (PF) (DILAUDID) 1 mg/mL injection 0.2-1 mg (CANCELED) 0.2-1 mg, intravenous, EVERY 10 MINUTES PRN, Starting on 6/8/15 at 1316, Until Tue12/30/14 at 1819, Pain, Routine, Recovery (only) 1403 (Given - Provid er: Gato Acosta RN)1413 (Given - Provider: aGto Acosta RN) ondansetron (PF) (ZOFRAN) injection 2 mg (COMPLETED) 2 mg, intravenous, PRN, 1 dose, Starting on Tue12/30/14 at 1316, Until Tue12/30/14 at 1404, Nausea, Vomiting, Routine, Recovery (only) 1404 (Given - Provid er: Gato Acosta RN) oxyCODONE (ROXICODONE) immediate release tablet 5 mg (CANCELED) 5 mg, oral, PRN, 2 doses, Starting on Tue12/30/14 at 1316, Until Tue12/30/14 at 1819, Pain, Routine, Recovery (only) 1410 (Given - Provid er: Gato Acosta RN) documented in this encounter Orders Medications Ordered That Isaías ht Not Have Been Administered Count Last Ordered Date First Ordered Date atropine 0.1 mg/mL syringe 0.5 mg 1 015 diphenhydrAMINE (BENADRYL) i njection 6.25 mg 1 12/30/2014 nalOXone (NARCAN) injection 0.2 mg 1 2014 Nursing Count Last Ordered Date First Orde red Date ACTIVITY INSTRUCTIONS 1 12/30/2014 BATHING INSTRUCTIONS 1 12/30/2014 LIFTING INSTRUCTIONS 1 12/30/2014 WOUND CARE INSTRUCTIONS 1 12/30/2014 Admission Count Last Ordered Date First Orde red Date STATUS: OUTPATIENT SURGICAL OP BED/SERVICES 1 12/30/2014 Transfer Count Last Ordered Date First Orde red Date NOTIFY PPS PACU PATIENT DISCHARGE 1 015 NOTIFY PPS PATIENT ARRIVAL IN PACU 1 2014 Legal Count Last Ordered Date First Orde red Date MISCELLANEOUS DISCHARGE INSTRUCTIONS 2 02/2015 documented in this encounter Care Teams Drupal Architect Relationship Specialty Start Date End Date Luis Hadley DO [address] [place] [address] PCP - General 07/08/14 10/15/15 documented as of this encounter
--- OUTSIDE RECORDS SUMMARY | 2024-05-08 11:52 | XMS_ITS | Encounter Summary ---
Author Organization [facility] Address [address] [place] [address] Care Team Providers Care Change Management Administrator Name Role Phone Baljinder Lopez MD Primary Care Provider Encounter Details Date Type Department Care Team (Late st Contact Info) Description 11/05/2015 Results Only Imaging [facility] [phone] Unknown, Provider, Social History Tobacco Use Types Packs/Day Years [...] Yes 11/05/2015 documented as of this encounter Plan of Treatment Pending Results Name Type Priority Associated Diagnoses Date /Time OUTSIDE IMAGES - MR NEURO Imaging 11/05/2015 10:43 EDT documented as of this encounter Visit Diagnoses Not on filedocumented in this encounter Care Teams Change Management Administrator Relationship Specialty Start Date End Date Baljinder Lopez MD PCP - General 10/16/15 documented as of this encounter
--- OUTSIDE RECORDS SUMMARY | 2024-05-08 11:52 | XMS_ITS | Encounter Summary ---
Author Organization [facility] Address [address] [place] [address] Care Team Providers Care Auto Glass Installer Name Role Phone Baljinder Lopez MD Primary Care Provider [phone] Encounter Details Date Type Department Care Team (Late st Contact Info) Description 01/21/2023 Lab Requisition [facility] Pathology & Laboratory Medicine - [address] [address] Outr Resulting Lab, Provider Social History Tobacco [...] Procedure Name Priority Date/Time Associated Diagnosis Comments THYROID ANTIBODIES Routine 01/21/2023 9:48 EDT documented in this encounter Results * (ABNORMAL) THYROID ANTIBODIES (01/21/2023 9:48 EDT) Anti-Thyroglobulin 138(H) <=60 U/mL 2022 20:06 EDT [facility] Thyroperoxidase Ab <28 <=60 U/mL 2022 20:06 EDT [facility] Blood VENOUS BLOOD / Unknown 01/21/2023 9:48 EDT 01/21/2023 18:40 EDT Provider Outr Resulting Lab CHEMISTRY & BLOOD GAS ORDERABLES Performing Organization Address City/State/[facility] Co de Phone Number [facility] [address] [place] [address] documented in this encounter Visit Diagnoses Not on filedocumented in this encounter Care Teams Auto Glass Installer Relationship Specialty Start Date End Date Baljinder Lopez MD PCP - General 10/16/15 documented as of this encounter
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
--- OUTSIDE RECORDS SUMMARY | 2024-05-08 11:52 | XMS_ITS | Encounter Summary ---
Author Organization [facility] Address [address] [place] [address] Care Team Providers Care Delivery Lead Name Role Phone Baljinder Lopez MD Primary Care Provider [phone] Encounter Details Date Type Department Care Team (Late st Contact Info) Description 04/07/2024 Lab Requisition [facility] Pathology & Laboratory Medicine - [address] [address] Outr Resulting Lab, Provider Social History Tobacco [...] Comments T3, TOTAL Routine 04/06/2024 16:26 EDT documented in this encounter Results * T3, TOTAL (04/06/2024 16:26 EDT) T3, Total 122 97 - 169 ng/dL 04/08/2024 7:51 EDT [facility] Blood VENOUS BLOOD / Unknown 04/06/2024 16:26 EDT 04/08/2024 6:49 EDT Provider Outr Resulting Lab CHEMISTRY & BLOOD GAS ORDERABLES [facility] [address] [place] [address] documented in this encounter Visit Diagnoses Not on filedocumented in this encounter Care Teams Delivery Lead Relationship Specialty Start Date End Date Baljinder Lopez MD PCP - General 10/16/15 documented as of this encounter
--- OUTSIDE RECORDS SUMMARY | 2024-05-08 11:52 | XMS_ITS | Encounter Summary ---
Author Organization [facility] Address [address] [place] [address] Care Team Providers Care Baker Apprentice Name Role Phone Luis Hadley DO Primary Care Provider +1- [phone] Reason for Visit * Reason Comments Follow-up redo disc 01/06/15 Back Pain RLE pain/numbness Encounter Details Date Type Department Care Team (Late st Contact Info) Description 09/10/2015 11:30 EST Office Visit [facility] Neurosurgery - [address] [address] Branden Betancourt MD [address] [place] [address], [address] [place] [address] Lumbar disc herniation (Primary Dx) Discharge Disposition: Auto Discharge Social [...] Sign Reading Time Taken Comments Blood Pressure 152/100 09/10/2015 1155 EST Pulse 72 09/10/2015 1155 EST Temperature - - Respiratory Rate 12 09/10/2015 1155 EST Oxygen Saturation - - Inhaled Oxygen Concentration - - Weight 86.2 kg (190 lb) 09/10/2015 1155 EST Height 175.3 cm (5' 9) 09/10/2015 1155 EST Body Mass Index 28.06 09/10/2015 1155 EST documented in this encounter Functional Status Functional [...] No 09/10/2015 documented as of this encounter Discharge Diagnoses Diagnosis M51.26 Other intervertebral disc displacement, lumbar region-M51.26[ICD-10-CM] documented in this encounter Discharge Disposition Disposition Code Departure Means Destination Auto Discharge documented in this encounter Progress Notes * Branden Betancourt MD - 09/10/2015 1246 EST Mr Enrique is a 40-year-old gentleman status post redo right L4-5 microdiskectomy this past summer. He did quite well and did not follow up. Over the past weeks, he has redeveloped severe right leg pain to the point that it is difficult for him to walk. He has no new imaging. He is neurologically normal with a pain- limited exam. I have discussed with him obtaining an MRI with and without contrast. I look forward to seeing him back when this has been completed. documented in this encounter Plan of Treatment Not on file documented as of this encounter Visit Diagnoses Diagnosis Lumbar disc herniation- Primary Displacement of lumbar intervertebral disc without myelopathy documented in this encounter Historical Medications * This list may reflect changes made after this encounter. Medication Sig Dispensed Refills Start Date End Date indomethacin (INDOCIN) 50 mg capsule Take 50 mg by mouth 3 times daily. added in this encounter Care Teams Baker Apprentice Relationship Specialty Start Date End Date Luis Hadley DO [address] [place] [address] PCP - General 07/08/14 10/15/15 documented as of this encounter
--- OUTSIDE RECORDS SUMMARY | 2024-05-08 11:52 | XMS_ITS | Encounter Summary ---
Author Organization [facility] Address [address] [place] [address] Care Team Providers Care Technology Sales Representative Name Role Phone Luis Hadley DO Primary Care Provider [phone]- [phone] Reason for Visit * Reason Onset Date Comments Appointment Related 07/10/2014 Encounter Details Date Type Department Care Team (Late st Contact Info) Description 07/10/2014 Telephone [facility] Spine Program - [address] [place] [address] Milady Bustamante PA-C [address] [facility] [place] [address] Appointment Related Social History Tobacco Use Types [...] encounter Miscellaneous Notes * Telephone Encounter - Bree Cornell - 07/10/2014 0855 EST Called patient with following appointments: MRI 08/08/14 at [address] [facility] and f/u with Branden Betancourt Tuesday08/13/14 at 9:[address] [facility]. documented in this encounter Plan of Treatment Not on file documented as of this encounter Visit Diagnoses Not on filedocumented in this encounter Care Teams Technology Sales Representative Relationship Specialty Start Date End Date Luis Hadley DO [address] [place] [address] PCP - General 07/08/14 10/15/15 documented as of this encounter
--- OUTSIDE RECORDS SUMMARY | 2024-05-08 11:52 | XMS_ITS | Encounter Summary ---
Author Organization [facility] Address [address] [place] [address] Care Team Providers Care Pot Fluxer Name Role Phone Luis Hadley DO Primary Care Provider [phone]- [phone] Reason for Visit * Reason Onset Date Comments Appointment Related 09/11/2015 Encounter Details Date Type Department Care Team (Late st Contact Info) Description 09/11/2015 Telephone [facility] Neurosurgery - [facility] [address] [place], [place] [address] Branden Betancourt MD [address] [facility], [address] [place] [address] Appointment Related Social History Tobacco [...] * Telephone Encounter - Thao Shelton - 09/11/2015 0911 EST Pt informed of appointments. MRI 10/21/15, registration at 8:15am for 9:00am. Follow up with Dr. Betancourt 11/05/15 at 10:00am EP5. documented in this encounter Plan of Treatment Not on file documented as of this encounter Visit Diagnoses Not on filedocumented in this encounter Care Teams Pot Fluxer Relationship Specialty Start Date End Date Luis Hadley DO [address] [place] [address] PCP - General 07/08/14 10/15/15 documented as of this encounter
--- OUTSIDE RECORDS SUMMARY | 2024-05-08 11:52 | XMS_ITS | Encounter Summary ---
Author Organization [facility] Address [address] [place] [address] Care Team Providers Care Rackman Name Role Phone Baljinder Lopez MD Primary Care Provider [phone] Encounter Details Date Type Department Care Team (Late st Contact Info) Description 11/29/2023 Lab Requisition [facility] Pathology & Laboratory Medicine - [address] [address] Outr Resulting Lab, Provider Social History Tobacco [...] Procedure Name Priority Date/Time Associated Diagnosis Comments OVA/PARASITE EXAM Routine 11/28/2023 13: 21 EDT documented in this encounter Results * OVA/PARASITE EXAM (11/28/2023 13:21 EDT) Parasite No ova and parasites seen. 11/30/2023 14:10 EDT [facility] Feces SPECIMEN FROM RECTUM / Unknown 11/28/2023 13:21 EDT 11/29/2023 18:36 EDT Narrative [facility] - 11/30/2023 14:10 EDT (If Cryptosporidium, Cyclospora, or Microsporidium are suspected, specific tests must be requested.) Single negative specimen does not rule out the possibility of a parasitic infection. Provider Outr Resulting Lab MICROBIOLOGY - GENERAL ORDERABLES [facility] [address] [place] [id number] documented in this encounter Visit Diagnoses Not on filedocumented in this encounter Care Teams Rackman Relationship Specialty Start Date End Date Baljinder Lopez MD PCP - General 10/16/15 documented as of this encounter
--- OUTSIDE RECORDS SUMMARY | 2024-05-08 11:52 | XMS_ITS | Encounter Summary ---
Author Organization [facility] Address [address] [place] [address] Care Team Providers Care Assistant Production Editor Name Role Phone Baljinder Lopez MD Primary Care Provider [phone] Encounter Details Date Type Department Care Team (Late st Contact Info) Description 01/04/2023 Lab Requisition [facility] Pathology & Laboratory Medicine - [address] [address] Outr Resulting Lab, Provider Social History Tobacco [...] Procedure Name Priority Date/Time Associated Diagnosis Comments HEPATITIS B SURFACE ANTIGEN Routine 01/04/2023 11:00 EDT documented in this encounter Results * HEPATITIS B SURFACE ANTIGEN (01/04/2023 11:00 EDT) Hep B Surface Ag Negative Negative 01/05/2023 10:[address] [facility] Blood VENOUS BLOOD / Unknown 01/04/2023 11:00 EDT 01/04/2023 21:30 EDT Provider Outr Resulting Lab CHEMISTRY & BLOOD GAS ORDERABLES [facility] [address] [place] [address] documented in this encounter Visit Diagnoses Not on filedocumented in this encounter Care Teams Assistant Production Editor Relationship Specialty Start Date End Date Baljinder Lopez MD PCP - General 10/16/15 documented as of this encounter
--- OUTSIDE RECORDS SUMMARY | 2024-05-08 11:52 | XMS_ITS | Encounter Summary ---
Author Organization [facility] Address [address] [place] [address] Care Team Providers Care Reinforcing Iron Worker Helper Name Role Phone Luis Hadley DO Primary Care Provider [phone]- [phone] Reason for Visit * Reason Onset Date Comments Paperwork request 09/22/2015 Encounter Details Date Type Department Care Team (Late st Contact Info) Description 09/22/2015 Telephone [facility] Neurosurgery - [facility] [address] [place], [place] [address] Branden Betancourt MD [address] [facility], [address] [place] [address] Paperwork request Social History Tobacco Use Types Packs/Day Years [...] encounter Miscellaneous Notes * Telephone Encounter - Ramonita Waddell PA - 09/24/2015 1353 EST Letter written. * Telephone Encounter - Thao Shelton - 09/22/2015 1217 EST Pt was seen on 09/10/[address] Betancourt for lumbar disc herniation and has an MRI scheduled for 10/20 and follow up with Dr. Betancourt for 11/04. Pt is unable to work right now and needs a letter stating this so that he can submit it to the state to try to get assistance. When ready or if more information is needed: [phone] or [phone]. documented in this encounter Plan of Treatment Not on file documented as of this encounter Visit Diagnoses Not on filedocumented in this encounter Care Teams Reinforcing Iron Worker Helper Relationship Specialty Start Date End Date Luis Hadley DO [address] [place] [address] PCP - General 07/08/14 10/15/15 documented as of this encounter
--- OUTSIDE RECORDS SUMMARY | 2024-05-08 11:52 | XMS_ITS | Referral Summary ---
Author Organization [facility] Address [address] [place] [address] Care Team Providers Care Cone Tender Name Role Phone Baljinder Lopez MD Primary Care Provider [phone] Encounters Date Type Department Care Team Description 04/07/2024 Lab Requisition [facility] Pathology & Laboratory Medicine - [address] [address] Outr Resulting Lab, Provider from Last 3 Months Allergies Active Allergy Reactions Criticality Noted Date [...] back pain radiating to both legs 07/09/2014 Social History Tobacco Use Types Packs/Day Years [...] 14:06 EST Sexual Orientation Not on file Last Filed [...] Body Mass Index 28.06 01/02/2016 1333 EDT Functional Status Functional Status Response Date of [...] concentrating, remembering, or making decisions? No 01/02/2016 Plan of Treatment Not on file Procedures Procedure Name Priority Date/Time Associated Diagnosis Comments T3, TOTAL Routine 04/06/2024 16:26 EDT from Last 3 Months Results * T3, TOTAL (04/06/2024 16:26 EDT) T3, Total 122 97 - 169 ng/dL 04/08/2024 7:51 EDT [facility] Blood VENOUS BLOOD / Unknown 04/06/2024 16:26 EDT 04/08/2024 6:49 EDT Provider Outr Resulting Lab CHEMISTRY & BLOOD GAS ORDERABLES [facility] [address] [place] [address] from Last 3 Months Advance Directives For more information, please contact: [phone] * Full Code (Latest Code Status on File) Date Activated Date Inactivated Comments 12/30/2014 6:39 12/30/2014 18:19 Question Answer Comments Reason for decision includes: Full code consistent with overall plan of care Who participated in the discussion? Not Discusse d Care Teams Cone Tender Relationship Specialty Start Date End Date Baljinder Lopez MD PCP - General 10/16/15
--- OUTSIDE RECORDS SUMMARY | 2024-05-08 11:52 | XMS_ITS | Encounter Summary ---
Author Organization [facility] Address [address] [place] [address] Care Team Providers Care Pulp Press Tender Name Role Phone Baljinder Lopez MD Primary Care Provider [phone] Reason for Referral * Other (Routine/Next Available) - Closed Specialty Diagnoses / Procedures Referred By Contwan t Referred To Contact Pain Medicine Diagnoses Lumbar disc herniation Branden Betancourt MD [address] [place] [phone] [facility] [address] [place] [address] [place] [address] Referral ID Status Reason Start Date Expiration Date V isits Requested Visits Authorized [id number] Closed Specialty Services Required 11/05/2015 1 1 Question Answer Reason for Request: leg pain Comments L5 radic Reason for Visit * Reason Comments Follow-up MRI 10/21/15 Numbness RLE numbness Encounter Details Date Type Department Care Team (Late st Contact Info) Description 11/05/2015 10:00 EDT Office Visit [facility] Neurosurgery - [address] [id number] Branden Betancourt MD [address] [place] [address] Lumbar disc herniation (Primary Dx) Discharge [...] Sign Reading Time Taken Comments Blood Pressure 140/82 11/05/2015 0949 EDT Pulse 76 11/05/2015 0949 EDT Temperature 35.9 ??C (96.7 ??F) 11/05/2015 0949 EDT Respiratory Rate 14 11/05/2015 0949 EDT Oxygen Saturation - - Inhaled Oxygen Concentration - - Weight 88.5 kg (195 lb) 11/05/2015 0949 EDT Height 175.3 cm (5' 9) 11/05/2015 0949 EDT Body Mass Index 28.8 11/05/2015 0949 EDT documented in this encounter Functional Status [...] Yes 11/05/2015 documented as of this encounter Discharge Diagnoses Diagnosis M51.26 Other intervertebral disc displacement, lumbar region-M51.26[ICD-10-CM] documented in this encounter Discharge Disposition Disposition Code Departure Means Destination Auto Discharge documented in this encounter Progress Notes * Branden Betancourt MD - 11/05/2015 1111 EDT Mr Enrique is a 40-year-old gentleman status post redo right-sided L4-5 microdiskectomy who had a recurrence of his pain while at work. He subsequently has had some resolution of his pain, but continued numbness. I reviewed his new imaging study with and without contrast with him today. I do not appreciate residual or recurrent disk herniation. Fortunately, he has had some resolution of his pain. We have discussed for his residual symptoms an L4-5 epidural steroid injection. He is excited to pursue this and is hopeful this will tip him over the edge towards being symptom free again. We discussed at this time I cannot offer him a surgical solution. I look forward to seeing him back down the road to carmen his progress. documented in this encounter Plan of Treatment Scheduled Referrals Name Type Priority Associated Diagnoses Orde r Schedule AMB PAIN PROCEDURE Outpatient Referral Routine Lumbar disc herniation Ordered: 11/05/2015 documented as of this encounter Visit Diagnoses Diagnosis Lumbar disc herniation- Primary Displacement of lumbar intervertebral disc without myelopathy documented in this encounter Historical Medications * This list may reflect changes made after this encounter. Medication Sig Dispensed Refills Start Date End Date ibuprofen (MOTRIN) 800 mg tablet Take 800 mg by mouth daily as needed for Pain. added in this encounter Care Teams Pulp Press Tender Relationship Specialty Start Date End Date Baljinder Lopez MD PCP - General 10/16/15 documented as of this encounter
--- OUTSIDE RECORDS SUMMARY | 2024-05-08 11:52 | XMS_ITS | Encounter Summary ---
Author Organization [facility] Address [address] [place] [address] Care Team Providers Care Fur Tailor Name Role Phone Luis Hadley DO Primary Care Provider [phone] Encounter Details Date Type Department Care Team (Late st Contact Info) Description 11/14/2014 Orders Only [facility] Neurosurgery - [facility] [address] [place], [place] [address] Branden Betancourt MD [address] [facility], [address] [place] [address] Leg pain (Primary Dx) Social [...] limb documented in this encounter Care Teams Fur Tailor Relationship Specialty Start Date End Date Luis Hadley DO [address] [place] [id number] PCP - General 07/08/14 10/15/15 documented as of this encounter
--- OUTSIDE RECORDS SUMMARY | 2024-05-08 11:52 | XMS_ITS | Encounter Summary ---
Author Organization [facility] Address [address] [place] [address] Care Team Providers Care Ground Helper Street Railway Name Role Phone Jomar Luis Bull DO Primary Care Provider [phone] Reason for Visit * Reason Onset Date Comments Appointment Related 02/10/2015 cancelled 01/28 POV Encounter Details Date Type Department Care Team (Late st Contact Info) Description 02/10/2015 Telephone [facility] Neurosurgery - [facility] [address] [place], [place] [phone] Branden Betancourt MD [address] [facility], [address] [place] [address] Appointment Related (cancelled 01/28 POV) Social History Tobacco Use Types Packs/Day Years [...] * Telephone Encounter - Lara Paris - 02/20/2015 1541 EDT Postop appointment given to patient. * Telephone Encounter - Brooke Hutchinson - 02/10/2015 1629 EDT Reason for Call: Appointment Related Summary/Symptoms: Pt calling to reschedule cancelled 01/28 POV. Please call. Brooke Hutchinson 02/10/2015 16:29 documented in this encounter Plan of Treatment Not on file documented as of this encounter Visit Diagnoses Not on filedocumented in this encounter Care Teams Ground Helper Street Railway Relationship Specialty Start Date End Date Luis Hadley DO [address] [place] [address] PCP - General 07/08/14 10/15/15 documented as of this encounter
--- OUTSIDE RECORDS SUMMARY | 2024-05-08 11:52 | XMS_ITS | Encounter Summary ---
Author Organization [facility] Address [address] [place] [address] Care Team Providers Care Shuttle Inspector Name Role Phone Luis Hadley DO Primary Care Provider [phone]- [phone] Encounter Details Date Type Department Care Team (Late st Contact Info) Description 12/20/2014 Pre-Procedure Orders Encounter [facility] Neurosurgery - [facility] [address] [place], [place] [address] Gabrielle Dubose PA-C 111 [facility] [place], [address] [place] [address] Lumbar disc herniation (Primary Dx) Social History Tobacco Use Types [...] disc without myelopathy documented in this encounter Care Teams Shuttle Inspector Relationship Specialty Start Date End Date Luis Hadley DO [address] [place], [place] [address] PCP - General 07/08/14 10/15/15 documented as of this encounter
--- OUTSIDE RECORDS SUMMARY | 2024-05-08 11:52 | XMS_ITS | Encounter Summary ---
Author Organization [facility] Address [address] [place] [address] Care Team Providers Care Rush Seater Name Role Phone Jomar, Luis Bull DO Primary Care Provider [phone]- [phone] Reason for Visit * Reason Onset Date Comments Paperwork request 10/02/2015 Paperwork request 10/02/2015 [employer]-please fax back today Encounter Details Date Type Department Care Team (Late st Contact Info) Description 10/02/2015 Telephone [facility] Neurosurgery - [address] [address] Branden Betancourt MD [address] [place] [address], [address] [place] [address] Paperwork request; Paperwork request ([employer]-please fax back today) Social History Tobacco Use Types Packs/Day Years [...] * Telephone Encounter - Thao Shelton - 10/07/2015 1207 EDT Paperwork received and being filled out by Ramonita * Telephone Encounter - Thao Shelton - 10/07/2015 0923 EDT Let patient know that paperwork still has not been received. * Telephone Encounter - Joan Gupta - 10/02/2015 1243 EST Reason for Call: Paperwork request Summary/Symptoms: Per pt, [employer] is suppose to be faxing paperwork to office today. Per pt, requesting that it be filled out and sent back today if at all possible. Please call pt with anyquestions/concerns. Joan Gupta 10/02/2015 12:43 * Telephone Encounter - Thao Shelton - 10/02/2015 1057 EST Informing us that the office of [employer] will be faxing paperwork that needs to be filled out. When completed, it can be faxed back to [phone] documented in this encounter Plan of Treatment Not on file documented as of this encounter Visit Diagnoses Not on filedocumented in this encounter Care Teams Rush Seater Relationship Specialty Start Date End Date Luis Hadley DO [address] [place] [address] PCP - General 07/08/14 10/15/15 documented as of this encounter
--- OUTSIDE RECORDS SUMMARY | 2024-05-08 11:53 | XMS_ITS | Encounter Summary ---
Author Organization [facility] Address [address] [place] [address] Care Team Providers Care Drying Oven Tender Name Role Phone Ankit Post MD Primary Care Provider [phone] Encounter Details Date Type Department Care Team (Late st Contact Info) Description 06/25/2014 Results Only Imaging [facility] Foot & Ankle Program - [address] [place] [address] Milady Bustamante PA-C [address] [facility] [place] [address] Social History Tobacco Use Types Packs/Day Years Used Date Smoking Tobacco: Never Assessed Sex and Gender Information Value Date Recorded Sex Assigned at Not on file Gender Identity Male 07/29/2023 14:06 EST Sexual Orientation Not on file documented as of this encounter Plan of Treatment Pending Results Name Type Priority Associated Diagnoses Date /Time OUTSIDE CD - MRI NEURO Imaging 14:51 EST OUTSIDE CD - MRI NEURO Imaging 14:51 EST OUTSIDE CD - OTHER NEURO Imaging 06/25/2014 14:51 EST documented as of this encounter Visit Diagnoses Not on filedocumented in this encounter Care Teams Drying Oven Tender Relationship Specialty Start Date End Date Ankit Post MD PCP - General 06/14/14 07/07/14 documented as of this encounter
--- OUTSIDE RECORDS SUMMARY | 2024-05-08 11:53 | XMS_ITS | Encounter Summary ---
Author Organization [facility] Address [address] [place] [address] Care Team Providers Care Square Cutter Name Role Phone Luis Hadley DO Primary Care Provider [phone] Reason for Visit * Reason Comments Back Pain radiating bilat legs to knees Encounter Details Date Type Department Care Team (Late st Contact Info) Description 07/09/2014 12:45 EST Office Visit [facility] - [address] [place], [place] [id number] Milady Bustamante PA-C [address] [facility] [place] [address] Low back pain radiating to both legs (Primary Dx) Discharge Disposition: Auto Discharge Social [...] - - Weight 88.5 kg (195 lb) 07/09/2014 1321 EST Height 175.3 cm (5' 9) 07/09/2014 1321 EST Body Mass Index 28.8 07/09/2014 1321 EST documented in this encounter Discharge Diagnoses Diagnosis 724.2 LUMBAGO[ICD-9-CM] documented in this encounter Discharge Disposition Disposition Code Departure Means Destination Auto Discharge documented in this encounter Progress Notes * Milady Bustamante PA - 07/09/2014 1422 EST Carlo Enrique is being seen as a consultation from Dr. Post. Chief Complaint Patient presents with ??? Back Pain radiating bilat legs to knees The encounter diagnosis was Low back pain radiating to both legs. HPI Mr. Enrique is a 39 y.o. pleasant male who presents to the clinic today with 20% LBP and 80% B/L LE pain, LLE worse than RLE, affecting the posterior aspects of his thighs stopping at the knees. There is also numbness in the dorsal and plantar surfaces of the left foot including all toes and numbnessin the proximal third of the lateral aspect of his right lower leg and entire right foot including all toes as well. He is s/p L4-L5 discectomy in November 2013, in [facility] in [place], [place]. Outcome was excellent for a couple of months, but as he started working again, symptoms gradually returned almost to pre-surgical status.The patient's initial symptoms started about 5 months before the surgical intervention. He has not improved since return of symptoms after surgery. His pain is present every day and fluctuates between 4/10 at its best and 10/10 at its worst. He has not tried PT, CHIRO or injections post surgery. Lying down and sitting alleviate his symptoms. Coughing, sneezing, standing, lifting, and bending forward aggravate his symptoms. He rates his pain as 6/10. He has not been working for the last two months. He smokes marijuana only. HPI Patient Active Problem List Diagnosis ??? Low back pain radiating to both legs No past medical history on file. Past Surgical History Procedure Laterality Date ??? Back surgery L4-L5 discectomy History Substance Use Topics ??? Smoking status: Never Smoker ??? Smokeless tobacco: Not on file ??? Alcohol Use: 0.6 oz/week 1 Cans of beer per week Comment: 6-12 per day Family History Problem Relation Age of Onset ??? Cancer Father Current Outpatient Prescriptions Medication Sig Dispense Refill ??? gabapentin (NEURONTIN) 300 mg capsule Take 300 mg by mouth 3 times daily. ??? ibuprofen (MOTRIN) 800 mg tablet Take 800 mg by mouth every 4 hours. ??? oxyCODONE (ROXICODONE) 5 mg immediate release tablet Take 10 mg by mouth every 4 hours. No current facility-administered medications for this visit. Allergies Allergen Reactions ??? Colchicine Analogues Review of Systems Constitutional: Positive for activity change. Negative for unexpected weight change. Eyes: Negative for visual disturbance. Respiratory: Negative for chest tightness. Cardiovascular: Negative for chest pain. Gastrointestinal: Negative for constipation. Genitourinary: Negative for difficulty urinating. Musculoskeletal: Positive for back pain. Negative for neck pain. Skin: Negative for rash. Neurological: Positive for numbness. Psychiatric/Behavioral: Negative for behavioral problems and agitation. Physical Exam Constitutional: He is oriented to person, place, and time. He appears well- developed and well-nourished. HENT: Head: Normocephalic. Eyes: EOM are normal. Neck: Neck supple. Cardiovascular: Normal rate. Pulmonary/Chest: Effort normal. Neurological: He is alert and oriented to person, place, and time. Skin: Skin is warm and dry. No rash noted. Psychiatric: He has a normal mood and affect. His behavior is normal. Back Exam Comments: GAIT: Normal. HEEL & TOE WALKING: NEG. LESIONS, RASHES OR HAIR MC: NEG. FROM: TENDERNESS ON PALPATION: NEG. STRENGTH: 5/5 REFLEXES: Patellar 2/4 B/L; Achilles absent B/L. BABINSKI: Down. CLONUS: NEG. DP: 2/2. SENSATION: Intact. SLR RIGHT: POS at 30 B/L. LEFT: NEG. HIP ROM: Full. OBI'S: NEG. Neurologic Exam Mental Status Oriented to person, place, and time. Cranial Nerves CN III, IV, Extraocular motions are normal. Today, 07/09/2014, I ordered plain radiographs and I independently reviewed the following: Plain radiographs (AP/Lat/Flex/Ex): 1. Five (5) non-rib bearing lumbar vertebrae 2. Facet arthropathy of the lower lumbar spine 3. Disc height reduction at L4-L5 and L5-S1 with minor anterior osteophyte formation conistent withdegenerative disc disease 4. No fractures or pars defects noted MRI from prior work up in May 2014: L4-L5: right paracentral disc herniation causing severe central spinal canal stenosis L5-S1: central disc herniation w/o significant central spinal canal stenosis or neuroforaminal narrowing Assessment 39 y.o. male s/p L4-L5 discectomy in November 2013, presents with predominent B/L LE pain along the L5 dermatomes consistent with nerve root impingement at the L4-L5 level causing severe central spinal canal stenosis. MRI reveals right paracentral disc herniation, but patient's LLE symptoms started after his MRI in May 2014. He is definitely a surgical candidate; new MRI is needed for assessment of new symptoms. He has agreed to the following plan. Other Orders Placed This Visit Procedures ??? MR SPINE-LUMBAR AND CONTENTS Plan: 1. Order MRI with contrast 2. Continue activity as tolerated 3. Return to clinic post MRI and FU with Dr. Betancourt for surgical consultation (chart reviewed already with Dr. Betancourt) CC: Dr. Sincere Rasmussen was the attending physician available in the clinic today if needed. A consultation was not required. documented in this encounter Plan of Treatment Not on file documented as of this encounter Procedures Procedure Name Priority Date/Time Associated Diagnosis Comments MR LUMBAR SPINE W/WO CONTRAST 08/08/2014 8:15 EST documented in this encounter Results * MR LUMBAR SPINE W/WO CONTRAST (08/08/2014 8:15 EST) Anatomical Region Laterality Modality Other 08/08/2014 8:15 EST 08/08/2014 11:27 EST Narrative 08/08/2014 11:27 EST MRI of the lumbar spine August 08, 2014. History: Low back pain radiating to legs. Comparison: June 06, 2014. Technique: Routine multiplanar pre-and postgadolinium MR imaging of the lumbar spine was acquired. Findings: Signal within the cervical and thoracic cord is normal on the localizer view. Evaluation of the retroperitoneal structures is unremarkable. There is no significant scoliotic curvature. The conus terminates at L1. Signal in the distal spinal cord is normal. Alignment of the lumbar vertebral bodies is anatomic. Disc space narrowing is present at L4-L5 and L5-S1 and there are associated degenerative endplate changes reflecting disc degeneration. There is evidence of prior laminotomy at the L4-L5 level. On the STIR imaging no focal marrow signal abnormalities are present the on degenerative endplate changes at the L4-L5 level. At L2-L3 there is no focal herniation, central canal stenosis, or foraminal impingement. At L3-L4 mild disc bulge is present without focal herniation or central canal stenosis and there is no foraminal impingement. At L4-L5 there is enhancing granulation tissue within the ventral epidural space. This results in encroachment on the right lateral recess in close proximity to the descending right L5 nerve root. The postgadolinium imaging does not demonstrate the presence of a discrete risk current disc herniation the central canal is moderately narrowed in association with epidural lipomatosis. Mild bilateral foraminal narrowing is present. At L5-S1 there is a central disc herniation. There is a small amount of adjacent enhancement within the epidural space which may be elevation of the venous plexus in the absence of history of surgery at this level. There is no significant central canal stenosis. Mild bilateral foraminal narrowing is present associated with facet hypertrophy. Impression: 1. Postoperative changes at the L4-L5 level including enhancing granulation tissue in the epidural space in close proximity to the right L5 nerve root in the lateral recess. No definite recurrent disc herniation is identified at this level. 2. Central disc herniation at L5-S1 without significant central canal compromise. Procedure Note 08/08/2014 MRI of the lumbar spine August 08, 2014. History: Low back pain radiating to legs. Comparison: June 06, 2014. Technique: Routine multiplanar pre-and postgadolinium MR imaging of the lumbar spine was acquired. Findings: Signal within the cervical and thoracic cord is normal on the localizer view. Evaluation of the retroperitoneal structures is unremarkable. There is no significant scoliotic curvature. The conus terminates at L1. Signal in the distal spinal cord is normal. Alignment of the lumbar vertebral bodies is anatomic. Disc space narrowing is present at L4-L5 and L5-S1 and there are associated degenerative endplate changes reflecting disc degeneration. There is evidence of prior laminotomy at the L4-L5 level. On the STIR imaging no focal marrow signal abnormalities are present the on degenerative endplate changes at the L4-L5 level. At L2-L3 there is no focal herniation, central canal stenosis, or foraminal impingement. At L3-L4 mild disc bulge is present without focal herniation or central canal stenosis and there is no foraminal impingement. At L4-L5 there is enhancing granulation tissue within the ventral epidural space. This results in encroachment on the right lateral recess in close proximity to the descending right L5 nerve root. The postgadolinium imaging does not demonstrate the presence of a discrete risk current disc herniation the central canal is moderately narrowed in association with epidural lipomatosis. Mild bilateral foraminal narrowing is present. At L5-S1 there is a central disc herniation. There is a small amount of adjacent enhancement within the epidural space which may be elevation of the venous plexus in the absence of history of surgery at this level. There is no significant central canal stenosis. Mild bilateral foraminal narrowing is present associated with facet hypertrophy. Impression: 1. Postoperative changes at the L4-L5 level including enhancing granulation tissue in the epidural space in close proximity to the right L5 nerve root in the lateral recess. No definite recurrent disc herniation is identified at this level. 2. Central disc herniation at L5-S1 without significant central canal compromise. Milady Bustamante PA-C IMG MRI ORDERA BLES documented in this encounter Visit Diagnoses Diagnosis Low back pain radiating to both legs- Primary Lumbago documented in this encounter Historical Medications * [...] mg by mouth every 4 hours. 12/30/2014 added in this encounter Care Teams Square Cutter Relationship Specialty Start Date End Date Luis Hadley DO [address] [place] [address] PCP - General 07/08/14 10/15/15 documented as of this encounter
--- NOTE | 2024-05-14 04:00 | NUR.NOTE ---
Opened chart to look up patient pcp to fax RX prior auth request.Nursing Note:
== END 2024-05-08 11:54 | disposition home or self-care (01) ==
LOC: ER 11:48
PROVIDERS: Emergency Provider Physician Assistant; PCP Student in an Organized Health Care Education/Training Program
DX: S00.412A Abrasion of left ear, initial encounter (principal); I10 Essential (primary) hypertension; G40.909 Epilepsy, unspecified, not intractable, without status epilepticus; E05.00 Thyrotoxicosis with diffuse goiter without thyrotoxic crisis or storm; F31.9 Bipolar disorder, unspecified; F17.290 Nicotine dependence, other tobacco product, uncomplicated; X58.XXXA Exposure to other specified factors, initial encounter; Y93.89 Activity, other specified
CPT/HCPCS: 99283

== ENCOUNTER 2024-05-24 07:46 | Emergency (ER) | payer MEDICAID, SELFPAY ==
[2024-05-24 07:49] VITALS: BP 133/87; PULSE 82; RESP 14; TEMP 36.9; O2SAT 100
--- NOTE | 2024-05-24 08:01 | ED.GENADUL_ITS ---
Discharge Plan Disposition Patient Disposition: Home Condition: Stable Discharge Details Clinical Impression: Abscess of leg, right Primary Care Provider: Blaine Villatoro ED Provider: David Burdick Home Meds and New Rx's Prescriptions: New sulfamethoxazole-trimethoprim [Bactrim DS] 800-160 mg tablet 1 tab PO BID Qty: 14 0RF Continued propranolol 60 mg capsule,extended release 24 hr 60 mg PO DAILY nicotine (polacrilex) 4 mg gum 4 mg buccal Q2H PRN lamotrigine 25 mg tablet 300 mg PO DAILY methimazole 10 mg tablet 40 mg PO DAILY Patient Comments: TAKE ONE TABLET BY MOUTH EVERY 8 HOURS Discharge Instructions Additional Instructions: Try to sit your leg in water a couple times a day for the next few days. If still like symptoms in a week follow-up with your primary care provider Return to the emergency department if you have severe worsening pain or persistent high fevers. HPI General Mode of arrival: ambulatory . Date/Time Provider Initiated Documentation: 05/24/24 07:48 . Limitations to Documentation: no limitations . Information obtained by: patient . History of Present Illness 49 year old M presents to the emergency department with the chief complaint of right calf abscess, described as moderate, Patient started experiencing this day(s) (3) and it has been constant. No relieving factors improve symptom(s), No exacerbating factors reported . Patient notes denies chest pain and shortness of breath. Patient did receive the following treatments prior to arrival, none Related Data Home Medications ?Medication ?Instructions ?Recorded ?Confirmed propranolol 60 mg capsule,24 60 mg PO DAILY 01/18/23 05/24/24 hr,extended release nicotine (polacrilex) 4 mg gum 4 mg buccal Q2H PRN 02/25/23 05/24/24 lamotrigine 25 mg tablet 300 mg PO DAILY 11/22/23 05/24/24 methimazole 10 mg tablet 40 mg PO DAILY 11/28/23 05/24/24 sulfamethoxazole 800 1 tab PO BID #14 tabs 05/24/24 mg-trimethoprim 160 mg tablet (Bactrim DS) Previous Rx's ?Medication ?Instructions ?Recorded sulfamethoxazole 800 1 tab PO BID #14 tabs 05/24/24 mg-trimethoprim 160 mg tablet (Bactrim DS) Allergies Allergy/AdvReac Type Severity Reaction Status Date / Time colchicine AdvReac INTOLERANT Verified 05/24/24 07:56 General Stated Complaint: InsectBite LUCHO: 3 Review of Systems All systems reviewed & are unremarkable except as noted in HPI and below Constitutional Constitutional: Denies chills, Denies fever(s) and Denies weakness Cardiovascular Cardiovascular: Denies chest pain and Denies dyspnea Respiratory Respiratory: Denies cough and Denies dyspnea Gastrointestinal Gastrointestinal: Denies abdominal pain, Denies nausea and Denies vomiting Integumentary/Breasts Skin/Breast: Reports other (abscess) Neurologic Neurologic: Denies weakness Psychiatric Psychiatric: Denies depression Exam Const General: no acute distress Orientation: alert HENMT Head: normal to inspection Ears: external ears normal General nose exam: external nose normal Mouth: moist mucous membranes Eyes General: appearance normal, both eyes and all related structures Neck Neck: normal visual inspection Resp Effort & Inspection: normal respiratory effort and able to speak in complete sentences Cardio Rate: regular rate Skin General skin exam: other (abscess) Neuro General: patient alert and patient oriented x3 Extrem General: normal to inspection Psych Mental Status: mental status grossly normal Course Vital Signs Vital signs: Vital Signs Temperature 36.9 C 05/24/24 07:49 Pulse 82 05/24/24 07:49 Respiratory Rate 14 05/24/24 07:49 Blood Pressure 133/87 05/24/24 07:49 Pulse Oximetry 100 05/24/24 07:49 Temperature 36.9 C 05/24/24 07:49 Temperature Source Temporal Artery Scan 05/24/24 07:49 Pulse 82 05/24/24 07:49 Respiratory Rate 14 05/24/24 07:49 Respiratory Effort Normal 05/24/24 07:56 Blood Pressure 133/87 05/24/24 07:49 Blood Pressure Position Sitting 05/24/24 07:49 Pulse Oximetry 100 05/24/24 07:49 Oxygen Delivery Method Room Air 05/24/24 07:49 Oxygen Flow Rate 0 05/24/24 07:49 Pain Level 8 05/24/24 07:49 Comment taking ibuprofen but none today 05/24/24 07:49 Procedures Abscess I/D Site: Lower Extremity Side (if applicable): Right Local Anesthetic: Lidocaine 1% Amount of anesthesia used (mL): 6 Technique: Incised with #11 Blade Amount of fluid expressed (mL): 8 Irrigation: Yes Packing used?: None Complications: Pain Medical Decision Making 49-year-old male comes in with a lesion on his right lower calf for few days. He denies any high fevers, no chills. He denies any IV drug use. He is alert oriented x 4 on arrival and appears well. He has a 2 x 3 cm erythematous fluctuant lesion on the right superior calf with no significant surrounding erythema. Exam is consistent with an abscess, will plan for I&D. He has no crepitus or systemic symptoms to suggest sepsis or necrotizing fascitis Under sterile technique I incised the abscess with an 11 blade and had purulent material return. Patient stable and will try and soak the area for a few days I will keep it open. Return precautions given Differential Diagnosis Differential Diagnosis: absess, cellulitis Quality:SDOH Health Related Social Needs: No Data to Display PFSH All Active Problems (Updated 05/24/24 @ 08:35 by David Burdick MD) Abscess of leg, right (Acute) Trauma of ear canal (Acute) Anemia, mild (Acute) Dysphagia (Acute) Left radial nerve palsy (Acute) Other specified symptoms and signs involving the circulatory and respiratory systems (Acute) Family history of thyroid disease (Acute) Unintentional weight loss (Acute) Dysphasia (Acute) Subcutaneous nodule of left foot (Acute) Hyperthyroidism (Chronic) Anemia (Chronic) Skin nodule (Acute) Blood in stool (Acute) Umbilical hernia (Acute) Contusion of right hand, initial encounter (Acute ~10/09/19) Medical History Hyperthyroidism determined by thyroid function test Seizure Disc disease, degenerative, lumbar or lumbosacral Chronic alcoholism Graves disease Back pain 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 01/05 Chewing tobacco use Bipolar affective disorder Degenerative joint disease (DJD) of lumbar spine Alcoholic hepatitis Alcohol abuse sober >1 year Gout HTN (hypertension) Surgical History H/O umbilical hernia repair 2020 H/O microdiscectomy L4-L5 2013 History of hand surgery History of back surgery History of arthroscopy of knee Family History (Updated 11/22/23 @ 09:24 by Sharmin Ambrose) Sister Depression BIPOLAR Mother Family history of hypercholesterolemia Father Family hx of lung cancer Social History Smoking/Tobacco Use Status: Current every day Tobacco Type: smokeless tobacco Smokeless tobacco user: chewing tobacco Smoking risk assessment performed?: Yes Alcohol Intake: former Year quit: 2020 Drug use: Daily Substance use type: marijuana and crack/cocaine Details: marijuana last use 11/26/23, cocaine last use around 11/24/23. Housing: apartment Do you feel safe at home: Yes Do you feel safe in your relationship?: Yes
[2024-05-24] MEDS: Lidocaine/Epinephri/Tetracaine Topical Gel 3 ML TP (08:05)
== END 2024-05-24 09:17 | disposition home or self-care (01) ==
PROVIDERS: Emergency Provider Emergency Medicine; PCP Student in an Organized Health Care Education/Training Program
DX: L02.415 Cutaneous abscess of right lower limb (principal); Z23 Encounter for immunization
CPT/HCPCS: 10060; 90715; 99283

== ENCOUNTER 2024-10-09 11:27 | Outpatient (CLI) | payer MEDICAID, SELFPAY ==
[2024-10-09 12:20] LABS: TSH 6.94 uIU/mL (0.36-3.74)
[2024-10-09 18:13] LABS: T4, Free 0.8 ng/dL (0.8-2.2)
[2024-10-09 18:25] LABS: T3, Total 139 ng/dL (97-169)
== END 2024-10-09 11:28 | disposition home or self-care (01) ==
LOC: LBO 11:27
PROVIDERS: PCP Student in an Organized Health Care Education/Training Program; Visit Provider Internal Medicine Endocrinology, Diabetes & Metabolism
DX: E05.00 Thyrotoxicosis with diffuse goiter without thyrotoxic crisis or storm (principal); H57.89 Other specified disorders of eye and adnexa
CPT/HCPCS: 36415; 84439; 84443; 84480

== ENCOUNTER 2024-11-19 14:12 | Outpatient (CLI) | payer MEDICAID, SELFPAY ==
[2024-11-19 14:08] LABS: FREE T4 0.71 ng/dL (0.76-1.46); TSH 2.34 uIU/mL (0.36-3.74)
[2024-11-19 23:08] LABS: T3, Total 114 ng/dL (97-169)
== END 2024-11-19 14:13 | disposition home or self-care (01) ==
LOC: LBO 14:13
PROVIDERS: PCP Student in an Organized Health Care Education/Training Program; Visit Provider Internal Medicine Endocrinology, Diabetes & Metabolism
DX: E05.00 Thyrotoxicosis with diffuse goiter without thyrotoxic crisis or storm (principal); H57.89 Other specified disorders of eye and adnexa
CPT/HCPCS: 36415; 84439; 84443; 84480

== ENCOUNTER 2025-01-14 15:51 | Outpatient (CLI) | payer MEDICAID, SELFPAY ==
[2025-01-14 16:59] LABS: COMMENT (LAB VIEW ONLY) 111.35 mg/dL; Microalb ug/mg Crea 17.2 ug/mg Cr
[2025-01-14 17:02] LABS: ALT 24 U/L (16-63); AST 16 U/L (15-37); Albumin 4.2 g/dL (3.4-5.0); Alkaline Phosphatase 60 U/L (46-116); Anion Gap 7.4 mmol/L (3-11); BUN 13 mg/dL (7-18); Bilirubin, Total 0.6 mg/dL (0.2-1.0); CO2 26.6 mmol/L (21.0-32.0); CREATININE 1.1 mg/dL (0.70-1.30); Calcium 8.6 mg/dL (8.5-10.1); Chloride 106 mmol/L (98-107); Estimated GFR 83.32 (mL/min/1.73m2); Glucose 104 mg/dL (74-106); Potassium 4.5 mmol/L (3.5-5.1); Sodium 140 mmol/L (136-145); Total Protein 7.5 g/dL (6.4-8.2)
== END 2025-01-14 15:52 | disposition home or self-care (01) ==
LOC: LBO 15:52
PROVIDERS: PCP Student in an Organized Health Care Education/Training Program; Visit Provider Student in an Organized Health Care Education/Training Program
DX: I10 Essential (primary) hypertension (principal)
CPT/HCPCS: 36415; 80053; 82043; 82570

== ENCOUNTER 2025-01-19 09:42 | Emergency (ER) | payer MEDICAID, SELFPAY ==
[2025-01-19 09:44] VITALS: BP 118/72; PULSE 89; RESP 20; O2SAT 96
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
[2025-01-19] MEDS: Lidocaine 2% Multi-Dose 20 ML VIAL IJ (10:42)
== END 2025-01-19 10:36 | disposition left against medical advice (07) ==
LOC: ER 10:41
PROVIDERS: Emergency Provider Emergency Medicine; PCP Student in an Organized Health Care Education/Training Program
DX: S61.215A Laceration without foreign body of left ring finger without damage to nail, initial encounter (principal); S60.221A Contusion of right hand, initial encounter; S00.81XA Abrasion of other part of head, initial encounter; F17.220 Nicotine dependence, chewing tobacco, uncomplicated; I10 Essential (primary) hypertension; E05.90 Thyrotoxicosis, unspecified without thyrotoxic crisis or storm; W51.XXXA Accidental striking against or bumped into by another person, initial encounter
CPT/HCPCS: 12001; 99283; J2003

== ENCOUNTER 2025-04-16 12:45 | Outpatient (CLI) | payer MEDICAID, SELFPAY ==
[2025-04-16 13:31] LABS: TSH 0.23 uIU/mL (0.36-3.74)
[2025-04-16 22:20] LABS: T3,Free 3.8 pg/mL (2.8-5.3)
== END 2025-04-16 12:46 | disposition home or self-care (01) ==
LOC: LBO 12:46
PROVIDERS: PCP Student in an Organized Health Care Education/Training Program; Visit Provider Internal Medicine Endocrinology, Diabetes & Metabolism
DX: E05.90 Thyrotoxicosis, unspecified without thyrotoxic crisis or storm (principal)
CPT/HCPCS: 36415; 84439; 84443; 84481